=== PATIENT | male | born 1955 | race Two or more races ===

== ENCOUNTER → 2020-03-11 13:04 | Outpatient (BNVA) | payer OTHER, MEDICARE, SELFPAY | PROVIDERS: PCP Internal Medicine; Referring Provider Internal Medicine; Visit Provider Nurse Practitioner | DX: Z76.89 Persons encountering health services in other specified circumstances (principal) ==

== ENCOUNTER 2020-04-30 10:21 | Outpatient (REF) | payer MEDICARE, OTHER, SELFPAY ==
--- NOTE | 2020-04-30 10:24 | US_ITS ---
EXAMINATION: US RETROPERITONEAL LIMITED (RENAL ONLY) CLINICAL INFORMATION: Renal stone. COMPARISON: Ultrasounds renal only dated 04/04/2019 and 10/14/2017. CT abdomen and pelvis without contrast dated 09/19/2017. KUB dated 05/13/2016 and 09/04/2015. TECHNIQUE: Real-time imaging of the kidneys. FINDINGS: RIGHT KIDNEY: 10.7 x 6.1 x 6.2 cm (SAG x AP x TRV). The kidney is normal in size, contour, and echogenicity. Renal cortical thickness is normal. No renal calculi or hydronephrosis. At the lower pole, a 1.9 cm maximal diameter simple cyst is seen. LEFT KIDNEY: 12.4 x 6.0 x 4.7 cm (SAG x AP x TRV). The kidney is normal in size, contour, and echogenicity. Renal cortical thickness is normal. No calculi or focal parenchymal lesions. No hydronephrosis. US/US renal BI IMPRESSION: 1. No renal calculus or hydronephrosis is seen bilaterally. 2. A simple right renal cyst is of incidental note.
== END 2020-04-30 10:22 | disposition home or self-care (01) ==
LOC: HO.US 10:21
PROVIDERS: PCP Internal Medicine; Visit Provider Urology
DX: N20.0 Calculus of kidney (principal)
CPT/HCPCS: 76775

== ENCOUNTER 2020-05-03 08:23 | Outpatient (REF) | payer MEDICARE, OTHER, SELFPAY ==
[2020-05-03 09:20] LABS: Cholesterol 198 mg/dL; HDL Cholesterol 40 mg/dL; LDL Cholesterol Calculated 126 mg/dl; Triglycerides 164 mg/dL
[2020-05-03 09:43] LABS: PSA,Total (Free>4and<10) 2.06 ng/mL (0.00-4.00)
== END 2020-05-03 08:24 | disposition home or self-care (01) ==
LOC: HO.LAB 08:23
PROVIDERS: Absent Provider Urology; PCP Internal Medicine; Visit Provider Internal Medicine
DX: E78.5 Hyperlipidemia, unspecified (principal); N40.1 Benign prostatic hyperplasia with lower urinary tract symptoms; Z12.5 Encounter for screening for malignant neoplasm of prostate
CPT/HCPCS: 36415; 80061; 84153

== ENCOUNTER → 2020-06-07 13:17 | Outpatient (BNVA) | payer OTHER, MEDICARE, SELFPAY | PROVIDERS: PCP Internal Medicine; Visit Provider Urology ==

== ENCOUNTER 2020-06-12 15:36 | Emergency (ER) | payer OTHER, SELFPAY ==
[2020-06-12 15:39] VITALS: BP 137/81; PULSE 90; RESP 16; TEMP 36.8; O2SAT 98; BMI 32.0
== END 2020-06-12 21:27 | disposition left against medical advice (07) ==
LOC: HO.ED 20:51
PROVIDERS: Emergency Provider Emergency Medicine; PCP Internal Medicine
DX: R10.9 Unspecified abdominal pain (principal)
CPT/HCPCS: 99282

== ENCOUNTER 2020-06-14 05:11 | Emergency (ER) | payer OTHER, MEDICARE, SELFPAY ==
[2020-06-14 05:16] VITALS: BP 145/88; PULSE 83; RESP 16; TEMP 36.6; O2SAT 97; BMI 35.8
--- NOTE | 2020-06-14 05:45 | ED_ITS ---
HPI - URI/Sore Throat General Chief Complaint: Upper Respiratory Symptoms Stated Complaint: SORE THROAT Time Seen by Provider: 06/14/20 05:34 History of Present Illness HPI Narrative: Patient is a 65-year-old male presenting today with having sore throat that is been ongoing for the last 2 days. Patient denies any coughing congestion upper respiratory symptom. Actually had his 1st coronavirus vaccine about 10 days ago. History of having strep throat every year. Tolerate p.o. Related Data Home Medications Medication Instructions Recorded Confirmed ammonium lactate 12 % topical cream applic TOPICAL BID 01/02/20 04/02/20 omeprazole 40 mg capsule,delayed 40 mg PO BID 01/02/20 04/02/20 release Previous Rx's Medication Instructions Recorded suvorexant 5 mg tablet 5 mg PO BEDTIME PRN #30 tab 01/04/20 suvorexant 5 mg tablet 5 mg PO BEDTIME #90 tab 01/30/20 [id number] 1 cap PO QID #120 cap 03/18/20 24,000-76,000-120,000 unit capsule,delayed rel cyclobenzaprine 10 mg tablet 10 mg PO TID #90 tab 04/05/20 tamsulosin 0.4 mg capsule 0.4 mg PO DAILY 90 Days #90 cap 04/29/20 penicillin V potassium 500 mg PO TID 10 Days #30 tab 06/14/20 Allergies Allergy/AdvReac Type Severity Reaction Status Date / Time lovastatin Allergy Unknown GI upset Verified 03/11/20 13:04 Review of Systems Review of Systems: Constitutional: No Weight loss, No Fever, No Chills, No Night Sweats, No Fatigue, No Malaise ENT/Mouth: No Hearing loss, No Ear Pain, No Nasal Congestion, No Sinus Pain, No Hoarseness, positive sore throat Eyes: No Eye Pain, No Swelling, No Redness, No Foreign Body, No Discharge, No Vision Changes Cardiovascular: No Chest Pain, No SOB, No Dyspnea on Exertion, No Orthopnea, No Edema, No Palpitations Respiratory: No Cough, No Sputum, No Wheezing, No Smoke Exposure, No Dyspnea Gastrointestinal: No Nausea, No Vomiting, No Diarrhea, No Constipation, No abdominal Pain, No Hematochezia, No Melena Genitourinary: no irregular bleeding, No Dysuria, No Urinary Frequency, No Hematuria, No Urinary Incontinence, No Urgency, No Flank Pain, No Urinary Flow Changes, No Hesitancy Musculoskeletal: No joint pain, No Myalgias, No Joint Swelling Skin: No Skin Lesions, No rash Neuro: No Weakness, No Numbness, No Paresthesias, No Loss of Consciousness, No Dizziness, No Headache Psych: No Anxiety/Panic, No Depression, No SI/HI/AH/VH, No Social Issues, Heme/Lymph: No Bruising, No Bleeding,No Lymphadenopathy Endocrine: No Polyuria, No Polydipsia, No Temperature Intolerance [facility] Past Medical History Medical History BPH loc w urin obs/LUTS Chronic superficial gastritis without bleeding Insomnia Other obstructive and reflux uropathy Renal stones Surgical History History of appendectomy History of esophagogastroduodenoscopy (EGD) Hx of colonoscopy Family History Family History Father No problems noted. Mother HTN (hypertension) Asthma Sister HTN (hypertension) Throat cancer Social History Social History Alcohol intake: current Alcohol intake frequency: does not drink Smoking Status: Never smoker Advance Directives: No Advance Directives Information Provided: No Physical Exam Vital Signs: Vital Signs: Last Vital Signs Temp 98 F 06/14/20 05:16 Pulse 83 06/14/20 05:16 Resp 16 06/14/20 05:16 BP 145/88 H 06/14/20 05:16 Pulse Ox 97 06/14/20 05:16 Body Mass Index 35.8 Appearance: Alert. Oriented X3. No acute distress. Eyes: Pupils equal, round and reactive to light. ENT: Positive erythema bilateral posterior pharynx. There is exudate noted. Neck: Normal inspection. Neck supple. No lymph nodes noted. No crepitus CVS: Normal heart rate and rhythm. Pulses normal. Normal S1 and S2 Respiratory: No respiratory distress. Breath sounds normal. No Wheezing. No rales Abdomen: Soft and nontender. No rigidity. No distention. good BS x4 Skin: Skin warm and dry. Normal skin color. Normal skin turgor. Extremities: No lower extremity edema. Neurovascular intact to all extremities. No Lacerations. No Rash Neuro: Oriented X 3. No motor deficit. No sensory deficit. Moving all extermities. No slurred speech MDM - URI/Sore Throat MDM Narrative Medical decision making narrative: Symptoms consistent with having pharyngitis. Given the redness and the exudate. Despite the rapid strep being negative patient was given penicillin. Will discharge patient home. Currently in stable condition. Discharge Plan Discharge Clinical Impression: Pharyngitis Patient Disposition: Home, Self-Care Instructions: Pharyngitis (ED) Prescriptions: New penicillin V potassium 500 mg tablet 500 mg PO TID 10 Days Qty: 30 RF: 0 No Action suvorexant 5 mg tablet 5 mg PO BEDTIME PRN (Reason: insomnia) Qty: 30 RF: 0 Belsomra 5 mg tablet 5 mg PO BEDTIME Qty: 90 RF: 5 ejembf-jyqaukkp-ijbausi [Creon] 24,000-76,000 -120,000 unit capsule,delayed release(DR/EC) 1 cap PO QID Qty: 120 RF: 1 cyclobenzaprine 10 mg tablet 10 mg PO TID Qty: 90 RF: 8 tamsulosin 0.4 mg capsule 0.4 mg PO DAILY 90 Days Qty: 90 RF: 2 omeprazole 40 mg capsule,delayed release(DR/EC) 40 mg PO BID RF: 0 ammonium lactate 12 % cream topical BID RF: 0 Referrals: Jose Hernandez MD [Primary Care Provider] - 2 days
[2020-06-14 06:53] LABS: Influenza A PCR NEGATIVE (Negative); Influenza B PCR NEGATIVE (Negative); Resp Syncy Virus RNA Qual PCR NEGATIVE (Negative); SARS COV2 PCR INHOUSE NEGATIVE (Negative)
== END 2020-06-14 06:37 | disposition home or self-care (01) ==
LOC: HO.ED 05:57
PROVIDERS: Emergency Provider Emergency Medicine Emergency Medical Services; PCP Internal Medicine
DX: J02.9 Acute pharyngitis, unspecified (principal); Z20.822 Contact with and (suspected) exposure to COVID-19
CPT/HCPCS: 0241U; 36415; 87071; 87880; 99283

== ENCOUNTER 2020-07-03 15:14 | Outpatient (REF) | payer MEDICARE, OTHER, SELFPAY ==
[2020-07-03 16:56] LABS: Glucose Urine UA NEG (NEG); Leukocyte Esterase Urine NEG (NEG); Nitrite Urine NEG (NEG); Specific Gravity - Urine 1.025 (1.005-1.025); Urine Blood NEG (NEG); Urine Ketones NEG (NEG); Urine Protein NEG (NEG-TRACE)
[2020-07-03 16:59] LABS: Appearance Urine CLEAR; Color Urine YELLOW
== END 2020-07-03 15:15 | disposition home or self-care (01) ==
LOC: HO.LAB 15:14
PROVIDERS: PCP Internal Medicine; Visit Provider Nurse Practitioner
DX: R35.0 Frequency of micturition (principal); R10.9 Unspecified abdominal pain; K58.9 Irritable bowel syndrome, unspecified; R14.0 Abdominal distension (gaseous); K21.9 Gastro-esophageal reflux disease without esophagitis; D12.6 Benign neoplasm of colon, unspecified
CPT/HCPCS: 81003; 99212

== ENCOUNTER 2020-08-07 11:24 | Emergency (ER) | payer OTHER, MEDICARE, SELFPAY ==
--- NOTE | ~2020-08-07 | CT_ITS ---
EXAMINATION: CT ABDOMEN AND PELVIS WITHOUT CONTRAST CLINICAL INFORMATION: Abdominal and flank pain. COMPARISON: Renal ultrasound 04/30/2020. CT abdomen and pelvis 09/19/2017 TECHNIQUE: Multidetector volumetric imaging was performed from the superior aspect of the liver through the pubic symphysis. Sagittal and coronal reformatted images were obtained on the technologist's workstation. This CT examination was performed using dose optimization techniques as appropriate, variously including the following: *Automated exposure control *Adjustment of mA and/or kV according to patient size (this includes techniques or standardized protocols for targeted exams where dose is matched to indication/reason for exam; i.e. extremities or head) *Use of iterative reconstruction technique DLP: 663 mGy-cm FINDINGS: LUNG BASES: There is right middle lobe atelectasis. The lung bases are clear. LIVER, GALLBLADDER, AND BILIARY TREE: The liver is normal in size, shape, and attenuation. No focal hepatic lesion or biliary ductal dilatation is present. The gallbladder is unremarkable with no evidence of radiopaque gallstones, gallbladder wall thickening, or obvious pericholecystic inflammatory changes. PANCREAS: Unremarkable. SPLEEN: The spleen is unremarkable. A small accessory splenule is seen adjacent to the hilum. ADRENAL GLANDS: Unremarkable. KIDNEYS AND URETERS: The kidneys are normal in size, shape, and attenuation. No hydronephrosis, hydroureter, or calculi seen. No perinephric stranding. There is a 1.5 cm hypodense lesion measuring 0 Hounsfield units lower pole right kidney likely simple cyst. BLADDER: Unremarkable. GASTROINTESTINAL TRACT: There is scattered stool seen throughout the colon and small bowel loops without distention. There is scattered colonic diverticulosis without diverticulitis. No free air or free fluid seen. There is diffuse haziness in the mesentery inferior to the pancreas in the upper abdomen, suggestive of enteritis. No abnormal mesenteric lymph nodes seen. ABDOMINAL WALL: There is a small umbilical hernia containing fat. LYMPH NODES: Normal. VASCULAR: Unremarkable. PELVIC VISCERA: There is mild prostate enlargement with central gland calcification.. OSSEOUS STRUCTURES: There is a grade 1 anterolisthesis L5 over S1 with degenerative L5-S1 disc changes. No lytic or sclerotic process seen. CT/CT abdomen pelvis wo con IMPRESSION: No acute intrapelvic process seen. There is mild upper abdomen mesenteric haziness inferior the pancreas likely nonspecific mesenteritis. Colonic diverticulosis without diverticulitis. Small umbilical hernia containing fat. Simple cyst lower pole right kidney.
[2020-08-07 11:28] VITALS: BP 142/85; PULSE 83; RESP 18; TEMP 36.6; O2SAT 98; BMI 32.0
[2020-08-07 12:00] VITALS: BP 129/77; PULSE 67; O2SAT 100
--- NOTE | 2020-08-07 12:17 | ED.ABDPAIN ---
HPI - Abdominal Pain General Source: patient, RN notes reviewed and old records reviewed Mode of arrival: ambulatory Limitations: no limitations History of Present Illness HPI narrative: 65-year-old male with past medical history of urinary frequencies, BPH, renal stones, IBS, abdominal bulging, GERD, tubular adenoma of colon, hyperlipidemia for complaining of right lower quadrant pain. Patient had appendectomy in 2005. Patient has a history of stent placement with removal followed by lithotripsy in 2017. Denies any nausea, vomiting, abdominal bloating, discomfort, dyspepsia, odynophagia, dysphagia. Denies any fever or chills. 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 Recent colonoscopy showed diverticulosis without diverticulitis. Patient reports that he has bowel movements normally, no constipation or diarrhea. He reports that he had urinary urgency in the middle of the night, however he was unable to void. Drink some fluids and was able to void few hours later. Patient denies any blood in his urine. His stools are negative for melena or blood. Denies any exposure to COVID. MD elicited complaint: abdominal pain Related Data Home Medications Medication Instructions Recorded Confirmed ammonium lactate 12 % topical cream applic TOPICAL BID 01/02/20 08/09/20 omeprazole 40 mg capsule,delayed 40 mg PO BID 01/02/20 08/09/20 release melatonin 1 mg tablet 2 mg PO BEDTIME PRN tab 07/03/20 08/09/20 naproxen sodium 275 mg tablet 550 mg PO Q12H tab 08/09/20 08/09/20 Previous Rx's Medication Instructions Recorded cyclobenzaprine 10 mg tablet 10 mg PO TID #90 tab 04/05/20 tamsulosin 0.4 mg capsule 0.4 mg PO DAILY 90 Days #90 cap 04/29/20 penicillin V potassium 500 mg PO TID 10 Days #30 tab 06/14/20 suvorexant 5 mg tablet 5 mg PO BEDTIME #90 tab 07/29/20 rvlqix-glmaylbo-pafkiat 1 cap PO QID #120 cap 08/09/20 24,000-76,000-120,000 unit capsule,delayed rel Allergies Allergy/AdvReac Type Severity Reaction Status Date / Time lovastatin Allergy Unknown GI upset Verified 08/09/20 09:41 Review of Systems Review of Systems Constitutional : No Weight loss, No Fever, No Chills, No Night Sweats, No Fatigue, No Malaise ENT/Mouth : No Hearing loss, No Ear Pain, No Nasal Congestion, No Sinus Pain, No Hoarseness, No sore throat, No Rhinorrhea, No Swallowing Difficulty Eyes: No Eye Pain, No Swelling, No Redness, No Foreign Body, No Discharge, No Vision Changes Cardiovascular : No Chest Pain, No SOB, No Dyspnea on Exertion, No Orthopnea, No Edema, No Palpitations Respiratory : No Cough, No Sputum, No Wheezing, No Smoke Exposure, No Dyspnea Gastrointestinal : No Nausea, No Vomiting, No Diarrhea, No Constipation, abdominal Pain, No Hematochezia, No Melena Genitourinary : no irregular bleeding, No Dysuria, No Urinary Frequency, No Hematuria, No Urinary Incontinence, No Urgency, No Flank Pain, No Urinary Flow Changes, No Hesitancy Musculoskeletal : No joint pain, No Myalgias, No Joint Swelling Skin : No Skin Lesions, No rash Neuro : No Weakness, No Numbness, No Paresthesias, No Loss of Consciousness, No Dizziness, No Headache Psych : No Anxiety/Panic, No Depression, No SI/HI/AH/VH, No Social Issues, Heme/Lymph: No Bruising, No Bleeding,No Lymphadenopathy Endocrine : No Polyuria, No Polydipsia, No Temperature Intolerance Yes all other systems are reviewed and are negative Physical Exam Vital Signs: Vital Signs: Last Vital Signs Temp 97.9 F 08/07/20 11:28 Pulse 67 08/07/20 13:52 Resp 18 08/07/20 11:28 BP 130/84 08/07/20 13:52 Pulse Ox 100 08/07/20 13:52 Body Mass Index 32.0 Const: General: healthy appearing, no acute distress and well developed Nutritional Appearance: well nourished Orientation/consciousness: patient oriented x3 Neck: Neck: Yes normal visual inspection, Yes full ROM and Yes trachea midline Thyroid: Thyroid normal Resp: Auscultation: clear to auscultation bilaterally Cardio: Rate: regular rate Rhythm: regular rhythm GI: Inspection: Yes normal to inspection and No distended Palpation (GI): nontender and No hepatosplenomegaly present Auscultation: normal bowel sounds Skin: General skin exam: elasticity normal, turgor normal and dry skin Neuro: General: patient oriented x3 Course Course Course Narrative: 65-year-old male here today for right lower abdominal pain. History of renal stones in the past. He had right renal stone lithotripsy after stenting for some time. He reports that he has been doing well. He is on tamsulosin for BPH. Had trouble voiding this morning however after drinking some water he was able to void. Patient reports that his pain is intermittent. Took 1 of his NSAIDs this morning as prescribed [facility], patient denies nausea. We will hydrate him obtain CBC and CMP. We will scan him. Reevaluation(s) Reevaluation #1: Labs back: No leukocytosis, kidney functions, liver enzymes are all normal. Urine is negative for WBC, blood or nitrate. CT scan is negative for any acute processes. He does have diverticulosis without diverticulitis and scattered stool in his colon. With history of IBS patient was encouraged to increase fiber in his diet. Unsure of why he had dysuria this morning, however he does have a history of BPH, on tamsulosin. I will refer him to see urologist and PCP. Differentials could be also strained muscle. He can continue his NSAIDs at home Reevaluation #2: Patient was medicated with morphine reports to be feeling better. All blood work and CT scan negative for any abnormalities. We will send him to see his urologist to follow-up. Patient had dysuria this morning however negative for blood in the urine or protein and CT scan negative for obstructing stone. Patient has an appointment with his semiconductor packages platemaker this Wednesday. CT scan showed diverticulosis without diverticulitis. Scattered stool within the colon. Patient was instructed to increase fiber in his diet, increase fluid intake. Possibility that his right lower quadrant pain is muscular skeletal. He was instructed to take his NASAD that was prescribed to him by his [facility] provider. MDM - Abdominal Pain Lab Data Result diagrams: 08/07/20 12:45 08/07/20 12:45 Labs: Lab Results 08/07/20 08/07/20 08/07/20 Range/Units 12:45 12:45 12:45 WBC 7.3 (4.8-10.8) X10*3/uL RBC 5.13 (4.60-5.80) X10*6/uL Hgb 15.0 (14.0-18.0) g/dl Hct 45.2 (42-52) % MCV 88.1 (80-98) fL MCH 29.2 (27.0-33.0) pg MCHC 33.2 (31.0-36.0) g/dl RDW 13.4 (11.0-16.0) % Plt Count 256 (160-400) X10*3/uL MPV 9.4 (9.4-12.4) fL Immature Gran % (Auto) 0.3 (0.0-0.4) % Neut % (Auto) 45.6 (45-73) % Lymph % (Auto) 42.8 H (20-40) % [place]ifax % (Auto) 9.9 (2-11) % Eos % (Auto) 1.0 (0-4) % Baso % (Auto) 0.4 (0-2) % Lymph # (Auto) 3.1 (1.2-4.9) X10*3/uL [place] # (Auto) 0.7 (0.1-1.2) X10*3/uL Eos # (Auto) 0.1 (0.0-0.4) X10*3/uL Baso # (Auto) 0.0 (0.0-0.2) X10*3/uL Abs Immat Gran (auto) 0.02 (0.00-0.03) X10*3/uL Absolute Neuts (auto) 3.3 (2.0-8.3) X10*3/uL Absolute Nucleated RBC 0.000 (0.0-0.012) X10*3/uL Nucleated RBC % (auto) 0.0 (0.0-0.2) /100WBC Hold Blue Top SEE NOTE Sodium 138 (135-145) mmol/L Potassium 4.8 (3.3-5.1) mmol/L Chloride 104 (96-108) mmol/L Carbon Dioxide 24 (22-29) mmol/L Anion Gap 15 (12-20) BUN 10 (9-16) mg/dL Creatinine 1.05 (0.5-1.4) mg/dL Estim Creat Clear Calc 80.0 Estimated GFR > 60 Random Glucose 112 (60-115) mg/dL Calcium 8.9 (8.4-10.2) mg/dL Total Bilirubin 0.4 (0.0-1.0) mg/dL AST 25 (5-37) U/L ALT 26 (0-40) U/L Alkaline Phosphatase 62 (39-117) U/L Total Protein 7.4 (6.5-8.0) g/dL Albumin 4.1 (3.5-5.0) g/dL Urine Color Urine Appearance Urine pH (5.0-8.0) Ur Specific Lawrence (1.005-1.025) Urine Protein (NEG-TRACE) MG/DL Urine Glucose (UA) (NEG) MG/DL Urine Ketones (NEG) MG/DL Urine Blood (NEG) Urine Nitrite (NEG) Ur Leukocyte Esterase (NEG) 08/07/20 Range/Units 12:45 WBC (4.8-10.8) X10*3/uL RBC (4.60-5.80) X10*6/uL Hgb (14.0-18.0) g/dl Hct (42-52) % MCV (80-98) fL MCH (27.0-33.0) pg MCHC (31.0-36.0) g/dl RDW (11.0-16.0) % Plt Count (160-400) X10*3/uL MPV (9.4-12.4) fL Immature Gran % (Auto) (0.0-0.4) % Neut % (Auto) (45-73) % Lymph % (Auto) (20-40) % Halifax % (Auto) (2-11) % Eos % (Auto) (0-4) % Baso % (Auto) (0-2) % Lymph # (Auto) (1.2-4.9) X10*3/uL [place] # (Auto) (0.1-1.2) X10*3/uL Eos # (Auto) (0.0-0.4) X10*3/uL Baso # (Auto) (0.0-0.2) X10*3/uL Abs Immat Gran (auto) (0.00-0.03) X10*3/uL Absolute Neuts (auto) (2.0-8.3) X10*3/uL Absolute Nucleated RBC (0.0-0.012) X10*3/uL Nucleated RBC % (auto) (0.0-0.2) /100WBC Hold Blue Top Sodium (135-145) mmol/L Potassium (3.3-5.1) mmol/L Chloride (96-108) mmol/L Carbon Dioxide (22-29) mmol/L Anion Gap (12-20) BUN (9-16) mg/dL Creatinine (0.5-1.4) mg/dL Estim Creat Clear Calc Estimated GFR Random Glucose (60-115) mg/dL Calcium (8.4-10.2) mg/dL Total Bilirubin (0.0-1.0) mg/dL AST (5-37) U/L ALT (0-40) U/L Alkaline Phosphatase (39-117) U/L Total Protein (6.5-8.0) g/dL Albumin (3.5-5.0) g/dL Urine Color STRAW Urine Appearance CLEAR Urine pH 6.5 (5.0-8.0) Ur Specific Lawrence <= 1.005 (1.005-1.025) Urine Protein NEG (NEG-TRACE) MG/DL Urine Glucose (UA) NEG (NEG) MG/DL Urine Ketones NEG (NEG) MG/DL Urine Blood NEG (NEG) Urine Nitrite NEG (NEG) Ur Leukocyte Esterase NEG (NEG) Imaging Data CT scan - abdomen: Radiologist's impression: FINDINGS: LUNG BASES: There is right middle lobe atelectasis. The lung bases are clear. LIVER, GALLBLADDER, AND BILIARY TREE: The liver is normal in size, shape, and attenuation. No focal hepatic lesion or biliary ductal dilatation is present. The gallbladder is unremarkable with no evidence of radiopaque gallstones, gallbladder wall thickening, or obvious pericholecystic inflammatory changes. PANCREAS: Unremarkable. SPLEEN: The spleen is unremarkable. A small accessory splenule is seen adjacent to the hilum. ADRENAL GLANDS: Unremarkable. KIDNEYS AND URETERS: The kidneys are normal in size, shape, and attenuation. No hydronephrosis, hydroureter, or calculi seen. No perinephric stranding. There is a 1.5 cm hypodense lesion measuring 0 Hounsfield units lower pole right kidney likely simple cyst. BLADDER: Unremarkable. GASTROINTESTINAL TRACT: There is scattered stool seen throughout the colon and small bowel loops without distention. There is scattered colonic diverticulosis without diverticulitis. No free air or free fluid seen. There is diffuse haziness in the mesentery inferior to the pancreas in the upper abdomen, suggestive of enteritis. No abnormal mesenteric lymph nodes seen. ABDOMINAL WALL: There is a small umbilical hernia containing fat. LYMPH NODES: Normal. VASCULAR: Unremarkable. PELVIC VISCERA: There is mild prostate enlargement with central gland calcification.. OSSEOUS STRUCTURES: There is a grade 1 anterolisthesis L5 over S1 with degenerative L5-S1 disc changes. No lytic or sclerotic process seen. CT/CT abdomen pelvis wo con IMPRESSION: No acute intrapelvic process seen. There is mild upper abdomen mesenteric haziness inferior the pancreas likely nonspecific mesenteritis. Colonic diverticulosis without diverticulitis. Small umbilical hernia containing fat. Simple cyst lower pole right kidney. Discharge Plan Discharge Clinical Impression: Dysuria, Colicky right lower quadrant pain Patient Disposition: Home, Self-Care Instructions: Dysuria (ED), Abdominal Pain (ED) Additional Instructions: You were seen here in the emergency room for right lower quadrant pain and inability to void urine. All year lab work and your CT scan were negative for any acute processes. Please follow-up with your urologist for prostate exam. Your urine was negative for blood and protein and your CT scan was negative for kidney stone. Please follow-up with your semiconductor packages platemaker. Your CT scan showed diverticulosis without diverticulitis. Scattered stool in your colon. Please increase fiber and fluids in your diet. You may need additional fiber therapy. You may return to emergency department if his symptoms get worse or if you will experience any additional concerning symptoms. You were given morphine in the emergency department please call someone for transportation. Prescriptions: No Action cyclobenzaprine 10 mg tablet 10 mg PO TID Qty: 90 RF: 8 tamsulosin 0.4 mg capsule 0.4 mg PO DAILY 90 Days Qty: 90 RF: 2 Belsomra 5 mg tablet 5 mg PO BEDTIME Qty: 90 RF: 5 penicillin V potassium 500 mg tablet 500 mg PO TID 10 Days Qty: 30 RF: 0 omeprazole 40 mg capsule,delayed release(DR/EC) 40 mg PO BID RF: 0 ammonium lactate 12 % cream topical BID RF: 0 naproxen sodium 275 mg tablet 550 mg PO Q12H RF: 0 Creon 24,000-76,000 -120,000 unit capsule,delayed release(DR/EC) 1 cap PO QID Qty: 120 RF: 1 melatonin 1 mg tablet 2 mg PO BEDTIME PRNRF: 0 Interventions: ED Discharge Assessment Last Done: 08/07/20 15:07 Discharge Date/Time: 08/07/20 15:09 [facility] Past Medical History Medical History BPH loc w urin obs/LUTS Chronic superficial gastritis without bleeding Insomnia Other obstructive and reflux uropathy Renal stones Surgical History History of appendectomy History of esophagogastroduodenoscopy (EGD) Hx of colonoscopy Family History Family History Father No problems noted. Mother HTN (hypertension) Asthma Sister HTN (hypertension) Throat cancer Social History Social History (Updated 07/03/20 @ 15:32 by DELLA Ortiz) Alcohol intake: current Alcohol intake frequency: does not drink Smoking Status: Never smoker
[2020-08-07] MEDS: 0.9 % Sodium Chloride 1,000 ML 999 ML IV (12:50)
[2020-08-07 12:54] LABS: MANUAL DIFF FLAG NO
[2020-08-07 12:55] LABS: Basophils Percent Auto 0.4 % (0-2); Eosinophils Absolute Auto 0.1 X10*3/uL (0.0-0.4); Hematocrit 45.2 % (42-52); Imm Gran Abs Auto 0.02 X10*3/uL (0.00-0.03); Imm Gran Pct Auto 0.3 % (0.0-0.4); Lymphocytes Absolute Auto 3.1 X10*3/uL (1.2-4.9); Lymphocytes Percent Auto 42.8 % (20-40); Mean Corpuscular HGB Conc 33.2 g/dl (31.0-36.0); Mean Corpuscular Hemoglobin 29.2 pg (27.0-33.0); Mean Corpuscular Volume 88.1 fL (80-98); Mean Platelet Volume 9.4 fL (9.4-12.4); Monocytes Absolute Auto 0.7 X10*3/uL (0.1-1.2); Monocytes Percent Auto 9.9 % (2-11); Neutrophils Absolute Auto 3.3 X10*3/uL (2.0-8.3); Neutrophils Percent Auto 45.6 % (45-73); Platelet Count 256 X10*3/uL (160-400); Red Blood Count 5.13 X10*6/uL (4.60-5.80); Red Cell Distribution Width 13.4 % (11.0-16.0); White Blood Count 7.3 X10*3/uL (4.8-10.8)
[2020-08-07 13:01] LABS: Glucose Urine UA NEG (NEG); Leukocyte Esterase Urine NEG (NEG); Nitrite Urine NEG (NEG); PH 6.5 (5.0-8.0); Specific Gravity - Urine <= 1.005 (1.005-1.025); Urine Blood NEG (NEG); Urine Ketones NEG (NEG); Urine Protein NEG (NEG-TRACE)
[2020-08-07 13:02] LABS: Appearance Urine CLEAR; Color Urine STRAW
[2020-08-07 13:43] LABS: Alanine Aminotransferase 26 U/L (0-40); Albumin Level 4.1 g/dL (3.5-5.0); Alkaline Phosphatase 62 U/L (39-117); Anion Gap 15 (12-20); Aspartate Amino Transferase 25 U/L (5-37); Bilirubin Total 0.4 mg/dL (0.0-1.0); Blood Urea Nitrogen 10 mg/dL (9-16); Calcium 8.9 mg/dL (8.4-10.2); Carbon Dioxide 24 mmol/L (22-29); Chloride 104 mmol/L (96-108); Estimated Glomerular Filt Rate > 60; Glucose Random 112 mg/dL (60-115); Potassium 4.8 mmol/L (3.3-5.1); Sodium 138 mmol/L (135-145); Total Protein 7.4 g/dL (6.5-8.0)
[2020-08-07] MEDS: Morphine Sulfate 4 MG/ML CARTRIDGE IVPUSH (13:47)
[2020-08-07 13:52] VITALS: BP 130/84; PULSE 67; O2SAT 100
--- NOTE | 2020-08-07 14:27 | PC.NURSE ---
pt given morphine at 1347, unable to get a ride have given pt something to eat, and will be able to be discharged at 1500 pre provider
== END 2020-08-07 15:09 | disposition home or self-care (01) ==
PROVIDERS: Nurse Practitioner Family; Emergency Provider Emergency Medicine Emergency Medical Services; PCP Internal Medicine
DX: R30.0 Dysuria (principal); R10.31 Right lower quadrant pain; N28.1 Cyst of kidney, acquired; K42.9 Umbilical hernia without obstruction or gangrene; K57.30 Diverticulosis of large intestine without perforation or abscess without bleeding; Z87.442 Personal history of urinary calculi; N40.1 Benign prostatic hyperplasia with lower urinary tract symptoms; Z79.899 Other long term (current) drug therapy; K58.9 Irritable bowel syndrome, unspecified
CPT/HCPCS: 36415; 74176; 80053; 81003; 85025; 96361; 96374; 99284; J2270

== ENCOUNTER 2020-08-09 10:10 | Outpatient (REF) | payer MEDICARE, SELFPAY | END 2020-08-09 10:11 | disposition home or self-care (01) | LOC: HO.LAB 10:10 | PROVIDERS: PCP Internal Medicine; Visit Provider Internal Medicine | DX: R35.0 Frequency of micturition (principal) | CPT/HCPCS: 87086 ==

== ENCOUNTER → 2020-08-13 10:41 | Outpatient (BNVA) | payer MEDICARE, OTHER, SELFPAY | PROVIDERS: PCP Internal Medicine; Visit Provider Urology | DX: N40.1 Benign prostatic hyperplasia with lower urinary tract symptoms (principal) | CPT/HCPCS: 51798; 99212 ==

== ENCOUNTER → 2020-08-16 08:44 | Outpatient (BNVA) | payer MEDICARE, OTHER, SELFPAY | PROVIDERS: PCP Internal Medicine; Visit Provider Nurse Practitioner | DX: K21.9 Gastro-esophageal reflux disease without esophagitis (principal); K58.9 Irritable bowel syndrome, unspecified; D12.6 Benign neoplasm of colon, unspecified; R14.0 Abdominal distension (gaseous); R35.0 Frequency of micturition | CPT/HCPCS: Q3014 ==

== ENCOUNTER 2020-08-28 12:10 | Outpatient (REF) | payer MEDICARE, OTHER, SELFPAY ==
--- NOTE | ~2020-08-28 | US_ITS ---
EXAMINATION: US RETROPERITONEAL LIMITED (RENAL ONLY) CLINICAL INFORMATION: Calculus of kidney. COMPARISON: Bladder ultrasound 08/28/2020. CT abdomen and pelvis 08/07/2020. Renal ultrasound 04/30/2020. KUB 05/13/2016 and 09/04/2015. TECHNIQUE: Real-time imaging of the kidneys. FINDINGS: RIGHT KIDNEY: 10.0 x 6.6 x 5.5 cm (SAG x AP x TRV). The kidney is normal in size, contour, and echogenicity. Renal cortical thickness is normal. No renal calculi or hydronephrosis. An anechoic cyst in the lower pole the right kidney measures 1.8 cm. LEFT KIDNEY: 11.3 x 5.4 x 4.5 cm (SAG x AP x TRV). The kidney is normal in size, contour, and echogenicity. Renal cortical thickness is normal. No calculi or focal parenchymal lesions. No hydronephrosis. BLADDER: Well-distended and normal. Bilateral ureteral jets are demonstrated. Prevoid bladder volume is 285 mL. Postvoid bladder volume is 30 mL. US/US bladder IMPRESSION: Right lower pole renal cyst demonstrates benign features. No other significant abnormality.
--- NOTE | ~2020-08-28 | US_ITS ---
EXAMINATION: US RETROPERITONEAL LIMITED (RENAL ONLY) CLINICAL INFORMATION: Calculus of kidney. COMPARISON: Bladder ultrasound 08/28/2020. CT abdomen and pelvis 08/07/2020. Renal ultrasound 04/30/2020. KUB 05/13/2016 and 09/04/2015. TECHNIQUE: Real-time imaging of the kidneys. FINDINGS: RIGHT KIDNEY: 10.0 x 6.6 x 5.5 cm (SAG x AP x TRV). The kidney is normal in size, contour, and echogenicity. Renal cortical thickness is normal. No renal calculi or hydronephrosis. An anechoic cyst in the lower pole the right kidney measures 1.8 cm. LEFT KIDNEY: 11.3 x 5.4 x 4.5 cm (SAG x AP x TRV). The kidney is normal in size, contour, and echogenicity. Renal cortical thickness is normal. No calculi or focal parenchymal lesions. No hydronephrosis. BLADDER: Well-distended and normal. Bilateral ureteral jets are demonstrated. Prevoid bladder volume is 285 mL. Postvoid bladder volume is 30 mL. US/US renal BI IMPRESSION: Right lower pole renal cyst demonstrates benign features. No other significant abnormality.
== END 2020-08-28 12:11 | disposition home or self-care (01) ==
LOC: HO.US 12:10
PROVIDERS: Visit Provider Urology
DX: N20.0 Calculus of kidney (principal); R39.12 Poor urinary stream
CPT/HCPCS: 76775; 76857

== ENCOUNTER → 2020-09-05 10:12 | Outpatient (BNVA) | payer MEDICARE, SELFPAY | PROVIDERS: PCP Internal Medicine; Visit Provider Urology | DX: N40.1 Benign prostatic hyperplasia with lower urinary tract symptoms (principal); R35.0 Frequency of micturition; N20.0 Calculus of kidney | CPT/HCPCS: Q3014 ==

== ENCOUNTER 2020-09-29 19:43 | Emergency (ER) | payer OTHER, MEDICARE, SELFPAY ==
[2020-09-29 19:47] VITALS: BP 133/83; PULSE 83; RESP 18; TEMP 37; O2SAT 97; BMI 31.7
[2020-09-29 21:01] LABS: Glucose, Whole Blood 117 mg/dL (60-115)
[2020-09-29 21:09] LABS: Glucose Urine UA NEG (NEG); Leukocyte Esterase Urine NEG (NEG); Nitrite Urine NEG (NEG); Specific Gravity - Urine <= 1.005 (1.005-1.025); Urine Blood NEG (NEG); Urine Ketones NEG (NEG); Urine Protein NEG (NEG-TRACE)
--- NOTE | 2020-09-29 21:17 | ED.MALEGU ---
HPI - Male Genitourinary General Chief complaint: General Medical Stated complaint: Groin issues Time Seen by Provider: 09/29/20 19:58 Source: patient Mode of arrival: ambulatory Limitations: language barrier ([employer] Speaking ) History of Present Illness HPI Narrative: 65-year-old male with a past medical history of BPH with urinary obstruction/LUTS, IBS, renal stones, GERD, tubular adenoma of colon, hyperlipidemia and insomnia currently being treated for tinea cruris presenting to the ED with complaints of persistent irritation/erythema/ discharge from the penis for the past 3 weeks despite being on topical clotrimazole. also had 1 dose of 150 mg of Diflucan. Although no symptomatic relief and he reports that his symptoms are worsening. He reports he is actually sexually active with the same female for the past 2 years unprotected. He does not believe that he has STDs although I offered and he reported that he will be tested for gonorrhea / chlamydia/herpes. patient denies any fevers, abdominal pain, hematuria, increased urgency /frequency, diarrhea or constipation or any other symptoms complaints or concerns at this time MD Complaint: other ( Abnormal penile discharge/ penile head erythema /irritation) Onset (ago): week(s) ( 3 weeks worse today) Duration: constant and progressively worsening Location: penis Severity: moderate Quality: other ( itchy) Relieving factors: urination Exacerbating factors: none Associated symptoms: Reports denies other symptoms Related Data Home Medications Medication Instructions Recorded Confirmed ammonium lactate 12 % topical cream applic TOPICAL BID 01/02/20 09/26/20 omeprazole 40 mg capsule,delayed 40 mg PO BID 01/02/20 09/26/20 release melatonin 1 mg tablet 2 mg PO BEDTIME PRN tab 07/03/20 09/26/20 naproxen sodium 275 mg tablet 550 mg PO Q12H tab 08/09/20 09/26/20 Previous Rx's Medication Instructions Recorded cyclobenzaprine 10 mg tablet 10 mg PO TID #90 tab 04/05/20 penicillin V potassium 500 mg PO TID 10 Days #30 tab 06/14/20 suvorexant 5 mg tablet 5 mg PO BEDTIME #90 tab 07/29/20 aomtiw-[id number]-pwcjfrl 1 cap PO QID #120 cap 08/09/20 24,000-76,000-120,000 unit capsule,delayed rel tamsulosin 0.4 mg capsule 0.8 mg PO DAILY 90 Days #180 cap 09/05/20 clotrimazole-betamethasone 1 1 appl TOPICAL BID 14 Days #45 g 09/12/20 %-0.05 % topical cream fluconazole 100 mg tablet 100 mg PO DAILY #3 tab 09/26/20 triamcinolone acetonide 0.5 % 1 appl TOPICAL TID #15 g 09/26/20 topical cream clindamycin HCl 450 mg PO Q6H 10 Days #120 cap 09/29/20 fluconazole [Diflucan] 150 mg PO Q3D 6 Days #2 tab 09/29/20 metronidazole [Flagyl] 500 mg PO BID 7 Days #14 tab 09/29/20 Allergies Allergy/AdvReac Type Severity Reaction Status Date / Time lovastatin Allergy Unknown GI upset Verified 09/29/20 19:47 Review of Systems Review of Systems: Constitutional : No Weight loss, No Fever, No Chills, No Night Sweats, No Fatigue, NoMalaise ENT/Mouth: No ear pain, No sore throat, No Difficulty swallowing Cardiovascular : No Chest Pain, No SOB, No Dyspnea on Exertion, No Orthopnea, NoEdema, No Palpitations Respiratory : No Cough, No Sputum, No Wheezing, No Dyspnea Gastrointestinal : No Nausea, No Vomiting, No Diarrhea, No abdominal Pain, No Hematochezia, No Melena Genitourinary : positive penile erythema/ irritation / rash /abnormal discharge, No testicular pain, No irregular bleeding, No Dysuria, No Urinary Frequency, No Hematuria,No Urinary Incontinence, No Urgency, No Flank Pain Musculoskeletal : No joint pain, No Myalgias, No Joint Swelling Skin : No Skin Lesions, No rash Neuro : No Weakness, No Numbness, No Paresthesias, No Loss of Consciousness, NoDizziness, No Headache Psych : No Social Issues, Heme/Lymph: No Bruising, No Bleeding,No Lymphadenopathy Endocrine : No Polyuria, No Polydipsia, No Temperature Intolerance PATIENT DENIES ANY THOUGHTS OF STDS Yes all other systems are reviewed and are negative [facility] Past Medical History Attestation statement: The following information was validated with the patient. Medical History BPH loc w urin obs/LUTS Chronic superficial gastritis without bleeding Insomnia Other obstructive and reflux uropathy Renal stones Surgical History History of appendectomy History of esophagogastroduodenoscopy (EGD) Hx of colonoscopy Family History Family History Father No problems noted. Mother HTN (hypertension) Asthma Sister HTN (hypertension) Throat cancer Social History Social History Housing: Apartment Alcohol intake: current Alcohol intake frequency: does not drink Patient Tobacco Use Status: Never used Tobacco Second Hand Smoke Exposure: No Advance Directives: No Advance Directives Information Provided: Yes service: Yes ([employer]) Current occupational status: retired Physical Exam Vital Signs: Vital Signs: Last Vital Signs Temp 98.6 F 09/29/20 19:47 Pulse 83 09/29/20 19:47 Resp 18 09/29/20 19:47 BP 133/83 09/29/20 19:47 Pulse Ox 97 09/29/20 19:47 Body Mass Index 31.7 vital signs have been reviewed as normal and appeared to be correct. Blood pressure normal. Heart rate normal. Respiration rate normal. Temperature normal. Oxygen saturation normal. Appearance: Alert. Oriented X3. No acute distress. Head: Normal external exam. Normocephalic. Atraumatic. Eyes: PERRLA. EOMI. Conjunctiva and sclera normal. Eyelids normal. ENT: Pharynx normal. Uvula midline. Moist mucous membranes. Neck: Normal inspection. Neck supple. FROM. No adenopathy. Thyroid Normal. No meningeal signs. No neck mass noted. CVS: Normal heart rate and rhythm. Heart sound normal. No murmurs noted. Pulses normal throughout. Respiratory: No respiratory distress. Painless inspiration. Breath sounds normal. No wheezes/rales/rhonchi noted. Chest nontender. No accessory muscle usage noted or decreased air movement noted. Abdomen: Soft and nontender. Bowel sounds normal in all 4 quadrants. No distention noted. No organomegaly noted. No visible injury noted. : Chaperoned by HENRIK Villeda. erosion and purulent exudate of the foreskin and glans penis consistent with balanitis. No ecchymosis/edema. No hernia noted. No inguinal lymphadenopathy noted. No lacerations/lesions/induration noted. No Condyloma noted. No ecchymosis/mass/nodule/papules/pustules/vesicles. Not consistent with paraphimosis or phimosis. No ulcerations or lesions noted. The meatus is normal. No meatal discharge noted. No blood at the meatus. The scrotum is normal. Cremasteric reflex absent. No ecchymosis noted. Testicles are both descended bilaterally. No hydrocele noted. No inguinal hernia noted. No scrotal mass/swelling noted. No ulcerations or varicocele. Testicles appear normal. They lie normal. Epididymides normal. No blue dot sign. Testicles are not enlarged. No epididymal induration/mass/tenderness. No testicular mass noted. No testicular swelling/tenderness. No high-riding testicle noted. No testicular atrophy noted. Back: No CVA tenderness. Full range of motion noted. Skin: Skin warm and dry. Normal skin color. Normal skin turgor. No rashes/lesions/lacerations noted. Extremities: Extremities exhibit normal range of motion. Extremities nontender. Neuro: Oriented X 3. No motor deficit. No sensory deficit. Reflexes normal. Course Course Course Narrative: 65-year-old male with a past medical history of BPH with urinary obstruction/LUTS, IBS, renal stones, GERD, tubular adenoma of colon, hyperlipidemia and insomnia currently being treated for tinea cruris presenting to the ED with complaints of persistent irritation/erythema/ discharge from the penis for the past 3 weeks despite being on topical clotrimazole. also had 1 dose of 150 mg of Diflucan. Although no symptomatic relief and he reports that his symptoms are worsening. He reports he is actually sexually active with the same female for the past 2 years unprotected. He does not believe that he has STDs although I offered and he reported that he will be tested for gonorrhea / chlamydia/herpes. On exam patient appears to have balanitis infection. Will obtain gonorrhea/ chlamydia urine. Will also obtain bacterial vaginosis /GC and Trichomonas cultures. Patient is already on multiple topical creams for balanitis therefore explained to him that he should continue all creams. We will also start him on clindamycin for possible bacterial infection. Patient was also given 2 g of Flagyl here. Along with herpes culture. Although patient does not believe he has any STDs as he has been with the same female for the past 2 years. Random glucose within normal limits. No glucose in the patient's urine to be concerned for diabetes at this time. And instructions to return if any new or worsening symptoms and that we will call him if he has any positive results. Patient understands agrees with this plan. MDM - Male Genitourinary Medical Records Attestation: I reviewed the patient's medical records. Lab Data Attestation: I reviewed the patient's lab results. Labs: Lab Results 09/29/20 09/29/20 Range/Units 20:47 20:53 POC Glucose 117 H (60-115) mg/dL Urine Color YELLOW Urine Appearance CLEAR Urine pH 6.0 (5.0-8.0) Ur Specific [place] <= 1.005 (1.005-1.025) Urine Protein NEG (NEG-TRACE) MG/DL Urine Glucose (UA) NEG (NEG) MG/DL Urine Ketones NEG (NEG) MG/DL Urine Blood NEG (NEG) Urine Nitrite NEG (NEG) Ur Leukocyte Esterase NEG (NEG) Discharge Plan Discharge Clinical Impression: Balanitis Patient Disposition: Home, Self-Care Instructions: Balanitis (ED) Additional Instructions: You have pending lab results if any are positive you will be contacted. Prescriptions: New clindamycin HCl 150 mg capsule 450 mg PO Q6H 10 Days Qty: 120 RF: 0 fluconazole [Diflucan] 150 mg tablet 150 mg PO Q3D 6 Days Qty: 2 RF: 0 metronidazole [Flagyl] 500 mg tablet 500 mg PO BID 7 Days Qty: 14 RF: 0 No Action cyclobenzaprine 10 mg tablet 10 mg PO TID Qty: 90 RF: 8 Belsomra 5 mg tablet 5 mg PO BEDTIME Qty: 90 RF: 5 penicillin V potassium 500 mg tablet 500 mg PO TID 10 Days Qty: 30 RF: 0 clotrimazole-betamethasone 1-0.05 % cream 1 appl topical BID 14 Days Qty: 45 RF: 0 omeprazole 40 mg capsule,delayed release(DR/EC) 40 mg PO BID RF: 0 ammonium lactate 12 % cream topical BID RF: 0 naproxen sodium 275 mg tablet 550 mg PO Q12H RF: 0 Creon 24,000-76,000 -120,000 unit capsule,delayed release(DR/EC) 1 cap PO QID Qty: 120 RF: 1 triamcinolone acetonide 0.5 % cream 1 appl topical TID Qty: 15 RF: 0 fluconazole [Diflucan] 100 mg tablet 100 mg PO DAILY Qty: 3 RF: 0 melatonin 1 mg tablet 2 mg PO BEDTIME PRNRF: 0 tamsulosin 0.4 mg capsule 0.8 mg PO DAILY 90 Days Qty: 180 RF: 2 Referrals: Migue Gomez MD [Physician[facility] - [facility] Print Language: Kyrgyz
[2020-09-29 21:18] LABS: Appearance Urine CLEAR; Color Urine YELLOW
[2020-09-29] MEDS: metroNIDAZOLE 500 MG TABLET 2000 MG PO (21:23)
[2020-09-29] MEDS: Clindamycin HCL 150 MG CAPSULE 450 MG PO (21:24)
[2020-09-29] MEDS: Fluconazole 150 MG TABLET PO (21:24)
--- NOTE | 2020-09-29 21:48 | PC.NURSE ---
EXAMINATION PERFORMED WITH BY OPAL JACOBSEN WITH RN WITNESS.
[2020-09-30 02:17] LABS: CT PCR NOT DETECTED (Not Detect.); NG PCR NOT DETECTED (Not Detect.)
== END 2020-09-29 21:49 | disposition home or self-care (01) ==
PROVIDERS: Physician Assistant Medical; Emergency Provider Internal Medicine; PCP Internal Medicine
DX: N48.1 Balanitis (principal); R36.9 Urethral discharge, unspecified; Z11.3 Encounter for screening for infections with a predominantly sexual mode of transmission
CPT/HCPCS: 81003; 82947; 87255; 87480; 87491; 87510; 87591; 87660; 99283

== ENCOUNTER 2020-10-23 06:43 | Emergency (ER) | payer OTHER, SELFPAY ==
[2020-10-23 07:10] VITALS: BP 128/80; PULSE 73; RESP 16; TEMP 36; O2SAT 97; BMI 31.6
--- NOTE | 2020-10-23 07:59 | ED_ITS ---
HPI - Male Genitourinary General Chief complaint: Urogenital-Male Stated complaint: Urogenital male Time Seen by Provider: 10/23/20 07:15 History of Present Illness HPI Narrative: Patient comes to emergency room complaining of sores in his penis present since September 29. Patient states that he has tried multiple medications that has been prescribed to him, including oral fluconazole, clindamycin, metronidazole, cephalexin, topical clotrimazole, betamethasone, triamcinolone, oral acyclovir. Patient states that the sores are getting bigger. Patient states the sores are not painful or itchy but they are ?uncomfortable? patient denies fever or chills Related Data Home Medications Medication Instructions Recorded Confirmed ammonium lactate 12 % topical cream applic TOPICAL BID 01/02/20 09/26/20 omeprazole 40 mg capsule,delayed 40 mg PO BID 01/02/20 09/26/20 release melatonin 1 mg tablet 2 mg PO BEDTIME PRN tab 07/03/20 09/26/20 naproxen sodium 275 mg tablet 550 mg PO Q12H tab 08/09/20 09/26/20 Previous Rx's Medication Instructions Recorded cyclobenzaprine 10 mg tablet 10 mg PO TID #90 tab 04/05/20 penicillin V potassium 500 mg 500 mg PO TID 10 Days #30 tab 06/14/20 tablet suvorexant 5 mg tablet (Belsomra) 5 mg PO BEDTIME #90 tab 07/29/20 tamsulosin 0.4 mg capsule 0.8 mg PO DAILY 90 Days #180 cap 09/05/20 clotrimazole-betamethasone 1 1 appl TOPICAL BID 14 Days #45 g 09/12/20 %-0.05 % topical cream clindamycin HCl 150 mg capsule 450 mg PO Q6H 10 Days #120 cap 09/29/20 fluconazole 150 mg tablet 150 mg PO Q3D 6 Days #2 tab 09/29/20 (Diflucan) metronidazole 500 mg tablet 500 mg PO BID 7 Days #14 tab 09/29/20 (Flagyl) [id number] 1 cap PO QID #120 cap 10/01/20 24,000-76,000-120,000 unit capsule,delayed rel (Creon) cephalexin 500 mg capsule 500 mg PO TID 7 Days #21 cap 10/03/20 triamcinolone acetonide 0.5 % 1 appl TOPICAL TID #15 g 10/03/20 topical cream Allergies Allergy/AdvReac Type Severity Reaction Status Date / Time lovastatin Allergy Unknown GI upset Verified 10/03/20 09:15 Review of Systems Review of Systems: Constitutional : No Weight loss, No Fever, No Chills, No Night Sweats, No Fatigue, No Malaise ENT/Mouth : No Hearing loss, No Ear Pain, No Nasal Congestion, No Sinus Pain, No Hoarseness, No sore throat, No Rhinorrhea, No Swallowing Difficulty Eyes: No Eye Pain, No Swelling, No Redness, No Foreign Body, No Discharge, No Vision Changes Cardiovascular : No Chest Pain, No SOB, No Dyspnea on Exertion, No Orthopnea, No Edema, No Palpitations Respiratory : No Cough, No Sputum, No Wheezing, No Smoke Exposure, No Dyspnea Gastrointestinal : No Nausea, No Vomiting, No Diarrhea, No Constipation, No abdominal Pain, No Hematochezia, No Melena Genitourinary : Complaining of penile lesions, No Dysuria, No Urinary Frequency, No Hematuria, No Urinary Incontinence, No Urgency, No Flank Pain, No Urinary Flow Changes, No Hesitancy Musculoskeletal : No joint pain, No Myalgias, No Joint Swelling Skin : See genitourinary Neuro : No Weakness, No Numbness, No Paresthesias, No Loss of Consciousness, No Dizziness, No Headache Psych : No Anxiety/Panic, No Depression, No SI/HI/AH/VH, No Social Issues, Heme/Lymph: No Bruising, No Bleeding,No Lymphadenopathy Endocrine : No Polyuria, No Polydipsia, No Temperature Intolerance [facility] Past Medical History Medical History BPH loc w urin obs/LUTS Chronic superficial gastritis without bleeding Insomnia Other obstructive and reflux uropathy Renal stones Surgical History History of appendectomy History of esophagogastroduodenoscopy (EGD) Hx of colonoscopy Family History Family History Father No problems noted. Mother HTN (hypertension) Asthma Sister HTN (hypertension) Throat cancer Social History Social History Housing: Apartment Alcohol intake: current Alcohol intake frequency: does not drink Patient Tobacco Use Status: Never used Tobacco Second Hand Smoke Exposure: No Advance Directives: Yes Advance Directives Information Provided: Yes Advance Directives on File: No service: Yes ([employer]) Current occupational status: retired Physical Exam Vital Signs: Vital Signs: Last Vital Signs Temp 97.7 F 10/23/20 08:31 Pulse 69 10/23/20 08:31 Resp 14 10/23/20 08:31 BP 135/85 10/23/20 08:31 Pulse Ox 96 10/23/20 08:31 Body Mass Index 31.6 Const: Other: Appearance: Alert. Oriented X3. No acute distress. Eyes: Pupils equal, round and reactive to light. ENT: Pharynx normal. Neck: Normal inspection. Neck supple. No lymph nodes noted. No crepitus CVS: Normal heart rate and rhythm. Pulses normal. Normal S1 and S2 Respiratory: No respiratory distress. Breath sounds normal. No Wheezing. No rales Abdomen: Soft and nontender. No rigidity. No distention. : Ulcer like lesions in the glans and the shaft of the penis Skin: Skin warm and dry. Extremities: No lower extremity edema. No lower extremity edema. No Lacerations. No Rash Neuro: Oriented X 3. No motor deficit. No sensory deficit. Moving all extermities. No slurred speech. Course Course Course Narrative: I discussed the patient with Dr. Gomez, I also sent him pictures of the patient's lesions. Patient has not been tested for syphilis which we will do today, patient will also be treated empirically for syphilis with penicillin G2 2.4 million units IM. pt will be watched at least 30 min after IM injection in c ase pt develops a Jarisch-Herxheimer reaction Discharge Plan Discharge Clinical Impression: Penile lesion Patient Disposition: Home, Self-Care Additional Instructions: After your treatment with penicillin, if you developed intense diffuse body aches, intensifying of the lesions, fever, any new symptoms, please return to [facility] emergency room. Please follow-up with Dr. Gomez. Please follow-up with your primary care physician tomorrow. If you have any worsening or new symptoms, please return to the emergency room or call 911 Prescriptions: No Action cyclobenzaprine 10 mg tablet 10 mg PO TID Qty: 90 RF: 8 Belsomra 5 mg tablet 5 mg PO BEDTIME Qty: 90 RF: 5 Creon 24,000-76,000 -120,000 unit capsule,delayed release(DR/EC) 1 cap PO QID Qty: 120 RF: 8 triamcinolone acetonide 0.5 % cream 1 appl topical TID Qty: 15 RF: 2 cephalexin 500 mg capsule 500 mg PO TID 7 Days Qty: 21 RF: 0 penicillin V potassium 500 mg tablet 500 mg PO TID 10 Days Qty: 30 RF: 0 clindamycin HCl 150 mg capsule 450 mg PO Q6H 10 Days Qty: 120 RF: 0 fluconazole [Diflucan] 150 mg tablet 150 mg PO Q3D 6 Days Qty: 2 RF: 0 metronidazole [Flagyl] 500 mg tablet 500 mg PO BID 7 Days Qty: 14 RF: 0 clotrimazole-betamethasone 1-0.05 % cream 1 appl topical BID 14 Days Qty: 45 RF: 0 omeprazole 40 mg capsule,delayed release(DR/EC) 40 mg PO BID RF: 0 ammonium lactate 12 % cream topical BID RF: 0 naproxen sodium 275 mg tablet 550 mg PO Q12H RF: 0 melatonin 1 mg tablet 2 mg PO BEDTIME PRNRF: 0 tamsulosin 0.4 mg capsule 0.8 mg PO DAILY 90 Days Qty: 180 RF: 2 Referrals: Migue Gomez MD [Physician] - 2 days
[2020-10-23 08:31] VITALS: BP 135/85; PULSE 69; RESP 14; TEMP 36.5; O2SAT 96
[2020-10-23] MEDS: Penicillin G Benzathine 2,400,000 UNIT/4 ML SYRINGE 2400000 UNIT IM (08:37)
[2020-10-23 09:38] LABS: Syphilis Screen Nonreactive (Nonreactive)
[2020-10-30 18:36] LABS: Treponema pallidum Ab FTA ABS Nonreactive (Nonreactive)
== END 2020-10-23 09:00 | disposition home or self-care (01) ==
PROVIDERS: Emergency Provider Emergency Medicine; PCP Internal Medicine
DX: A54.23 Gonococcal infection of other male genital organs (principal); N48.89 Other specified disorders of penis
CPT/HCPCS: 36415; 86780; 96372; 99283; 99284; J0561

== ENCOUNTER → 2020-11-06 15:24 | Outpatient (BNVA) | payer OTHER, SELFPAY | PROVIDERS: PCP Internal Medicine; Visit Provider Urology | DX: N48.1 Balanitis (principal) | CPT/HCPCS: 99212 ==

== ENCOUNTER → 2020-11-22 08:24 | Outpatient (BNVA) | payer OTHER, SELFPAY | PROVIDERS: PCP Internal Medicine; Visit Provider Urology | DX: N48.1 Balanitis (principal); N40.1 Benign prostatic hyperplasia with lower urinary tract symptoms; N13.8 Other obstructive and reflux uropathy; N20.0 Calculus of kidney; Z88.8 Allergy status to other drugs, medicaments and biological substances | CPT/HCPCS: 99212 ==

== ENCOUNTER → 2020-12-24 08:58 | Outpatient (BNVA) | payer OTHER, SELFPAY | PROVIDERS: PCP Internal Medicine; Visit Provider Urology | DX: N48.1 Balanitis (principal) | CPT/HCPCS: 51798; 99212 ==

== ENCOUNTER → 2021-02-17 12:51 | Outpatient (BNVA) | payer OTHER, SELFPAY | PROVIDERS: PCP Internal Medicine; Referring Provider Internal Medicine; Visit Provider Nurse Practitioner | DX: K21.9 Gastro-esophageal reflux disease without esophagitis (principal); K58.9 Irritable bowel syndrome, unspecified; R14.0 Abdominal distension (gaseous) | CPT/HCPCS: 99212 ==

== ENCOUNTER 2021-02-24 08:45 | Outpatient (REF) | payer MEDICARE, SELFPAY ==
[2021-02-24 09:00] LABS: MANUAL DIFF FLAG NO
[2021-02-24 09:32] LABS: Basophils Percent Auto 0.3 % (0-2); Eosinophils Absolute Auto 0.1 X10*3/uL (0.0-0.4); Eosinophils Percent Auto 0.8 % (0-4); Hematocrit 48.7 % (42.0-52.0); Hemoglobin 15.7 g/dl (14.0-18.0); Imm Gran Abs Auto 0.02 X10*3/uL (0.00-0.03); Imm Gran Pct Auto 0.3 % (0.0-0.4); Lymphocytes Absolute Auto 3.3 X10*3/uL (1.2-4.9); Lymphocytes Percent Auto 45.8 % (20-40); Mean Corpuscular HGB Conc 32.2 g/dl (31.0-36.0); Mean Corpuscular Hemoglobin 29.1 pg (27.0-33.0); Mean Corpuscular Volume 90.2 fL (80.0-98.0); Mean Platelet Volume 9.6 fL (9.4-12.4); Monocytes Absolute Auto 0.7 X10*3/uL (0.1-1.2); Monocytes Percent Auto 9.7 % (2-11); Neutrophils Absolute Auto 3.1 x10*3/uL (2.0-8.3); Neutrophils Percent Auto 43.1 % (45-73); Platelet Count 286 X10*3/uL (160-400); Red Cell Distribution Width 13.4 % (11.0-16.0); White Blood Count 7.2 X10*3/uL (4.8-10.8)
[2021-02-24 10:02] LABS: Alanine Aminotransferase 22 U/L (0-40); Albumin Level 4.2 g/dL (3.5-5.0); Alkaline Phosphatase 66 U/L (39-117); Anion Gap 12 (12-20); Aspartate Amino Transferase 22 U/L (5-37); Bilirubin Total 0.8 mg/dL (0.0-1.0); Blood Urea Nitrogen 11 mg/dL (9-16); Calcium 9.8 mg/dL (8.4-10.2); Carbon Dioxide 30 mmol/L (22-29); Chloride 103 mmol/L (96-108); Cholesterol 189 mg/dL; Estimated Glomerular Filt Rate > 60; Glucose Fasting 103 mg/dL (60-99); HDL Cholesterol 35 mg/dL; LDL Cholesterol Calculated 126 mg/dl; Potassium 5.3 mmol/L (3.3-5.1); Sodium 140 mmol/L (135-145); Total Protein 7.5 g/dL (6.5-8.0); Triglycerides 140 mg/dL
[2021-02-24 10:26] LABS: Prostate Specific Antigen Scr 2.02 ng/mL (<0.05-4.0)
== END 2021-02-24 08:46 | disposition home or self-care (01) ==
LOC: HO.LAB 08:45
PROVIDERS: PCP Internal Medicine; Visit Provider Internal Medicine
DX: Z00.00 Encounter for general adult medical examination without abnormal findings (principal); Z12.5 Encounter for screening for malignant neoplasm of prostate
CPT/HCPCS: 36415; 80053; 80061; 84153; 85025

== ENCOUNTER → 2021-03-07 08:35 | Outpatient (BNVA) | payer MEDICARE, SELFPAY | PROVIDERS: PCP Internal Medicine; Visit Provider Urology | DX: N40.0 Benign prostatic hyperplasia without lower urinary tract symptoms (principal); N20.0 Calculus of kidney; N48.1 Balanitis | CPT/HCPCS: Q3014 ==

== ENCOUNTER 2021-05-14 13:58 | Outpatient (REF) | payer MEDICARE, OTHER, SELFPAY ==
--- NOTE | ~2021-05-14 | XR_ITS ---
EXAMINATION: XR ankle RT 2V CLINICAL INFORMATION: Pain COMPARISON: None TECHNIQUE: 3 views of the ankle XR/XR ankle RT 2V FINDINGS/IMPRESSION: No fracture or dislocation. Well corticated osseous fragment along the medial malleolus may reflect sequelae of remote avulsion fracture. Mild degenerative change to the ankle with Achilles tendon enthesopathy and degenerative spurring of the tibiotalar joint. Possible small tibiotalar joint effusion. Soft tissues are unremarkable.
[2021-05-14 15:11] LABS: Uric Acid 7.4 mg/dL (3.4-7.0)
== END 2021-05-14 13:59 | disposition home or self-care (01) ==
LOC: HO.LAB 13:58
PROVIDERS: PCP Internal Medicine; Visit Provider Internal Medicine
DX: M10.9 Gout, unspecified (principal); M25.571 Pain in right ankle and joints of right foot
CPT/HCPCS: 36415; 73600; 84550

== ENCOUNTER 2021-06-30 07:42 | Outpatient (REF) | payer MEDICARE, OTHER, SELFPAY ==
[2021-06-30 09:27] LABS: Alanine Aminotransferase 24 U/L (0-40); Albumin Level 4.4 g/dL (3.5-5.0); Alkaline Phosphatase 66 U/L (39-117); Anion Gap 11 (12-20); Aspartate Amino Transferase 21 U/L (5-37); Bilirubin Total 0.6 mg/dL (0.0-1.0); Blood Urea Nitrogen 12 mg/dL (9-16); Calcium 9.7 mg/dL (8.4-10.2); Carbon Dioxide 31 mmol/L (22-29); Chloride 100 mmol/L (96-108); Estimated Glomerular Filt Rate > 60; Glucose Fasting 99 mg/dL (60-99); Potassium 4.8 mmol/L (3.3-5.1); Sodium 137 mmol/L (135-145)
== END 2021-06-30 07:43 | disposition home or self-care (01) ==
LOC: HO.LAB 07:42
PROVIDERS: PCP Internal Medicine; Visit Provider Nurse Practitioner Family
DX: Z13.1 Encounter for screening for diabetes mellitus (principal)
CPT/HCPCS: 36415; 80053

== ENCOUNTER 2021-08-18 10:18 | Outpatient (REF) | payer MEDICARE, OTHER, SELFPAY ==
--- NOTE | ~2021-08-18 | US_ITS ---
EXAMINATION: US RETROPERITONEAL LIMITED (RENAL ONLY) CLINICAL INFORMATION: Calculus of kidney. COMPARISON: Renal ultrasound 08/28/2020 and 04/30/2020. CT abdomen and pelvis 08/07/2020. X-ray abdomen KUB 05/13/2016. TECHNIQUE: Real-time imaging of the kidneys. FINDINGS: RIGHT KIDNEY: 10.7 x 6.6 x 5.1 cm (SAG x AP x TRV). The kidney is normal in size, contour, and echogenicity. Renal cortical thickness is normal. There is a 1.8 x 1.5 x 1.8 cm cyst in the lower pole. No renal calculi or hydronephrosis. LEFT KIDNEY: 11.6 x 5.5 x 5.6 cm (SAG x AP x TRV). The kidney is normal in size, contour, and echogenicity. Renal cortical thickness is normal. No calculi or focal parenchymal lesions. No hydronephrosis. US/US renal BI IMPRESSION: Small right renal cyst. No stone seen.
== END 2021-08-18 10:19 | disposition home or self-care (01) ==
LOC: HO.US 10:18
PROVIDERS: Visit Provider Urology
DX: N20.0 Calculus of kidney (principal)
CPT/HCPCS: 76775

== ENCOUNTER → 2021-08-19 13:32 | Outpatient (BNVA) | payer MEDICARE, OTHER, SELFPAY | PROVIDERS: PCP Internal Medicine; Referring Provider Internal Medicine; Visit Provider Nurse Practitioner | DX: K21.9 Gastro-esophageal reflux disease without esophagitis (principal); K58.9 Irritable bowel syndrome, unspecified; R14.0 Abdominal distension (gaseous) | CPT/HCPCS: 99212 ==

== ENCOUNTER → 2021-09-11 08:04 | Outpatient (BNVA) | payer MEDICARE, OTHER, SELFPAY | PROVIDERS: PCP Internal Medicine; Visit Provider Urology | DX: N20.0 Calculus of kidney (principal); N40.0 Benign prostatic hyperplasia without lower urinary tract symptoms; Z79.899 Other long term (current) drug therapy | CPT/HCPCS: Q3014 ==

== ENCOUNTER 2021-12-05 07:34 | Emergency (ER) | payer MEDICARE, OTHER, SELFPAY ==
--- NOTE | ~2021-12-05 | XR_ITS ---
EXAMINATION: XR TIBIA AND FIBULA, RIGHT CLINICAL INFORMATION: Pain lateral aspect. Atraumatic COMPARISON: None TECHNIQUE: AP and lateral views of the right tibia and fibula were obtained. FINDINGS: There is a hypertrophic enthesophyte along the medial malleolus with old avulsion fracture fragment or calcific bursitis with mild soft tissue swelling. No abnormality seen along the lateral malleolus. The ankle mortise is intact. No periosteal thickening, fracture or lytic process seen. XR/XR tibia fibula RT 2V IMPRESSION: Calcific bursitis or an old avulsion fracture lateral to medial malleolus with a adjacent enthesophyte and mild soft tissue swelling. No abnormality seen along the lateral malleolus.
[2021-12-05 07:55] VITALS: BP 114/65; PULSE 101; RESP 16; TEMP 36.7; O2SAT 97; BMI 32.0
--- NOTE | 2021-12-05 10:17 | ED.LOWEXIN ---
HPI - Extremity Injury (Lower) General Chief Complaint: Extremity Injury, Lower Stated Complaint: pain in L foot Time Seen by Provider: 12/05/21 07:43 Source: patient and sign language interpreter Mode of arrival: ambulatory History of Present Illness HPI Narrative: 66-year-old male presents without history of diabetes or hypertension with atraumatic right lower leg pain that occurs only while he sleeping between the hours of 02:00 and 03:00 4 5 days has had no associated numbness/tingling/injury nor has he had any fever or chills and does not bother him while he standing or walking. Patient has not attempted any gldp-tpp-nairgcz medications nor has he contact his primary care provider and denies any pain at this time even though he is sitting in the gurney with his leg elevated he states that it is not hurting right now. Related Data Home Medications Medication Instructions Recorded Confirmed ammonium lactate 12 % topical cream applic topical BID 01/02/20 12/02/21 melatonin 1 mg tablet 2 mg PO BEDTIME PRN 07/03/20 12/02/21 Previous Rx's Medication Instructions Recorded triamcinolone acetonide 0.5 % 1 appl topical TID #15 grams 10/03/20 topical cream tamsulosin 0.4 mg capsule 0.8 mg PO DAILY 90 days #180 caps 02/17/21 cyclobenzaprine 10 mg tablet 10 mg PO TID #90 tabs 02/26/21 naproxen 500 mg tablet (Naprosyn) 500 mg PO BID PRN pain #60 tabs 05/14/21 clotrimazole-betamethasone 1 1 appl topical BID balanitis 4 06/23/21 %-0.05 % topical cream weeks #45 grams loratadine 10 mg tablet (Allergy 10 mg PO DAILY PRN allergy 08/13/21 Relief (loratadine)) symptoms #60 tabs suvorexant 5 mg tablet (Belsomra) 5 mg PO BEDTIME #90 tabs 08/13/21 mqmtic-ayibmlsf-tthluub 1 cap PO QID #120 caps 08/19/21 24,000-76,000-120,000 unit capsule,delayed rel (Creon) omeprazole 40 mg capsule,delayed 40 mg PO BID #180 caps 11/04/21 release Allergies Allergy/AdvReac Type Severity Reaction Status Date / Time lovastatin Allergy Unknown GI upset Verified 12/02/21 13:53 Review of Systems Review of Systems: Pertinent positives and negatives as stated HPI 10 point review of systems is otherwise negative. [facility] Past Medical History Source: nursing notes reviewed Medical History Back pain BPH loc w urin obs/LUTS Chronic superficial gastritis without bleeding Insomnia Other obstructive and reflux uropathy Renal stones Screening for diabetes mellitus Tubular adenoma of colon Urinary frequency Surgical History History of appendectomy History of esophagogastroduodenoscopy (EGD) Hx of colonoscopy Family History Family History Father No problems noted. Mother HTN (hypertension) Asthma Sister HTN (hypertension) Throat cancer Social History Social History Housing: Apartment Alcohol intake: current Alcohol intake frequency: does not drink Patient Tobacco Use Status: Never used Tobacco e-Cigarette/Vaping Use: Never Used Second Hand Smoke Exposure: No Advance Directives: No Advance Directives Information Provided: No service: Yes ([employer]) Current occupational status: retired Cognitive needs: No Hearing needs: No Vision needs: Yes Physical Exam Vital Signs: Vital Signs: Last Vital Signs Temp 98.1 F 12/05/21 07:55 Pulse 101 H 12/05/21 07:55 Resp 16 12/05/21 07:55 BP 114/65 12/05/21 07:55 Pulse Ox 97 12/05/21 07:55 O2 Del Method 12/05/21 07:55 BMI result Body Mass Index 32.0 VITAL SIGNS: Reviewed. GENERAL: Well developed, well nourished, in no acute distress. HEAD: Normocephalic/atraumatic EYES: PERRLA, EOMI EARS: Ext canals without abnormality LUNGS: Normal breath sounds. No adventitious sounds or accessory muscle use. SpO2<97> CARDIOVASCULAR: Regular rate and rhythm without noted murmurs, no JVD or lower extremity edema. ABDOMEN: Soft, non-tender, non-distended with bowel sounds. MUSCULOSKELETAL: No tenderness, deformities, or effusions noted on gross inspection. EXTREMITIES: No cyanosis, clubbing or edema;RLE: There is no swelling/erythema/induration, there are no varicose veins, there are no cords, there is no calf swelling and there are no deformities, distal DP/PT are strong and palpable, foot is warm, sensation is intact, there is no noted injury or swelling to the right knee or the distal right ankle and no obvious skin break to suggest ulceration or infection. SKIN: Inspection of the skin reveals no rashes NEUROLOGIC: Alert and oriented x 4. Strength and sensation to light touch were grossly intact x 4. Course Course Course Narrative: 66-year-old male with history and clinical presentation possible musculoskeletal pain as there is no evidence to suggest infection/DVT/thrombophlebitis/claudication/fraction/tendinitis. Patient did not receive any analgesics as he denies any current pain and states that specifically occurs between the hours of 02:00 and 03:00 while he is trying to sleep. Obtained an x-ray to rule out any bony pathology. He will be discharged with instructions to follow-up with his primary care provider, Dr. Hernandez. Discharge Plan Discharge Clinical Impression: Leg pain, right Patient Disposition: Home, Self-Care Instructions: Leg Pain (ED) Additional Instructions: 1. Tylenol 1000 mg, por v?a oral, cada 6 horas seg?n sea necesario para controlar el dolor. No exceda los 4000 mg dentro de las 24 horas. 2. Contin?e con velez naproxeno ya que eso deber?a ayudar a resolver velez dolor. 3. Parche de lidoca?na, aplique en el ?alberto de m?xima sensibilidad dorothea se indica en el empaque exterior. 4. Cary un seguimiento con velez proveedor de atenci?n primaria llamando a la oficina hoy para programar rj syed para la reevaluaci?n y el manejo ambulatorio adicional. Regrese a la rosemarie de emergencias si los s?ntomas empeoran. XR findings Calcific bursitis or an old avulsion fracture lateral to medial malleolus with a adjacent enthesophyte and mild soft tissue swelling. Bursitis calcificada o rj juan david fractura por avulsi?n embarazada lateral a mal?olo medial con un entesofito adyacente y tejido blando leve hinchaz?n. Prescriptions: No Action triamcinolone acetonide 0.5 % cream 1 appl topical TID Qty: 15 2RF tamsulosin 0.4 mg capsule 0.8 mg PO DAILY 90 Days Qty: 180 2RF clotrimazole-betamethasone 1-0.05 % cream 1 appl topical BID 28 Days Qty: 45 0RF omeprazole 40 mg capsule,delayed release(DR/EC) 40 mg PO BID Qty: 180 1RF cyclobenzaprine 10 mg tablet 10 mg PO TID Qty: 90 8RF ammonium lactate 12 % cream topical BID naproxen [Naprosyn] 500 mg tablet 500 mg PO BID PRN (Reason: pain) Qty: 60 4RF loratadine [Allergy Relief (loratadine)] 10 mg tablet 10 mg PO DAILY PRN (Reason: allergy symptoms) Qty: 60 8RF Belsomra 5 mg tablet 5 mg PO BEDTIME Qty: 90 5RF melatonin 1 mg tablet 2 mg PO BEDTIME PRN Creon 24,000-76,000 -120,000 unit capsule,delayed release(DR/EC) 1 cap PO QID Qty: 120 8RF Referrals: Jose Hernandez MD [Primary Care Provider] - Print Language: Persian
== END 2021-12-05 11:21 | disposition home or self-care (01) ==
PROVIDERS: Emergency Provider Student in an Organized Health Care Education/Training Program; PCP Internal Medicine
DX: M79.672 Pain in left foot (principal); Z79.899 Other long term (current) drug therapy
CPT/HCPCS: 73590; 99282; 99283

== ENCOUNTER 2021-12-08 14:37 | Outpatient (REF) | payer MEDICARE, OTHER, SELFPAY ==
[2021-12-08 15:11] LABS: COVID-19 Test Positive (Negative); IDNOW Serial# 9DD0AD1C
== END 2021-12-08 14:38 | disposition home or self-care (01) ==
LOC: HO.LAB 14:37
PROVIDERS: Visit Provider Internal Medicine
DX: Z20.822 Contact with and (suspected) exposure to COVID-19 (principal)
CPT/HCPCS: 87635; C9803

== ENCOUNTER 2021-12-30 14:03 | Outpatient (REF) | payer MEDICARE, OTHER, SELFPAY ==
[2021-12-30 16:05] LABS: Appearance Urine Clear; Color Urine Yellow; Glucose Urine UA Negative (Negative); Leukocyte Esterase Urine Trace (Negative); Nitrite Urine Negative (Negative); UMIC TRIGGER UA YES; Urine Blood Negative (Negative); Urine Ketones Negative (Negative); Urine Protein Negative (Neg-Trace)
[2021-12-30 16:11] LABS: Bacteria Urine None Seen (None Seen); Hyaline Casts Urine 0-2 /LPF (0-2); RBC Urine 0-2 /HPF (0-2); Squamous Epithelial Cell Urine 0-2 /HPF (0-2); WBC Urine 0-5 /HPF (0-5)
== END 2021-12-30 14:04 | disposition home or self-care (01) ==
LOC: HO.LAB 14:03
PROVIDERS: PCP Internal Medicine; Visit Provider Urology
DX: N40.1 Benign prostatic hyperplasia with lower urinary tract symptoms (principal)
CPT/HCPCS: 81001; 87086

== ENCOUNTER 2022-02-03 11:25 | Outpatient (REF) | payer MEDICARE, OTHER, SELFPAY ==
--- NOTE | ~2022-02-03 | XR_ITS ---
EXAMINATION: XR FOOT, LEFT CLINICAL INFORMATION: Left foot pain. COMPARISON: None TECHNIQUE: AP, lateral, and oblique views of the left foot. FINDINGS: There is no acute fracture or dislocation. The joint spaces are unremarkable. The tarsal bones are normally aligned. There is a small retrocalcaneal spur. Mild soft tissue swelling is seen. XR/XR foot LT 2V IMPRESSION: 1. Mild soft tissue swelling without acute underlying osseous abnormality. 2. Small degenerative retrocalcaneal spur.
[2022-02-03 11:45] LABS: MANUAL DIFF FLAG NO
[2022-02-03 12:46] LABS: Basophils Percent Auto 0.2 % (0-2); Eosinophils Absolute Auto 0.1 X10*3/uL (0.0-0.4); Eosinophils Percent Auto 0.6 % (0-4); Hematocrit 47.7 % (42.0-52.0); Hemoglobin 15.7 g/dl (14.0-18.0); Imm Gran Abs Auto 0.02 X10*3/uL (0.00-0.03); Imm Gran Pct Auto 0.2 % (0.0-0.4); Lymphocytes Absolute Auto 4.3 X10*3/uL (1.2-4.9); Mean Corpuscular HGB Conc 32.9 g/dl (31.0-36.0); Mean Corpuscular Hemoglobin 29.5 pg (27.0-33.0); Mean Corpuscular Volume 89.7 fL (80.0-98.0); Monocytes Absolute Auto 0.8 X10*3/uL (0.1-1.2); Monocytes Percent Auto 9.7 % (2-11); Neutrophils Absolute Auto 2.9 x10*3/uL (2.0-8.3); Neutrophils Percent Auto 36.3 % (45-73); Platelet Count 282 X10*3/uL (160-400); Red Blood Count 5.32 X10*6/uL (4.60-5.80); White Blood Count 8.1 X10*3/uL (4.8-10.8)
[2022-02-03 13:33] LABS: Alanine Aminotransferase 21 U/L (0-40); Albumin Level 4.4 g/dL (3.5-5.0); Alkaline Phosphatase 58 U/L (39-117); Anion Gap 13 (12-20); Aspartate Amino Transferase 25 U/L (5-37); Bilirubin Total 0.7 mg/dL (0.0-1.0); Blood Urea Nitrogen 9 mg/dL (9-16); Calcium 9.5 mg/dL (8.4-10.2); Carbon Dioxide 30 mmol/L (22-29); Chloride 101 mmol/L (96-108); Cholesterol 132 mg/dL; Estimated Glomerular Filt Rate > 60; Glucose Fasting 90 mg/dL (60-99); HDL Cholesterol 41 mg/dL; LDL Cholesterol Calculated 70 mg/dl; Potassium 4.6 mmol/L (3.3-5.1); Prostate Specific Antigen Scr 2.26 ng/mL (<0.05-4.0); Sodium 139 mmol/L (135-145); Thyroid Stimulating Hormone 2.83 uIU/mL (0.32-4.0); Total Protein 7.7 g/dL (6.5-8.0); Triglycerides 107 mg/dL; Uric Acid 6.9 mg/dL (3.4-7.0)
== END 2022-02-03 11:26 | disposition home or self-care (01) ==
LOC: HO.LAB 11:25
PROVIDERS: PCP Internal Medicine; Visit Provider Internal Medicine
DX: Z00.00 Encounter for general adult medical examination without abnormal findings (principal); Z12.5 Encounter for screening for malignant neoplasm of prostate; Z13.0 Encounter for screening for diseases of the blood and blood-forming organs and certain disorders involving the immune mechanism; E03.9 Hypothyroidism, unspecified; I10 Essential (primary) hypertension; M10.9 Gout, unspecified; M79.672 Pain in left foot; E78.5 Hyperlipidemia, unspecified
CPT/HCPCS: 36415; 73620; 80053; 80061; 84153; 84443; 84550; 85025

== ENCOUNTER → 2022-02-17 12:53 | Outpatient (BNVA) | payer MEDICARE, OTHER, SELFPAY | PROVIDERS: PCP Internal Medicine; Visit Provider Nurse Practitioner | DX: K21.9 Gastro-esophageal reflux disease without esophagitis (principal); K58.9 Irritable bowel syndrome, unspecified; R14.0 Abdominal distension (gaseous); D12.6 Benign neoplasm of colon, unspecified | CPT/HCPCS: 99212 ==

== ENCOUNTER 2022-04-02 15:00 | Outpatient (REF) | payer MEDICARE, OTHER, SELFPAY ==
--- NOTE | ~2022-04-02 | XR_ITS ---
EXAMINATION: XR SHOULDER, RIGHT CLINICAL INFORMATION: Shoulder pain COMPARISON: None TECHNIQUE: AP external rotation, Grashey, scapular Y, and axillary views of the right shoulder. FINDINGS: No evidence of acute fracture or dislocation. Glenohumeral joint space is maintained. Mild acromioclavicular arthritis. The acromioclavicular distance appears prominent, but alignment appears maintained. This could be related to degenerative changes, or represent sequela of age indeterminate sprain injury No abnormal soft tissue calcification. XR/XR shoulder RT min 2V IMPRESSION: Mild acromioclavicular arthritis. Prominence of the acromioclavicular distance, could be related to the arthritis versus sequela of age-indeterminate injury, clinically correlate.
== END 2022-04-02 15:01 | disposition home or self-care (01) ==
LOC: HO.XRAY 15:00
PROVIDERS: PCP Internal Medicine; Visit Provider Internal Medicine
DX: M25.511 Pain in right shoulder (principal)
CPT/HCPCS: 73030

== ENCOUNTER 2022-05-15 16:20 | Emergency (ER) | payer MEDICARE, OTHER, SELFPAY ==
[2022-05-15 17:34] VITALS: BP 126/73; PULSE 78; RESP 18; TEMP 36.4; O2SAT 95; BMI 32.2
--- NOTE | 2022-05-15 20:35 | ED.SKABFB ---
HPI - Skin/Abscess/Foreign Bdy General Chief complaint: Skin/Abscess/Foreign Body Stated complaint: ?Nail infection Time Seen by Provider: 05/15/22 20:34 Source: patient Mode of arrival: ambulatory Limitations: no limitations History of Present Illness HPI narrative: 67-year-old male presenting to the ER with complaints right 5th finger erythema/swelling/pain near the base of the nail that started 2 days ago worse today. He denies any other symptoms complaints or concerns at this time. Onset (ago): day(s) (Two days ago) Location: R hand (Right 5th finger) Severity: mild Quality: aching Pain Consistency: constant Relieving factors: none Exacerbating factors: none Context: none Associated symptoms: chills Treatments prior to arrival: none Related Data Home Medications Medication Instructions Recorded Confirmed ammonium lactate 12 % topical cream applic topical BID 01/02/20 05/06/22 melatonin 1 mg tablet 2 mg PO BEDTIME PRN 07/03/20 05/06/22 ibuprofen 600 mg tablet 600 mg PO Q6H PRN 04/02/22 05/06/22 Previous Rx's Medication Instructions Recorded triamcinolone acetonide 0.5 % 1 appl topical TID #15 grams 10/03/20 topical cream cyclobenzaprine 10 mg tablet 10 mg PO TID #90 tabs 02/26/21 naproxen 500 mg tablet (Naprosyn) 500 mg PO BID PRN pain #60 tabs 05/14/21 loratadine 10 mg tablet (Allergy 10 mg PO DAILY PRN allergy 08/13/21 Relief (loratadine)) symptoms #60 tabs clotrimazole-betamethasone 1 1 appl topical BID balanitis 4 02/04/22 %-0.05 % topical cream weeks #45 grams suvorexant 5 mg tablet (Belsomra) 5 mg PO BEDTIME #90 tabs 02/04/22 tamsulosin 0.4 mg capsule 0.8 mg PO DAILY 90 days #180 caps 02/09/22 xcbpaa-wntbpiek-qwzavod 1 cap PO QID #120 caps 02/17/22 24,000-76,000-120,000 unit capsule,delayed rel (Creon) omeprazole 40 mg capsule,delayed 40 mg PO BID #180 caps 02/17/22 release tramadol 50 mg tablet 50 mg PO Q8H PRN pain #20 tabs 04/02/22 amoxicillin 875 mg-potassium 1 tab PO BID Paronychia 7 days #14 05/15/22 clavulanate 125 mg tablet tabs mupirocin 2 % topical ointment 1 appl topical TID Paronychia #22 05/15/22 grams Allergies Allergy/AdvReac Type Severity Reaction Status Date / Time lovastatin Allergy Unknown GI upset Verified 05/15/22 17:36 Review of Systems Review of Systems: Constitutional : No Fever, No Chills, Cardiovascular : No Chest Pain, No SOB Respiratory : No Dyspnea Gastrointestinal : No abdominal pain Musculoskeletal : No Joint Swelling Skin : + skin erythema/swelling/pain, No skin laceration, No Foreign bodies, No rash Neuro : No Weakness, No Numbness/tingling Psych : No SI/HI/thoughts of self injury Yes all other systems are reviewed and are negative [facility] Past Medical History Attestation statement: The following information was validated with the patient. Source: old records reviewed and nursing notes reviewed Medical History Back pain BPH loc w urin obs/LUTS Chronic superficial gastritis without bleeding Insomnia Other obstructive and reflux uropathy Renal stones Screening for diabetes mellitus Tubular adenoma of colon Urinary frequency Surgical History History of appendectomy History of esophagogastroduodenoscopy (EGD) Hx of colonoscopy Family History Family History Father No problems noted. Mother HTN (hypertension) Asthma Sister HTN (hypertension) Throat cancer Social History Social History Housing: Apartment Alcohol intake: current Alcohol intake frequency: does not drink Patient Tobacco Use Status: Never used Tobacco e-Cigarette/Vaping Use: Never Used Second Hand Smoke Exposure: No Advance Directives: No Advance Directives Information Provided: No service: Yes ([employer]) Current occupational status: retired Cognitive needs: No Hearing needs: No Vision needs: Yes Physical Exam Vital Signs: Vital Signs: Last Vital Signs Temp 97.5 F 05/15/22 20:48 Pulse 67 05/15/22 20:48 Resp 18 05/15/22 20:48 BP 119/72 02/17/23 20:48 Pulse Ox 93 05/15/22 20:48 O2 Del Method 05/15/22 20:48 BMI result Body Mass Index 32.2 vital signs have been reviewed as normal and appeared to be correct. Blood pressure normal Heart rate normal. Respiration rate normal. Temperature normal. Oxygen saturation normal. Appearance: Alert. Oriented X3. No acute distress. Head: Normal external exam. Normocephalic. Atraumatic. Eyes: PERRLA. EOMI. Conjunctiva and sclera normal. Eyelids normal. ENT: Pharynx normal. Uvula midline. Moist mucous membranes. Neck: Normal inspection. Neck supple. FROM. CVS: Normal heart rate and rhythm. Respiratory: No respiratory distress. Painless inspiration. Skin: Skin warm and dry. Normal skin color. Normal skin turgor. To the right 5th digit patient has mild erythema and soft tissue swelling and tenderness palpation to the base of the nail. Not consistent with a drainable abscess. No streaking is noted. No purulent drainage noted. No addition rashes/lesions/lacerations noted. Extremities: Extremities exhibit normal range of motion. Extremities nontender. Neuro: Oriented X 3. No motor deficit. No sensory deficit. Reflexes normal. Normal steady gait. No focal neuro deficits noted. Vascular: + radial pulses b/l. Normal cap refill. No cyanosis noted to upper extremity nails Course Course Course Narrative: Patient with cellulitis/paronychia although no drainable abscess. No streaking is noted. Will DC home with antibiotics and symptomatic treatment instructions return if any new or worsening symptoms follow up with primary care provider. Medications Administered Discontinued Medications Generic Name Dose Route Start Last Admin Trade Name Jhonyq PRN Reason Stop Dose Admin Amoxicillin/Clavulanate Potassium 875 mg 05/15/22 20:38 05/15/22 20:49 Amoxicillin/Potassium Clav 875 Mg Tablet PO 05/15/22 20:39 875 mg ONCE ONE Administration Discharge Plan Discharge Clinical Impression: Paronychia of finger Patient Disposition: Home, Self-Care Instructions: Paronychia (ED) Prescriptions: New mupirocin 2 % ointment 1 appl topical TID Qty: 22 0RF amoxicillin-pot clavulanate 875-125 mg tablet 1 tab PO BID 7 Days Qty: 14 0RF No Action triamcinolone acetonide 0.5 % cream 1 appl topical TID Qty: 15 2RF clotrimazole-betamethasone 1-0.05 % cream 1 appl topical BID 28 Days Qty: 45 0RF Belsomra 5 mg tablet 5 mg PO BEDTIME Qty: 90 5RF tamsulosin 0.4 mg capsule 0.8 mg PO DAILY 90 Days Qty: 180 2RF cyclobenzaprine 10 mg tablet 10 mg PO TID Qty: 90 8RF ammonium lactate 12 % cream topical BID naproxen [Naprosyn] 500 mg tablet 500 mg PO BID PRN (Reason: pain) Qty: 60 4RF loratadine [Allergy Relief (loratadine)] 10 mg tablet 10 mg PO DAILY PRN (Reason: allergy symptoms) Qty: 60 8RF ibuprofen 600 mg tablet 600 mg PO Q6H PRN tramadol 50 mg tablet 50 mg PO Q8H PRN (Reason: pain) Qty: 20 0RF melatonin 1 mg tablet 2 mg PO BEDTIME PRN omeprazole 40 mg capsule,delayed release(DR/EC) 40 mg PO BID Qty: 180 1RF Creon 24,000-76,000 -120,000 unit capsule,delayed release(DR/EC) 1 cap PO QID Qty: 120 8RF Referrals: Jose Hernandez MD [Primary Care Provider] - 2 days Interventions: ED Discharge Assessment Last Done: 05/15/22 21:04 Discharge Date/Time: 05/15/22 21:04
[2022-05-15 20:48] VITALS: BP 119/72; PULSE 67; RESP 18; TEMP 36.4; O2SAT 93
[2022-05-15] MEDS: Amoxicillin/Potassium Clav 875 MG TABLET PO (20:49)
== END 2022-05-15 21:04 | disposition home or self-care (01) ==
PROVIDERS: Emergency Provider Emergency Medicine; PCP Internal Medicine
DX: L03.011 Cellulitis of right finger (principal)
CPT/HCPCS: 99282; 99283

== ENCOUNTER 2022-07-17 16:39 | Emergency (ER) | payer OTHER, SELFPAY ==
[2022-07-17 18:12] VITALS: BP 157/93; PULSE 110; RESP 16; TEMP 36.7; O2SAT 96; BMI 31.6
--- NOTE | 2022-07-17 18:17 | ED_ITS ---
HPI - Male Genitourinary General Chief complaint: Urogenital-Male <Ean Royal - Last Filed: 07/17/22 18:18> Stated complaint: private part ?cyst <Ean Royal - Last Filed: 07/17/22 18:18> Time Seen by Provider: 07/17/22 20:11 <Ean Royal - Last Filed: 07/17/22 18:18> Source: patient <Santa Tompkins MD - Last Filed: 07/17/22 20:37> Mode of arrival: ambulatory <Santa Tompkins MD - Last Filed: 07/17/22 20:37> Limitations: no limitations <Santa Tompkins MD - Last Filed: 07/17/22 20:37> History of Present Illness HPI Narrative: Patient comes to the emergency room complaining of penile lesions that have been present for approximately a month. Patient has been prescribed clotrimazole/betamethasone cream without any relief. [facility]. Patient denies any pain or itching, denies penile discharge, no testicular pain. Patient is not concerned about possible sexually transmitted diseases. <Santa Tompkins MD - Last Filed: 07/17/22 20:37> Related Data Home medications: Home Medications Medication Instructions Recorded Confirmed ammonium lactate 12 % topical cream applic topical BID 01/02/20 05/06/22 melatonin 1 mg tablet 2 mg PO BEDTIME PRN 07/03/20 05/06/22 ibuprofen 600 mg tablet 600 mg PO Q6H PRN 04/02/22 05/06/22 Previous Rx's Medication Instructions Recorded triamcinolone acetonide 0.5 % 1 appl topical TID #15 grams 10/03/20 topical cream cyclobenzaprine 10 mg tablet 10 mg PO TID #90 tabs 02/26/21 naproxen 500 mg tablet (Naprosyn) 500 mg PO BID PRN pain #60 tabs 05/14/21 loratadine 10 mg tablet (Allergy 10 mg PO DAILY PRN allergy 08/13/21 Relief (loratadine)) symptoms #60 tabs suvorexant 5 mg tablet (Belsomra) 5 mg PO BEDTIME #90 tabs 02/04/22 tamsulosin 0.4 mg capsule 0.8 mg PO DAILY 90 days #180 caps 02/09/22 elfvbl-nqggvmxn-pqhhttf 1 cap PO QID #120 caps 02/17/22 24,000-76,000-120,000 unit capsule,delayed rel (Creon) omeprazole 40 mg capsule,delayed 40 mg PO BID #180 caps 02/17/22 release tramadol 50 mg tablet 50 mg PO Q8H PRN pain #20 tabs 04/02/22 amoxicillin 875 mg-potassium 1 tab PO BID Paronychia 7 days #14 05/15/22 clavulanate 125 mg tablet tabs mupirocin 2 % topical ointment 1 appl topical TID Paronychia #22 05/15/22 grams azithromycin 250 mg tablet See Rx Instructions PO .COMPLEX #6 05/19/22 tabs clotrimazole-betamethasone 1 1 appl topical BID balanitis 4 06/26/22 %-0.05 % topical cream weeks #45 grams amoxicillin 500 mg-potassium 1 tab PO TID 7 days #21 tabs 07/17/22 clavulanate 125 mg tablet (Augmentin) <Ean Royal - Last Filed: 07/17/22 18:18> Allergies/Adverse reactions: Allergies Allergy/AdvReac Type Severity Reaction Status Date / Time lovastatin Allergy Unknown GI upset Verified 05/15/22 17:36 <Ean Royal - Last Filed: 07/17/22 18:18> Review of Systems Review of Systems: Constitutional : No Weight loss, No Fever, No Chills, No Night Sweats, No Fatigue, No Malaise ENT/Mouth : No Hearing loss, No Ear Pain, No Nasal Congestion, No Sinus Pain, No Hoarseness, No sore throat, No Rhinorrhea, No Swallowing Difficulty Eyes: No Eye Pain, No Swelling, No Redness, No Foreign Body, No Discharge, No Vision Changes Cardiovascular : No Chest Pain, No SOB, No Dyspnea on Exertion, No Orthopnea, No Edema, No Palpitations Respiratory : No Cough, No Sputum, No Wheezing, No Smoke Exposure, No Dyspnea Gastrointestinal : No Nausea, No Vomiting, No Diarrhea, No Constipation, No abdominal Pain, No Hematochezia, No Melena Genitourinary : Complaining of painless penile lesions in the glands, No Dysuria, No Urinary Frequency, No Hematuria, No Urinary Incontinence, No Urgency, No Flank Pain, No Urinary Flow Changes, No Hesitancy Musculoskeletal : No joint pain, No Myalgias, No Joint Swelling Skin : No Skin Lesions, No rash Neuro : No Weakness, No Numbness, No Paresthesias, No Loss of Consciousness, No Dizziness, No Headache Psych : No Anxiety/Panic, No Depression, No SI/HI/AH/VH, No Social Issues, Heme/Lymph: No Bruising, No Bleeding,No Lymphadenopathy Endocrine : No Polyuria, No Polydipsia, No Temperature Intolerance <Santa Tompkins MD - Last Filed: 07/17/22 20:37> [facility] Past Medical History Medical History: Medical History Back pain BPH loc w urin obs/LUTS Chronic superficial gastritis without bleeding Insomnia Other obstructive and reflux uropathy Renal stones Screening for diabetes mellitus Tubular adenoma of colon Urinary frequency <Ean Royal - Last Filed: 07/17/22 18:18> Surgical History: Surgical History History of appendectomy History of esophagogastroduodenoscopy (EGD) Hx of colonoscopy <Ean Royal - Last Filed: 07/17/22 18:18> Family History Family History: Family History Father No problems noted. Mother HTN (hypertension) Asthma Sister HTN (hypertension) Throat cancer <Ean Royal - Last Filed: 07/17/22 18:18> Social History Social History: Social History Housing: Apartment Alcohol intake: current Alcohol intake frequency: does not drink Patient Tobacco Use Status: Never used Tobacco e-Cigarette/Vaping Use: Never Used Second Hand Smoke Exposure: No Advance Directives: No Advance Directives Information Provided: No service: Yes ([employer]) Current occupational status: retired Cognitive needs: No Hearing needs: No Vision needs: Yes <Ean Royal - Last Filed: 07/17/22 18:18> Physical Exam Vital Signs: Vital Signs: Last Vital Signs Temp 98.1 F 07/17/22 18:12 Pulse 110 H 07/17/22 18:12 Resp 16 07/17/22 18:12 BP 157/93 H 07/17/22 18:12 Pulse Ox 96 07/17/22 18:12 O2 Del Method Room Air 07/17/22 18:12 BMI result Body Mass Index 31.6 <Ean Royal - Last Filed: 07/17/22 18:18> Vital Signs: Last Vital Signs Temp 98.1 F 07/17/22 18:12 Pulse 110 H 07/17/22 18:12 Resp 16 07/17/22 18:12 BP 157/93 H 07/17/22 18:12 Pulse Ox 96 07/17/22 18:12 O2 Del Method Room Air 07/17/22 18:12 BMI result Body Mass Index 31.6 <Santa Tompkins MD - Last Filed: 07/17/22 20:37> Const: Other: Appearance: Alert. Oriented X3. No acute distress. Eyes: Pupils equal, round and reactive to light. ENT: Pharynx normal. Neck: Normal inspection. Neck supple. No lymph nodes noted. No crepitus CVS: Normal heart rate and rhythm. Pulses normal. Normal S1 and S2 Respiratory: No respiratory distress. Breath sounds normal. No Wheezing. No rales Abdomen: Soft and nontender. No rigidity. No distention. : There are 3 erythematous papules in the dorsum of the glans. Painless, no secretion. Skin: Skin warm and dry. Normal skin color. Normal skin turgor. Extremities: No lower extremity edema. No Lacerations. No Rash Neuro: Oriented X 3. No motor deficit. No sensory deficit. Moving all extremities. No slurred speech. CN 2 through 12 grossly intact Psych: calm, cooperative, normal affect <Santa Tompkins MD - Last Filed: 07/17/22 20:37> Course Course Course Narrative: RME- 67 year old male believes he has a yeast infection in his groin. He has been on clotrimazole with betamethasone with minimal improvement over the last 3 weeks. He would like to be re-evaluated as his symptoms have not improved. <Ean Royal - Last Filed: 07/17/22 18:18> Medical Decision Making Medical Decision Making MDM Narrative: -in 2020, ice of this patient with the same condition. Patient had already tried multiple medications without any relief. Patient was giving a penicillin injection IM per urologist recommendation. Eventually, patient tested negative for syphilis. Patient followed up with Dr. Gomez in 2020, he was prescribed amoxicillin as a trial, seems that patient did have symptomatic relief and the rash resolved. I discussed with the patient that we can try the same antibiotic, patient received Augmentin in 2020. Also, I discussed with the patient that if the lesions do not clear up with this antibiotic and all the antifungals and topical steroids that he is taking, he may need a biopsy of the lesions. Patient agreeable. <Santa Tompkins MD - Last Filed: 07/17/22 20:37> Differential Diagnosis Differential Diagnoses: The differential diagnosis associated with the presentation includes (Balanitis, STDs, fungal infection) <Santa Tompkins MD - Last Filed: 07/17/22 20:37> Discharge Plan Discharge Clinical Impression: Balanitis <Ean Royal - Last Filed: 07/17/22 18:18> Patient Disposition: Home, Self-Care <Ean Royal - Last Filed: 07/17/22 18:18> Instructions: Balanitis (ED) <Ean Royal - Last Filed: 07/17/22 18:18> Additional Instructions: If your lesions do not clear up in 7 days, you need to follow-up with Dr. Gomez. You may need a skin biopsy of the lesions. Please follow-up with your primary care physician tomorrow. If you have any worsening or new symptoms, please return to the emergency room or call 911 <Ean Royal - Last Filed: 07/17/22 18:18> Prescriptions: New amoxicillin-pot clavulanate [Augmentin] 500-125 mg tablet 1 tab PO TID 7 Days Qty: 21 0RF No Action triamcinolone acetonide 0.5 % cream 1 appl topical TID Qty: 15 2RF Belsomra 5 mg tablet 5 mg PO BEDTIME Qty: 90 5RF tamsulosin 0.4 mg capsule 0.8 mg PO DAILY 90 Days Qty: 180 2RF azithromycin 250 mg tablet See Rx Instructions PO .COMPLEX Qty: 6 0RF Rx Instructions: take 500 mg today (day 1), then 250 mg for 4 days (days 2-5) PO clotrimazole-betamethasone 1-0.05 % cream 1 appl topical BID 28 Days Qty: 45 0RF mupirocin 2 % ointment 1 appl topical TID Qty: 22 0RF amoxicillin-pot clavulanate 875-125 mg tablet 1 tab PO BID 7 Days Qty: 14 0RF cyclobenzaprine 10 mg tablet 10 mg PO TID Qty: 90 8RF ammonium lactate 12 % cream topical BID naproxen [Naprosyn] 500 mg tablet 500 mg PO BID PRN (Reason: pain) Qty: 60 4RF loratadine [Allergy Relief (loratadine)] 10 mg tablet 10 mg PO DAILY PRN (Reason: allergy symptoms) Qty: 60 8RF ibuprofen 600 mg tablet 600 mg PO Q6H PRN tramadol 50 mg tablet 50 mg PO Q8H PRN (Reason: pain) Qty: 20 0RF melatonin 1 mg tablet 2 mg PO BEDTIME PRN omeprazole 40 mg capsule,delayed release(DR/EC) 40 mg PO BID Qty: 180 1RF Creon 24,000-76,000 -120,000 unit capsule,delayed release(DR/EC) 1 cap PO QID Qty: 120 8RF <Ean Royal - Last Filed: 07/17/22 18:18> Referrals: Migue Gomez MD [Physician] - 07/17/22 8:37 pm <Ean Royal - Last Filed: 07/17/22 18:18>
[2022-07-17] MEDS: Amoxicillin/Potassium Clav 500 MG TABLET PO (20:41)
== END 2022-07-17 20:43 | disposition home or self-care (01) ==
PROVIDERS: Emergency Provider Emergency Medicine; PCP Internal Medicine
DX: N48.1 Balanitis (principal)
CPT/HCPCS: 99283

== ENCOUNTER → 2022-08-18 12:17 | Outpatient (BNVA) | payer MEDICARE, OTHER, SELFPAY | PROVIDERS: PCP Internal Medicine; Visit Provider Nurse Practitioner | DX: K21.9 Gastro-esophageal reflux disease without esophagitis (principal); K58.9 Irritable bowel syndrome, unspecified; R14.0 Abdominal distension (gaseous); Z86.010 Personal history of colon polyps; Z79.899 Other long term (current) drug therapy | CPT/HCPCS: 99212 ==

== ENCOUNTER 2022-08-20 08:21 | Outpatient (REF) | payer MEDICARE, OTHER, SELFPAY ==
--- NOTE | ~2022-08-20 | US_ITS ---
EXAMINATION: US RETROPERITONEAL LIMITED (RENAL ONLY) CLINICAL INFORMATION: Calculus of kidney. COMPARISON: Renal ultrasound 08/18/2021 and 08/28/2020. CT abdomen and pelvis 08/07/2020. X-ray KUB 05/13/2016 and 09/04/2015. TECHNIQUE: Real-time imaging of the kidneys. FINDINGS: RIGHT KIDNEY: 11.1 x 5.8 x 4.6 cm (SAG x AP x TRV). The kidney is normal in size, contour, and echogenicity. Renal cortical thickness is normal. No calculi or focal parenchymal lesions. No hydronephrosis. There is anechoic cyst lower pole measuring 2.3 x 1.8 x 1.8 cm. Previously, it measured 1.8 x 1.5 x 1.8 cm. No additional lesions seen. LEFT KIDNEY: 11.6 x 6.2 x 4.7 cm (SAG x AP x TRV). The kidney is normal in size, contour, and echogenicity. Renal cortical thickness is normal. No calculi or focal parenchymal lesions. No hydronephrosis. US/US renal BI IMPRESSION: Simple cyst lower pole right kidney. Stable. No follow up needed. No echogenic renal calculi or hydronephrosis.
== END 2022-08-20 08:22 | disposition home or self-care (01) ==
LOC: HO.US 08:21
PROVIDERS: PCP Internal Medicine; Visit Provider Urology
DX: N20.0 Calculus of kidney (principal)
CPT/HCPCS: 76775

== ENCOUNTER 2022-09-11 05:54 | Emergency (ER) | payer MEDICARE, OTHER, SELFPAY ==
[2022-09-11 05:58] VITALS: BP 125/84; PULSE 71; RESP 18; TEMP 36.2; O2SAT 94; BMI 31.6
[2022-09-11 06:00] VITALS: BP 137/79; PULSE 78; RESP 16; TEMP 36; O2SAT 100
--- NOTE | 2022-09-11 07:02 | ED_ITS ---
HPI - General Adult General Chief complaint: General Medical Stated complaint: hemorrhoid? Time Seen by Provider: 09/11/22 06:57 Source: patient Mode of arrival: ambulatory Limitations: no limitations Related Data Home Medications Medication Instructions Recorded Confirmed ammonium lactate 12 % topical cream applic topical BID 01/02/20 08/03/22 aspirin 81 mg tablet,delayed 81 mg PO DAILY 08/18/22 release cyclobenzaprine 10 mg tablet 10 mg PO TID 08/18/22 suvorexant 5 mg tablet (Belsomra) 5 mg PO BEDTIME 08/18/22 tamsulosin 0.4 mg capsule 0.8 mg PO DAILY 08/18/22 tramadol 50 mg tablet 50 mg PO Q8H PRN pain 08/18/22 Previous Rx's Medication Instructions Recorded hydrocortisone 2.5 % topical cream 1 appl [place] BID-QID PRN hemorrhoids 08/03/22 with perineal applicator #30 grams (Anusol-HC) mupirocin 2 % topical ointment 1 appl topical TID Paronychia #22 08/03/22 grams clotrimazole-betamethasone 1 1 appl topical BID balanitis 4 08/18/22 %-0.05 % topical cream weeks #45 grams xvsxly-yjyujdmd-chazjii 1 cap PO QID #120 caps 08/18/22 24,000-76,000-120,000 unit capsule,delayed rel (Creon) melatonin 1 mg tablet 2 mg PO BEDTIME PRN sleep #60 tabs 08/18/22 omeprazole 20 mg capsule,delayed 20 mg PO DAILY #30 caps 08/18/22 release Allergies Allergy/AdvReac Type Severity Reaction Status Date / Time lovastatin Allergy Unknown GI upset Verified 08/18/22 12:35 [facility] Past Medical History Medical History Back pain BPH loc w urin obs/LUTS Chronic superficial gastritis without bleeding Insomnia Other obstructive and reflux uropathy Renal stones Screening for diabetes mellitus Tubular adenoma of colon Urinary frequency Surgical History History of appendectomy History of esophagogastroduodenoscopy (EGD) Hx of colonoscopy Family History Family History Father No problems noted. Mother HTN (hypertension) Asthma Sister HTN (hypertension) Throat cancer Social History Social History Housing: Apartment Alcohol intake: never Patient Tobacco Use Status: Never used Tobacco Smoked in Last 30 Days: No e-Cigarette/Vaping Use: Never Used Second Hand Smoke Exposure: No Use of substances other than those prescribed or required for medical reasons: No Advance Directives: No Advance Directives Information Provided: No service: Yes ([employer]) Current occupational status: retired Cognitive needs: No Hearing needs: No Vision needs: Yes Physical Exam ED Vital Signs: Vital Signs - 24 hr 09/11/22 05:58 09/11/22 06:00 Temperature 97.2 F 96.8 F Pulse Rate 71 78 Respiratory Rate 18 16 Blood Pressure 125/84 137/79 Pulse Oximetry 94 100 Oxygen Delivery Method Room Air Room Air BMI result Body Mass Index 31.6 Discharge Plan Discharge Prescriptions: No Action clotrimazole-betamethasone 1-0.05 % cream 1 appl topical BID 28 Days Qty: 45 0RF melatonin 1 mg tablet 2 mg PO BEDTIME PRN (Reason: sleep) Qty: 60 3RF ammonium lactate 12 % cream topical BID mupirocin 2 % ointment 1 appl topical TID Qty: 22 0RF hydrocortisone [Anusol-HC] 2.5 % cream with perineal applicator 1 appl [place] BID-QID PRN (Reason: hemorrhoids) Qty: 30 1RF cyclobenzaprine 10 mg tablet 10 mg PO TID Belsomra 5 mg tablet 5 mg PO BEDTIME tamsulosin 0.4 mg capsule 0.8 mg PO DAILY tramadol 50 mg tablet 50 mg PO Q8H PRN (Reason: pain) aspirin 81 mg tablet,delayed release (DR/EC) 81 mg PO DAILY omeprazole 20 mg capsule,delayed release(DR/EC) 20 mg PO DAILY Qty: 30 6RF Creon 24,000-76,000 -120,000 unit capsule,delayed release(DR/EC) 1 cap PO QID Qty: 120 8RF
--- NOTE | 2022-09-11 07:12 | ED_ITS ---
HPI - General Adult General Chief complaint: General Medical Stated complaint: hemorrhoid? Time Seen by Provider: 09/11/22 06:57 Source: patient Mode of arrival: ambulatory Limitations: no limitations History of Present Illness HPI narrative: This is a very pleasant 67 years old male presented to emergency department complaining of hemorrhoid pain. He has history of hemorrhoid, was seen by the PCP on he was given Anusol, he states the hemorrhoid are getting bigger, he denies any fever, chills, vomiting, any systemic symptoms Onset (ago): month(s) (1) Location: buttocks (Rectal area) Radiation: non-radiation Severity: moderate Severity scale (1-10): 5 Quality: burning Pain Consistency: constant Relieving factors: none Exacerbating factors: none Associated symptoms: denies other symptoms Related Data Home Medications Medication Instructions Recorded Confirmed ammonium lactate 12 % topical cream applic topical BID 01/02/20 08/03/22 aspirin 81 mg tablet,delayed 81 mg PO DAILY 08/18/22 release cyclobenzaprine 10 mg tablet 10 mg PO TID 08/18/22 suvorexant 5 mg tablet (Belsomra) 5 mg PO BEDTIME 08/18/22 tamsulosin 0.4 mg capsule 0.8 mg PO DAILY 08/18/22 tramadol 50 mg tablet 50 mg PO Q8H PRN pain 08/18/22 Previous Rx's Medication Instructions Recorded hydrocortisone 2.5 % topical cream 1 appl [place] BID-QID PRN hemorrhoids 08/03/22 with perineal applicator #30 grams (Anusol-HC) mupirocin 2 % topical ointment 1 appl topical TID Paronychia #22 08/03/22 grams clotrimazole-betamethasone 1 1 appl topical BID balanitis 4 08/18/22 %-0.05 % topical cream weeks #45 grams kjbjry-cbacckhv-fymsomc 1 cap PO QID #120 caps 08/18/22 24,000-76,000-120,000 unit capsule,delayed rel (Creon) melatonin 1 mg tablet 2 mg PO BEDTIME PRN sleep #60 tabs 08/18/22 omeprazole 20 mg capsule,delayed 20 mg PO DAILY #30 caps 08/18/22 release hydrocortisone 1 %-pramoxine 1 % 1 appl [place] QID PRN hemorrhoids #10 09/11/22 rectal foam (Proctofoam HC) grams Allergies Allergy/AdvReac Type Severity Reaction Status Date / Time lovastatin Allergy Unknown GI upset Verified 08/18/22 12:35 Review of Systems Review of Systems: Yes all other systems are reviewed and are negative Cardiovascular: Cardiovascular: Denies chest pain and Denies dyspnea Respiratory: Respiratory: Denies cough and Denies dyspnea Gastrointestinal: Gastrointestinal: Denies diarrhea, Denies nausea and Denies vomiting Musculoskeletal: Musculoskeletal: Reports no additional musculoskeletal complaints PMFSH Past Medical History Medical History Back pain BPH loc w urin obs/LUTS Chronic superficial gastritis without bleeding Insomnia Other obstructive and reflux uropathy Renal stones Screening for diabetes mellitus Tubular adenoma of colon Urinary frequency Surgical History History of appendectomy History of esophagogastroduodenoscopy (EGD) Hx of colonoscopy Family History Family History Father No problems noted. Mother HTN (hypertension) Asthma Sister HTN (hypertension) Throat cancer Social History Social History Housing: Apartment Alcohol intake: never Patient Tobacco Use Status: Never used Tobacco Smoked in Last 30 Days: No e-Cigarette/Vaping Use: Never Used Second Hand Smoke Exposure: No Use of substances other than those prescribed or required for medical reasons: No Advance Directives: No Advance Directives Information Provided: No service: Yes ([employer]) Current occupational status: retired Cognitive needs: No Hearing needs: No Vision needs: Yes Physical Exam ED Vital Signs: Vital Signs - 24 hr 09/11/22 05:58 09/11/22 06:00 Temperature 97.2 F 96.8 F Pulse Rate 71 78 Respiratory Rate 18 16 Blood Pressure 125/84 137/79 Pulse Oximetry 94 100 Oxygen Delivery Method Room Air Room Air BMI result Body Mass Index 31.6 He looks well he is not toxic-appearing. Const General: cooperative and well groomed Nutritional Appearance: well nourished Orientation/consciousness: patient oriented x3 Limitations: no limitations HENMT Head: Yes normal to inspection General nose exam: Normal external nose present Face and sinus: Yes normal facial exam Neck Neck: Yes normal visual inspection Chest Chest palpation & inspection: normal inspection of the chest Resp Effort & Inspection: normal respiratory effort Auscultation: clear to auscultation bilaterally Cardio Jugular venous distension: no JVD Rate: regular rate Rhythm: regular rhythm GI Inspection: Yes normal to inspection Palpation (GI): Soft to palpation, not firm, nontender, no guarding and not rigid Auscultation: normal bowel sounds Rectal Exam - Male: Yes other (Patient as hemorrhoid the 3 p.m. there appear not to be thrombosed) Skin General skin exam: no rashes or lesions noted and elasticity normal Lesions: no lesions Rashes: no rashes Neuro General: patient oriented x3 Cranial nerves: Yes CN's II-XII intact bilaterally Course Reevaluation(s) Reevaluation #1: Patient presented with dex and hemorrhoid which this point a nonthrombosed so I do not think it needs an incision. The looks well is not toxic can be discharged home with follow-up with GI Medical Decision Making Differential Diagnosis Differential Diagnoses: The differential diagnosis associated with the presentation includes Thrombosed hemorrhoid/rectal abscess/rectal hematoma/anal cancer Admission/Observation Consideration of admission/observation: Escalation of care including admissi on/observation considered I consider CT scan of the pelvis about no indication he looks well no toxic I was able to visualize the Imuran the hemorrhoid at 3 PM External Record Review External record reviewed: Inpatient record and Office record Reviewed theoffice visit of 08/03/2012 by the PCP Tests considered The following testing was considered but not selected: ct scan pelvis but not done hemorrhoid seen at 3 PM Prescription Management I considered prescription management with: Pain Medication I consider oxycodone but not given because the give constipation make the hemorrhoid worse Discharge Plan Discharge Clinical Impression: External hemorrhoids Patient Disposition: Home, Self-Care Instructions: Hemorrhoids (DC) Additional Instructions: follow up with your shift coordinator return if worse Prescriptions: New Proctofoam HC 1-1 % foam 1 appl [place] QID PRN (Reason: hemorrhoids) Qty: 10 0RF No Action clotrimazole-betamethasone 1-0.05 % cream 1 appl topical BID 28 Days Qty: 45 0RF melatonin 1 mg tablet 2 mg PO BEDTIME PRN (Reason: sleep) Qty: 60 3RF ammonium lactate 12 % cream topical BID mupirocin 2 % ointment 1 appl topical TID Qty: 22 0RF hydrocortisone [Anusol-HC] 2.5 % cream with perineal applicator 1 appl [place] BID-QID PRN (Reason: hemorrhoids) Qty: 30 1RF cyclobenzaprine 10 mg tablet 10 mg PO TID Belsomra 5 mg tablet 5 mg PO BEDTIME tamsulosin 0.4 mg capsule 0.8 mg PO DAILY tramadol 50 mg tablet 50 mg PO Q8H PRN (Reason: pain) aspirin 81 mg tablet,delayed release (DR/EC) 81 mg PO DAILY omeprazole 20 mg capsule,delayed release(DR/EC) 20 mg PO DAILY Qty: 30 6RF Creon 24,000-76,000 -120,000 unit capsule,delayed release(DR/EC) 1 cap PO QID Qty: 120 8RF
== END 2022-09-11 07:21 | disposition home or self-care (01) ==
PROVIDERS: Emergency Provider Emergency Medicine; PCP Internal Medicine
DX: K64.4 Residual hemorrhoidal skin tags (principal); Z79.899 Other long term (current) drug therapy
CPT/HCPCS: 99212; 99283; 99284

== ENCOUNTER → 2022-09-15 08:02 | Outpatient (BNVA) | payer MEDICARE, OTHER, SELFPAY | PROVIDERS: PCP Internal Medicine; Visit Provider Nurse Practitioner | DX: K21.9 Gastro-esophageal reflux disease without esophagitis (principal); R14.0 Abdominal distension (gaseous); K58.9 Irritable bowel syndrome, unspecified; K64.4 Residual hemorrhoidal skin tags; Z79.899 Other long term (current) drug therapy | CPT/HCPCS: 99212 ==

== ENCOUNTER → 2022-10-01 11:29 | Outpatient (BNVA) | payer MEDICARE, OTHER, SELFPAY | PROVIDERS: PCP Internal Medicine; Referring Provider Internal Medicine; Visit Provider Surgery | DX: K64.5 Perianal venous thrombosis (principal) | CPT/HCPCS: 46600; 99202 ==

== ENCOUNTER 2022-10-28 11:06 | Outpatient (AMB) | payer MEDICARE, OTHER, SELFPAY ==
[2022-10-28 11:08] VITALS: BP 128/68; PULSE 70; BMI 31.6
--- NOTE | 2022-10-28 11:08 | A.OFFVIS_ITS ---
Intake Vital Signs 10/28/22 11:08 Height 5 ft 9 in Weight 214 lb BMI 31.6 BP 128/68 Blood Pressure Location Rt brachial Position Sitting Pulse 70 Intake Visit Reasons: painful hemorrhoids Intake Note: This patient presents for a follow-up assessment for painful hemorrhoids. Patient c/o; reports feeling much improved, denies rectal bleeding. Seo Intern Required: Yes Seo Intern Name: Patient declined official court interpreter Accompanied by: Self / Same As Patient Allergies lovastatin Allergy (Unknown, Verified 10/28/22 11:16) GI upset Medication List - Last Reconciled 10/28/22 by Bib Verdugo MD ammonium lactate 12% appl topical BID aspirin 81 mg PO DAILY clotrimazole-betamethasone 1-0.05 % 1 appl topical BID 4 weeks cyclobenzaprine 10 mg PO TID hydrocortisone 2.5% (Anusol-HC) 1 appl IN BID-QID PRN hydrocortisone-pramoxine 1-1 % (Proctofoam HC) 1 appl IN QID PRN shrjex-kckdfofm-lqkeqpn 24,000-76,000 -120,000 unit (Creon) 1 cap PO QID melatonin 2 mg (2 x 1 mg) PO BEDTIME PRN mupirocin 2% 1 appl topical TID omeprazole 20 mg PO DAILY suvorexant (Belsomra) 5 mg PO BEDTIME tamsulosin 0.8 mg (2 x 0.4 mg) PO DAILY 90 days tramadol 50 mg PO Q8H PRN HPI painful hemorrhoids HPI Details He is here for follow-up for for hemorrhoid issues. I had seen him last month because of thrombosed external hemorrhoids. He says that he feels much better. He says that the lump outside his anus as almost completely resolved. Denies any pain. He denies any problems with bowel movements. FORMERLY [facility], [facility] Medical History Back pain BPH loc w urin obs/LUTS Chronic GERD Chronic superficial gastritis without bleeding Insomnia Other obstructive and reflux uropathy Renal stones Screening for diabetes mellitus Thrombosed external hemorrhoid Tubular adenoma of colon Urinary frequency Surgical History History of appendectomy History of esophagogastroduodenoscopy (EGD) Hx of colonoscopy Family History Father No problems noted. Mother HTN (hypertension) Asthma Sister HTN (hypertension) Throat cancer Social History Housing: Apartment Alcohol intake: never Patient Tobacco Use Status: Never used Tobacco e-Cigarette/Vaping Use: Never Used Second Hand Smoke Exposure: No service: Yes ([employer]) Current occupational status: retired Cognitive needs: No Hearing needs: No Vision needs: Yes Review of Systems Const Denies chills and Denies fever(s) Card Denies chest pain, Denies dyspnea and Denies dyspnea on exertion Resp Denies cough, Denies dyspnea and Denies dyspnea on exertion GI Denies hematochezia and Denies change in bowel habits Denies hematuria and Denies difficulty urinating Musc Denies back pain and Denies limited range of motion Neuro Denies focal weakness and Denies convulsions Psych Denies depression and Denies mood swings Physical Exam Const General: comfortable and no acute distress Orientation/consciousness: patient oriented x3 Neck Neck: Yes no lymphadenopathy Resp Auscultation: clear to auscultation bilaterally Cardio Rhythm: regular rhythm GI Other: Thrombosed external hemorrhoid on almost completely resolved on the right side, nontender Palpation (GI): Soft to palpation, nontender and no guarding Neuro General: patient oriented x3 Assessment & Plan Assessment & Plan (1) Thrombosed external hemorrhoid: Code(s): K64.5 - Perianal venous thrombosis Plan: This has almost completely resolved. He denies any discomfort or pain. I did explain to him that if he has persistent symptoms down the line, he can follow- up in the office. He understands the option of hemorrhoidectomy for significantly symptomatic hemorrhoids. I had also advised him to avoid straining and constipation. I had explained to him the benefit of stool softeners and fiber supplements. Coding Level of Care Code Est Pt Level 3 (36154) Diagnoses Thrombosed external hemorrhoid K64.5
== END 2022-10-28 11:21 | disposition home or self-care (01) ==
PROVIDERS: PCP Internal Medicine; Visit Provider Surgery
DX: K64.5 Perianal venous thrombosis (principal)
CPT/HCPCS: 99213

== ENCOUNTER → 2022-10-28 11:06 | Outpatient (BNVA) | payer MEDICARE, OTHER, SELFPAY | PROVIDERS: PCP Internal Medicine; Visit Provider Surgery | DX: K64.5 Perianal venous thrombosis (principal) | CPT/HCPCS: 99212 ==

== ENCOUNTER 2022-11-10 13:59 | Outpatient (AMB) | payer MEDICARE, OTHER, SELFPAY ==
--- NOTE | 2022-11-10 14:02 | A.OFFPC_ITS ---
Vital Signs 11/10/22 14:10 Height 5 ft 9 in Weight 209 lb 8 oz BMI 30.9 BP 116/80 Blood Pressure Location Lt brachial Position Sitting Pulse 69 Pulse Source Pulse Oximeter Pulse Oximetry (%) 93 Oxygen Delivery Method Room Air Intake Visit Reasons: 3 month fu Intake Note: Patient is here to follow up on IBS, GERD, Hyperlipidemia. Awning Spreader Required: No Aviation Safety Technician: Not Required per policy Accompanied by: Self / Same As Patient Allergies lovastatin Allergy (Unknown, Verified 11/10/22 14:10) GI upset Medication List - Last Reconciled 11/10/22 by Jose Hernandez MD ammonium lactate 12% appl topical BID aspirin 81 mg PO DAILY clotrimazole-betamethasone 1-0.05 % 1 appl topical BID 4 weeks cyclobenzaprine 10 mg PO TID hydrocortisone 2.5% (Anusol-HC) 1 appl IA BID-QID PRN hydrocortisone-pramoxine 1-1 % (Proctofoam HC) 1 appl IA QID PRN opaohm-ledixncr-lqfiyjt 24,000-76,000 -120,000 unit (Creon) 1 cap PO QID melatonin 2 mg (2 x 1 mg) PO BEDTIME PRN mupirocin 2% 1 appl topical TID omeprazole 20 mg PO DAILY suvorexant (Belsomra) 5 mg PO BEDTIME tamsulosin 0.8 mg (2 x 0.4 mg) PO DAILY 90 days tramadol 50 mg PO Q8H PRN Tobacco use date assessed: 11/10/22 Fall risk assessment: No Falls in past year Last assessed Fall Risk: 11/10/22 Dental Screening Dental Screen Date: 11/10/22 Did you have a dental visit in the last 12 months?: No Did you have a dental problem in the last 6 months where you did not have access to dental care?: No Was dental information given to patient?: No HPI 3 month fu HPI Details insomnia; due for refill PFSH Medical History Back pain BPH loc w urin obs/LUTS Chronic GERD Chronic superficial gastritis without bleeding Insomnia Other obstructive and reflux uropathy Renal stones Screening for diabetes mellitus Thrombosed external hemorrhoid Tubular adenoma of colon Urinary frequency Surgical History History of appendectomy History of esophagogastroduodenoscopy (EGD) Hx of colonoscopy Family History Father No problems noted. Mother HTN (hypertension) Asthma Sister HTN (hypertension) Throat cancer Social History Housing: Apartment Alcohol intake: never Patient Tobacco Use Status: Never used Tobacco e-Cigarette/Vaping Use: Never Used Second Hand Smoke Exposure: No service: Yes ([employer]) Current occupational status: retired Cognitive needs: No Hearing needs: No Vision needs: Yes Questionnaire PHQ-9 Over the last 2 weeks, how often have you been bothered by any of the following problems? 1. Little interest or pleasure in doing things: not at all 2. Feeling down, depressed, or hopeless: not at all 3. Trouble falling or staying asleep, or sleeping too much: not at all 4. Feeling tired or having little energy: not at all 5. Poor appetite or overeating: not at all 6. Feeling bad about yourself - or that you are a failure or have let yourself or your family down: not at all 7. Trouble concentrating on things, such as reading the newspaper or watching television: not at all 8. Moving or speaking so slowly that other people could have noticed. Or the opposite - being so fidgety or restless that you have been moving around a lot more than usual: not at all 9. Thoughts that you would be better off or of hurting yourself in some way: not at all Total score: 0 Depression Screening Interpretation: Negative Source: Developed by Drs. Kali Roberts, Chanell Sibley, Lane Cho and colleagues, with an educational sony from [employer]. Thrive Questionnaire Date Thrive assessed: 11/10/22 I am a: Patient What is your living situation today?: I have a steady place to live Within the past 12 months, did the food you bought not last and you didn't have the money to get more?: Never true Within the past 12 months, did you worry whether your food would run out before you got money to buy more?: Never true Do you have trouble paying for medicines?: No Do you have trouble getting transportation to medical appointments?: No Do you have trouble paying your heating and electricity bill?: No Do you have trouble taking care of your child, family member or friend?: No Do you have trouble with day-to-day activities such as bathing, preparing meals, shopping, managing finances, etc.?: No Are you currently unemployed and looking for a job?: No Are you interested in more education?: No Please select the resources that you would like help with: None Currently or been in a relationship where the following occur: no concerns reported AUDIT C Alcohol Use Questionnaire (AUDIT-C) 1. How often do you have a drink containing alcohol?: Never 3. How often do you have six or more drinks on one occasion?: Never Total Score: 0 Score Reviewed/Action Taken: Yes AMADOU-7 AMB Questionnaire AMADOU-7 Date AMADOU - 7 assessed: 11/10/22 Feeling nervous, anxious, or on edge: 0 = Not at all Not being able to stop or control worryin = Not at all Worrying too much about different things: 0 = Not at all Trouble relaxin = Not at all Being so restless that it is hard to sit still: 0 = Not at all Becoming easily annoyed or irritable: 0 = Not at all Feeling afraid as if something awful might happen: 0 = Not at all Total AMADOU-7 score (0-4 normal; 5-9 mild; 10-14 moderate; 15-21 severe): 0 Source: Developed by Drs. Kali Roberts, Chanell Sibley, Lane Cho and colleagues, with an educational sony from [employer]. Review of Systems Const Denies chills, Denies headache(s) and Denies weight loss ENT Denies headache(s) Card Denies chest pain, Denies syncope, Denies irregular heart rhythm and Denies dyspnea Resp Denies chest congestion, Denies cough and Denies dyspnea GI Denies abdominal pain, Denies change in stool character, Denies nausea and Denies vomiting Musc Denies deformity and Denies joint swelling Neuro Denies syncope and Denies headache(s) Physical exam (Primary Care) Vital Signs: Last Vital Signs Pulse 69 11/10/22 14:10 BP 116/80 11/10/22 14:10 Pulse Ox 93 11/10/22 14:10 Oxygen Delivery Method Room Air 11/10/22 14:10 BMI result Body Mass Index 30.9 Tobacco/Smoking Status: Tobacco use Status Tobacco use date assessed 11/10/22 11/10/22 14:15 Patient Tobacco Use Status Never used Tobacco 11/10/22 14:06 e-Cigarette/Vaping Use Never Used 11/10/22 14:06 PHQ-9: PHQ-9 Score PHQ-9: Total score 0 11/10/22 14:15 Depression Screening Interpretation: Negative Thrive Assessment: Date of Thrive Assessment Date Thrive assessed 11/10/22 11/10/22 14:15 Currently or been in a relationship where the following occur: no concerns reported Const General: cooperative, healthy appearing, comfortable and no acute distress Resp Effort & Inspection: normal respiratory effort Auscultation: clear to auscultation bilaterally Percussion: percussion normal Cardio Jugular venous distension: no JVD Rate: regular rate Rhythm: regular rhythm GI Inspection: Yes normal to inspection Extrem Other: normal exam both feet Assessment and Plan Assessment & Plan (1) Insomnia: Code(s): G47.00 - Insomnia, unspecified Orders: Orders Comprehensive [place]. Panel Fast Today N28.9 - Disorder of kidney and ureter, unspecified Lipid Panel Today E78.5 - Hyperlipidemia, unspecified Thyroid Stimulating Hormone Today E03.9 - Hypothyroidism, unspecified Complete Blood Count Auto Diff Today D64.9 - Anemia, unspecified Medications: New suvorexant (Belsomra) 5 mg PO BEDTIME 30 tabs 3RF Coding Level of Care Code Est Pt Level 3 (74171) Diagnoses Insomnia G47.00
[2022-11-10 14:10] VITALS: BP 116/80; PULSE 69; O2SAT 93; BMI 30.9
== END 2022-11-10 14:20 | disposition home or self-care (01) ==
PROVIDERS: PCP Internal Medicine; Visit Provider Internal Medicine
DX: G47.00 Insomnia, unspecified (principal)
CPT/HCPCS: 99213

== ENCOUNTER 2022-11-20 07:11 | Emergency (ER) | payer OTHER, SELFPAY ==
[2022-11-20 07:33] VITALS: BP 137/77; PULSE 84; RESP 16; TEMP 36.5; O2SAT 97; BMI 30.1
[2022-11-20 08:11] VITALS: BP 115/80; PULSE 65; RESP 14; TEMP 36.7; O2SAT 95
--- NOTE | 2022-11-20 08:21 | ED.MALEGU ---
HPI - Male Genitourinary General Chief complaint: Urogenital-Male Stated complaint: Pain in Private Area Time Seen by Provider: 11/20/22 08:20 Source: patient Mode of arrival: ambulatory Limitations: no limitations History of Present Illness HPI Narrative: 67-year-old male who presents emergency department for evaluation of he redness, burning, pain of the head of his penis. Patient states he has had these symptoms since September 2022 (1 month). [facility] treated with clotrimazole cream and valacyclovir orally. He had no improved of his symptoms any followed up with his urologist, Dr. Gomez and was changed to clotrimazole with betamethasone with no improvement of his symptoms. He states he is continuing to have redness, swelling and pain of the head of his penis therefore came to the emergency department to be seen. Patient denied fever, chills, frequency but does have dysuria when he urinates. Related Data Home Medications Medication Instructions Recorded Confirmed ammonium lactate 12 % topical cream applic topical BID 01/02/20 11/10/22 aspirin 81 mg tablet,delayed 81 mg PO DAILY 08/18/22 11/10/22 release cyclobenzaprine 10 mg tablet 10 mg PO TID 08/18/22 11/10/22 tramadol 50 mg tablet 50 mg PO Q8H PRN pain 08/18/22 11/10/22 Previous Rx's Medication Instructions Recorded hydrocortisone 2.5 % topical cream 1 appl DE BID-QID PRN hemorrhoids 08/03/22 with perineal applicator #30 grams (Anusol-HC) mupirocin 2 % topical ointment 1 appl topical TID Paronychia #22 08/03/22 grams crazwm-uyezwhpb-tvmsszg 1 cap PO QID #120 caps 08/18/22 24,000-76,000-120,000 unit capsule,delayed rel (Creon) melatonin 1 mg tablet 2 mg PO BEDTIME PRN sleep #60 tabs 08/18/22 omeprazole 20 mg capsule,delayed 20 mg PO DAILY #30 caps 08/18/22 release hydrocortisone 1 %-pramoxine 1 % 1 appl DE QID PRN hemorrhoids #10 09/11/22 rectal foam (Proctofoam HC) grams tamsulosin 0.4 mg capsule 0.8 mg PO DAILY 90 days #180 caps 09/11/22 suvorexant 5 mg tablet (Belsomra) 5 mg PO BEDTIME #30 tabs 11/10/22 clotrimazole-betamethasone 1 1 appl topical BID balanitis 4 11/12/22 %-0.05 % topical cream weeks #45 grams nystatin 100,000 unit/gram topical 1 appl topical BID balantitis #30 11/20/22 ointment grams Allergies Allergy/AdvReac Type Severity Reaction Status Date / Time lovastatin Allergy Unknown GI upset Verified 11/10/22 14:10 Review of Systems Review of Systems: Yes all other systems are reviewed and are negative [facility] Past Medical History [facility] Narrative: Social history: He denies tobacco, alcohol and drug use. Medical History Back pain BPH loc w urin obs/LUTS Chronic GERD Chronic superficial gastritis without bleeding Insomnia Other obstructive and reflux uropathy Renal stones Screening for diabetes mellitus Thrombosed external hemorrhoid Tubular adenoma of colon Urinary frequency Surgical History History of appendectomy History of esophagogastroduodenoscopy (EGD) Hx of colonoscopy Family History Family History Father No problems noted. Mother HTN (hypertension) Asthma Sister HTN (hypertension) Throat cancer Social History Social History Housing: Apartment Alcohol intake: never Patient Tobacco Use Status: Never used Tobacco Smoked in Last 30 Days: No e-Cigarette/Vaping Use: Never Used Second Hand Smoke Exposure: No Use of substances other than those prescribed or required for medical reasons: No Advance Directives: No Advance Directives Information Provided: No service: Yes ([employer]) Current occupational status: retired Cognitive needs: No Hearing needs: No Vision needs: Yes Physical Exam Vital Signs: Vital Signs: Last Vital Signs Temp 98.0 F 11/20/22 08:11 Pulse 65 11/20/22 08:11 Resp 14 11/20/22 08:11 BP 115/80 11/20/22 08:11 Pulse Ox 95 11/20/22 08:11 O2 Del Method Room Air 11/20/22 08:11 BMI result Body Mass Index 30.1 Vital signs were normal. Exam: General: Awake, alert in no distress : The patient is uncircumcised, the glans of the penis is erythematous, there are lesions around the base of the gland, the patient's penile shaft is erythematous and this erythema extends to the scrotal area, there is no increased warmth over the erythematous areas, the patient has no obvious penile discharge Psych: Pleasant, cooperative Medical Decision Making Medical Decision Making [facility] Narrative: 67-year-old male with a history of obesity, IBS, GERD, hyperlipidemia, balanitis who presents emergency department for evaluation of swelling, redness, pain of the glans of the penis. Patient has been treated with clotrimazole and clotrimazole with betamethasone without any relief of his symptoms. Patient was also started on valacyclovir on 11/12/2022 is taking a 1 month course with no improvement of his symptoms. Patient's physical examination is consistent with balanitis and he may now also have fungal infection of the shaft of the penis which is extending onto the scrotum. Patient was advised to stop taking clotrimazole with betamethasone and was started on nystatin ointment twice a day for 2 weeks. He was advised to apply this to the glans of the penis and the areas of erythema on the shaft and scrotum. Patient was advised to finish his course of valacyclovir. He was tested for GC, chlamydia and herpes virus. Patient will need to follow-up with his Differential Diagnosis Differential diagnosis includes was not limited to gonorrhea, chlamydia, herpes, balanitis Lab Data [facility] Lab Attestation statement: I reviewed the patient's lab results. My independent interpretation patient's laboratory evaluation is as follows: Urinalysis was negative for urinary tract infection Labs: Lab Results 11/20/22 Range/Units 08:15 Urine Color Yellow Urine Appearance Clear Urine pH 7.0 (5.0-9.0) Ur Specific [place] 1.015 (1.005-1.025) Urine Protein Negative (Neg-Trace) mg/dL Urine Glucose (UA) Negative (Negative) mg/dL Urine Ketones Negative (Negative) mg/dL Urine Blood Negative (Negative) Urine Nitrite Negative (Negative) Ur Leukocyte Esterase Trace H (Negative) Urine RBC 0-2 (0-2) /HPF Urine WBC 0-5 (0-5) /HPF Ur Squamous Epith Cells 0-2 (0-2) /HPF Urine Bacteria None Seen (None Seen) Hyaline Casts 0-2 (0-2) /LPF External Record Review External record reviewed: Office record (Dr. Gomez's office note on 09/13/2022) Discharge Plan Discharge Clinical Impression: Balanitis Patient Disposition: Home, Self-Care Instructions: Balanitis (ED) Additional Instructions: The redness and lesions on the head (gland) of your penis is most likely caused by a fungal infection. Your urine test was negative for urine infection. I did use a Q-tip and swabbed the lesions to test you for herpes. Your urine was also tested for gonorrhea and chlamydia. These tests do not come back right away, you can follow-up with Dr. Gomez to get these test results. Stop using the clotrimazole with betamethasone cream. Continue taking the valacyclovir pills as prescribed by your [facility] provider. Apply nystatin ointment twice a day to the head of the penis and to the redness on the shaft of the penis and on the scrotum. Use this ointment for 2 weeks. Make sure you pull the foreskin back over the head of the penis after you apply the ointment I want you to call Dr. Gomez's office today to make a follow-up appointment in 2 weeks to make sure that your redness improves. Please return to the emergency department if your symptoms get worse or if you develop any symptoms that are concerning to you. Follow the [facility] printed instructions as well. Prescriptions: New nystatin 100,000 unit/gram ointment 1 appl topical BID Qty: 30 0RF Rx Instructions: Apply to red areas of the head of penis, shaft and scrotal No Action melatonin 1 mg tablet 2 mg PO BEDTIME PRN (Reason: sleep) Qty: 60 3RF clotrimazole-betamethasone 1-0.05 % cream 1 appl topical BID 28 Days Qty: 45 0RF Proctofoam HC 1-1 % foam 1 appl DE QID PRN (Reason: hemorrhoids) Qty: 10 0RF ammonium lactate 12 % cream topical BID mupirocin 2 % ointment 1 appl topical TID Qty: 22 0RF hydrocortisone [Anusol-HC] 2.5 % cream with perineal applicator 1 appl DE BID-QID PRN (Reason: hemorrhoids) Qty: 30 1RF Belsomra 5 mg tablet 5 mg PO BEDTIME Qty: 30 3RF tamsulosin 0.4 mg capsule 0.8 mg PO DAILY 90 Days Qty: 180 3RF cyclobenzaprine 10 mg tablet 10 mg PO TID tramadol 50 mg tablet 50 mg PO Q8H PRN (Reason: pain) aspirin 81 mg tablet,delayed release (DR/EC) 81 mg PO DAILY omeprazole 20 mg capsule,delayed release(DR/EC) 20 mg PO DAILY Qty: 30 6RF Creon 24,000-76,000 -120,000 unit capsule,delayed release(DR/EC) 1 cap PO QID Qty: 120 8RF Referrals: Migue Gomez MD [Physician] - 2 weeks ([facility])
[2022-11-20 08:29] LABS: Appearance Urine Clear; Color Urine Yellow; Glucose Urine UA Negative (Negative); Leukocyte Esterase Urine Trace (Negative); Nitrite Urine Negative (Negative); Specific Gravity - Urine 1.015 (1.005-1.025); UMIC TRIGGER UACC YES; Urine Blood Negative (Negative); Urine Ketones Negative (Negative); Urine Protein Negative (Neg-Trace)
[2022-11-20 08:33] LABS: Bacteria Urine None Seen (None Seen); Hyaline Casts Urine 0-2 /LPF (0-2); RBC Urine 0-2 /HPF (0-2); Squamous Epithelial Cell Urine 0-2 /HPF (0-2); WBC Urine 0-5 /HPF (0-5)
--- NOTE | 2022-11-20 08:45 | PC.NURSE ---
PT RETRACTED THE HEAD OF THE PENIS, AREA IS KASANDRA, NO DRAINAGE NOTED. LOWER SCROTUM SLIGHTLY KASANDRA, NO SCROTUM SWELLING NOTED. SEEN BY .
[2022-11-20 13:46] LABS: CT PCR NOT DETECTED (Not Detect.); NG PCR NOT DETECTED (Not Detect.)
== END 2022-11-20 09:41 | disposition home or self-care (01) ==
PROVIDERS: Emergency Provider Emergency Medicine Emergency Medical Services; PCP Internal Medicine
DX: N48.1 Balanitis (principal); N48.89 Other specified disorders of penis; Z79.899 Other long term (current) drug therapy
CPT/HCPCS: 0353U; 36415; 81001; 87255; 99283; 99284

== ENCOUNTER 2022-12-02 08:37 | Outpatient (REF) | payer MEDICARE, OTHER, SELFPAY ==
[2022-12-02 09:13] LABS: MANUAL DIFF FLAG NO
[2022-12-02 09:36] LABS: Basophils Percent Auto 0.5 % (0-2); Eosinophils Absolute Auto 0.3 X10*3/uL (0.0-0.4); Eosinophils Percent Auto 5.5 % (0-4); Hematocrit 48.2 % (42.0-52.0); Hemoglobin 15.8 g/dl (14.0-18.0); Imm Gran Abs Auto 0.01 X10*3/uL (0.00-0.03); Imm Gran Pct Auto 0.2 % (0.0-0.4); Lymphocytes Absolute Auto 2.9 X10*3/uL (1.2-4.9); Lymphocytes Percent Auto 46.5 % (20-40); Mean Corpuscular HGB Conc 32.8 g/dl (31.0-36.0); Mean Corpuscular Volume 91.5 fL (80.0-98.0); Mean Platelet Volume 9.9 fL (9.4-12.4); Monocytes Absolute Auto 0.6 X10*3/uL (0.1-1.2); Monocytes Percent Auto 8.9 % (2-11); Neutrophils Absolute Auto 2.4 x10*3/uL (2.0-8.3); Neutrophils Percent Auto 38.4 % (45-73); Platelet Count 248 X10*3/uL (160-400); Red Blood Count 5.27 X10*6/uL (4.60-5.80); Red Cell Distribution Width 14.1 % (11.0-16.0); White Blood Count 6.2 X10*3/uL (4.8-10.8)
[2022-12-02 10:38] LABS: Alanine Aminotransferase 17 U/L (0-40); Albumin Level 3.9 g/dL (3.5-5.0); Alkaline Phosphatase 61 U/L (39-117); Anion Gap 11 (12-20); Aspartate Amino Transferase 20 U/L (5-37); Bilirubin Total 0.4 mg/dL (0.0-1.0); Blood Urea Nitrogen 8 mg/dL (9-16); Calcium 9.3 mg/dL (8.4-10.2); Carbon Dioxide 28 mmol/L (22-29); Chloride 105 mmol/L (96-108); Cholesterol 184 mg/dL (<200); Estimated Glomerular Filt Rate > 60; Glucose Fasting 94 mg/dL (60-99); HDL Cholesterol 37 mg/dL (>40); LDL Cholesterol Calculated 120 mg/dL (<100); Potassium 4.3 mmol/L (3.3-5.1); Sodium 140 mmol/L (135-145); Total Protein 7.4 g/dL (6.5-8.0); Triglycerides 135 mg/dL (<150)
[2022-12-02 10:39] LABS: Thyroid Stimulating Hormone 2.26 uIU/mL (0.32-4.0)
== END 2022-12-02 08:38 | disposition home or self-care (01) ==
LOC: HO.LAB 08:37
PROVIDERS: PCP Internal Medicine; Visit Provider Internal Medicine
DX: E03.9 Hypothyroidism, unspecified (principal); D64.9 Anemia, unspecified; N28.9 Disorder of kidney and ureter, unspecified; E78.5 Hyperlipidemia, unspecified
CPT/HCPCS: 36415; 80053; 80061; 84443; 85025

== ENCOUNTER 2022-12-04 12:45 | Outpatient (AMB) | payer MEDICARE, OTHER, SELFPAY ==
--- NOTE | 2022-12-04 12:51 | AM.OFFVISMDC ---
Intake Vital Signs 12/04/22 12:54 Height 5 ft 9 in Weight 210 lb 2 oz BMI 31.0 BP 100/62 Blood Pressure Location Lt brachial Position Sitting Pulse 85 Pulse Source Pulse Oximeter Pulse Oximetry (%) 96 Oxygen Delivery Method Room Air Intake Visit Reasons: SHELLI [id number] Discuss/Bill ACP Intake Note: Patient is here for an Annual Wellness Visit. Seal Delivery Vehicle Team Technician Required: No Sanding Machine Operator: Sanding Machine Operator offered & declined Accompanied by: Self / Same As Patient Allergies lovastatin Allergy (Unknown, Verified 12/04/22 13:12) GI upset Medication List - Last Reconciled 12/04/22 by MICHELLE Castelan ammonium lactate 12% appl topical BID aspirin 81 mg PO DAILY clotrimazole-betamethasone 1-0.05 % 1 appl topical BID 4 weeks cyclobenzaprine 10 mg PO TID hydrocortisone 2.5% (Anusol-HC) 1 appl ID BID-QID PRN hydrocortisone-pramoxine 1-1 % (Proctofoam HC) 1 appl ID QID PRN [id number]-wskqybk 24,000-76,000 -120,000 unit (Creon) 1 cap PO QID melatonin 2 mg (2 x 1 mg) PO BEDTIME PRN mupirocin 2% 1 appl topical TID nystatin 1 appl topical BID omeprazole 20 mg PO DAILY suvorexant (Belsomra) 5 mg PO BEDTIME tamsulosin 0.8 mg (2 x 0.4 mg) PO DAILY 90 days tramadol 50 mg PO Q8H PRN HPI HPI Comments History of Present Illness Details 67-year-old male past medical history significant for GERD, hyperlipidemia IBS, renal stones and BPH. Patient Dr. Hernandez last seen in july. Patient presents today for subsequent annual well visit. PSA due in January, order entered Up-to-date on recommended immunizations Eye exam: September 2022 Colonoscopy: Completed by Dr. Celis in 2014 showed hyperplastic polyps recommended 10 year follow-up. [place] of care was reviewed with patient patient was provided with a written screening schedule. Healthcare proxy mL words given to patient patient advised to bring completed forms office to be scanned to chart. [facility] Medical History Thrombosed external hemorrhoid Chronic GERD Back pain Screening for diabetes mellitus Urinary frequency Other obstructive and reflux uropathy Renal stones Chronic superficial gastritis without bleeding BPH loc w urin obs/LUTS Insomnia Tubular adenoma of colon Surgical History History of esophagogastroduodenoscopy (EGD) Hx of colonoscopy History of appendectomy Family History Father No problems noted. Mother HTN (hypertension) Asthma Sister HTN (hypertension) Throat cancer Social History Housing: Apartment Alcohol intake: never Patient Tobacco Use Status: Never used Tobacco e-Cigarette/Vaping Use: Never Used Second Hand Smoke Exposure: No service: Yes ([employer]) Current occupational status: retired Cognitive needs: No Hearing needs: No Vision needs: Yes Questionnaire Medicare Wellness Checkup [age] 65-68 What gender do you identify with?: male During the past 4 weeks, how much have you been bothered by emotional problems such as feeling anxious, depressed, irritable, sad or downhearted, and blue?: moderately During the past 4 weeks, has your physical & emotional health limited your social activities with family, friends, neighbors, or groups?: moderately During the past 4 weeks, how much bodily pain have you generally had?: mild pain During the past 4 weeks, was someone available to help you if you needed & wanted help?: no, not at all During the past 4 weeks, what was the hardest physical activity you could do for at least 2 minutes?: light Can you get to places out of walking distance without help? (For eg., can you travel alone on buses, taxis or drive your car?): Yes Can you go shopping for groceries or clothes without someone's help?: Yes Can you prepare your own meals?: Yes Can you do your housework without help?: No (no always) Because of any health problems, do you need the help of another person with your personal care needs such as eating, bathing, dressing or getting around the house?: No Can you handle your own money without help?: Yes During the past 4 weeks, how would you rate your health in general?: good During the past 4 weeks how have things been going for you?: good & bad parts about equal Are you having difficulties driving your car?: no Do you always fasten your seat belt when you are in a car?: yes, usually During past 4 weeks, have you been bothered by the following: seldom: Trouble eating well? and Teeth or denture problems? and sometimes: Falling or dizzy when standing up, Sexual problems?, Problems using the telephone? and Tiredness or fatigue? Have you fallen 2 or more times in the past year?: No Are you afraid of falling?: Yes Are you a smoker?: no During the past 4 weeks, how many drinks of wine, beer, or other alcoholic beverages did you have?: no alcohol at all Do you exercise for about 20 minutes 3 or more times a week?: no, I usually do not exercise this much Have you been given information to help with the following?: no: Hazards in your house that might hurt you? and no: Keeping track of your medications? How often do you have trouble taking medicines the way you have been told to take them?: I always take medicine as prescribed How confident are you that you can control & manage most of your health problems?: very confident What is your race?: or origin or descent Activity of Daily Living Bathing - sponge bath, tub bath or shower: receives no assistance (gets in/out by self, if usual bathing means Dressing - getting clothes from closets & drawers, including inner/outer garments & fasteners.: gets clothes & gets completely dressed without help Toileting - going to the 'toilet room' for urine/bowel elimination & cleaning self/arranging clothes: goes to toilet room, cleans self, arranges clothes without help Transfer: moves in & out of bed and chair without help (may use support object) Continence: controls urination/bowel movements completely by self Feeding: feeds self without help Total Score: 0 Information obtained from: patient Using telephone: independent Traveling: independent Shopping: independent Preparing meals: independent Housework: independent Taking medicine: independent Managing money: independent PHQ-9 Over the last 2 weeks, how often have you been bothered by any of the following problems? 1. Little interest or pleasure in doing things: several days 2. Feeling down, depressed, or hopeless: several days 3. Trouble falling or staying asleep, or sleeping too much: nearly every day 5. Poor appetite or overeating: more than half the days 6. Feeling bad about yourself - or that you are a failure or have let yourself or your family down: not at all 7. Trouble concentrating on things, such as reading the newspaper or watching television: more than half the days 8. Moving or speaking so slowly that other people could have noticed. Or the opposite - being so fidgety or restless that you have been moving around a lot more than usual: more than half the days 9. Thoughts that you would be better off or of hurting yourself in some way: not at all Source: Developed by Drs. Kali Roberts, Chanell Sibley, Lane Cho and colleagues, with an educational sony from [employer]. Thrive Questionnaire Date Thrive assessed: 11/10/22 AMADOU-7 AMB Questionnaire AMADOU-7 Date AMADOU - 7 assessed: 11/10/22 Source: Developed by Drs. Kali Roberts, Chanell Sibley, Lane Cho and colleagues, with an educational sony from [employer]. Physical Exam Vital Signs: Last Vital Signs Pulse 85 12/04/22 12:54 BP 100/62 12/04/22 12:54 Pulse Ox 96 12/04/22 12:54 Oxygen Delivery Method Room Air 12/04/22 12:54 BMI result Body Mass Index 31.0 Const General: cooperative and no acute distress Orientation/consciousness: patient oriented x3 HEENT Ears: other (whisper test: pass) Neuro General: patient oriented x3 Gait exam (Neuro): Normal gait present Coordination: tandem gait normal and Romberg test negative Assessment & Plan Assessment & Plan (1) Encounter for subsequent annual wellness visit (AWV) in Medicare patient: Code(s): Z00.00 - Encounter for general adult medical examination without abnormal findings Plan: Follow up in 1 year. (2) BPH loc w urin obs/LUTS: Code(s): N40.1 - Benign prostatic hyperplasia with lower urinary tract symptoms Plan: Continue to follow with urology. (3) Hyperlipidemia: Code(s): E78.5 - Hyperlipidemia, unspecified Plan: Continue to follow low cholesterol diet. (4) GERD (gastroesophageal reflux disease): Code(s): K21.9 - Gastro-esophageal reflux disease without esophagitis Plan: Continue on omeprazole. Avoid the foods that cause that, usually spicy foods, tomato products, juices, coffee, soda and foods that you're sensitive to.? After eating do not lie down, allow 3-4 hours before lying down. And keep the head of the bed above 30 degrees to avoid the acid from going up. Orders: Orders Prostate Specific Antigen Scr Today Z12.5 - Encounter for screening for malignant neoplasm of prostate Coding Level of Care Code Medicare Subsequent (G0439) Diagnoses Encounter for subsequent annual wellness visit (AWV) in Medicare patient Z00.00 BPH loc w urin obs/LUTS N40.1 Hyperlipidemia E78.5 GERD (gastroesophageal reflux disease) K21.9 CPT Codes Advance Care Planning - Time spent: 1-15 minutes, not on file ([id number]) Advance Care Planning Forms completed: Health Care Proxy and MOLST Time spent: 1-15 minutes, not on file Actual minutes spent: 2
[2022-12-04 12:54] VITALS: BP 100/62; PULSE 85; O2SAT 96; BMI 31.0
== END 2022-12-04 13:49 | disposition home or self-care (01) ==
PROVIDERS: PCP Internal Medicine; Visit Provider Nurse Practitioner Family
DX: Z00.00 Encounter for general adult medical examination without abnormal findings (principal); N40.1 Benign prostatic hyperplasia with lower urinary tract symptoms; E78.5 Hyperlipidemia, unspecified; K21.9 Gastro-esophageal reflux disease without esophagitis
CPT/HCPCS: 1124F; G0439

== ENCOUNTER 2022-12-22 13:53 | Outpatient (AMB) | payer OTHER, SELFPAY ==
--- NOTE | 2022-12-22 13:58 | A.OFFVIS_ITS ---
Intake Intake Visit Reasons: [facility] [place] [facility] [place] up- Recurrent balanitis Intake Note: Patient presents for [facility] [place] follow up balanitis ER Visit: 12/04/22 Urology Medications: (prev treated w/ clotrimazole, betamethasone cream) valacyclovir, nystatin ointment Blood thinner: aspirin Patent Litigation Associate Required: No Accompanied by: Self / Same As Patient Allergies lovastatin Allergy (Unknown, Verified 12/22/22 13:59) GI upset HPI HPI Comments History of Present Illness Details Luis A is a 67-year-old pleasant male patient of Dr. Hernandez. He has a past medical history of hemorrhoids, GERD, back pain, renal stones, BPH with lower urinary tract symptoms, insomnia, and balanitis. He to the office today for follow-up of his recent ER visit for balanitis. In discussion with the patient today he reports having seeked emergency room care approximately 1 month ago for redness, burning, and pain at the tip of his penis. He reports being diagnosed with balanitis and was prescribed nystatin cream that he has been applying to the head of his penis and reports significant improvement in symptoms. In review of patient's chart it appears patient has a history of intermittent/occasional balanitis. In assessment of the patient today the penis is uncircumcised in no redness, irritation, drainage, lesions, and or open areas noted to the penis/scrotum/testicles. Discussed at length importance of avoiding soaps, shower gels, and other skin irritants. Patient does endorse to showering 2 times a day in utilizing soap when retracting foreskin and cleaning his penis. He otherwise denies any urinary issues. He denies urinary urgency, urinary frequency, incontinence, nocturia, hematuria, dysuria, foul smelling urine, changes to urinary stream, flank pain, fever, and or chills. He is happy with his current voiding parameters on 0.8 mg of Flomax daily. He otherwise offers no issues or concerns at this time. [facility] Medical History Thrombosed external hemorrhoid Chronic GERD Back pain Screening for diabetes mellitus Urinary frequency Other obstructive and reflux uropathy Renal stones Chronic superficial gastritis without bleeding BPH loc w urin obs/LUTS Insomnia Tubular adenoma of colon Surgical History History of esophagogastroduodenoscopy (EGD) Hx of colonoscopy History of appendectomy Family History Father No problems noted. Mother HTN (hypertension) Asthma Sister HTN (hypertension) Throat cancer Social History Housing: Apartment Alcohol intake: never Patient Tobacco Use Status: Never used Tobacco e-Cigarette/Vaping Use: Never Used Second Hand Smoke Exposure: No service: Yes ([email or web address]) Current occupational status: retired Cognitive needs: No Hearing needs: No Vision needs: Yes Review of Systems Const Reports as per HPI Eyes Reports no additional complaints ENT Reports no additional complaints Card Reports no additional complaints Resp Reports no additional complaints GI Reports as per HPI Reports as per HPI Musc Reports as per HPI Neuro Reports no additional complaints Psych Reports no additional complaints Endo Reports no additional complaints Ricky/Lymph Reports no additional complaints Aller/Immun Reports no additional complaints Physical Exam Const General: cooperative, healthy appearing, comfortable, no acute distress, well developed, alert and awake Orientation/consciousness: patient oriented x3 Limitations: no limitations HEENT Head: Yes normal to inspection, Yes normocephalic and Yes atraumatic Ears: hearing grossly normal bilaterally Eyes General: appearance normal, both eyes and all related structures Neck Neck: Yes normal visual inspection and Yes trachea midline Chest Chest palpation & inspection: normal inspection of the chest Resp Effort & Inspection: normal respiratory effort and able to speak in complete sentences Cardio Rate: regular rate GI Inspection: Yes normal to inspection General: Yes no CVA tenderness Penis: normal penis and uncircumcised Meatus: meatus normal Scrotum: scrotum normal Testes: Testes normal Back/Spine/Pelvis Back: no CVA tenderness Skin General skin exam: no rashes or lesions noted Neuro General: patient oriented x3 Extrem General: Yes normal to inspection Psych Appearance: grossly normal and well kempt Mental Status: mental status grossly normal Speech and movement: Normal speech and movement present and Clear speech present Affect: normal affect Attitude: cooperative Thought process: Normal thought process present Thought content: Normal thought content present Results AMB Urinalysis, Automated UA Leukoctes 0 Chantell/uL Last Edit by Joel Myers on 12/22/22 14:15 UA Nitrite Negative Last Edit by Joel Myers on 12/22/22 14:15 UA Urobilinogen 0.2 mg/dL Last Edit by Joel Myers on 12/22/22 14:15 UA Protein 0 mg/dL Last Edit by Joel Myers on 12/22/22 14:15 UA pH 6.0 Last Edit by Joel Myers on 12/22/22 14:15 UA Blood 0 Patricio/uL Last Edit by Joel Myers on 12/22/22 14:15 UA Specific [place] 1.015 Last Edit by Joel Myers on 12/22/22 14:15 UA Ketone Negative Last Edit by Joel Myers on 12/22/22 14:15 UA Bilirubin 0 mg/dL Last Edit by Joel Myers on 12/22/22 14:15 UA Glucose 0 mg/dL Last Edit by Joel Myers on 12/22/22 14:15 Results Reviewed Results Reviewed: Laboratory Last Values Urine pH (Auto) 6.0 12/22/22 14:00 Specific [place] (Auto) 1.015 12/22/22 14:00 Urine Protein (Auto) 0 mg/dL 12/22/22 14:00 Glucose (UA)(Auto) 0 mg/dL 12/22/22 14:00 Urine Ketones (Auto) Negative 12/22/22 14:00 Urine Blood (Auto) 0 Patricio/uL 12/22/22 14:00 Urine Nitrite (Auto) Negative 12/22/22 14:00 Urine Bilirubin (Auto) 0 mg/dL 12/22/22 14:00 Urine Urobilinogen (Auto) 0.2 mg/dL 12/22/22 14:00 Leukocyte Esterase (Auto) 0 Chantell/uL 12/22/22 14:00 Assessment & Plan Assessment & Plan (1) Balanitis: Code(s): N48.1 - Balanitis Plan In office urinalysis results reviewed with the patient today; as noted above. Patient denies any bothersome urinary issues at this time. Patient reports be happy with current voiding parameters on 0.8 mg of Flomax daily. Continue Flomax as prescribed. It appears balanitis has since resolved utilizing nystatin cream that was provided through emergency room visit. Discussed at length irritating factors and causes of balanitis Keep scheduled follow-up appointment with Dr. Gomez as planned Orders: Orders AMB Urinalysis Automated Today Z13.9 - Encounter for screening, unspecified Medications: Refilled nystatin Apply to red areas of the head of penis, shaft and scrotal 1 appl topical BID 30 grams 0RF balantitis Patient Instructions: The patient had an opportunity to ask questions regarding the treatment plan. All questions were answered. Physical exam, labs, and imaging were discussed and reviewed in detail. As well as risks, benefits, and discussion of treatment choices. No major barriers to understanding were identified. The patient expressed understanding and agreement with the above treatment plan. The patient was made aware they should contact our office by phone for worsening of their current condition, the appearance of new symptoms, or with any questions or concerns. Compliance is encouraged with any medications and follow up testing that is ordered. It is a privilege to be allowed the opportunity to participate in? your urological care.? Again, if you have any questions or concerns If you have any questions or concerns please do not hesitate to contact me. The office is [phone]. This note is constructed using voice recognition software. While every effort has been made to ensure accuracy manager pet errors may have been included. Yours sincerely, MIKALA Acosta Coding Level of Care Code Est Pt Level 3 (60932) Diagnoses Balanitis N48.1
== END 2022-12-22 14:31 | disposition home or self-care (01) ==
PROVIDERS: PCP Internal Medicine; Visit Provider Nurse Practitioner Family
DX: N48.1 Balanitis (principal)
CPT/HCPCS: 99213

== ENCOUNTER → 2022-12-22 13:53 | Outpatient (BNVA) | payer OTHER, SELFPAY | PROVIDERS: PCP Internal Medicine; Visit Provider Nurse Practitioner Family | DX: N48.1 Balanitis (principal) | CPT/HCPCS: 81003; 99212 ==

== ENCOUNTER 2023-01-12 09:20 | Outpatient (AMB) | payer MEDICARE, OTHER, SELFPAY ==
[2023-01-12 09:24] VITALS: BP 92/60; PULSE 69; O2SAT 98
--- NOTE | 2023-01-12 09:24 | MHC.PC.OV ---
Vital Signs 01/12/23 09:24 01/12/23 09:55 Height 5 ft 9 in BP 92/60 118/78 Blood Pressure Location Lt brachial Position Sitting Pulse 69 Pulse Source Pulse Oximeter Pulse Oximetry (%) 98 Oxygen Delivery Method Room Air Intake Visit Reasons: dizziness Intake Note: Pt here for dizziness/vertigo. Dental Service Technician Required: No Accompanied by: Self / Same As Patient Allergies lovastatin Allergy (Unknown, Verified 01/12/23 09:32) GI upset Medication List - Last Reconciled 01/12/23 by Guido Payne PA-C ammonium lactate 12% appl topical BID aspirin 81 mg PO DAILY clotrimazole-betamethasone 1-0.05 % 1 appl topical BID 4 weeks cyclobenzaprine 10 mg PO TID hydrocortisone 2.5% (Anusol-HC) 1 appl MS BID-QID PRN hydrocortisone-pramoxine 1-1 % (Proctofoam HC) 1 appl MS QID PRN esqmsq-ozyyjerc-gatjsut 24,000-76,000 -120,000 unit (Creon) 1 cap PO QID melatonin 2 mg (2 x 1 mg) PO BEDTIME PRN mupirocin 2% 1 appl topical TID nystatin 1 appl topical BID omeprazole 20 mg PO BID suvorexant (Belsomra) 5 mg PO BEDTIME tamsulosin 0.8 mg (2 x 0.4 mg) PO DAILY 90 days tramadol 50 mg PO Q8H PRN Tobacco use date assessed: 11/10/22 Dental Screening Dental Screen Date: 01/12/23 Did you have a dental visit in the last 12 months?: Yes Did you have a dental problem in the last 6 months where you did not have access to dental care?: No Was dental information given to patient?: Patient has dentist HPI dizziness HPI Details Patient is a 59-year-old male here today for problem visit. This is the 1st time I am meeting this 67-year-old male with a past medical history significant for insomnia, BPH, renal stones, GERD and hyperlipidemia. He reports feeling somewhat dizzy over the last 3 days. Reports bending over while cleaning his bathroom and when he got up he felt fairly dizzy. He does admit to not drinking enough fluids. Today in office blood pressure readings are low initially though on recheck blood pressure stable. He otherwise denies any chest pain, palpitations, difficulty with breathing or visual issues. [facility] Medical History Thrombosed external hemorrhoid Chronic GERD Back pain Screening for diabetes mellitus Urinary frequency Other obstructive and reflux uropathy Renal stones Chronic superficial gastritis without bleeding BPH loc w urin obs/LUTS Insomnia Tubular adenoma of colon Surgical History History of esophagogastroduodenoscopy (EGD) Hx of colonoscopy History of appendectomy Family History Father No problems noted. Mother HTN (hypertension) Asthma Sister HTN (hypertension) Throat cancer Social History Housing: Apartment Alcohol intake: never Patient Tobacco Use Status: Never used Tobacco e-Cigarette/Vaping Use: Never Used Second Hand Smoke Exposure: No service: Yes ([employer]) Current occupational status: retired Cognitive needs: No Hearing needs: No Vision needs: Yes Questionnaire Thrive Questionnaire Date Thrive assessed: 11/10/22 AMADOU-7 AMB Questionnaire AMADOU-7 Date AMADOU - 7 assessed: 11/10/22 Source: Developed by Drs. Kali Roberts, Chanell Sibley, Lane Cho and colleagues, with an educational sony from [employer]. Review of Systems Const Denies headache(s) Eyes Denies loss of vision ENT Denies vertigo, Reports dizziness, Denies headache(s) and Denies sore throat Card Denies chest pain, Denies leg edema and Denies lightheadedness Resp Denies cough, Denies hemoptysis and Denies wheezing GI Denies abdominal pain, Denies melena, Denies constipation, Denies diarrhea and Denies vomiting Denies dysuria, Denies urinary frequency and Denies urinary urgency Musc Denies arthralgias, Denies joint swelling, Denies numbness and Denies tingling Neuro Denies Abnormal speech present, Denies behavioral changes, Denies vertigo, Reports dizziness, Denies headache(s), Denies loss of vision, Denies memory loss, Denies numbness and Denies tingling Psych Denies anxiety, Denies behavioral changes, Denies depression, Denies memory loss and Denies panic attacks Ricky/Lymph Denies easy bleeding and Denies easy bruising Aller/Immun Denies wheezing Physical exam (Primary Care) Vital Signs: Last Vital Signs Pulse 69 01/12/23 09:24 BP 92/60 01/12/23 09:24 Pulse Ox 98 01/12/23 09:24 Oxygen Delivery Method Room Air 01/12/23 09:24 Tobacco/Smoking Status: Tobacco use Status Tobacco use date assessed 11/10/22 01/12/23 09:26 Patient Tobacco Use Status Never used Tobacco 01/12/23 09:26 e-Cigarette/Vaping Use Never Used 01/12/23 09:26 Thrive Assessment: Date of Thrive Assessment Date Thrive assessed 11/10/22 01/12/23 09:26 Const General: healthy appearing, no acute distress, alert and awake Nutritional Appearance: well nourished Orientation/consciousness: oriented to person, oriented to place and oriented to time HENMT Ears: TM's normal bilaterally General nose exam: Normal nasal mucous membranes and turbinates present Eyes Conjunctivae: conjunctivae normal Sclerae: sclerae normal Pupils: Equal, round and reactive pupils present Neck Neck: Yes no lymphadenopathy and Yes no JVD Thyroid: Thyroid normal Carotids: no bruits Resp Effort & Inspection: normal respiratory effort and not tachypneic Auscultation: no crackles, no rales, no rhonchi and no wheezes Cardio Rate: regular rate Rhythm: regular rhythm Heart sounds: no murmurs and normal S1 and S2 GI Palpation (GI): Soft to palpation, nontender, no hepatomegaly and no splenomegaly Auscultation: normal bowel sounds Skin General skin exam: no rashes or lesions noted and dry skin Neuro General: oriented to person, oriented to place and oriented to time Cranial nerves: Yes Equal, round and reactive pupils present Speech: No Abnormal speech present Gait exam (Neuro): Normal gait present Motor exam (neuro): no tremor noted Extrem Right upper extremity: full ROM Left upper extremity: full ROM Right lower extremity: full ROM; no edema Left lower extremity: full ROM; no edema Psych Mental Status: mental status grossly normal Speech and movement: Normal speech and movement present Affect: normal affect Attitude: cooperative Thought process: Normal thought process present Office Procedures EKG Details: See scanned in document [id number], Complete Assessment and Plan Assessment & Plan (1) Dizziness: Code(s): R42 - Dizziness and giddiness Plan: Unclear etiology to patient's dizziness though is associated with change in his body position and head movements. Blood pressure originally in office low, recheck normalized. EKG in office with sinus rhythm no evidence of an arrhythmia. Will send for nonfasting labs Otherwise advised to stay well hydrated with electrolytes. Orders: Orders Basic Metabolic Panel Today R42 - Dizziness and giddiness AMB EKG-In Office Today R42 - Dizziness and giddiness, Z01.818 - Encounter for other preprocedural examination Complete Blood Count no Diff Today R42 - Dizziness and giddiness Coding Level of Care Code Est Pt Level 4 (70168) Diagnoses Dizziness R42 CPT Codes EKG - CPT: 26137-[id number], Complete ([id number])
[2023-01-12 09:55] VITALS: BP 118/78
== END 2023-01-12 09:54 | disposition home or self-care (01) ==
PROVIDERS: PCP Internal Medicine; Visit Provider Physician Assistant
DX: R42 Dizziness and giddiness (principal)
CPT/HCPCS: 93000; 99214

== ENCOUNTER 2023-01-12 10:01 | Outpatient (REF) | payer MEDICARE, OTHER, SELFPAY ==
[2023-01-12 11:15] LABS: Hemoglobin 15.8 g/dl (14.0-18.0); Mean Corpuscular HGB Conc 32.9 g/dl (31.0-36.0); Mean Corpuscular Hemoglobin 29.8 pg (27.0-33.0); Mean Corpuscular Volume 90.4 fL (80.0-98.0); Platelet Count 281 X10*3/uL (160-400); Red Blood Count 5.31 X10*6/uL (4.60-5.80); Red Cell Distribution Width 13.7 % (11.0-16.0); White Blood Count 6.3 X10*3/uL (4.8-10.8)
[2023-01-12 11:53] LABS: Anion Gap 13 (12-20); Blood Urea Nitrogen 10 mg/dL (9-16); Calcium 9.1 mg/dL (8.4-10.2); Carbon Dioxide 28 mmol/L (22-29); Chloride 103 mmol/L (96-108); Estimated Glomerular Filt Rate > 60; Glucose Random 92 mg/dL (60-115); Potassium 4.2 mmol/L (3.3-5.1); Sodium 140 mmol/L (135-145)
== END 2023-01-12 10:02 | disposition home or self-care (01) ==
LOC: HO.LAB 10:01
PROVIDERS: PCP Internal Medicine; Visit Provider Physician Assistant
DX: R42 Dizziness and giddiness (principal)
CPT/HCPCS: 36415; 80048; 85027

== ENCOUNTER 2023-02-08 11:02 | Emergency (ER) | payer OTHER, SELFPAY ==
[2023-02-08 11:50] VITALS: BP 135/81; PULSE 84; RESP 18; TEMP 36.7; O2SAT 97; BMI 31.6
--- NOTE | 2023-02-08 11:50 | ED_ITS ---
HPI - General Adult General Chief complaint: Upper Respiratory Symptoms Stated complaint: Congestion/Sore throat Time Seen by Provider: 02/08/23 13:11 Source: patient Mode of arrival: ambulatory Limitations: no limitations History of Present Illness HPI narrative: Patient is a 67 year old assigned male at with a history of IBS presenting to the emergency department today with sinus congestion. Patient states that over the last few days he has had increased sinus congestion and pain. Patient denies any dizziness, lightheadedness, abdominal pain, nausea, vomiting, fever, chills, blurry vision, double vision, loss of vision, chest pain, difficulty breathing, shortness of breath, back pain, night sweats, pain with urination, increased urinary frequency, increased urinary urgency, blood in his urine or stool, syncope or a near syncopal episode, recent trauma or falls, bowel incontinence, bladder incontinence, bowel retention, bladder retention, or any other complaints at this time. Onset (ago): day(s) Severity: mild Severity scale (1-10): 3 Quality: aching and dull Pain Consistency: constant Relieving factors: none Exacerbating factors: none Associated symptoms: denies other symptoms Treatments prior to arrival: none Related Data Home Medications Medication Instructions Recorded Confirmed ammonium lactate 12 % topical cream applic topical BID 01/02/20 01/12/23 aspirin 81 mg tablet,delayed 81 mg PO DAILY 08/18/22 01/12/23 release cyclobenzaprine 10 mg tablet 10 mg PO TID 08/18/22 01/12/23 tramadol 50 mg tablet 50 mg PO Q8H PRN pain 08/18/22 01/12/23 Previous Rx's Medication Instructions Recorded hydrocortisone 2.5 % topical cream 1 appl IN BID-QID PRN hemorrhoids 08/03/22 with perineal applicator #30 grams (Anusol-HC) mupirocin 2 % topical ointment 1 appl topical TID Paronychia #22 08/03/22 grams phulqv-iyayksyl-sdschst 1 cap PO QID #120 caps 08/18/22 24,000-76,000-120,000 unit capsule,delayed rel (Creon) hydrocortisone 1 %-pramoxine 1 % 1 appl IN QID PRN hemorrhoids #10 09/11/22 rectal foam (Proctofoam HC) grams tamsulosin 0.4 mg capsule 0.8 mg (2 x 0.4 mg) PO DAILY 90 09/11/22 days #180 caps clotrimazole-betamethasone 1 1 appl topical BID balanitis 4 11/12/22 %-0.05 % topical cream weeks #45 grams melatonin 1 mg tablet 2 mg (2 x 1 mg) PO BEDTIME PRN 12/04/22 sleep #60 tabs nystatin 100,000 unit/gram topical 1 appl topical BID balantitis #30 12/22/22 ointment grams suvorexant 5 mg tablet (Belsomra) 5 mg PO BEDTIME #90 tabs 12/28/22 omeprazole 20 mg capsule,delayed 20 mg PO DAILY #90 caps 02/02/23 release doxycycline hyclate 100 mg tablet 100 mg PO BID 7 days #14 tabs 02/08/23 Allergies Allergy/AdvReac Type Severity Reaction Status Date / Time lovastatin Allergy Unknown GI upset Verified 01/12/23 09:32 Review of Systems Constitutional: Constitutional: Reports no additional constitutional complaints, Denies chills, Denies fever(s) and Denies night sweats Eyes: Eyes: Reports no additional eye complaints, Denies blurry vision, Denies change in vision, Denies diplopia, Denies eye discharge, Denies loss of vision and Denies eye pain ENT: Denies dizziness, Reports nasal congestion, Reports sinus pain and Reports sinus pressure Cardiovascular: Cardiovascular: Reports no additional cardiovascular complaints, Denies chest pain, Denies lightheadedness, Denies Loss of Consciousness and Denies dyspnea Respiratory: Respiratory: Reports no additional respiratory complaints and Denies dyspnea Gastrointestinal: Gastrointestinal: Reports no additional gastrointestinal complaints, Denies abdominal pain, Denies melena, Denies hematochezia, Denies change in bowel habits and Denies change in stool character Genitourinary: Genitourinary: Reports no additional male genitourinary complaints, Denies hematuria, Denies oliguria, Denies difficulty urinating, Denies dysuria, Denies urinary frequency, Denies urinary hesitancy, Denies urinary incontinence and Denies urinary urgency Musculoskeletal: Musculoskeletal: Reports no additional musculoskeletal complaints, Denies numbness and Denies tingling Neurologic: Denies dizziness, Denies loss of vision, Denies numbness and Denie s tingling Psychiatric: Psychiatric: Reports no additional psychiatric complaints Endocrine: Endocrine: Reports no additional endocrine complaints Hematologic/Lymphatic: Hematologic/Lymphatic: Reports no additional hematologic/lymphatic complaints Allergic/Immunologic: Allergic/Immunologic: Reports no additional allergic/immunologic complaints FOR[facility]LY [facility], [facility] Past Medical History Attestation statement: The following information was validated with the patient. Source: old records reviewed and nursing notes reviewed Medical History Dizziness Shoulder pain Left foot pain Encounter for subsequent annual wellness visit (AWV) in Medicare patient Obesity Ankle pain BMI 31.0-31.9,adult Adult general medical exam Abnormality of penis Balanitis Tinea cruris Abdominal bloating Thrombosed external hemorrhoid Chronic GERD Back pain Screening for diabetes mellitus Urinary frequency Other obstructive and reflux uropathy Renal stones Chronic superficial gastritis without bleeding BPH loc w urin obs/LUTS Insomnia Tubular adenoma of colon Surgical History History of esophagogastroduodenoscopy (EGD) Hx of colonoscopy History of appendectomy Family History Family History Father No problems noted. Mother HTN (hypertension) Asthma Sister HTN (hypertension) Throat cancer Social History Social History Housing: Apartment Alcohol intake: never Patient Tobacco Use Status: Never used Tobacco e-Cigarette/Vaping Use: Never Used Second Hand Smoke Exposure: No service: Yes ([employer]) Current occupational status: retired Cognitive needs: No Hearing needs: No Vision needs: Yes Physical Exam ED Vital Signs: Vital Signs - 24 hr 02/08/23 11:50 Temperature 98.0 F Pulse Rate 84 Respiratory Rate 18 Blood Pressure 135/81 Pulse Oximetry 97 Oxygen Delivery Method Room Air BMI result Body Mass Index 31.6 Const General: cooperative, no acute distress, alert and awake Nutritional Appearance: well nourished Orientation/consciousness: patient oriented x3 Limitations: no limitations HENMT Head: Yes normal to inspection and Yes atraumatic Ears: hearing grossly normal bilaterally and external ears normal General nose exam: Normal external nose present, no nasal discharge noted and no epistaxis Face and sinus: Yes normal facial exam, No abrasion and No laceration Mouth: Normal oral and palatal mucosa present, no drooling and no muffled voice Eyes General: appearance normal, both eyes and all related structures Periorbital: periorbital findings normal Eyelids: Yes eyelids normal Conjunctivae: conjunctivae normal Pupils: Equal, round and reactive pupils present EOM: EOMs intact bilaterally Neck Neck: Yes normal visual inspection, Yes full ROM and Yes no lymphadenopathy Chest Chest palpation & inspection: normal inspection of the chest Resp Effort & Inspection: normal respiratory effort and able to speak in complete sentences GI Inspection: Yes normal to inspection Neuro General: patient oriented x3 and moves all extremities Cranial nerves: Yes Equal, round and reactive pupils present Cognition (Neuro): normal cognition Motor exam (neuro): 5/5 motor strength present throughout Sensory Exam: Normal double simultaneous stimulation for sensation Coordination: iqefmh-mx-aooj test normal Extrem General: Yes normal to inspection, Yes full ROM and Yes capillary refill normal Psych Appearance: grossly normal Mental Status: mental status grossly normal Affect: normal affect Attitude: cooperative Thought process: Normal thought process present Thought content: Normal thought content present Insight: Good insight present (Psych) Course Course Course Narrative: RME performed by Bety Ramirez PA-C. Patient is a 67 year old assigned male at presenting to the emergency department with multiple days of congestion. Swabs ordered. Patient placed back in the waiting room pending room availability and results. Medical Decision Making Medical Decision Making [facility] Narrative: Patient is a 67 year old assigned male at with a history of IBS presenting to the emergency department today with sinus pressure, sinus pain, and nasal congestion. Patient's physical exam was unremarkable. Patient's COVID/RSV/I nfluenza swab was negative. I explained my physical exam findings as well as all test results to the patient. I answered all questions asked by the patient. I stressed the importance of the patient taking his medication as prescribed. I stressed the importance of the patient following up with his primary care provider. I stressed the importance of the patient returning to the emergency department immediately if his symptoms were to worsen or if he were to develop any dizziness, shortness of breath, difficulty breathing, chest pain, blurry vision, loss of vision, nausea, vomiting, abdominal pain, fever, chills, back pain, or any other complaints. Patient verbalized agreement and understanding with this treatment plan and discharge. Differential Diagnosis Differential Diagnoses: The differential diagnosis associated with the presentation includes Sinusitis Sinus pain Sinus pressure COVID-19 RSV Influenza Lab Data [facility] Lab Attestation statement: I reviewed the patient's lab results. My interpretation of these studies and their corresponding values is that they are grossly normal. Labs: Lab Results 02/08/23 Range/Units 12:13 Influenza Type A (PCR) NEGATIVE (Negative) Influenza Type B (PCR) NEGATIVE (Negative) RSV RNA Qual (PCR) NEGATIVE (Negative) SARS-CoV-2 RNA (RT-PCR) NEGATIVE (Negative) Prescription Management I considered prescription management with: Antibiotic (patient prescribed an antibiotic for sinusitis.) Discharge Plan Discharge Clinical Impression: Sinusitis Patient Disposition: Home, Self-Care Instructions: Sinusitis (ED) Additional Instructions: Follow up with your primary care provider. Return to the emergency department immediately if your symptoms worsen or if you develop any dizziness, shortness of breath, difficulty breathing, chest pain, blurry vision, loss of vision, nausea, vomiting, abdominal pain, fever, chills, back pain, or any other complaints. Prescriptions: New doxycycline hyclate 100 mg tablet 100 mg PO BID 7 Days Qty: 14 0RF No Action clotrimazole-betamethasone 1-0.05 % cream 1 appl topical BID 28 Days Qty: 45 0RF melatonin 1 mg tablet 2 mg PO BEDTIME PRN (Reason: sleep) Qty: 60 3RF Belsomra 5 mg tablet 5 mg PO BEDTIME Qty: 90 3RF omeprazole 20 mg capsule,delayed release(DR/EC) 20 mg PO DAILY Qty: 90 2RF Proctofoam HC 1-1 % foam 1 appl IN QID PRN (Reason: hemorrhoids) Qty: 10 0RF ammonium lactate 12 % cream topical BID mupirocin 2 % ointment 1 appl topical TID Qty: 22 0RF hydrocortisone [Anusol-HC] 2.5 % cream with perineal applicator 1 appl IN BID-QID PRN (Reason: hemorrhoids) Qty: 30 1RF tamsulosin 0.4 mg capsule 0.8 mg PO DAILY 90 Days Qty: 180 3RF cyclobenzaprine 10 mg tablet 10 mg PO TID tramadol 50 mg tablet 50 mg PO Q8H PRN (Reason: pain) aspirin 81 mg tablet,delayed release (DR/EC) 81 mg PO DAILY Creon 24,000-76,000 -120,000 unit capsule,delayed release(DR/EC) 1 cap PO QID Qty: 120 8RF nystatin 100,000 unit/gram ointment 1 appl topical BID Qty: 30 0RF Rx Instructions: Apply to red areas of the head of penis, shaft and scrotal Referrals: Jose Hernandez MD [Primary Care Provider] - Print Language: Brazilian
[2023-02-08 13:01] LABS: Influenza A PCR NEGATIVE (Negative); Influenza B PCR NEGATIVE (Negative); Resp Syncy Virus RNA Qual PCR NEGATIVE (Negative); SARS COV2 PCR INHOUSE NEGATIVE (Negative)
[2023-02-08 13:29] VITALS: BP 117/77; PULSE 67; RESP 18; TEMP 36.8; O2SAT 95
== END 2023-02-08 13:30 | disposition home or self-care (01) ==
PROVIDERS: Physician Assistant Medical; Emergency Provider Emergency Medicine; PCP Internal Medicine
DX: J32.9 Chronic sinusitis, unspecified (principal); J02.9 Acute pharyngitis, unspecified; Z20.822 Contact with and (suspected) exposure to COVID-19; Z20.828 Contact with and (suspected) exposure to other viral communicable diseases
CPT/HCPCS: 0241U; 99283

== ENCOUNTER 2023-02-15 13:53 | Outpatient (AMB) | payer MEDICARE, OTHER, SELFPAY ==
[2023-02-15 13:56] VITALS: BP 120/68; PULSE 70; O2SAT 96; BMI 31.7
--- NOTE | 2023-02-15 13:56 | A.OFFPC_ITS ---
Vital Signs 02/15/23 13:56 Height 5 ft 9 in Weight 215 lb BMI 31.7 BP 120/68 Blood Pressure Location Lt brachial Position Sitting Pulse 70 Pulse Source Pulse Oximeter Pulse Oximetry (%) 96 Oxygen Delivery Method Room Air Intake Visit Reasons: 3mth f/u Fireworks Inspector Required: No Cardiothoracic Icu Rn: Not Required per policy Accompanied by: Self / Same As Patient Allergies lovastatin Allergy (Unknown, Verified 02/15/23 13:57) GI upset Tobacco use date assessed: 11/10/22 Fall risk assessment: No Falls in past year Last assessed Fall Risk: 02/15/23 Dental Screening Dental Screen Date: 02/15/23 Did you have a dental visit in the last 12 months?: Yes Did you have a dental problem in the last 6 months where you did not have access to dental care?: No Was dental information given to patient?: Patient has dentist HPI 3mth f/u HPI Details BPH on Rx; doing well; compliant [facility] Medical History Dizziness Shoulder pain Left foot pain Encounter for subsequent annual wellness visit (AWV) in Medicare patient Obesity Ankle pain BMI 31.0-31.9,adult Adult general medical exam Abnormality of penis Balanitis Tinea cruris Abdominal bloating Thrombosed external hemorrhoid Chronic GERD Back pain Screening for diabetes mellitus Urinary frequency Other obstructive and reflux uropathy Renal stones Chronic superficial gastritis without bleeding BPH loc w urin obs/LUTS Insomnia Tubular adenoma of colon Surgical History History of esophagogastroduodenoscopy (EGD) Hx of colonoscopy History of appendectomy Family History Father No problems noted. Mother HTN (hypertension) Asthma Sister HTN (hypertension) Throat cancer Social History Housing: Apartment Alcohol intake: never Patient Tobacco Use Status: Never used Tobacco e-Cigarette/Vaping Use: Never Used Second Hand Smoke Exposure: No service: Yes ([employer]) Current occupational status: retired Cognitive needs: No Hearing needs: No Vision needs: Yes Questionnaire PHQ-9 Over the last 2 weeks, how often have you been bothered by any of the following problems? 1. Little interest or pleasure in doing things: several days 2. Feeling down, depressed, or hopeless: several days 3. Trouble falling or staying asleep, or sleeping too much: nearly every day 5. Poor appetite or overeating: more than half the days 6. Feeling bad about yourself - or that you are a failure or have let yourself or your family down: not at all 7. Trouble concentrating on things, such as reading the newspaper or watching television: more than half the days 8. Moving or speaking so slowly that other people could have noticed. Or the opposite - being so fidgety or restless that you have been moving around a lot more than usual: more than half the days 9. Thoughts that you would be better off or of hurting yourself in some way: not at all Source: Developed by Drs. Kali Roberts, Chanell Sibley, Lane Cho and colleagues, with an educational sony from [employer]. Thrive Questionnaire Date Thrive assessed: 11/10/22 AUDIT C Alcohol Use Questionnaire (AUDIT-C) 1. How often do you have a drink containing alcohol?: Never 3. How often do you have six or more drinks on one occasion?: Never Total Score: 0 Score Reviewed/Action Taken: Yes AMADOU-7 AMB Questionnaire AMADOU-7 Date AMADOU - 7 assessed: 11/10/22 Source: Developed by Drs. Kali Roberts, Chanell Sibley, Lane Cho and colleagues, with an educational sony from [employer]. Review of Systems Const Denies chills, Denies headache(s) and Denies weight loss ENT Denies headache(s) Card Denies chest pain, Denies syncope, Denies irregular heart rhythm and Denies dyspnea Resp Denies chest congestion, Denies cough and Denies dyspnea GI Denies abdominal pain, Denies change in stool character, Denies nausea and Denies vomiting Musc Denies deformity and Denies joint swelling Neuro Denies syncope and Denies headache(s) Physical exam (Primary Care) Vital Signs: Last Vital Signs Pulse 70 02/15/23 13:56 BP 120/68 02/15/23 13:56 Pulse Ox 96 02/15/23 13:56 Oxygen Delivery Method Room Air 02/15/23 13:56 BMI result Body Mass Index 31.7 Tobacco/Smoking Status: Tobacco use Status Tobacco use date assessed 11/10/22 02/15/23 13:58 Patient Tobacco Use Status Never used Tobacco 02/15/23 13:58 e-Cigarette/Vaping Use Never Used 02/15/23 13:58 Thrive Assessment: Date of Thrive Assessment Date Thrive assessed 11/10/22 02/15/23 13:58 Const General: cooperative, comfortable, no acute distress and alert Neck Neck: Yes no lymphadenopathy Thyroid: Thyroid normal Resp Effort & Inspection: normal respiratory effort Auscultation: clear to auscultation bilaterally Percussion: percussion normal Cardio Jugular venous distension: no JVD Palpation: normal PMI Rate: regular rate Rhythm: regular rhythm Heart sounds: S1 normal heart sound present and S2 normal heart sound present GI Inspection: Yes normal to inspection Palpation (GI): No hepatosplenomegaly present Skin General skin exam: no rashes or lesions noted Extrem General: Yes no clubbing, cyanosis or edema Assessment and Plan Assessment & Plan (1) BPH (benign prostatic hyperplasia): Code(s): N40.0 - Benign prostatic hyperplasia without lower urinary tract symptoms Plan: stable; same rx Coding Level of Care Code Est Pt Level 3 (57807) Diagnoses BPH (benign prostatic hyperplasia) N40.0
== END 2023-02-15 14:13 | disposition home or self-care (01) ==
PROVIDERS: PCP Internal Medicine; Visit Provider Internal Medicine
DX: N40.0 Benign prostatic hyperplasia without lower urinary tract symptoms (principal)
CPT/HCPCS: 99213

== ENCOUNTER 2023-02-17 12:23 | Outpatient (AMB) | payer MEDICARE, OTHER, SELFPAY ==
--- NOTE | 2023-02-17 12:24 | MHC.OFFVIS ---
Intake Vital Signs 02/17/23 12:26 Height 5 ft 9 in Weight 215 lb 2.738 oz BMI 31.8 BP 127/72 Blood Pressure Location Lt brachial Position Sitting Pulse 69 Pulse Oximetry (%) 95 Intake Visit Reasons: 6 mnth follow up Intake Note: Luis A presents in office today for 6 months follow up. CC: Patient reports occasional abdominal discomfort after eating and when resting arm on abdomen. He reports regular BMs and denies other GI symptoms or concerns. 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 His stools are soft any isn't straining but he still having considerable trouble with an external hemorrhoid. This is despite using Proctofoam cream (and he was instructed how to use it appropriately) and sitting on ice packs. It was so bad that he had to report to the ER 09/11/2022 because it was not allowing him to sit or to sleep because of pain. The ER examined him and it was non thrombosed so he was given conservative therapy and told to follow-up with GI. At this point it seems like he is not doing well with conservative therapy so I will refer him to General surgery for consideration of a hemorrhoidectomy. Return office visit in 6 months. (2) Abdominal bloating: Code(s): R14.0 - Abdominal distension (gaseous) (3) IBS (irritable bowel syndrome): Code(s): K58.9 - Irritable bowel syndrome without diarrhea (4) External hemorrhoids: Code(s): K64.4 - Residual hemorrhoidal skin tags Orders: Referrals General Surgery Re alicia K64.9 - Unspecifie d hemorrhoids TODAY'S VISIT MALTESE #declines He has not heard yet from general surgery but the hemorrhoid but, thankfully, the pain is better since he received the hemorrhoid cream. He continues on his omeprazole with good control of his GERD. He has a new concern of discomfort over the gastric area that happens sometimes with eating and most of the time when he folds his arms over his stomach while in a seated position. He describes the feeling as pressure and sometimes it can be as high as 6/10 in intensity. It will tend to last only about 10 minutes before resolves on its own. We discussed whether this may be related to eating a larger meal or eating too quickly and he had knowledge is this could be the case and I will try to think about this more and see if he can to find any cause and effect here. Because this could be signs of up hernia in the early stages will get ultrasound to investigate. He will be gone to [facility] over February to 03/30/2023. Return office visit after the ultrasound And in 6 months. [facility] Medical History Dizziness Shoulder pain Left foot pain Encounter for subsequent annual wellness visit (AWV) in Medicare patient Obesity Ankle pain BMI 31.0-31.9,adult Adult general medical exam Abnormality of penis Balanitis Tinea cruris Abdominal bloating Thrombosed external hemorrhoid Chronic GERD Back pain Screening for diabetes mellitus Urinary frequency Other obstructive and reflux uropathy Renal stones Chronic superficial gastritis without bleeding BPH loc w urin obs/LUTS Insomnia Tubular adenoma of colon Surgical History History of esophagogastroduodenoscopy (EGD) Hx of colonoscopy History of appendectomy Family History Father No problems noted. Mother HTN (hypertension) Asthma Sister HTN (hypertension) Throat cancer Social History Housing: Apartment Alcohol intake: never Patient Tobacco Use Status: Never used Tobacco e-Cigarette/Vaping Use: Never Used Second Hand Smoke Exposure: No service: Yes ([employer]) Current occupational status: retired Cognitive needs: No Hearing needs: No Vision needs: Yes Review of Systems Const Denies fatigue, Denies fever(s), Denies night sweats, Denies poor appetite and Denies weight loss Eyes Details: glasses Reports requires corrective lenses ENT Reports Normal hearing present, Denies dental pain, Denies dysphagia, Denies hearing loss, Denies mouth pain, Denies odynophagia, Denies throat swelling, Denies tongue swelling and Reports other (Dentition adequate) Card Reports no additional complaints Resp Reports no additional complaints GI Reports abdominal pain, Denies melena, Denies bloating, Denies hematochezia, Denies constipation, Denies GI cramping, Denies dysphagia, Denies excessive flatus, Denies early satiety, Reports heartburn, Denies diarrhea, Denies nausea, Denies odynophagia, Denies vomiting and Denies hematemesis Skin/Breast Denies pruritus, Denies lesions, Denies rash and Denies jaundice Neuro Reports Normal hearing present and Denies Abnormal speech present Endo Denies fatigue Aller/Immun Denies throat swelling and Denies tongue swelling Physical Exam Vital Signs: Last Vital Signs Pulse 69 02/17/23 12:26 BP 127/72 02/17/23 12:26 Pulse Ox 95 02/17/23 12:26 BMI result Body Mass Index 31.8 Const General: cooperative, no acute distress, well developed and well groomed Nutritional Appearance: well nourished and overweight Orientation/consciousness: oriented to person, oriented to place and oriented to time Limitations: No language barrier HEENT Head: Yes normocephalic and Yes atraumatic Eyes General: appearance normal, both eyes and all related structures Pupils: Equal, round and reactive pupils present Neck Neck: Yes normal visual inspection and Yes no lymphadenopathy Thyroid: Thyroid normal Resp Effort & Inspection: normal respiratory effort and able to speak in complete sentences Auscultation: clear to auscultation bilaterally Cardio Rate: regular rate Rhythm: regular rhythm Heart sounds: Normal, physiologic split S2 sound present Peripheral pulses: radial pulses present and posterior tibial pulses present GI Inspection: No distended, No Abdominal panniculus present and Yes obesity Palpation (GI): Soft to palpation, nontender, no guarding, not rigid and No hepatosplenomegaly present Percussion: Yes normal to percussion Auscultation: normal bowel sounds Rectal Exam - Male: Yes deferred Skin General skin exam: no rashes or lesions noted, turgor normal, skin not dry, no jaundice, No spider nevi and no striae Rashes: no rashes Nails: normal Neuro General: oriented to person, oriented to place and oriented to time Cranial nerves: Yes Equal, round and reactive pupils present and Yes Normal hearing present Speech: No Abnormal speech present Extrem General: Yes normal to inspection, No clubbing, No cyanosis and No edema Psych Appearance: grossly normal and well kempt Mental Status: mental status grossly normal Speech and movement: Normal speech and movement present Affect: normal affect Attitude: cooperative Thought process: Normal thought process present and not confabulating Thought content: Normal thought content present Insight: Fair insight present (Psych) Judgement: Fair judgement present (Psych) Assessment & Plan Assessment & Plan (1) GERD (gastroesophageal reflux disease): Code(s): K21.9 - Gastro-esophageal reflux disease without esophagitis (2) IBS (irritable bowel syndrome): Code(s): K58.9 - Irritable bowel syndrome without diarrhea (3) Tubular adenoma of colon: Comment: 2014 SCOPE, RESCOPED 2019 CLEAR WITH HYPERPLASTIC ONLY REPEAT 5 YEARS Code(s): D12.6 - Benign neoplasm of colon, unspecified (4) Upper abdominal pain: Code(s): R10.10 - Upper abdominal pain, unspecified Plan MALTESE #declines He has not heard yet from general surgery but the hemorrhoid but, thankfully, the pain is better since he received the hemorrhoid cream. He continues on his omeprazole with good control of his GERD. He has a new concern of discomfort over the gastric area that happens sometimes with eating and most of the time when he folds his arms over his stomach while in a seated position. He describes the feeling as pressure and sometimes it can be as high as 6/10 in intensity. It will tend to last only about 10 minutes before resolves on its own. We discussed whether this may be related to eating a larger meal or eating too quickly and he had knowledge is this could be the case and I will try to think about this more and see if he can to find any cause and effect here. Because this could be signs of up hernia in the early stages will get ultrasound to investigate. He will be gone to [facility] over February to 03/30/2023. Return office visit after the ultrasound And in 6 months. Orders: Orders US abdomen complete 02/17/23 R10.10 - Upper abdominal pain, unspecified Coding Level of Care Code Est Pt Level 3 (74336) Diagnoses GERD (gastroesophageal reflux disease) K21.9 IBS (irritable bowel syndrome) K58.9 Tubular adenoma of colon D12.6 Upper abdominal pain R10.10
[2023-02-17 12:26] VITALS: BP 127/72; PULSE 69; O2SAT 95; BMI 31.8
== END 2023-02-17 13:08 | disposition home or self-care (01) ==
PROVIDERS: PCP Internal Medicine; Visit Provider Nurse Practitioner
DX: K21.9 Gastro-esophageal reflux disease without esophagitis (principal); K58.9 Irritable bowel syndrome, unspecified; D12.6 Benign neoplasm of colon, unspecified; R10.10 Upper abdominal pain, unspecified
CPT/HCPCS: 99213

== ENCOUNTER → 2023-02-17 12:23 | Outpatient (BNVA) | payer MEDICARE, OTHER, SELFPAY | PROVIDERS: PCP Internal Medicine; Visit Provider Nurse Practitioner | DX: K21.9 Gastro-esophageal reflux disease without esophagitis (principal); K58.9 Irritable bowel syndrome, unspecified; D12.6 Benign neoplasm of colon, unspecified; R10.10 Upper abdominal pain, unspecified | CPT/HCPCS: 99212 ==

== ENCOUNTER 2023-04-05 07:42 | Emergency (ER) | payer OTHER, SELFPAY ==
[2023-04-05 07:54] VITALS: BP 122/85; PULSE 73; RESP 18; TEMP 36.6; O2SAT 97; BMI 31.4
--- NOTE | 2023-04-05 09:07 | ED_ITS ---
HPI - Back Pain/Injury General Chief Complaint: Back Pain/Injury Stated Complaint: L side back pain Time Seen by Provider: 04/05/23 09:05 Source: patient, RN notes reviewed and old records reviewed Mode of arrival: ambulatory History of Present Illness HPI Narrative: 68-year-old male with a past medical history of GERD, urinary frequency, renal stones, insomnia, BPH, presenting to the ED complaining of left-sided mid back pain x yesterday. Admits to lifting multiple heavy water bottle packs on Wednesday, and then twisting awkwardly in kitchen yesterday prior to symptoms starting. Denies direct injury/trauma or fall, radiation to lower extremities, numbness, tingling, weakness, incontinence/retention, dysuria/hematuria. Was using patches at home with some relief MD elicited complaint: back pain Related Data Home Medications Medication Instructions Recorded Confirmed ammonium lactate 12 % topical cream applic topical BID 01/02/20 01/12/23 aspirin 81 mg tablet,delayed 81 mg PO DAILY 08/18/22 01/12/23 release rosuvastatin 5 mg tablet 5 mg PO DAILY 02/17/23 Previous Rx's Medication Instructions Recorded hydrocortisone 2.5 % topical cream 1 appl IA BID-QID PRN hemorrhoids 08/03/22 with perineal applicator #30 grams (Anusol-HC) hydrocortisone 1 %-pramoxine 1 % 1 appl IA QID PRN hemorrhoids #10 09/11/22 rectal foam (Proctofoam HC) grams tamsulosin 0.4 mg capsule 0.8 mg (2 x 0.4 mg) PO DAILY 90 09/11/22 days #180 caps clotrimazole-betamethasone 1 1 appl topical BID balanitis 4 11/12/22 %-0.05 % topical cream weeks #45 grams nystatin 100,000 unit/gram topical 1 appl topical BID balantitis #30 12/22/22 ointment grams suvorexant 5 mg tablet (Belsomra) 5 mg PO BEDTIME #90 tabs 12/28/22 omeprazole 20 mg capsule,delayed 20 mg PO DAILY #90 caps 02/02/23 release melatonin 1 mg tablet 2 mg (2 x 1 mg) PO BEDTIME PRN 03/30/23 sleep #60 tabs acetaminophen 500 mg tablet 500 mg PO Q6H PRN fever or pain 04/05/23 (Tylenol Extra Strength) #14 tabs cyclobenzaprine 5 mg tablet 5 mg PO Q8H PRN pain (scale score 04/05/23 7-10) 5 days #14 tabs lidocaine 5 % topical patch 1 patch topical DAILY PRN pain #30 04/05/23 (Lidoderm) ea naproxen 500 mg tablet 500 mg PO BID PRN pain 10 days #20 04/05/23 tabs Allergies Allergy/AdvReac Type Severity Reaction Status Date / Time lovastatin Allergy Unknown GI upset Verified 02/17/23 12:29 Review of Systems Review of Systems: Constitutional: No Fever, No Chills ENT/Mouth: No Ear Pain, No sore throat, No Rhinorrhea, No Swallowing Difficulty Cardiovascular: No Chest Pain, No SOB Respiratory: No Cough, No Sputum, No Wheezing Gastrointestinal: No Nausea, No Vomiting, No Abdominal pain Genitourinary: No Dysuria, No Urinary Frequency, No Hematuria, No Urinary Incontinence/retention, No Flank Pain Musculoskeletal: + joint pain, +Myalgias, No Joint Swelling Skin: No Skin Lesions, No rash Neuro: No Weakness, No Numbness, No Paresthesias Yes all other systems are reviewed and are negative Constitutional: Constitutional: Reports as per [facility] Past Medical History Attestation statement: The following information was validated with the patient. Source: old records reviewed Onset Date is defined in the Problem List Problems that require an onset date and time if occurred within 24 hrs of arrival to the ED Aortic Dissection and Rupture; Neurologic impairment; Cardiopulmonary Arrest; Endotracheal Intubation; Insertion or Replacement of Mechanical Circulatory Assist Device Medical History Dizziness Shoulder pain Left foot pain Encounter for subsequent annual wellness visit (AWV) in Medicare patient Obesity Ankle pain BMI 31.0-31.9,adult Adult general medical exam Abnormality of penis Balanitis Tinea cruris Abdominal bloating Thrombosed external hemorrhoid Chronic GERD Back pain Screening for diabetes mellitus Urinary frequency Other obstructive and reflux uropathy Renal stones Chronic superficial gastritis without bleeding BPH loc w urin obs/LUTS Insomnia Tubular adenoma of colon Surgical History History of esophagogastroduodenoscopy (EGD) Hx of colonoscopy History of appendectomy Family History Family History Father No problems noted. Mother HTN (hypertension) Asthma Sister HTN (hypertension) Throat cancer Social History Social History Housing: Apartment Alcohol intake: never Patient Tobacco Use Status: Never used Tobacco e-Cigarette/Vaping Use: Never Used Second Hand Smoke Exposure: No Advance Directives: No service: Yes ([employer]) Current occupational status: retired Cognitive needs: No Hearing needs: No Vision needs: Yes Physical Exam Vital Signs: Vital Signs: Last Vital Signs Temp 97.8 F 04/05/23 07:54 Pulse 73 04/05/23 07:54 Resp 18 04/05/23 07:54 BP 122/85 04/05/23 07:54 Pulse Ox 97 04/05/23 07:54 O2 Del Method Room Air 04/05/23 07:54 BMI result Body Mass Index 31.4 Const: General: cooperative, healthy appearing and no acute distress Orientation/consciousness: patient oriented x3 Limitations: no limitations HEENT: Head: Yes normal to inspection and Yes atraumatic Ears: hearing grossly normal bilaterally General nose exam: Normal external nose present Face and sinus: Yes normal facial exam Eyes: General: appearance normal, both eyes and all related structures EOM: EOMs intact bilaterally Neck: Neck: Yes normal visual inspection and Yes no meningeal signs Resp: Effort & Inspection: normal respiratory effort and no respiratory distress Auscultation: clear to auscultation bilaterally Cardio: Rate: regular rate Heart sounds: S1 normal heart sound present and S2 normal heart sound present GI: Inspection: Yes normal to inspection Palpation (GI): Soft to palpation, nontender, no guarding and not rigid : General: Yes no CVA tenderness Back/Spine/Pelvis: Other: No midline cervical/thoracic/lumbar spinous tenderness/step-off or deformity. + left-sided mid thoracic MSK reproducible back ttp. + palpable spasming. No erythema/warmth or rash. No flail chest Back: no CVA tenderness Skin: Rashes: no rashes Wounds: no wounds Neuro: Other: Strength intact throughout. No saddle anesthesia. Sensation intact to light touch. Neurovascular intact distally General: patient oriented x3, gait normal, tone normal, moves all extremities, no meningeal signs and no focal motor deficits Cranial nerves: Yes CN's II-XII intact bilaterally Gait exam (Neuro): Normal gait present Motor exam (neuro): 5/5 motor strength present throughout Extrem: General: Yes normal to inspection Medications Administered Discontinued Medications Generic Name Dose Route Start Last Admin Trade Name Lexi PRN Reason Stop Dose Admin Ketorolac Tromethamine 30 mg 04/05/23 09:19 04/05/23 10:07 Ketorolac Tromethamine 30 Mg/Ml Vial IM 04/05/23 09:20 30 mg ONCE ONE Administration Medical Decision Making Medical Decision Making MDM Narrative: 68-year-old male with a past medical history of GERD, urinary frequency, renal stones, insomnia, BPH, presenting to the ED complaining of left-sided mid back pain x yesterday. On exam vital signs stable, NAD, nontoxic appearing, PE as above, no midline spinous tenderness throughout or red flag symptoms. Concern for MSK pain/strain and spasming. Low suspicion for fracture, cauda equina/cord compression or renal stone/pyelo plan: Symptomatic treatment, PCP follow-up Please refer to course for remaining clinical decision making, interpretation of labs/imaging results, and discussions with consultants and/or family members. Results discussed with patient including worrisome signs and symptoms and strict return precautions, and when to return to the emergency department. They verbalized understanding and feel safe for discharge at this time. Differential Diagnosis Differential Diagnoses: The differential diagnosis associated with the presentation includes As above External Record Review External record reviewed: Inpatient record, Office record, Outpatient record, Prior outpatient labs, Prior outpatient radiology, Primary care record and Outside ED record Tests considered The following testing was considered but not selected: As above Prescription Management I considered prescription management with: Pain Medication Discharge Plan Discharge Clinical Impression: Back muscle spasm Patient Disposition: Home, Self-Care Instructions: Back Pain (ED) Additional Instructions: Your pain is likely musculoskeletal Flexeril is a muscle relaxer, take at night as it makes you drowsy, do not drive, drink alcohol, or operate machinery while taking it Naproxen as an anti-inflammatory / pain medication, take with food Lidoderm patches are numbing patches, apply to painful area In addition take Tylenol at home If symptoms persist or worsen, pain becomes unbearable, you developed urinary retention or incontinence, or weakness return to the ED Prescriptions: New acetaminophen [Tylenol Extra Strength] 500 mg tablet 500 mg PO Q6H PRN (Reason: fever or pain) Qty: 14 0RF lidocaine [Lidoderm] 5 % adhesive patch,medicated 1 patch topical DAILY MDD remove after 12 hours PRN (Reason: pain) Qty: 30 0RF Rx Instructions: leave on most painful area for up to 12 hrs naproxen 500 mg tablet 500 mg PO BID PRN (Reason: pain) 10 Days Qty: 20 0RF cyclobenzaprine 5 mg tablet 5 mg PO Q8H PRN (Reason: pain (scale score 7-10)) 5 Days Qty: 14 0RF No Action clotrimazole-betamethasone 1-0.05 % cream 1 appl topical BID 28 Days Qty: 45 0RF Belsomra 5 mg tablet 5 mg PO BEDTIME Qty: 90 3RF omeprazole 20 mg capsule,delayed release(DR/EC) 20 mg PO DAILY Qty: 90 2RF melatonin 1 mg tablet 2 mg PO BEDTIME PRN (Reason: sleep) Qty: 60 3RF Proctofoam HC 1-1 % foam 1 appl IA QID PRN (Reason: hemorrhoids) Qty: 10 0RF ammonium lactate 12 % cream topical BID hydrocortisone [Anusol-HC] 2.5 % cream with perineal applicator 1 appl IA BID-QID PRN (Reason: hemorrhoids) Qty: 30 1RF tamsulosin 0.4 mg capsule 0.8 mg PO DAILY 90 Days Qty: 180 3RF aspirin 81 mg tablet,delayed release (DR/EC) 81 mg PO DAILY rosuvastatin 5 mg tablet 5 mg PO DAILY nystatin 100,000 unit/gram ointment 1 appl topical BID Qty: 30 0RF Rx Instructions: Apply to red areas of the head of penis, shaft and scrotal Referrals: Jose Hernandez MD [Primary Care Provider] - Interventions: ED Discharge Assessment Last Done: 04/05/23 10:10 Discharge Date/Time: 04/05/23 10:11
== END 2023-04-05 10:11 | disposition home or self-care (01) ==
PROVIDERS: Emergency Provider Emergency Medicine; PCP Internal Medicine
DX: M62.830 Muscle spasm of back (principal); M54.50 Low back pain, unspecified; R35.0 Frequency of micturition
CPT/HCPCS: 96372; 99283; 99284; J1885

== ENCOUNTER 2023-04-07 08:02 | Outpatient (REF) | payer OTHER, SELFPAY ==
--- NOTE | ~2023-04-07 | US_ITS ---
EXAMINATION: US ABDOMEN COMPLETE CLINICAL INFORMATION: Upper abdominal pain, unspecified. Patient states postprandial pain. COMPARISON: Renal ultrasound 08/20/2022 and 08/18/2021. CT abdomen and pelvis 08/07/2020. X-ray KUB 05/13/2016 and 09/04/2015. TECHNIQUE: Real-time imaging of the abdominal viscera. FINDINGS: PANCREAS: Normal head and body, the tail is obscured by bowel gas. ABDOMINAL AORTA: The proximal, mid, and distal segments are normal in caliber. INFERIOR VENA CAVA: Visualized portions are normal. LIVER: The liver is normal in size. The liver contour is normal. Parenchymal echogenicity is normal. No focal hepatic lesion. There is no intrahepatic biliary duct dilatation seen. GALLBLADDER: The gallbladder is physiologically distended. Multiple mobile gallstones are present. No evidence of gallbladder wall thickening or pericholecystic fluid. COMMON BILE DUCT: Normal in caliber measuring 0.4 cm in diameter. RIGHT KIDNEY: There is a 1.7 x 1.9 x 1.1 cm simple lower pole cyst. No imaging follow-up is recommended. No hydronephrosis or renal calculi. The kidney measures 10.3 cm in maximum dimension. LEFT KIDNEY: Normal. No hydronephrosis. No renal calculi or focal parenchymal lesions. The kidney measures 11.0 cm in maximum dimension. SPLEEN: The spleen is not well seen due to bowel gas. The spleen measures 8.0 cm in maximum dimension. FREE FLUID: None. US/US abdomen complete IMPRESSION: 1. Cholelithiasis. 2. The spleen is not well seen due to bowel gas.
== END 2023-04-07 08:03 | disposition home or self-care (01) ==
LOC: HO.US 08:02
PROVIDERS: PCP Internal Medicine; Visit Provider Nurse Practitioner
DX: R10.10 Upper abdominal pain, unspecified (principal)
CPT/HCPCS: 76700

== ENCOUNTER 2023-04-09 15:36 | Emergency (ER) | payer OTHER, SELFPAY ==
--- NOTE | ~2023-04-09 | XR_ITS ---
EXAMINATION: XR CHEST 2 VIEW CLINICAL INFORMATION: Cough COMPARISON: 04/07/2018 TECHNIQUE: PA and lateral views of the chest obtained. FINDINGS: The lungs are clear. There are no pleural effusions. The cardiomediastinal silhouette is normal. XR/XR chest 2V IMPRESSION: No acute cardiopulmonary disease.
[2023-04-09 15:42] VITALS: BP 124/75; PULSE 75; RESP 18; TEMP 36.3; O2SAT 97; BMI 30.9
--- NOTE | 2023-04-09 15:43 | ED.URI ---
HPI - URI/Sore Throat General Chief Complaint: Upper Respiratory Symptoms Stated Complaint: chest congestion after muscle injection last week Time Seen by Provider: 04/09/23 16:15 Source: patient Mode of arrival: ambulatory Limitations: no limitations History of Present Illness HPI Narrative: Patient is a 68 year old assigned male at with a history of kidney stones presenting to the emergency department today with cough and congestion. Patient states that over the last 3 days he has had a cough and congestion. Patient denies any dizziness, lightheadedness, abdominal pain, nausea, vomiting, fever, chills, blurry vision, double vision, loss of vision, chest pain, difficulty breathing, shortness of breath, back pain, night sweats, pain with urination, increased urinary frequency, increased urinary urgency, blood in his urine or stool, syncope or a near syncopal episode, recent trauma or falls, bowel incontinence, bladder incontinence, bowel retention, bladder retention, or any other complaints at this time. MD elicited complaint: cough Onset (ago): day(s) (3) Severity: mild Treatments prior to arrival: none Related Data Home Medications Medication Instructions Recorded Confirmed ammonium lactate 12 % topical cream applic topical BID 01/02/20 01/12/23 aspirin 81 mg tablet,delayed 81 mg PO DAILY 08/18/22 01/12/23 release rosuvastatin 5 mg tablet 5 mg PO DAILY 02/17/23 Previous Rx's Medication Instructions Recorded hydrocortisone 2.5 % topical cream 1 appl [place] BID-QID PRN hemorrhoids 08/03/22 with perineal applicator #30 grams (Anusol-HC) hydrocortisone 1 %-pramoxine 1 % 1 appl [place] QID PRN hemorrhoids #10 09/11/22 rectal foam (Proctofoam HC) grams tamsulosin 0.4 mg capsule 0.8 mg (2 x 0.4 mg) PO DAILY 90 09/11/22 days #180 caps clotrimazole-betamethasone 1 1 appl topical BID balanitis 4 11/12/22 %-0.05 % topical cream weeks #45 grams nystatin 100,000 unit/gram topical 1 appl topical BID balantitis #30 12/22/22 ointment grams suvorexant 5 mg tablet (Belsomra) 5 mg PO BEDTIME #90 tabs 12/28/22 omeprazole 20 mg capsule,delayed 20 mg PO DAILY #90 caps 02/02/23 release melatonin 1 mg tablet 2 mg (2 x 1 mg) PO BEDTIME PRN 03/30/23 sleep #60 tabs acetaminophen 500 mg tablet 500 mg PO Q6H PRN fever or pain 04/05/23 (Tylenol Extra Strength) #14 tabs cyclobenzaprine 5 mg tablet 5 mg PO Q8H PRN pain (scale score 04/05/23 7-10) 5 days #14 tabs lidocaine 5 % topical patch 1 patch topical DAILY PRN pain #30 04/05/23 (Lidoderm) ea naproxen 500 mg tablet 500 mg PO BID PRN pain 10 days #20 04/05/23 tabs benzonatate 100 mg capsule 100 mg PO BID PRN cough 7 days #14 04/09/23 caps Allergies Allergy/AdvReac Type Severity Reaction Status Date / Time lovastatin Allergy Unknown GI upset Verified 02/17/23 12:29 Review of Systems Constitutional: Constitutional: Reports no additional constitutional complaints, Denies chills, Denies fever(s) and Denies night sweats Eyes: Eyes: Reports no additional eye complaints, Denies blurry vision, Denies change in vision, Denies diplopia, Denies eye discharge, Denies loss of vision and Denies eye pain ENT: Denies dizziness and Reports nasal congestion Cardiovascular: Cardiovascular: Reports no additional cardiovascular complaints, Denies chest pain, Denies lightheadedness, Denies Loss of Consciousness and Denies dyspnea Respiratory: Respiratory: Reports no additional respiratory complaints, Reports cough and Denies dyspnea Gastrointestinal: Gastrointestinal: Reports no additional gastrointestinal complaints, Denies abdominal pain, Denies melena, Denies hematochezia, Denies change in bowel habits and Denies change in stool character Genitourinary: Genitourinary: Reports no additional male genitourinary complaints, Denies hematuria, Denies oliguria, Denies difficulty urinating, Denies dysuria, Denies urinary frequency, Denies urinary hesitancy, Denies urinary incontinence and Denies urinary urgency Musculoskeletal: Musculoskeletal: Reports no additional musculoskeletal complaints, Denies numbness and Denies tingling Neurologic: Denies dizziness, Denies loss of vision, Denies numbness and Denies tingling Psychiatric: Psychiatric: Reports no additional psychiatric complaints Endocrine: Endocrine: Reports no additional endocrine complaints Hematologic/Lymphatic: Hematologic/Lymphatic: Reports no additional hematologic/lymphatic complaints Allergic/Immunologic: Allergic/Immunologic: Reports no additional allergic/immunologic complaints [facility] Past Medical History Attestation statement: The following information was validated with the patient. Source: old records reviewed and nursing notes reviewed Onset Date is defined in the Problem List Problems that require an onset date and time if occurred within 24 hrs of arrival to the ED Aortic Dissection and Rupture; Neurologic impairment; Cardiopulmonary Arrest; Endotracheal Intubation; Insertion or Replacement of Mechanical Circulatory Assist Device Medical History Upper abdominal pain Back pain Screening for diabetes mellitus Dizziness Shoulder pain Left foot pain Encounter for subsequent annual wellness visit (AWV) in Medicare patient Obesity Ankle pain BMI 31.0-31.9,adult Adult general medical exam Abnormality of penis Balanitis Tinea cruris Abdominal bloating Thrombosed external hemorrhoid Chronic GERD Urinary frequency Other obstructive and reflux uropathy Renal stones Chronic superficial gastritis without bleeding BPH loc w urin obs/LUTS Insomnia Tubular adenoma of colon Surgical History History of esophagogastroduodenoscopy (EGD) Hx of colonoscopy History of appendectomy Family History Family History Father No problems noted. Mother HTN (hypertension) Asthma Sister HTN (hypertension) Throat cancer Social History Social History Housing: Apartment Alcohol intake: never Patient Tobacco Use Status: Never used Tobacco Smoked in Last 30 Days: No e-Cigarette/Vaping Use: Never Used Second Hand Smoke Exposure: No Use of substances other than those prescribed or required for medical reasons: No Advance Directives: Yes Advance Directives on File: Yes Advance Directives Date on File: 11/25/20 service: Yes ([employer]) Current occupational status: retired Cognitive needs: No Hearing needs: No Vision needs: Yes Physical Exam Vital Signs: Vital Signs: Last Vital Signs Temp 97.3 F 04/09/23 15:42 Pulse 75 04/09/23 15:42 Resp 18 04/09/23 15:42 BP 124/75 04/09/23 15:42 Pulse Ox 97 04/09/23 15:42 O2 Del Method Room Air 04/09/23 15:42 BMI result Body Mass Index 30.9 Const: General: cooperative, no acute distress, alert and awake Nutritional Appearance: well nourished Orientation/consciousness: patient oriented x3 Limitations: no limitations HEENT: Head: Yes normal to inspection and Yes atraumatic Ears: hearing grossly normal bilaterally and external ears normal General nose exam: Normal external nose present, no nasal discharge noted and no epistaxis Face and sinus: Yes normal facial exam, No abrasion and No laceration Mouth: Normal oral and palatal mucosa present, no drooling and no muffled voice Eyes: General: appearance normal, both eyes and all related structures Periorbital: periorbital findings normal Eyelids: Yes eyelids normal Conjunctivae: conjunctivae normal Pupils: Equal, round and reactive pupils present EOM: EOMs intact bilaterally Neck: Neck: Yes normal visual inspection, Yes full ROM and Yes no lymphadenopathy Chest: Chest palpation & inspection: normal inspection of the chest Resp: Effort & Inspection: normal respiratory effort and able to speak in complete sentences GI: Inspection: Yes normal to inspection Neuro: General: patient oriented x3 and moves all extremities Cranial nerves: Yes Equal, round and reactive pupils present Cognition (Neuro): normal cognition Motor exam (neuro): 5/5 motor strength present throughout Sensory Exam: Normal double simultaneous stimulation for sensation Coordination: [id number] test normal Extrem: General: Yes normal to inspection, Yes full ROM and Yes capillary refill normal Psych: Appearance: grossly normal Mental Status: mental status grossly normal Affect: normal affect Attitude: cooperative Thought process: Normal thought process present Thought content: Normal thought content present Insight: Good insight present (Psych) Course Course Course Narrative: This is an RME: Additional HPI, ROS, PE not included below will be deferred to primary provider. Patient is a 68-year-old male who presents emergency department for evaluation of cough, congestion x3 days. Denies fevers chills, known sick contacts. Of note patient was seen in the emergency department 04/05/2023 for left-sided mid back pain atraumatic in nature, he states that this is overall improved he was discharged with Lidoderm naproxen cyclobenzaprine Plan: Viral testing, CXR Medical Decision Making Medical Decision Making MDM Narrative: Patient is a 68 year old assigned male at with a history of kidney stones presenting to the emergency department today with a cough and congestion. Patient's physical exam was unremarkable. Patient's COVID-19 and influenza tests were negative. Patient's chest x-ray showed no acute process. I explained my physical exam findings as well as all test results to the patient. I answered all questions asked by the patient. I stressed the importance of the patient taking his medication as prescribed. I stressed the importance of the patient following up with his primary care provider. I stressed the importance of the patient returning to the emergency department immediately if his symptoms were to worsen or if he were to develop any dizziness, shortness of breath, difficulty breathing, chest pain, blurry vision, loss of vision, nausea, vomiting, abdominal pain, fever, chills, back pain, or any other complaints. Patient verbalized agreement and understanding with this treatment plan and discharge. Differential Diagnosis Differential Diagnoses: The differential diagnosis associated with the presentation includes COVID-19 Influenza URI Cough Viral illness Admission/Observation Consideration of admission/observation: Escalation of care including admission/observation considered Patient would have been admitted to the hospital had his work up had any findings where hospital admission was appropriate and his clinical presentation warranted hospital admission. Lab Data [facility] Lab Attestation statement: I reviewed the patient's lab results. My interpretation of these results are in the [facility] Rationale portion of this note. Labs: Lab Results 04/09/23 Range/Units 15:55 COVID-19 ([place]) Negative (Negative) COVID-19 Clin Com See Note Influenza Type A ([place]) Negative (Negative) Influenza Type B ([place]) Negative (Negative) Influenza A & B Note See Note Independent Interpretation I performed an independent interpretation of an: Plain X-Ray Interpretation: My interpretation is in agreement with the radiologist's impression of this imaging study. EXAMINATION: XR CHEST 2 VIEW CLINICAL INFORMATION: Cough COMPARISON: 04/07/2018 TECHNIQUE: PA and lateral views of the chest obtained. FINDINGS: The lungs are clear. There are no pleural effusions. The cardiomediastinal silhouette is normal. XR/XR chest 2V IMPRESSION: No acute cardiopulmonary disease. Dictated By: Enrique Gibbs MD Signed By: Electronically signed by Enrique Gibbs MD 04/09/23 1631 Radiology Impression Discussion of test interpretation with radiology: I have reviewed the radiologist's reading. Discharge Plan Discharge Clinical Impression: Viral illness, Cough Patient Disposition: Home, Self-Care Instructions: Viral Syndrome (ED), Acute Cough (ED) Additional Instructions: Follow up with your primary care provider. Return to the emergency department immediately if your symptoms worsen or if you develop any dizziness, shortness of breath, difficulty breathing, chest pain, blurry vision, loss of vision, nausea, vomiting, abdominal pain, fever, chills, back pain, or any other complaints. [place] un seguimiento con velez proveedor de atenci?n primaria. Regrese al departamento de emergencias inmediatamente si merry s?ntomas empeoran o si presenta mareos, dificultad para respirar, dificultad para respirar, dolor en el pecho, visi?n borrosa, p?rdida de la visi?n, n?useas, v?mitos, dolor abdominal, fiebre, escalofr?os, dolor de espalda o cualquier otras quejas. Prescriptions: New benzonatate 100 mg capsule 100 mg PO BID PRN (Reason: cough) 7 Days Qty: 14 0RF No Action clotrimazole-betamethasone 1-0.05 % cream 1 appl topical BID 28 Days Qty: 45 0RF Belsomra 5 mg tablet 5 mg PO BEDTIME Qty: 90 3RF omeprazole 20 mg capsule,delayed release(DR/EC) 20 mg PO DAILY Qty: 90 2RF melatonin 1 mg tablet 2 mg PO BEDTIME PRN (Reason: sleep) Qty: 60 3RF acetaminophen [Tylenol Extra Strength] 500 mg tablet 500 mg PO Q6H PRN (Reason: fever or pain) Qty: 14 0RF lidocaine [Lidoderm] 5 % adhesive patch,medicated 1 patch topical DAILY MDD remove after 12 hours PRN (Reason: pain) Qty: 30 0RF Rx Instructions: leave on most painful area for up to 12 hrs naproxen 500 mg tablet 500 mg PO BID PRN (Reason: pain) 10 Days Qty: 20 0RF cyclobenzaprine 5 mg tablet 5 mg PO Q8H PRN (Reason: pain (scale score 7-10)) 5 Days Qty: 14 0RF Proctofoam HC 1-1 % foam 1 appl WY QID PRN (Reason: hemorrhoids) Qty: 10 0RF ammonium lactate 12 % cream topical BID hydrocortisone [Anusol-HC] 2.5 % cream with perineal applicator 1 appl WY BID-QID PRN (Reason: hemorrhoids) Qty: 30 1RF tamsulosin 0.4 mg capsule 0.8 mg PO DAILY 90 Days Qty: 180 3RF aspirin 81 mg tablet,delayed release (DR/EC) 81 mg PO DAILY rosuvastatin 5 mg tablet 5 mg PO DAILY nystatin 100,000 unit/gram ointment 1 appl topical BID Qty: 30 0RF Rx Instructions: Apply to red areas of the head of penis, shaft and scrotal Referrals: Jose Hernandez MD [Primary Care Provider] - Stand Alone Forms: Work/School Release Interventions: ED Discharge Assessment Last Done: 04/09/23 16:56 Discharge Date/Time: 04/09/23 16:57 Print Language: Marshallese
[2023-04-09 16:17] LABS: COVID-19 Test Negative (Negative); IDNOW Serial# 9DB6401D
[2023-04-09 16:44] LABS: IDNOW Serial# 08D9AD1C; Influenza A Negative (Negative); Influenza B2 Negative (Negative)
== END 2023-04-09 16:57 | disposition home or self-care (01) ==
PROVIDERS: Nurse Practitioner Family; Emergency Provider Emergency Medicine Emergency Medical Services; PCP Internal Medicine
DX: B34.9 Viral infection, unspecified (principal); R09.89 Other specified symptoms and signs involving the circulatory and respiratory systems; R05.9 Cough, unspecified; Z79.899 Other long term (current) drug therapy; Z11.52 Encounter for screening for COVID-19; Z20.828 Contact with and (suspected) exposure to other viral communicable diseases
CPT/HCPCS: 71046; 87502; 87635; 99283; 99284

== ENCOUNTER 2023-04-15 10:22 | Outpatient (AMB) | payer MEDICARE, OTHER, MEDICAID, SELFPAY ==
[2023-04-15 10:24] VITALS: BP 120/78; PULSE 84; O2SAT 96; BMI 31.3
--- NOTE | 2023-04-15 10:24 | A.OFFPC_ITS ---
Vital Signs 04/15/23 10:24 Height 5 ft 9 in Weight 212 lb BMI 31.3 BP 120/78 Blood Pressure Location Lt brachial Position Sitting Pulse 84 Pulse Source Pulse Oximeter Pulse Oximetry (%) 96 Oxygen Delivery Method Room Air Intake Visit Reasons: Follow up Senior Clinical Data Coordinator Required: No Hand Bander: Not Required per policy Accompanied by: Self / Same As Patient Allergies lovastatin Allergy (Unknown, Verified 04/15/23 10:24) GI upset Medication List - Last Reconciled 04/15/23 by Jose Hernandez MD acetaminophen (Tylenol Extra Strength) 500 mg PO Q6H PRN ammonium lactate 12% appl topical BID aspirin 81 mg PO DAILY benzonatate 100 mg PO BID PRN 7 days clotrimazole-betamethasone 1-0.05 % 1 appl topical BID 4 weeks cyclobenzaprine 5 mg PO Q8H PRN 5 days hydrocortisone 2.5% (Anusol-HC) 1 appl [place] BID-QID PRN hydrocortisone-pramoxine 1-1 % (Proctofoam HC) 1 appl [place] QID PRN lidocaine 5% (Lidoderm) 1 patch topical DAILY PRN MDD remove after 12 hours melatonin 2 mg (2 x 1 mg) PO BEDTIME PRN naproxen 500 mg PO BID PRN 10 days nystatin 1 appl topical BID omeprazole 20 mg PO DAILY rosuvastatin 5 mg PO DAILY suvorexant (Belsomra) 5 mg PO BEDTIME tamsulosin 0.8 mg (2 x 0.4 mg) PO DAILY 90 days Tobacco use date assessed: 04/15/23 Fall risk assessment: No Falls in past year Last assessed Fall Risk: 04/15/23 Dental Screening Dental Screen Date: 04/15/23 Did you have a dental visit in the last 12 months?: Yes Did you have a dental problem in the last 6 months where you did not have access to dental care?: No Was dental information given to patient?: Patient has dentist HPI Follow up HPI Details left back pain after twisting [facility] Medical History Upper abdominal pain Back pain Screening for diabetes mellitus Dizziness Shoulder pain Left foot pain Encounter for subsequent annual wellness visit (AWV) in Medicare patient Obesity Ankle pain BMI 31.0-31.9,adult Adult general medical exam Abnormality of penis Balanitis Tinea cruris Abdominal bloating Thrombosed external hemorrhoid Chronic GERD Urinary frequency Other obstructive and reflux uropathy Renal stones Chronic superficial gastritis without bleeding BPH loc w urin obs/LUTS Insomnia Tubular adenoma of colon Surgical History History of esophagogastroduodenoscopy (EGD) Hx of colonoscopy History of appendectomy Family History Father No problems noted. Mother HTN (hypertension) Asthma Sister HTN (hypertension) Throat cancer Social History Housing: Apartment Alcohol intake: never Patient Tobacco Use Status: Never used Tobacco e-Cigarette/Vaping Use: Never Used Second Hand Smoke Exposure: No Advance Directives Date on File: 11/25/20 service: Yes ([employer]) Current occupational status: retired Cognitive needs: No Hearing needs: No Vision needs: Yes Questionnaire PHQ-9 Over the last 2 weeks, how often have you been bothered by any of the following problems? 1. Little interest or pleasure in doing things: several days 2. Feeling down, depressed, or hopeless: several days 3. Trouble falling or staying asleep, or sleeping too much: nearly every day 5. Poor appetite or overeating: more than half the days 6. Feeling bad about yourself - or that you are a failure or have let yourself or your family down: not at all 7. Trouble concentrating on things, such as reading the newspaper or watching television: more than half the days 8. Moving or speaking so slowly that other people could have noticed. Or the opposite - being so fidgety or restless that you have been moving around a lot more than usual: more than half the days 9. Thoughts that you would be better off or of hurting yourself in some way: not at all Depression Screening Interpretation: Negative Depression Screening Done: Yes 44289 - PHQ-9 Billing: Yes Source: Developed by Drs. Kali Roberts, Chanell Sibley, Lane Cho and colleagues, with an educational sony from [employer]. Thrive Questionnaire Date Thrive assessed: 04/15/23 I am a: Patient What is your living situation today?: I have a steady place to live Within the past 12 months, did the food you bought not last and you didn't have the money to get more?: Never true Within the past 12 months, did you worry whether your food would run out before you got money to buy more?: Never true Do you have trouble paying for medicines?: No Do you have trouble getting transportation to medical appointments?: No Do you have trouble paying your heating and electricity bill?: No Do you have trouble taking care of your child, family member or friend?: No Do you have trouble with day-to-day activities such as bathing, preparing meals, shopping, managing finances, etc.?: No Are you currently unemployed and looking for a job?: No Are you interested in more education?: No Please select the resources that you would like help with: None AUDIT C Alcohol Use Questionnaire (AUDIT-C) 1. How often do you have a drink containing alcohol?: Never 3. How often do you have six or more drinks on one occasion?: Never Total Score: 0 Score Reviewed/Action Taken: Yes AMADOU-7 AMB Questionnaire AMADOU-7 Date AMADOU - 7 assessed: 04/15/23 Feeling nervous, anxious, or on edge: 0 = Not at all Not being able to stop or control worryin = Not at all Worrying too much about different things: 0 = Not at all Trouble relaxin = Not at all Being so restless that it is hard to sit still: 0 = Not at all Becoming easily annoyed or irritable: 0 = Not at all Feeling afraid as if something awful might happen: 0 = Not at all Total AMADOU-7 score (0-4 normal; 5-9 mild; 10-14 moderate; 15-21 severe): 0 Source: Developed by Drs. Kali Roberts, Chanell Sibley, Lane Coh and colleagues, with an educational sony from [employer]. AMADOU-7 Assessment Billing AMADOU-7 Assessment Tool: AMADOU-7 Assessment 03304 Review of Systems Const Denies chills, Denies headache(s) and Denies weight loss ENT Denies headache(s) Card Denies chest pain, Denies syncope, Denies irregular heart rhythm and Denies dyspnea Resp Denies chest congestion, Denies cough and Denies dyspnea GI Denies abdominal pain, Denies change in stool character, Denies nausea and Denies vomiting Musc Denies deformity and Denies joint swelling Neuro Denies syncope and Denies headache(s) Physical exam (Primary Care) Vital Signs: Last Vital Signs Pulse 84 04/15/23 10:24 BP 120/78 04/15/23 10:24 Pulse Ox 96 04/15/23 10:24 Oxygen Delivery Method Room Air 04/15/23 10:24 BMI result Body Mass Index 31.3 Tobacco/Smoking Status: Tobacco use Status Tobacco use date assessed 04/15/23 04/15/23 10:31 Patient Tobacco Use Status Never used Tobacco 04/15/23 10:31 e-Cigarette/Vaping Use Never Used 04/15/23 10:31 Depression Screening Interpretation: Negative Thrive Assessment: Date of Thrive Assessment Date Thrive assessed 04/15/23 04/15/23 10:31 Const General: cooperative, comfortable, no acute distress and alert Neck Neck: Yes no lymphadenopathy Thyroid: Thyroid normal Resp Effort & Inspection: normal respiratory effort Auscultation: clear to auscultation bilaterally Percussion: percussion normal Cardio Jugular venous distension: no JVD Palpation: normal PMI Rate: regular rate Rhythm: regular rhythm Heart sounds: S1 normal heart sound present and S2 normal heart sound present GI Inspection: Yes normal to inspection Palpation (GI): No hepatosplenomegaly present Skin General skin exam: no rashes or lesions noted Extrem General: Yes no clubbing, cyanosis or edema Assessment and Plan Assessment & Plan (1) Low back pain: Code(s): M54.50 - Low back pain, unspecified Plan: rx sent Medications: New tizanidine 4 mg PO Q8H PRN 60 tabs 3RF muscle spasticity Coding Level of Care Code Est Pt Level 3 (70148) Diagnoses Low back pain M54.50 Additional Codes AMADOU-7 Assessment Billing - AMADOU-7 Assessment Tool: AMADOU-7 Assessment 11815 ([id number])
== END 2023-04-15 10:39 | disposition home or self-care (01) ==
PROVIDERS: PCP Internal Medicine; Visit Provider Internal Medicine
DX: M54.50 Low back pain, unspecified (principal)
CPT/HCPCS: 99213

== ENCOUNTER 2023-04-23 13:00 | Outpatient (AMB) | payer MEDICARE, OTHER, MEDICAID, SELFPAY ==
--- NOTE | 2023-04-23 13:11 | A.OFFVIS_ITS ---
Intake Vital Signs 04/23/23 13:15 Height 5 ft 9 in Weight 212 lb BMI 31.3 BP 125/67 Blood Pressure Location Lt brachial Position Sitting Pulse 69 Intake Visit Reasons: US follow up Intake Note: Luis A presents in the office as a follow up ultrasound. CC: He states he is here today for the results. He states that he is not having many concerns since the US. He states that he has been feeling better since he had the ultrasound. 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 Allergies lovastatin Allergy (Unknown, Verified 04/23/23 13:16) GI upset HPI US follow up HPI Details Assessment & Plan (1) GERD (gastroesophageal reflux diseas e): Code(s): K21.9 - Gastro-esophageal reflux disease without esophagitis (2) IBS (irritable bowel syndrome): Code(s): K58.9 - Irritable bowel syndrome without diarrhea (3) Tubular adenoma of colon: Comment: 2014 SCOPE, RESCOPED 2019 CLEAR WITH HYP ERPLASTIC ONLY REPEAT 5 YEARS Code(s): D12.6 - Benign neoplasm of colon, unspecified (4) Upper abdominal pain: Code(s): R10.10 - Upper abdominal pain, unspecified Plan SYRIAN #declines He has not heard yet from general surgery but the hemorrhoid but, thankfully, the pain is better since he received the hemorrhoid cream. He continues on his omeprazole with good control of his GERD. He has a new concern of discomfort over the gastric area that happens sometimes with eating and most of the time when he folds his arms over his stomach while in a seated position. He describes the feeling as pressure and sometimes it can be as high as 6/10 in intensity. It will tend to last only about 10 minutes before resolves on its own. We discussed whether this may be related to eating a larger meal or eating too quickly and he had knowledge is this could be the case and I will try to think about this more and see if he can to find any cause and effect here. Because this could be signs of up hernia in the early stages will get ultrasound to investigate. He will be gone to [facility] over February to 03/30/2023. Return office visit after the ultrasound And in 6 months. Orders: Orders US abdomen complet e 02/17/23 R10.10 - Upper abd ominal pain, unspe cified US ABD 04/08/23 FINDINGS: PANCREAS: Normal head and body, the tail is obscured by bowel gas. ABDOMINAL AORTA: The proximal, mid, and distal segments are normal in caliber. INFERIOR VENA CAVA: Visualized portions are normal. LIVER: The liver is normal in size. The liver contour is normal. Parenchymal echogenicity is normal. No focal hepatic lesion. There is no intrahepatic biliary duct dilatation seen. GALLBLADDER: The gallbladder is physiologically distended. Multiple mobile gallstones are present. No evidence of gallbladder wall thickening or pericholecystic fluid. COMMON BILE DUCT: Normal in caliber measuring 0.4 cm in diameter. RIGHT KIDNEY: There is a 1.7 x 1.9 x 1.1 cm simple lower pole cyst. No imaging follow-up is recommended. No hydronephrosis or renal calculi. The kidney measures 10.3 cm in maximum dimension. LEFT KIDNEY: Normal. No hydronephrosis. No renal calculi or focal parenchymal lesions. The kidney measures 11.0 cm in maximum dimension. SPLEEN: The spleen is not well seen due to bowel gas. The spleen measures 8.0 cm in maximum dimension. FREE FLUID: None. US/US abdomen complete IMPRESSION: 1. Cholelithiasis. 2. The spleen is not well seen due to b owel gas. TODAYS VISIT I advised him that I think the reason he is having this intermittent pressure over the gastric areas because he has gallstones. He is advised that these can move in and out of the neck of the gallbladder and cause intermittent symptoms; especially when you have a higher fat meal. We discussed all the pros and cons of various treatment modalities and possible alarm symptoms that would necessitate an ER visit. In short since he has been asymptomatic I have advised him to simply avoid high fat foods and provided him with a nutrition list of what foods could be especially offensive. If this does not help then we can consider putting him on Creon to rest the gallbladder. Obviously the 3rd option is possible elective cholecystectomy. For now he opts against the Creon and just wants to try to avoid fat since he is feeling well. He continues on his omeprazole with good control of his GERD. He has not yet heard from the surgery Department regarding his referral for hemorrhoid treatment. Return office visit in 6 months [facility] Medical History Upper abdominal pain Back pain Screening for diabetes mellitus Dizziness Shoulder pain Left foot pain Encounter for subsequent annual wellness visit (AWV) in Medicare patient Obesity Ankle pain BMI 31.0-31.9,adult Adult general medical exam Abnormality of penis Balanitis Tinea cruris Abdominal bloating Thrombosed external hemorrhoid Chronic GERD Urinary frequency Other obstructive and reflux uropathy Renal stones Chronic superficial gastritis without bleeding BPH loc w urin obs/LUTS Insomnia Tubular adenoma of colon Surgical History History of esophagogastroduodenoscopy (EGD) Hx of colonoscopy History of appendectomy Family History Father No problems noted. Mother HTN (hypertension) Asthma Sister HTN (hypertension) Throat cancer Social History Housing: Apartment Alcohol intake: never Patient Tobacco Use Status: Never used Tobacco e-Cigarette/Vaping Use: Never Used Second Hand Smoke Exposure: No Advance Directives Date on File: 11/25/20 service: Yes ([employer]) Current occupational status: retired Cognitive needs: No Hearing needs: No Vision needs: Yes Review of Systems Const Denies fatigue, Denies fever(s), Denies night sweats, Denies poor appetite and Denies weight loss Eyes Details: glasses Reports requires corrective lenses ENT Reports Normal hearing present, Denies dental pain, Denies dysphagia, Denies hearing loss, Denies mouth pain, Denies odynophagia, Denies throat swelling, Denies tongue swelling and Reports other (Dentition adequate) Card Reports no additional complaints Resp Reports no additional complaints GI Details: Denies abdominal pain, Denies melena, Denies bloating, Reports hematochezia, Denies constipation, Denies GI cramping, Denies dysphagia, Denies excessive flatus, Denies early satiety, Reports heartburn, Denies diarrhea, Denies nausea, Denies odynophagia, Denies vomiting and Denies hematemesis Skin/Breast Denies pruritus, Denies lesions, Denies rash and Denies jaundice Neuro Reports Normal hearing present and Denies Abnormal speech present Endo Denies fatigue Aller/Immun Denies throat swelling and Denies tongue swelling Physical Exam Vital Signs: Last Vital Signs Pulse 69 04/23/23 13:15 BP 125/67 04/23/23 13:15 BMI result Body Mass Index 31.3 Const General: cooperative, no acute distress, well developed and well groomed Nutritional Appearance: well nourished and obese centrally obese Orientation/consciousness: oriented to person, oriented to place and oriented to time Limitations: No language barrier HEENT Head: Yes normocephalic and Yes atraumatic Eyes General: appearance normal, both eyes and all related structures Pupils: Equal, round and reactive pupils present Neck Neck: Yes normal visual inspection and Yes no lymphadenopathy Thyroid: Thyroid normal Resp Effort & Inspection: normal respiratory effort and able to speak in complete sentences Auscultation: clear to auscultation bilaterally Cardio Rate: regular rate Rhythm: regular rhythm Heart sounds: Normal, physiologic split S2 sound present Peripheral pulses: radial pulses present and posterior tibial pulses present GI Inspection: No distended, No Abdominal panniculus present and Yes obesity Palpation (GI): Soft to palpation, nontender, no guarding, not rigid and No hepatosplenomegaly present Percussion: Yes normal to percussion Auscultation: normal bowel sounds Rectal Exam - Male: Yes deferred Skin General skin exam: no rashes or lesions noted, turgor normal, skin not dry, no jaundice, No spider nevi and no striae Rashes: no rashes Nails: normal Neuro General: oriented to person, oriented to place and oriented to time Cranial nerves: Yes Equal, round and reactive pupils present and Yes Normal hearing present Speech: No Abnormal speech present Extrem General: Yes normal to inspection, No clubbing, No cyanosis and No edema Psych Appearance: grossly normal and well kempt Mental Status: mental status grossly normal Speech and movement: Normal speech and movement present Affect: normal affect Attitude: cooperative Thought process: Normal thought process present and not confabulating Thought content: Normal thought content present Insight: Fair insight present (Psych) Judgement: Fair judgement present (Psych) Results Reviewed Results Reviewed: US ABD 04/08/23 FINDINGS: PANCREAS: Normal head and body, the tail is obscured by bowel gas. ABDOMINAL AORTA: The proximal, mid, and distal segments are normal in caliber. INFERIOR VENA CAVA: Visualized portions are normal. LIVER: The liver is normal in size. The liver contour is normal. Parenchymal echogenicity is normal. No focal hepatic lesion. There is no intrahepatic biliary duct dilatation seen. GALLBLADDER: The gallbladder is physiologically distended. Multiple mobile gallstones are present. No evidence of gallbladder wall thickening or pericholecystic fluid. COMMON BILE DUCT: Normal in caliber measuring 0.4 cm in diameter. RIGHT KIDNEY: There is a 1.7 x 1.9 x 1.1 cm simple lower pole cyst. No imaging follow-up is recommended. No hydronephrosis or renal calculi. The kidney measures 10.3 cm in maximum dimension. LEFT KIDNEY: Normal. No hydronephrosis. No renal calculi or focal parenchymal lesions. The kidney measures 11.0 cm in maximum dimension. SPLEEN: The spleen is not well seen due to bowel gas. The spleen measures 8.0 cm in maximum dimension. FREE FLUID: None. US/US abdomen complete IMPRESSION: 1. Cholelithiasis. 2. The spleen is not well seen due to bowel gas. Assessment & Plan Assessment & Plan (1) Gallstones: Code(s): K80.20 - Calculus of gallbladder without cholecystitis without obstruction (2) GERD (gastroesophageal reflux disease): Code(s): K21.9 - Gastro-esophageal reflux disease without esophagitis (3) IBS (irritable bowel syndrome): Code(s): K58.9 - Irritable bowel syndrome without diarrhea Plan I advised him that I think the reason he is having this intermittent pressure over the gastric areas because he has gallstones. He is advised that these can move in and out of the neck of the gallbladder and cause intermittent symptoms; especially when you have a higher fat meal. We discussed all the pros and cons of various treatment modalities and possible alarm symptoms that would necessitate an ER visit. In short since he has been asymptomatic I have advised him to simply avoid high fat foods and provided him with a nutrition list of what foods could be especially offensive. If this does not help then we can consider putting him on Creon to rest the gallbladder. Obviously the 3rd option is possible elective cholecystectomy. For now he opts against the Creon and just wants to try to avoid fat since he is feeling well. He continues on his omeprazole with good control of his GERD. He has not yet heard from the surgery Department regarding his referral for hemorrhoid treatment. Return office visit in 6 months Coding Level of Care Code Est Pt Level 3 (07277) Diagnoses Gallstones K80.20 GERD (gastroesophageal reflux disease) K21.9 IBS (irritable bowel syndrome) K58.9
[2023-04-23 13:15] VITALS: BP 125/67; PULSE 69; BMI 31.3
== END 2023-04-23 13:36 | disposition home or self-care (01) ==
PROVIDERS: PCP Internal Medicine; Visit Provider Nurse Practitioner
DX: K80.20 Calculus of gallbladder without cholecystitis without obstruction (principal); K21.9 Gastro-esophageal reflux disease without esophagitis; K58.9 Irritable bowel syndrome, unspecified
CPT/HCPCS: 99213

== ENCOUNTER → 2023-04-23 13:00 | Outpatient (BNVA) | payer MEDICARE, OTHER, MEDICAID, SELFPAY | PROVIDERS: PCP Internal Medicine; Visit Provider Nurse Practitioner | DX: K80.20 Calculus of gallbladder without cholecystitis without obstruction (principal); K21.9 Gastro-esophageal reflux disease without esophagitis; K58.9 Irritable bowel syndrome, unspecified; Z79.899 Other long term (current) drug therapy | CPT/HCPCS: 99212 ==

== ENCOUNTER 2023-05-20 13:18 | Outpatient (AMB) | payer MEDICARE, OTHER, MEDICAID, SELFPAY ==
[2023-05-20 13:21] VITALS: BP 120/72; PULSE 73; O2SAT 98; BMI 31.7
--- NOTE | 2023-05-20 13:21 | MHC.PC.OV ---
Vital Signs 05/20/23 13:21 Height 5 ft 9 in Weight 215 lb BMI 31.7 BP 120/72 Blood Pressure Location Lt brachial Position Sitting Pulse 73 Pulse Source Pulse Oximeter Pulse Oximetry (%) 98 Oxygen Delivery Method Room Air Intake Visit Reasons: 3mth f/u Vocational Evaluator: Not Required per policy Accompanied by: Self / Same As Patient Allergies lovastatin Allergy (Unknown, Verified 05/20/23 13:21) GI upset Medication List - Last Reconciled 05/20/23 by Jose Hernandez MD acetaminophen (Tylenol Extra Strength) 500 mg PO Q6H PRN ammonium lactate 12% appl topical BID aspirin 81 mg PO DAILY benzonatate 100 mg PO BID PRN 7 days clotrimazole-betamethasone 1-0.05 % 1 appl topical BID 4 weeks cyclobenzaprine 5 mg PO Q8H PRN 5 days hydrocortisone 2.5% (Anusol-HC) 1 appl MS BID-QID PRN hydrocortisone-pramoxine 1-1 % (Proctofoam HC) 1 appl MS QID PRN lidocaine 5% (Lidoderm) 1 patch topical DAILY PRN MDD remove after 12 hours melatonin 2 mg (2 x 1 mg) PO BEDTIME PRN naproxen 500 mg PO BID PRN 10 days nystatin 1 appl topical BID omeprazole 20 mg PO DAILY rosuvastatin 5 mg PO DAILY suvorexant (Belsomra) 5 mg PO BEDTIME tamsulosin 0.8 mg (2 x 0.4 mg) PO DAILY 90 days tizanidine 4 mg PO Q8H PRN Tobacco use date assessed: 04/15/23 Fall risk assessment: No Falls in past year Last assessed Fall Risk: 05/20/23 Dental Screening Dental Screen Date: 05/20/23 Did you have a dental visit in the last 12 months?: Yes Did you have a dental problem in the last 6 months where you did not have access to dental care?: No Was dental information given to patient?: Patient has dentist HPI 3mth f/u HPI Details hyperlip on rx; doing well; due for labs [facility] Medical History Upper abdominal pain Back pain Screening for diabetes mellitus Dizziness Shoulder pain Left foot pain Encounter for subsequent annual wellness visit (AWV) in Medicare patient Obesity Ankle pain BMI 31.0-31.9,adult Adult general medical exam Abnormality of penis Balanitis Tinea cruris Abdominal bloating Thrombosed external hemorrhoid Chronic GERD Urinary frequency Other obstructive and reflux uropathy Renal stones Chronic superficial gastritis without bleeding BPH loc w urin obs/LUTS Insomnia Tubular adenoma of colon Surgical History History of esophagogastroduodenoscopy (EGD) Hx of colonoscopy History of appendectomy Family History Father No problems noted. Mother HTN (hypertension) Asthma Sister HTN (hypertension) Throat cancer Social History Housing: Apartment Alcohol intake: never Patient Tobacco Use Status: Never used Tobacco e-Cigarette/Vaping Use: Never Used Second Hand Smoke Exposure: No Advance Directives Date on File: 11/25/20 service: Yes ([employer]) Current occupational status: retired Cognitive needs: No Hearing needs: No Vision needs: Yes Questionnaire PHQ-9 Over the last 2 weeks, how often have you been bothered by any of the following problems? Depression Screening Interpretation: Negative Depression Screening Done: Yes 25804 - PHQ-9 Billing: Yes Source: Developed by Drs. Kali Roberts, Lane Recio and colleagues, with an educational sony from [employer]. Thrive Questionnaire Date Thrive assessed: 04/15/23 AMADOU-7 AMB Questionnaire AMADOU-7 Date AMADOU - 7 assessed: 04/15/23 Source: Developed by Drs. Kali Roberts, Lane Reico and colleagues, with an educational sony from [employer]. Review of Systems Const Denies chills, Denies headache(s) and Denies weight loss ENT Denies headache(s) Card Denies chest pain, Denies syncope, Denies irregular heart rhythm and Denies dyspnea Resp Denies chest congestion, Denies cough and Denies dyspnea GI Denies abdominal pain, Denies change in stool character, Denies nausea and Denies vomiting Musc Denies deformity and Denies joint swelling Neuro Denies syncope and Denies headache(s) Physical exam (Primary Care) Vital Signs: Last Vital Signs Pulse 73 02/22/24 13:21 BP 120/72 05/20/23 13:21 Pulse Ox 98 05/20/23 13:21 Oxygen Delivery Method Room Air 05/20/23 13:21 BMI result Body Mass Index 31.7 Tobacco/Smoking Status: Tobacco use Status Tobacco use date assessed 04/15/23 05/20/23 13:24 Patient Tobacco Use Status Never used Tobacco 05/20/23 13:24 e-Cigarette/Vaping Use Never Used 05/20/23 13:24 Depression Screening Interpretation: Negative Thrive Assessment: Date of Thrive Assessment Date Thrive assessed 04/15/23 05/20/23 13:24 Const General: cooperative, comfortable, no acute distress and alert Neck Neck: Yes no lymphadenopathy Thyroid: Thyroid normal Resp Effort & Inspection: normal respiratory effort Auscultation: clear to auscultation bilaterally Percussion: percussion normal Cardio Jugular venous distension: no JVD Palpation: normal PMI Rate: regular rate Rhythm: regular rhythm Heart sounds: S1 normal heart sound present and S2 normal heart sound present GI Inspection: Yes normal to inspection Palpation (GI): No hepatosplenomegaly present Skin General skin exam: no rashes or lesions noted Extrem General: Yes no clubbing, cyanosis or edema Assessment and Plan Assessment & Plan (1) Hyperlipidemia: Code(s): E78.5 - Hyperlipidemia, unspecified Plan: stable; same rx Orders: Orders Lipid Panel Today E78.5 - Hyperlipidemia, unspecified Coding Level of Care Code Est Pt Level 3 (16330) Diagnoses Hyperlipidemia E78.5
== END 2023-05-20 13:41 | disposition home or self-care (01) ==
PROVIDERS: PCP Internal Medicine; Visit Provider Internal Medicine
DX: E78.5 Hyperlipidemia, unspecified (principal)
CPT/HCPCS: 99213

== ENCOUNTER 2023-08-18 09:53 | Outpatient (AMB) | payer MEDICARE, OTHER, SELFPAY ==
[2023-08-18 09:57] VITALS: BP 144/69; PULSE 83; BMI 32.2
--- NOTE | 2023-08-18 09:57 | MHC.OFFVIS ---
Vital Signs 08/18/23 09:57 Height 5 ft 9 in Weight 218 lb 4.122 oz BMI 32.2 BP 144/69 H Blood Pressure Location Lt brachial Position Sitting Pulse 83 Intake Visit Reasons: 6 month follow up US Intake Note: Luis A presents in office today in follow up of US. CC: Patient states that he has been doing well and denies having any new GI concerns. Contract Consultant Required: No Accompanied by: Self / Same As Patient Allergies lovastatin Allergy (Unknown, Verified 08/18/23 09:58) GI upset HPI HPI 6 month follow up US: Details: Assessment & Plan (1) Gallstones: Code(s): K80.20 - Calculus of gallbladder without cholecystitis without obstruction (2) GERD (gastroesophageal reflux disease): Code(s): K21.9 - Gastro-esophageal reflux disease without esophagitis (3) IBS (irritable bowel syndrome): Code(s): K58.9 - Irritable bowel syndrome without diarrhea Plan I advised him that I think the reason he is having this intermittent pressure over the gastric areas because he has gallstones. He is advised that these can move in and out of the neck of the gallbladder and cause intermittent symptoms; especially when you have a higher fat meal. We discussed all the pros and cons of various treatment modalities and possible alarm symptoms that would necessitate an ER visit. In short since he has been asymptomatic I have advised him to simply avoid high fat foods and provided him with a nutrition list of what foods could be especially offensive. If this does not help then we can consider putting him on Creon to rest the gallbladder. Obviously the 3rd option is possible elective cholecystectomy. For now he opts against the Creon and just wants to try to avoid fat since he is feeling well. He continues on his omeprazole with good control of his GERD. He has not yet heard from the surgery Department regarding his referral for hemorrhoid treatment. Return office visit in 6 months CORRESPONDENCE On 04/23/23 @ 15:15 Vicki Medrano Wrote To Cordon,June He was seen on 10/28/[address] Verdugo note patient stated that hemorrhoids almost completely resolved and he denied discomfort or pain. Pt was advised that if symptoms persist he could follow-up in the office. On 04/23/23 @ 13:47 Candy Cordon Wrote To Vicki Medrano I refer this patient to speak with the surgery department about his hemorrhoids which have failed medical management back in August. Can you call him and find out what the delay is in him hearing anything? Thank you TODAY'S VISIT [place] # declines He continues on his omeprazole with good control of his GERD. His gallstones but asymptomatic and he is aware of what symptoms would necessitate an ER visit. He ended up doing well treating his hemorrhoids non medically and currently is only using [id number] hemorrhoid preparations. Return office visit in 6 months [facility] Medical History Upper abdominal pain Back pain Screening for diabetes mellitus Dizziness Shoulder pain Left foot pain Encounter for subsequent annual wellness visit (AWV) in Medicare patient Obesity Ankle pain BMI 31.0-31.9,adult Adult general medical exam Abnormality of penis Balanitis Tinea cruris Abdominal bloating Thrombosed external hemorrhoid Chronic GERD Urinary frequency Other obstructive and reflux uropathy Renal stones Chronic superficial gastritis without bleeding BPH loc w urin obs/LUTS Insomnia Tubular adenoma of colon Surgical History History of esophagogastroduodenoscopy (EGD) Hx of colonoscopy History of appendectomy Family History Father No problems noted. Mother HTN (hypertension) Asthma Sister HTN (hypertension) Throat cancer Social History Housing: Apartment Alcohol intake: never Patient Tobacco Use Status: Never used Tobacco e-Cigarette/Vaping Use: Never Used Second Hand Smoke Exposure: No Advance Directives Date on File: 11/25/20 service: Yes ([employer]) Current occupational status: retired Cognitive needs: No Hearing needs: No Vision needs: Yes Review of Systems Const Denies fatigue, Denies fever(s), Denies night sweats, Denies poor appetite and Denies weight loss Eyes Details: glasses Reports requires corrective lenses ENT Reports Normal hearing present, Denies dental pain, Denies dysphagia, Denies hearing loss, Denies mouth pain, Denies odynophagia, Denies throat swelling, Denies tongue swelling and Reports other (Dentition adequate) Card Reports no additional complaints Resp Reports no additional complaints GI Details: Denies abdominal pain, Denies melena, Denies bloating, Denies hematochezia, Denies constipation, Denies GI cramping, Denies dysphagia, Denies excessive flatus, Denies early satiety, Reports heartburn, Denies diarrhea, Denies nausea, Denies odynophagia, Denies vomiting and Denies hematemesis Skin/Breast Denies pruritus, Denies lesions, Denies rash and Denies jaundice Neuro Reports Normal hearing present and Denies Abnormal speech present Endo Denies fatigue Aller/Immun Denies throat swelling and Denies tongue swelling Physical Exam Vital Signs: Last Vital Signs Pulse 83 08/18/23 09:57 BP 144/69 H 08/18/23 09:57 BMI result Body Mass Index 32.2 Const General: cooperative, no acute distress, well developed and well groomed Nutritional Appearance: well nourished and obese Orientation/consciousness: oriented to person, oriented to place and oriented to time Limitations: No language barrier HEENT Head: Yes normocephalic and Yes atraumatic Eyes General: appearance normal, both eyes and all related structures Pupils: Equal, round and reactive pupils present Neck Neck: Yes normal visual inspection and Yes no lymphadenopathy Thyroid: Thyroid normal Resp Effort & Inspection: normal respiratory effort and able to speak in complete sentences Auscultation: clear to auscultation bilaterally Cardio Rate: regular rate Rhythm: regular rhythm Heart sounds: Normal, physiologic split S2 sound present Peripheral pulses: radial pulses present and posterior tibial pulses present GI Inspection: No distended, No Abdominal panniculus present and Yes obesity Palpation (GI): Soft to palpation, nontender, no guarding, not rigid and No hepatosplenomegaly present Percussion: Yes normal to percussion Auscultation: normal bowel sounds Rectal Exam - Male: Yes deferred Skin General skin exam: no rashes or lesions noted, turgor normal, skin not dry, no jaundice, No spider nevi and no striae Rashes: no rashes Nails: normal Neuro General: oriented to person, oriented to place and oriented to time Cranial nerves: Yes Equal, round and reactive pupils present and Yes Normal hearing present Speech: No Abnormal speech present Extrem General: Yes normal to inspection, No clubbing, No cyanosis and No edema Psych Appearance: grossly normal and well kempt Mental Status: mental status grossly normal Speech and movement: Normal speech and movement present Affect: normal affect Attitude: cooperative Thought process: Normal thought process present and not confabulating Thought content: Normal thought content present Insight: Fair insight present (Psych) Judgement: Fair judgement present (Psych) Assessment & Plan Assessment & Plan (1) Gallstones: Code(s): K80.20 - Calculus of gallbladder without cholecystitis without obstruction Category: Medical (2) GERD (gastroesophageal reflux disease): Code(s): K21.9 - Gastro-esophageal reflux disease without esophagitis Category: Medical Plan [place] # declines He continues on his omeprazole with good control of his GERD. His gallstones but asymptomatic and he is aware of what symptoms would necessitate an ER visit. He ended up doing well treating his hemorrhoids non medically and currently is only using [id number] hemorrhoid preparations. Return office visit in 6 months Medications: Refilled omeprazole 20 mg PO DAILY 90 caps 2RF Discontinued hydrocortisone-pramoxine 1-1 % (Proctofoam HC) Discontinued Reason: Patient Completed Course 1 appl CA QID PRN 10 grams 0RF hemorrhoids hydrocortisone 2.5% (Anusol-HC) Discontinued Reason: Patient Completed Course 1 appl CA BID-QID PRN 30 grams 1RF hemorrhoids Coding Level of Care Code Est Pt Level 3 (13551) Diagnoses Gallstones K80.20 GERD (gastroesophageal reflux disease) K21.9
== END 2023-08-18 10:17 | disposition home or self-care (01) ==
PROVIDERS: PCP Internal Medicine; Visit Provider Nurse Practitioner
DX: K80.20 Calculus of gallbladder without cholecystitis without obstruction (principal); K21.9 Gastro-esophageal reflux disease without esophagitis
CPT/HCPCS: 99213

== ENCOUNTER → 2023-08-18 09:53 | Outpatient (BNVA) | payer MEDICARE, OTHER, SELFPAY | PROVIDERS: PCP Internal Medicine; Visit Provider Nurse Practitioner | DX: K80.20 Calculus of gallbladder without cholecystitis without obstruction (principal); K21.9 Gastro-esophageal reflux disease without esophagitis | CPT/HCPCS: 99212 ==

== ENCOUNTER 2023-08-18 11:39 | Outpatient (AMB) | payer MEDICARE, OTHER, MEDICAID, SELFPAY ==
[2023-08-18 11:40] VITALS: BP 108/70; PULSE 70; BMI 31.6
--- NOTE | 2023-08-18 11:40 | MHC.PC.OV ---
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: Not Required per policy Accompanied by: Self / Same As Patient Allergies lovastatin Allergy (Unknown, Verified 08/18/23 11:41) GI upset Medication List - Last Reconciled 08/19/23 by Jose Hernandez MD acetaminophen (Tylenol Extra Strength) 500 mg PO Q6H PRN ammonium lactate 12% appl topical BID aspirin 81 mg PO DAILY benzonatate 100 mg PO BID PRN 7 days clotrimazole-betamethasone 1-0.05 % 1 appl topical BID 4 weeks cyclobenzaprine 5 mg PO Q8H PRN 5 days lidocaine 5% (Lidoderm) 1 patch topical DAILY PRN MDD remove after 12 hours melatonin 2 mg (2 x 1 mg) PO BEDTIME PRN nystatin 1 appl topical BID omeprazole 20 mg PO DAILY rosuvastatin 5 mg PO DAILY tamsulosin 0.8 mg (2 x 0.4 mg) PO DAILY 90 days Tobacco use date assessed: 04/15/23 Fall risk assessment: No Falls in past year Last assessed Fall Risk: 08/18/23 Dental Screening Dental Screen Date: 05/20/23 HPI 3mth f/u HPI Details huyperlipidemia on rx; doing well and compliant [facility] Medical History Upper abdominal pain Back pain Screening for diabetes mellitus Dizziness Shoulder pain Left foot pain Encounter for subsequent annual wellness visit (AWV) in Medicare patient Obesity Ankle pain BMI 31.0-31.9,adult Adult general medical exam Abnormality of penis Balanitis Tinea cruris Abdominal bloating Thrombosed external hemorrhoid Chronic GERD Urinary frequency Other obstructive and reflux uropathy Renal stones Chronic superficial gastritis without bleeding BPH loc w urin obs/LUTS Insomnia Tubular adenoma of colon Surgical History History of esophagogastroduodenoscopy (EGD) Hx of colonoscopy History of appendectomy Family History Father No problems noted. Mother HTN (hypertension) Asthma Sister HTN (hypertension) Throat cancer Social History Housing: Apartment Alcohol intake: never Patient Tobacco Use Status: Never used Tobacco e-Cigarette/Vaping Use: Never Used Second Hand Smoke Exposure: No Advance Directives Date on File: 11/25/20 service: Yes ([employer]) Current occupational status: retired Cognitive needs: No Hearing needs: No Vision needs: Yes Questionnaire Thrive Questionnaire Date Thrive assessed: 04/15/23 AMADOU-7 AMB Questionnaire AMADOU-7 Date AMADOU - 7 assessed: 04/15/23 Source: Developed by Drs. Kali Roberts, Chanell Sibley, Lane Cho and colleagues, with an educational sony from [employer]. Review of Systems Const Denies chills, Denies headache(s) and Denies weight loss ENT Denies headache(s) Card Denies chest pain, Denies syncope, Denies irregular heart rhythm and Denies dyspnea Resp Denies chest congestion, Denies cough and Denies dyspnea GI Denies abdominal pain, Denies change in stool character, Denies nausea and Denies vomiting Musc Denies deformity and Denies joint swelling Neuro Denies syncope and Denies headache(s) Physical exam (Primary Care) Vital Signs: Last Vital Signs Pulse 70 08/18/23 11:40 BP 108/70 08/18/23 11:40 Oxygen Delivery Method Room Air 08/18/23 11:40 BMI result Body Mass Index 31.6 Tobacco/Smoking Status: Tobacco use Status Tobacco use date assessed 04/15/23 08/18/23 11:41 Patient Tobacco Use Status Never used Tobacco 08/18/23 11:41 e-Cigarette/Vaping Use Never Used 08/18/23 11:41 Thrive Assessment: Date of Thrive Assessment Date Thrive assessed 04/15/23 08/18/23 11:41 Const General: cooperative, comfortable, no acute distress and alert Neck Neck: Yes no lymphadenopathy Thyroid: Thyroid normal Resp Effort & Inspection: normal respiratory effort Auscultation: clear to auscultation bilaterally Percussion: percussion normal Cardio Jugular venous distension: no JVD Palpation: normal PMI Rate: regular rate Rhythm: regular rhythm Heart sounds: S1 normal heart sound present and S2 normal heart sound present GI Inspection: Yes normal to inspection Palpation (GI): No hepatosplenomegaly present Skin General skin exam: no rashes or lesions noted Extrem General: Yes no clubbing, cyanosis or edema Assessment and Plan Assessment & Plan (1) Hyperlipidemia: Code(s): E78.5 - Hyperlipidemia, unspecified Plan: stable; samerx Coding Level of Care Code Est Pt Level 3 (86001) Diagnoses Hyperlipidemia E78.5
== END 2023-08-18 11:53 | disposition home or self-care (01) ==
PROVIDERS: PCP Internal Medicine; Visit Provider Internal Medicine
DX: E78.5 Hyperlipidemia, unspecified (principal)
CPT/HCPCS: 99213

== ENCOUNTER 2023-08-25 07:23 | Emergency (ER) | payer OTHER, MEDICARE, SELFPAY ==
--- NOTE | ~2023-08-25 | XR_ITS ---
EXAMINATION: XR KNEE, LEFT CLINICAL INFORMATION: Pain without trauma. COMPARISON: Left knee radiographs dated 09/28/2016. TECHNIQUE: AP, lateral, and both oblique views of the left knee. FINDINGS: No fracture or joint effusion. Alignment is anatomic. Joint spaces are maintained. An enthesophyte is seen at the upper pole of the patella towards the quadriceps tendon insertion. There are mild atherosclerotic calcifications. XR/XR knee LT 3V IMPRESSION: Normal left knee.
[2023-08-25 07:26] VITALS: BP 129/91; PULSE 77; RESP 18; TEMP 36.6; O2SAT 98; BMI 31.9
--- NOTE | 2023-08-25 08:18 | ED_ITS ---
HPI - Extremity Injury (Lower) General Chief Complaint: Extremity Injury, Lower Stated Complaint: L knee pain Time Seen by Provider: 08/25/23 07:40 Source: patient, RN notes reviewed and old records reviewed Mode of arrival: ambulatory Limitations: no limitations History of Present Illness ED Provider: ROMAIN CLARK PA-C HPI Narrative: 68-year-old male with past medical history significant for GERD, BPH, HDL presents to the ED for evaluation of left knee pain x1 week. Patient reports that he began walking about 1 mile a day 3 weeks ago. He also began exercising on a board that vibrates . He began to have pain to the lateral aspect of his left knees about 1 week ago. Pain is exacerbated with sitting for prolonged periods of time and going from seated to standing position. Denies pain with ambulation. He has not been taking anything for pain or discomfort at home. Denies trauma/ injury. Denies numbness/tingling/weakness of the extremity. Denies recent tick or insect bites. Related Data Home Medications ?Medication ?Instructions ?Recorded ?Confirmed ammonium lactate 12 % topical cream applic topical BID 01/02/20 08/19/23 aspirin 81 mg tablet,delayed 81 mg PO DAILY 08/18/22 08/19/23 release rosuvastatin 5 mg tablet 5 mg PO DAILY 02/17/23 08/19/23 Previous Rx's ?Medication ?Instructions ?Recorded tamsulosin 0.4 mg capsule 0.8 mg (2 x 0.4 mg) PO DAILY 90 09/11/22 days #180 caps clotrimazole-betamethasone 1 1 appl topical BID balanitis 4 11/12/22 %-0.05 % topical cream weeks #45 grams nystatin 100,000 unit/gram topical 1 appl topical BID balantitis #30 12/22/22 ointment grams acetaminophen 500 mg tablet 500 mg PO Q6H PRN fever or pain 04/05/23 (Tylenol Extra Strength) #14 tabs cyclobenzaprine 5 mg tablet 5 mg PO Q8H PRN pain (scale score 04/05/23 7-10) 5 days #14 tabs lidocaine 5 % topical patch 1 patch topical DAILY PRN pain #30 04/05/23 (Lidoderm) ea benzonatate 100 mg capsule 100 mg PO BID PRN cough 7 days #14 01/12/24 caps omeprazole 20 mg capsule,delayed 20 mg PO DAILY #90 caps 08/18/23 release melatonin 1 mg tablet 2 mg (2 x 1 mg) PO BEDTIME PRN for 08/19/23 insomnia #180 tabs prednisone 20 mg tablet 40 mg (2 x 20 mg) PO DAILY 5 days 08/25/23 #10 tabs Allergies Allergy/AdvReac Type Severity Reaction Status Date / Time lovastatin Allergy Unknown GI upset Verified 08/25/23 07:27 Review of Systems Review of Systems: Constitutional: No fever, chills, fatigue, night sweats, weight changes ENT/Mouth: No ear pain, hearing loss, nasal congestion, sinus pain, rhinorrhea, sore throat Eyes: No eye pain, swelling, redness, vision changes, discharge Cardio: No chest pain, palpitations, JORGE, orthopnea, peripheral edema Pulm: No SOB, cough, sputum, wheezing, dyspnea, hemoptysis GI: No nausea, vomiting, hematemesis, abdominal pain, diarrhea, constipation, hematochezia, melena : No irregular bleeding, dysuria, frequency, urgency, hesitancy, hematuria, flank pain, urinary flow changes, urinary incontinence or retention MSK: No back pain, neck pain, joint pain, myalgias, +left knee pain Skin: No lesions, rashes Neuro: No weakness, numbness, paresthesias, LOC, dizziness, headache Psych: No anxiety/panic, depression, SI/HI, AH/VH All other systems reviewed and are negative. [facility] Past Medical History Attestation statement: The following information was validated with the patient. Source: old records reviewed and nursing notes reviewed Medical History Upper abdominal pain Back pain Screening for diabetes mellitus Dizziness Shoulder pain Left foot pain Encounter for subsequent annual wellness visit (AWV) in Medicare patient Obesity Ankle pain BMI 31.0-31.9,adult Adult general medical exam Abnormality of penis Balanitis Tinea cruris Abdominal bloating Thrombosed external hemorrhoid Chronic GERD Urinary frequency Other obstructive and reflux uropathy Renal stones Chronic superficial gastritis without bleeding BPH loc w urin obs/LUTS Insomnia Tubular adenoma of colon Surgical History History of esophagogastroduodenoscopy (EGD) Hx of colonoscopy History of appendectomy Family History Family History Father No problems noted. Mother HTN (hypertension) Asthma Sister HTN (hypertension) Throat cancer Social History Social History Housing: Apartment Alcohol intake: never Patient Tobacco Use Status: Never used Tobacco e-Cigarette/Vaping Use: Never Used Second Hand Smoke Exposure: No Advance Directives Date on File: 11/25/20 service: Yes ([employer]) Current occupational status: retired Cognitive needs: No Hearing needs: No Vision needs: Yes Physical Exam Vital Signs: Vital Signs: Last Vital Signs Temp 97.1 F 08/25/23 10:16 Pulse 65 08/25/23 10:16 Resp 18 08/25/23 10:16 BP 133/85 08/25/23 10:16 Pulse Ox 94 08/25/23 10:16 O2 Del Method Room Air 08/25/23 10:16 BMI result Body Mass Index 31.9 Vital signs stable Const: General: cooperative, healthy appearing, comfortable and no acute distress Orientation/consciousness: patient oriented x3 Limitations: no limitations HEENT: Head: Yes normal to inspection, Yes No palpable skull fracture present, Yes normocephalic and Yes atraumatic Eyes: General: appearance normal, both eyes and all related structures Pupils: Equal, round and reactive pupils present Neck: Neck: Yes normal visual inspection, Yes full ROM, Yes no lymphadenopathy and Yes no meningeal signs Resp: Effort & Inspection: normal respiratory effort and able to speak in complete sentences Cardio: Rate: regular rate Rhythm: regular rhythm Skin: General skin exam: no rashes or lesions noted Neuro: Other: Strength 5/5 intact throughout.?No saddle anesthesia.?Sensation intact to light touch.?Neurovascular intact distally.? General: patient oriented x3 and no meningeal signs Cranial nerves: Yes Equal, round and reactive pupils present Extrem: Other: + left knee with minimal swelling. No o verlying skin changes or deformity. Tender to palpation of anterior knee proximal to patella. No high-riding patella. No palpable deformity, crepitus, warmth, flucutance. FROM intact to left knee. No pain induced with extension against resistance. 2+ popliteal, DP and PT pulses. Ambulating with steady gait. Course Course Course Narrative: 1000-- X-ray of left knee without fracture. No joint effusion noted. Discussed results with patient. Will supply with Thad wrap and provide course of steroids for comfort. Educated on RICE treatment. He is ambulating with steady gait at this time. Patient has remained stable throughout ED visit today. Discussed worrisome signs and symptoms and when to return to the ED. All questions answered at this time. Patient is agreeable with disposition and stable for discharge. Medications Administered Discontinued Medications Generic Name Dose Route Start Last Admin Trade Name Freq PRN Reason Stop Dose Admin Acetaminophen 975 mg 08/25/23 08:21 08/25/23 08:37 Acetaminophen 325 Mg Tablet PO 08/25/23 08:22 Not Given ONCE ONE Medical Decision Making Medical Decision Making MDM Narrative: 68-year-old male with past medical history significant for GERD, BPH, HDL presents to the ED for evaluation of left knee pain x1 week. Vital signs stable. Patient afebrile. Nontoxic appearing in no acute distress. On exam, left knee with minimal swelling. No overlying skin changes or deformity. Tender to p alpation of anterior knee proximal to patella. No high-riding patella. No palpable deformity, crepitus, warmth, flucutance. FROM intact to left knee. No pain induced with extension against resistance. 2+ popliteal, DP and PT pulses. Ambulating with steady gait. Differential diagnosis includes MSK sprain, MSK strain, fracture, arthritis, tendinitis. Low suspicion for dislocation. Unlikely gout, pseudogout, Lyme arthritis, septic joint, neurovascular compromise, He's cyst, threat to limb, compartment syndrome. Plan for imaging and re-evaluation. Differential Diagnosis Differential Diagnoses: The differential diagnosis associated with the presentation includes as above. Admission/Observation not indicated. Independent Interpretation I performed an independent interpretation of an: Plain X-Ray Interpretation: XR left knee without fracture, agree with radiologist's interpretation. Radiology Impression Discussion of test interpretation with radiology: I have reviewed the radiologist's reading. Radiologist Impression: EXAMINATION: XR KNEE, LEFT CLINICAL INFORMATION: Pain without trauma. COMPARISON: Left knee radiographs dated 09/28/2016. TECHNIQUE: AP, lateral, and both oblique views of the left knee. FINDINGS: No fracture or joint effusion. Alignment is anatomic. Joint spaces are maintained. An enthesophyte is seen at the upper pole of the patella towards the quadriceps tendon insertion. There are mild atherosclerotic calcifications. XR/XR knee LT 3V IMPRESSION: Normal left knee. External Record Review External record reviewed: Inpatient record, Office record, Outpatient record, Prior outpatient labs, Prior outpatient radiology, Primary care record and Outside ED record Prescription Management I considered prescription management with: Pain Medication Social Determinants Patient?s care significantly limited by Social Determinants of Health including: Other Social Determinant of Health Procedures Orthopedic Splinting/Casting Injury #1: Side: left Lower Extremity Injury Location: knee Lower Extremity Immobilizer: Thad wrap Critical Care Time Critical Care Time Critical Care Time: No Discharge Plan Discharge Clinical Impression: Left knee sprain Patient Disposition: Home, Self-Care Instructions: Knee Sprain (ED) Additional Instructions: The x-ray of your left knee does not show fracture. It does show degenerative changes within the knee joint itself. You have been provided with an Thad wrap to help with compression. Make sure to rest, ice, compress and elevate the left knee to help with pain. Prednisone as a steroid that has been sent to your pharmacy. Take this as prescribed for the next 5 days. If you are a diabetic, make sure to monitor your blood sugars at home as this can elevate them. You may take Tylenol and ibuprofen as needed at home for pain/discomfort. Follow-up with your PCP as needed. Return with new or worsening symptoms. In the case of an emergency call 911. Prescriptions: New prednisone 20 mg tablet 40 mg PO DAILY 5 Days Qty: 10 0RF No Action clotrimazole-betamethasone 1-0.05 % cream 1 appl topical BID 28 Days Qty: 45 0RF melatonin 1 mg tablet 2 mg PO BEDTIME PRN (Reason: for insomnia) Qty: 180 1RF acetaminophen [Tylenol Extra Strength] 500 mg tablet 500 mg PO Q6H PRN (Reason: fever or pain) Qty: 14 0RF lidocaine [Lidoderm] 5 % adhesive patch,medicated 1 patch topical DAILY MDD remove after 12 hours PRN (Reason: pain) Qty: 30 0RF Rx Instructions: leave on most painful area for up to 12 hrs cyclobenzaprine 5 mg tablet 5 mg PO Q8H PRN (Reason: pain (scale score 7-10)) 5 Days Qty: 14 0RF benzonatate 100 mg capsule 100 mg PO BID PRN (Reason: cough) 7 Days Qty: 14 0RF ammonium lactate 12 % cream topical BID tamsulosin 0.4 mg capsule 0.8 mg PO DAILY 90 Days Qty: 180 3RF aspirin 81 mg tablet,delayed release (DR/EC) 81 mg PO DAILY omeprazole 20 mg capsule,delayed release(DR/EC) 20 mg PO DAILY Qty: 90 2RF rosuvastatin 5 mg tablet 5 mg PO DAILY nystatin 100,000 unit/gram ointment 1 appl topical BID Qty: 30 0RF Rx Instructions: Apply to red areas of the head of penis, shaft and scrotal Referrals: Jose Hernandez MD [Primary Care Provider] - Interventions: ED Discharge Assessment Last Done: 08/25/23 10:16 Discharge Date/Time: 08/25/23 10:16 Print Language: Greek
[2023-08-25 08:40] VITALS: BP 133/85; PULSE 65; RESP 18; O2SAT 93
[2023-08-25 10:16] VITALS: BP 133/85; PULSE 65; RESP 18; TEMP 36.2; O2SAT 94
== END 2023-08-25 10:16 | disposition home or self-care (01) ==
PROVIDERS: Emergency Provider Emergency Medicine; PCP Internal Medicine
DX: S83.92XA Sprain of unspecified site of left knee, initial encounter (principal); X50.9XXA Other and unspecified overexertion or strenuous movements or postures, initial encounter; Y93.01 Activity, walking, marching and hiking; Y92.9 Unspecified place or not applicable; Y99.9 Unspecified external cause status
CPT/HCPCS: 73562; 99283; 99284

== ENCOUNTER 2023-09-08 09:44 | Outpatient (REF) | payer MEDICARE, OTHER, SELFPAY ==
--- NOTE | ~2023-09-08 | US_ITS ---
EXAMINATION: US RETROPERITONEAL LIMITED (RENAL ONLY) CLINICAL INFORMATION: Renal calculus. COMPARISON: Ultrasound abdomen 04/07/2023. TECHNIQUE: Ultrasound of the kidneys was performed FINDINGS: RIGHT KIDNEY: 10.5 x 5.9 x 5.0 cm (SAG x AP x TRV). The kidney is normal in size, contour, and echogenicity. Renal cortical thickness is normal. No calculi . No hydronephrosis. A benign lower pole 2.0 cm Bosniak class I renal cyst is once again noted, which requires no additional imaging or follow up. No solid renal masses are seen. LEFT KIDNEY: 11.4 x 5.8 x 4.7 cm (SAG x AP x TRV). The kidney is normal in size, contour, and echogenicity. Renal cortical thickness is normal. No calculi or focal parenchymal lesions. No hydronephrosis. US/US renal BI IMPRESSION: Negative exam. No renal calculi are seen.
== END 2023-09-08 09:45 | disposition home or self-care (01) ==
LOC: HO.US 09:44
PROVIDERS: PCP Internal Medicine; Visit Provider Urology
DX: N20.0 Calculus of kidney (principal)
CPT/HCPCS: 76775

== ENCOUNTER 2023-09-10 10:49 | Outpatient (AMB) | payer MEDICARE, OTHER, SELFPAY ==
--- NOTE | 2023-09-10 11:55 | A.OFFVIS_ITS ---
Intake Visit Reasons: 1Y US(09/07) Allergies lovastatin Allergy (Unknown, Verified 10/22/23 13:15) GI upset HPI Comments Details: Mary is a pleasant male. He is a patient of Dr. Hernandez. He seen for the following urinary issues - lower urinary tract symptoms - balanitis Telemedicine Evaluation 15 min Consultation Moxsie José Miguel Video Six-month follow-up No recurrence of balanitis Did previously discuss circumcision Lower urinary tract symptoms Mild weakness Incomplete emptying Parameters stable with 0.8 mg Flomax daily Does have some degree of contact dermatitis on penile glans secondary to over usage of soap [facility] Medical History Upper abdominal pain Back pain Screening for diabetes mellitus Dizziness Shoulder pain Left foot pain Encounter for subsequent annual wellness visit (AWV) in Medicare patient Obesity Ankle pain BMI 31.0-31.9,adult Adult general medical exam Abnormality of penis Balanitis Tinea cruris Abdominal bloating Thrombosed external hemorrhoid Chronic GERD Urinary frequency Other obstructive and reflux uropathy Renal stones Chronic superficial gastritis without bleeding BPH loc w urin obs/LUTS Insomnia Tubular adenoma of colon Surgical History History of esophagogastroduodenoscopy (EGD) Hx of colonoscopy History of appendectomy Family History Father No problems noted. Mother HTN (hypertension) Asthma Sister HTN (hypertension) Throat cancer Social History Housing: Apartment Alcohol intake: never Patient Tobacco Use Status: Never used Tobacco e-Cigarette/Vaping Use: Never Used Second Hand Smoke Exposure: No Advance Directives Date on File: 11/25/20 service: Yes ([employer]) Current occupational status: retired Cognitive needs: No Hearing needs: No Vision needs: Yes (glasses) Review of Systems Const All systems reviewed & are unremarkable except as noted in HPI and below Denies chills and Denies fever(s) Card Reports no additional complaints and Denies syncope Resp Denies cough GI Denies abdominal pain and Denies heartburn Reports as per HPI and Denies change in libido Musc Reports no additional complaints Neuro Denies syncope Psych Denies change in libido Endo Denies change in libido Physical Exam Telemedicine evaluation Appropriate responses Regular breathing rate and rhythm Const General: cooperative, healthy appearing, comfortable and no acute distress Orientation/consciousness: patient oriented x3 HEENT Head: Yes normal to inspection Ears: hearing grossly normal bilaterally Face and sinus: Yes normal facial exam Mouth: moist mucous membranes Eyes General: appearance normal, both eyes and all related structures Neck Neck: Yes normal visual inspection, Yes full ROM and Yes trachea midline Chest Chest palpation & inspection: normal inspection of the chest Resp Effort & Inspection: normal respiratory effort, able to speak in complete sentences and no respiratory distress GI Inspection: Yes normal to inspection Back/Spine/Pelvis Cervical Spine: normal cervical lordosis Thoracic/Lumbar Spine: thoracic and lumbar spine normal to inspection Skin General skin exam: no rashes or lesions noted Neuro General: patient oriented x3, gait normal, tone normal and moves all extremities Extrem General: Yes normal to inspection and Yes capillary refill normal Telehealth Telehealth Telehealth Platform: Moxsie Location of provider rendering services: practice address Location of patient: address on file Patient Identification confirmed using: Name, : Yes Telehealth method: video Patient verbally consented to treatment: Yes Patient verbally consented to billing insurance company: Yes Patient informed of any privacy concerns related to visit: Yes Minutes spent on Phone/Video with Pt.: 15 Assessment & Plan Assessment & Plan (1) BPH (benign prostatic hyperplasia): Code(s): N40.0 - Benign prostatic hyperplasia without lower urinary tract symptoms Category: Medical Plan Twelve month follow-up Orders: Orders Prostate Specific Antigen 364 Days N40.0 - Benign prostatic hyperplasia without lower urinary tract symptoms Patient Instructions: Imaging studies, laboratory and physical exam results were discussed and reviewed in detail. No major barriers to patient understanding were identified. An opportunity to ask questions regarding the treatment plan was provided. All questions were answered. The patient expressed understanding and agreement with the above treatment plan. The patient is aware they should contact our office by phone for worsening of their current condition or the appearance of new urologic symptoms. Compliance is encouraged with any medications and followup testing that is ordered. It is a privilege to participate in the urologic care of your patient. If you have any questions or concerns regarding treatment for the above conditions, or other urologic issues, please do not hesitate to contact me. The office telephone contact is [phone]. This note is constructed using voice recognition software. While every effort has been made to ensure accuracy shipping coordinator errors may have been included. Yours sincerely, Dr Migue Gomez MD, MOM[facility] - Urology Providers of Expert, Compassionate Care for the Genitourinary System Coding Level of Care Code Tele Est Pt Level 3 (09712) Diagnoses BPH (benign prostatic hyperplasia) N40.0
== END 2023-09-10 12:00 | disposition home or self-care (01) ==
PROVIDERS: PCP Internal Medicine; Visit Provider Urology
DX: N40.0 Benign prostatic hyperplasia without lower urinary tract symptoms (principal)
CPT/HCPCS: 99213

== ENCOUNTER → 2023-09-10 10:49 | Outpatient (BNVA) | payer MEDICARE, OTHER, SELFPAY | PROVIDERS: PCP Internal Medicine; Visit Provider Urology ==

== ENCOUNTER 2023-09-14 10:44 | Outpatient (AMB) | payer MEDICARE, OTHER, SELFPAY ==
[2023-09-14 10:51] VITALS: BP 122/80; PULSE 77; O2SAT 99; BMI 32.2
--- NOTE | 2023-09-14 10:51 | A.OFFPC_ITS ---
Vital Signs 09/14/23 10:51 Height 5 ft 9 in Weight 218 lb BMI 32.2 BP 122/80 Blood Pressure Location Lt brachial Position Sitting Pulse 77 Pulse Source Pulse Oximeter Pulse Oximetry (%) 99 Oxygen Delivery Method Room Air Intake Visit Reasons: L knee pain Safety Deposit Clerk Required: No Cognos Developer: Not Required per policy Accompanied by: Self / Same As Patient Allergies lovastatin Allergy (Unknown, Verified 09/14/23 10:52) GI upset Medication List - Last Reconciled 09/14/23 by Jose Hernandez MD acetaminophen (Tylenol Extra Strength) 500 mg PO Q6H PRN ammonium lactate 12% appl topical BID aspirin 81 mg PO DAILY benzonatate 100 mg PO BID PRN 7 days clotrimazole-betamethasone 1-0.05 % 1 appl topical BID 4 weeks cyclobenzaprine 5 mg PO Q8H PRN 5 days lidocaine 5% (Lidoderm) 1 patch topical DAILY PRN MDD remove after 12 hours melatonin 2 mg (2 x 1 mg) PO BEDTIME PRN nystatin 1 appl topical BID omeprazole 20 mg PO DAILY prednisone 40 mg (2 x 20 mg) PO DAILY 5 days rosuvastatin 5 mg PO DAILY tamsulosin 0.8 mg (2 x 0.4 mg) PO DAILY 90 days Tobacco use date assessed: 04/15/23 Fall risk assessment: No Falls in past year Last assessed Fall Risk: 09/14/23 Dental Screening Dental Screen Date: 05/20/23 HPI L knee pain HPI Details left knee pain not improved; xr unremarkable PFSH Medical History Upper abdominal pain Back pain Screening for diabetes mellitus Dizziness Shoulder pain Left foot pain Encounter for subsequent annual wellness visit (AWV) in Medicare patient Obesity Ankle pain BMI 31.0-31.9,adult Adult general medical exam Abnormality of penis Balanitis Tinea cruris Abdominal bloating Thrombosed external hemorrhoid Chronic GERD Urinary frequency Other obstructive and reflux uropathy Renal stones Chronic superficial gastritis without bleeding BPH loc w urin obs/LUTS Insomnia Tubular adenoma of colon Surgical History History of esophagogastroduodenoscopy (EGD) Hx of colonoscopy History of appendectomy Family History Father No problems noted. Mother HTN (hypertension) Asthma Sister HTN (hypertension) Throat cancer Social History Housing: Apartment Alcohol intake: never Patient Tobacco Use Status: Never used Tobacco e-Cigarette/Vaping Use: Never Used Second Hand Smoke Exposure: No Advance Directives Date on File: 11/25/20 service: Yes ([employer]) Current occupational status: retired Cognitive needs: No Hearing needs: No Vision needs: Yes (glasses) Questionnaire Thrive Questionnaire Date Thrive assessed: 04/15/23 AMADOU-7 AMB Questionnaire AMADOU-7 Date AMADOU - 7 assessed: 04/15/23 Source: Developed by Drs. Kali Roberts, Chanell Sibley, Lane Cho and colleagues, with an educational sony from [employer]. Review of Systems Const Denies chills, Denies headache(s) and Denies weight loss ENT Denies headache(s) Card Denies chest pain, Denies syncope, Denies irregular heart rhythm and Denies dyspnea Resp Denies chest congestion, Denies cough and Denies dyspnea GI Denies abdominal pain, Denies change in stool character, Denies nausea and Denies vomiting Musc Denies deformity and Denies joint swelling Neuro Denies syncope and Denies headache(s) Physical exam (Primary Care) Vital Signs: Last Vital Signs Pulse 77 09/14/23 10:51 BP 122/80 09/14/23 10:51 Pulse Ox 99 09/14/23 10:51 Oxygen Delivery Method Room Air 09/14/23 10:51 BMI result Body Mass Index 32.2 Tobacco/Smoking Status: Tobacco use Status Tobacco use date assessed 04/15/23 09/14/23 10:55 Patient Tobacco Use Status Never used Tobacco 09/14/23 10:55 e-Cigarette/Vaping Use Never Used 09/14/23 10:55 Thrive Assessment: Date of Thrive Assessment Date Thrive assessed 04/15/23 09/14/23 10:55 Const General: cooperative, comfortable, no acute distress and alert Neck Neck: Yes no lymphadenopathy Thyroid: Thyroid normal Resp Effort & Inspection: normal respiratory effort Auscultation: clear to auscultation bilaterally Percussion: percussion normal Cardio Jugular venous distension: no JVD Palpation: normal PMI Rate: regular rate Rhythm: regular rhythm Heart sounds: S1 normal heart sound present and S2 normal heart sound present GI Inspection: Yes normal to inspection Palpation (GI): No hepatosplenomegaly present Skin General skin exam: no rashes or lesions noted Extrem General: Yes no clubbing, cyanosis or edema Assessment and Plan Assessment & Plan (1) Knee pain: Code(s): M25.569 - Pain in unspecified knee Plan: ref pt Orders: Orders PT Evaluation and Treatment Today M25.569 - Pain in unspecified knee Coding Level of Care Code Est Pt Level 3 (64320) Diagnoses Knee pain M25.569
== END 2023-09-14 11:03 | disposition home or self-care (01) ==
PROVIDERS: PCP Internal Medicine; Visit Provider Internal Medicine
DX: M25.569 Pain in unspecified knee (principal)
CPT/HCPCS: 99213

== ENCOUNTER 2023-10-22 13:13 | Outpatient (AMB) | payer MEDICARE, OTHER, MEDICAID, SELFPAY ==
--- NOTE | 2023-10-22 13:14 | MHC.OFFVIS ---
Vital Signs 10/22/23 13:15 Height 5 ft 9 in Weight 218 lb 11.177 oz BMI 32.3 BP 116/72 Blood Pressure Location Rt brachial Position Sitting Pulse 66 Pulse Source Pulse Oximeter Pulse Oximetry (%) 94 Oxygen Delivery Method Room Air Intake Visit Reasons: 6 month follow up Intake Note: Luis A presents in office today for a scheduled 6 mos FUV. CC; Pt requests refill of Omeprazole 20 mg. Pt reports that they have remained stable since their last visit. No new concerns or sx at this time. Director Of Business Systems Required: No Allergies lovastatin Allergy (Unknown, Verified 12/07/23 14:25) GI upset HPI HPI 6 month follow up: Details: Assessment & Plan (1) Gallstones: Code(s): K80.20 - Calculus of gallbladder without cholecystitis without obstruction Category: Medical (2) GERD (gastroesophageal reflux disease): Code(s): K21.9 - Gastro-esophageal reflux disease without esophagitis Category: Medical Plan [place]ian # declines He continues on his omeprazole with good control of his GERD. His gallstones but asymptomatic and he is aware of what symptoms would necessitate an ER visit. He ended up doing well treating his hemorrhoids non medically and currently is only using [id number] hemorrhoid preparations. Return office visit in 6 months Medications: Refilled omeprazole 20 mg PO DAILY 90 caps 2RF Discontinued hydrocortisone-pramoxine 1-1 % (Proctofoam HC) Discontinued Reason: Patient Completed Course 1 appl SD QID PRN 10 grams 0RF hemorrhoids hydrocortisone 2.5% (Anusol-HC) Discontinued Reason: Patient Completed Course 1 appl SD BID-QID PRN 30 grams 1RF hemorrhoids TODAY'S VISIT He will be due for repeat scope for TA next year, will discuss at next ov. He continues to do well on his omperazole. ROV 6 mos. [facility] Medical History (Updated 12/08/23 @ 08:35 by Jose Hernandez MD) Encounter for subsequent annual wellness visit (AWV) in Medicare patient Upper abdominal pain Back pain Screening for diabetes mellitus Dizziness Shoulder pain Left foot pain Obesity Ankle pain BMI 31.0-31.9,adult Adult general medical exam Abnormality of penis Balanitis Tinea cruris Abdominal bloating Thrombosed external hemorrhoid Chronic GERD Urinary frequency Other obstructive and reflux uropathy Renal stones Chronic superficial gastritis without bleeding BPH loc w urin obs/LUTS Insomnia Tubular adenoma of colon Surgical History History of esophagogastroduodenoscopy (EGD) Hx of colonoscopy History of appendectomy Family History Father No problems noted. Mother HTN (hypertension) Asthma Sister HTN (hypertension) Throat cancer Social History Housing: Apartment Alcohol intake: never Patient Tobacco Use Status: Never used Tobacco e-Cigarette/Vaping Use: Never Used Second Hand Smoke Exposure: No Advance Directives Date on File: 11/25/20 service: Yes ([employer]) Current occupational status: retired Cognitive needs: No Hearing needs: No Vision needs: Yes (glasses) Review of Systems Const Denies fatigue, Denies fever(s), Denies night sweats, Denies poor appetite and Denies weight loss Eyes Details: glasses Reports requires corrective lenses ENT Reports Normal hearing present, Denies dental pain, Denies dysphagia, Denies hearing loss, Denies mouth pain, Denies odynophagia, Denies throat swelling, Denies tongue swelling and Reports other (Dentition adequate) Card Reports no additional complaints Resp Reports no additional complaints GI Details: Denies abdominal pain, Denies melena, Denies bloating, Denies hematochezia, Denies constipation, Denies GI cramping, Denies dysphagia, Denies excessive flatus, Denies early satiety, Reports heartburn, Denies diarrhea, Denies nausea, Denies odynophagia, Denies vomiting and Denies hematemesis Skin/Breast Denies pruritus, Denies lesions, Denies rash and Denies jaundice Neuro Reports Normal hearing present and Denies Abnormal speech present Endo Denies fatigue Aller/Immun Denies throat swelling and Denies tongue swelling Physical Exam Vital Signs: Last Vital Signs Pulse 66 10/22/23 13:15 BP 116/72 10/22/23 13:15 Pulse Ox 94 10/22/23 13:15 Oxygen Delivery Method Room Air 10/22/23 13:15 BMI result Body Mass Index 32.3 Const General: cooperative, no acute distress, well developed and well groomed Nutritional Appearance: well nourished and obese Orientation/consciousness: oriented to person, oriented to place and oriented to time Limitations: No language barrier HEENT Head: Yes normocephalic and Yes atraumatic Eyes General: appearance normal, both eyes and all related structures Pupils: Equal, round and reactive pupils present Neck Neck: Yes normal visual inspection and Yes no lymphadenopathy Thyroid: Thyroid normal Resp Effort & Inspection: normal respiratory effort and able to speak in complete sentences Auscultation: clear to auscultation bilaterally Cardio Rate: regular rate Rhythm: regular rhythm Heart sounds: Normal, physiologic split S2 sound present Peripheral pulses: radial pulses present and posterior tibial pulses present GI Inspection: No distended, No Abdominal panniculus present and Yes obesity Palpation (GI): Soft to palpation, nontender, no guarding, not rigid and No hepatosplenomegaly present Percussion: Yes normal to percussion Auscultation: normal bowel sounds Rectal Exam - Male: Yes deferred Skin General skin exam: no rashes or lesions noted, turgor normal, skin not dry, no jaundice, No spider nevi and no striae Rashes: no rashes Nails: normal Neuro General: oriented to person, oriented to place and oriented to time Cranial nerves: Yes Equal, round and reactive pupils present and Yes Normal hearing present Speech: No Abnormal speech present Extrem General: Yes normal to inspection, No clubbing, No cyanosis and No edema Psych Appearance: grossly normal and well kempt Mental Status: mental status grossly normal Speech and movement: Normal speech and movement present Affect: normal affect Attitude: cooperative Thought process: Normal thought process present and not confabulating Thought content: Normal thought content present Insight: Limited insight present (Psych) Judgement: Limited judgement present (Psych) Assessment & Plan Assessment & Plan (1) GERD (gastroesophageal reflux disease): Code(s): K21.9 - Gastro-esophageal reflux disease without esophagitis Category: Medical (2) Gallstones: Code(s): K80.20 - Calculus of gallbladder without cholecystitis without obstruction Category: Medical Plan He will be due for repeat scope for TA next year, will discuss at next ov. He continues to do well on his omeprazole. His gallstones remain asymptomatic ROV 6 mos. Medications: Refilled omeprazole 20 mg PO DAILY 90 caps 2RF Coding Level of Care Code Est Pt Level 3 (87660) Diagnoses GERD (gastroesophageal reflux disease) K21.9 Gallstones K80.20
[2023-10-22 13:15] VITALS: BP 116/72; PULSE 66; O2SAT 94; BMI 32.3
== END 2023-10-22 13:26 | disposition home or self-care (01) ==
PROVIDERS: PCP Internal Medicine; Visit Provider Nurse Practitioner
DX: K21.9 Gastro-esophageal reflux disease without esophagitis (principal); K80.20 Calculus of gallbladder without cholecystitis without obstruction
CPT/HCPCS: 99213

== ENCOUNTER → 2023-10-22 13:13 | Outpatient (BNVA) | payer MEDICARE, OTHER, MEDICAID, SELFPAY | PROVIDERS: PCP Internal Medicine; Visit Provider Nurse Practitioner | DX: K80.20 Calculus of gallbladder without cholecystitis without obstruction (principal); K21.9 Gastro-esophageal reflux disease without esophagitis | CPT/HCPCS: 99212 ==

== ENCOUNTER 2023-11-19 13:00 | Outpatient (RCR) | payer MEDICARE, OTHER, SELFPAY ==
--- NOTE | 2023-11-19 15:19 | MHC.PT.DC ---
[facility] Office [place] Office [place] [facility] [address] Homero Mcbride [address] [phone] F: [phone] F: [phone] F: [phone] F: [phone] Physical Therapy Discharge Report Diagnosis: INTERNAL DERANGEMENT L KNEE Date of Surgery: NA Date of Evaluation: 10/19/23 Date of Discharge: 11/19/23 Treatments to Date: 6 Cancellations to Date: No Shows to Date: Discharge Status: Achieved Goals Improved Function Independent with HEP Patient Elected to Stop Discharge Summary: HAS MET MOST PT GOALS, L KNEE FEELING BETTER, HAS HOME PROG Electronically signed by: RUBEN RAMÍREZ PT Please sign and return to therapist. Thank you for your referral.
== END 2023-11-19 15:20 | disposition home or self-care (01) ==
LOC: HO.PT 13:00
PROVIDERS: PCP Internal Medicine; Visit Provider Internal Medicine
DX: M25.562 Pain in left knee (principal); M23.92 Unspecified internal derangement of left knee
CPT/HCPCS: 97110; 97140; 97161; 97530

== ENCOUNTER 2023-12-06 08:07 | Outpatient (REF) | payer MEDICARE, OTHER, MEDICAID, SELFPAY ==
[2023-12-06 09:11] LABS: Cholesterol 116 mg/dL (<200); HDL Cholesterol 40 mg/dL (>40); LDL Cholesterol Calculated 59 mg/dL (<100); Triglycerides 89 mg/dL (<150)
== END 2023-12-06 08:08 | disposition home or self-care (01) ==
LOC: HO.LAB 08:07
PROVIDERS: PCP Internal Medicine; Visit Provider Internal Medicine
DX: E78.5 Hyperlipidemia, unspecified (principal)
CPT/HCPCS: 36415; 80061

== ENCOUNTER 2024-02-21 10:49 | Outpatient (AMB) | payer MEDICARE, OTHER, MEDICAID, SELFPAY ==
--- NOTE | 2024-02-21 10:51 | MHC.PC.OV ---
Vital Signs 02/21/24 10:52 Height 5 ft 9 in Weight 222 lb 4 oz BMI 32.8 BP 126/70 Blood Pressure Location Lt brachial Position Sitting Pulse 76 Pulse Source Pulse Oximeter Pulse Oximetry (%) 97 Oxygen Delivery Method Room Air Intake Visit Reasons: 6mo f\u Intake Note: Patient is here to follow up on BPH, IBS, HLD. Sheet Metal Journeyman Required: No Road Production General Manager: Not Required per policy Accompanied by: Self / Same As Patient Allergies lovastatin Allergy (Unknown, Verified 02/21/24 10:52) GI upset Medication List - Last Reconciled 02/21/24 by Jose Hernandez MD acetaminophen (Tylenol Extra Strength) 500 mg PO Q6H PRN ammonium lactate 12% appl topical BID aspirin 81 mg PO DAILY benzonatate 100 mg PO BID PRN 7 days ciclopirox 0.77% appl topical clotrimazole-betamethasone 1-0.05 % 1 appl topical BID 4 weeks cyclobenzaprine 5 mg PO Q8H PRN 5 days lidocaine 5% (Lidoderm) 1 patch topical DAILY PRN MDD remove after 12 hours melatonin 2 mg (2 x 1 mg) PO BEDTIME PRN nystatin 1 appl topical BID omeprazole 20 mg PO DAILY prednisone 40 mg (2 x 20 mg) PO DAILY 5 days rosuvastatin 5 mg PO DAILY tamsulosin 0.8 mg (2 x 0.4 mg) PO DAILY 90 days Tobacco use date assessed: 02/21/24 Fall risk assessment: No Falls in past year Last assessed Fall Risk: 02/21/24 Dental Screening Dental Screen Date: 05/20/23 HPI 6mo f\u HPI Details hyperlipidemia on rx; doing well; compliant [facility] Medical History (Updated 12/08/23 @ 08:35 by Jose Hernandez MD) Encounter for subsequent annual wellness visit (AWV) in Medicare patient Upper abdominal pain Back pain Screening for diabetes mellitus Dizziness Shoulder pain Left foot pain Obesity Ankle pain BMI 31.0-31.9,adult Adult general medical exam Abnormality of penis Balanitis Tinea cruris Abdominal bloating Thrombosed external hemorrhoid Chronic GERD Urinary frequency Other obstructive and reflux uropathy Renal stones Chronic superficial gastritis without bleeding BPH loc w urin obs/LUTS Insomnia Tubular adenoma of colon Surgical History History of esophagogastroduodenoscopy (EGD) Hx of colonoscopy History of appendectomy Family History Father No problems noted. Mother HTN (hypertension) Asthma Sister HTN (hypertension) Throat cancer Social History Housing: Apartment Alcohol intake: never Patient Tobacco Use Status: Never used Tobacco e-Cigarette/Vaping Use: Never Used Second Hand Smoke Exposure: No Advance Directives Date on File: 11/25/20 service: Yes ([employer]) Current occupational status: retired Cognitive needs: No Hearing needs: No Vision needs: Yes (glasses) Questionnaire Thrive Questionnaire Date Thrive assessed: 04/15/23 AMAODU-7 AMB Questionnaire AMADOU-7 Date AMADOU - 7 assessed: 04/15/23 Source: Developed by Drs. Kali Roberts, Chanell Sibley, Lane Cho and colleagues, with an educational sony from [employer]. Review of Systems Const Denies chills, Denies headache(s) and Denies weight loss ENT Denies headache(s) Card Denies chest pain, Denies syncope, Denies irregular heart rhythm and Denies dyspnea Resp Denies chest congestion, Denies cough and Denies dyspnea GI Denies abdominal pain, Denies change in stool character, Denies nausea and Denies vomiting Musc Denies deformity and Denies joint swelling Neuro Denies syncope and Denies headache(s) Physical exam (Primary Care) Vital Signs: Last Vital Signs Pulse 76 02/21/24 10:52 BP 126/70 02/21/24 10:52 Pulse Ox 97 02/21/24 10:52 Oxygen Delivery Method Room Air 02/21/24 10:52 BMI result Body Mass Index 32.8 Tobacco/Smoking Status: Tobacco use Status Tobacco use date assessed 02/21/24 02/21/24 10:58 Patient Tobacco Use Status Never used Tobacco 02/21/24 10:58 e-Cigarette/Vaping Use Never Used 02/21/24 10:58 Thrive Assessment: Date of Thrive Assessment Date Thrive assessed 04/15/23 02/21/24 10:58 Const General: cooperative, comfortable, no acute distress and alert Neck Neck: Yes no lymphadenopathy Thyroid: Thyroid normal Resp Effort & Inspection: normal respiratory effort Auscultation: clear to auscultation bilaterally Percussion: percussion normal Cardio Jugular venous distension: no JVD Palpation: normal PMI Rate: regular rate Rhythm: regular rhythm Heart sounds: S1 normal heart sound present and S2 normal heart sound present GI Inspection: Yes normal to inspection Palpation (GI): No hepatosplenomegaly present Skin General skin exam: no rashes or lesions noted Extrem General: Yes no clubbing, cyanosis or edema Coding Level of Care Code Est Pt Level 3 (93478) Diagnoses Hyperlipidemia E78.5 Assessment & Plan Assessment & Plan (1) Hyperlipidemia: Code(s): E78.5 - Hyperlipidemia, unspecified Category: Medical Plan: stable; same rx Orders: Orders Lipid Panel Today Z13.220 - Encounter for screening for lipoid disorders
[2024-02-21 10:52] VITALS: BP 126/70; PULSE 76; O2SAT 97; BMI 32.8
== END 2024-02-21 11:11 | disposition home or self-care (01) ==
PROVIDERS: PCP Internal Medicine; Visit Provider Internal Medicine
DX: E78.5 Hyperlipidemia, unspecified (principal)

== ENCOUNTER → 2024-02-21 10:49 | Outpatient (BNVA) | payer MEDICARE, OTHER, MEDICAID, SELFPAY | PROVIDERS: PCP Internal Medicine; Visit Provider Internal Medicine | DX: E78.5 Hyperlipidemia, unspecified (principal) | CPT/HCPCS: 99212 ==

== ENCOUNTER 2024-07-14 11:03 | Emergency (ER) | payer MEDICARE, OTHER, MEDICAID, SELFPAY ==
--- NOTE | ~2024-07-14 | XR_ITS ---
EXAMINATION: XR CHEST CLINICAL INFORMATION: productive cough COMPARISON: 04/09/2023. TECHNIQUE: 2 views of the chest were obtained. FINDINGS: The cardiac, hilar, and mediastinal contours are normal. The lungs are clear bilaterally. There is no pneumothorax or pleural effusion. There is no focal osseous or soft tissue abnormality. XR/XR chest 2V IMPRESSION: No active pulmonary disease. Electronically signed by: Nathaniel Stewart MD 07/14/2024 11:41 AM EDT
[2024-07-14 11:15] VITALS: BP 112/75; PULSE 82; RESP 20; TEMP 37; O2SAT 97; BMI 32.5
--- NOTE | 2024-07-14 11:16 | ED.GENADULT ---
HPI - General Adult General Chief complaint: Upper Respiratory Symptoms Stated complaint: sore throat Time Seen by Provider: 07/14/24 12:51 Source: patient Mode of arrival: ambulatory Limitations: no limitations History of Present Illness ED Provider: Tyrese Andre HPI narrative: 69 yold male with pmh of GERD, seasonal allergies, BPH, IBS, highcholesterol, and IBS presents to the ED for runny nose, coughing, body aches, chills, and sore throat for the past 2 days. Patient denies any chest pain, leg swelling, pleurisy, or calf pain. Patient states at nighttime coughing is profuse. Patient denies any increased use of pillow use. Related Data Home Medications ?Medication ?Instructions ?Recorded ?Confirmed ammonium lactate 12 % topical cream applic topical BID 01/02/20 02/21/24 aspirin 81 mg tablet,delayed 81 mg PO DAILY 08/18/22 02/21/24 release rosuvastatin 5 mg tablet 5 mg PO DAILY 02/17/23 02/21/24 ciclopirox 0.77 % topical cream appl topical 10/22/23 02/21/24 Previous Rx's ?Medication ?Instructions ?Recorded nystatin 100,000 unit/gram topical 1 appl topical BID balantitis #30 12/22/22 ointment grams acetaminophen 500 mg tablet 500 mg PO Q6H PRN fever or pain 04/05/23 (Tylenol Extra Strength) #14 tabs cyclobenzaprine 5 mg tablet 5 mg PO Q8H PRN pain (scale score 04/05/23 7-10) 5 days #14 tabs lidocaine 5 % topical patch 1 patch topical DAILY PRN pain #30 04/05/23 (Lidoderm) ea benzonatate 100 mg capsule 100 mg PO BID PRN cough 7 days #14 04/09/23 caps prednisone 20 mg tablet 40 mg (2 x 20 mg) PO DAILY 5 days 08/25/23 #10 tabs omeprazole 20 mg capsule,delayed 20 mg PO DAILY #90 caps 10/22/23 release melatonin 1 mg tablet 2 mg (2 x 1 mg) PO BEDTIME PRN for 02/12/24 insomnia #180 tabs clotrimazole-betamethasone 1 1 appl topical BID balanitis 4 04/10/24 %-0.05 % topical cream weeks #45 grams albuterol sulfate 90 mcg/actuation 2 puff inhalation Q4-6H PRN 07/14/24 aerosol inhaler shortness of breath or wheezing #8.5 grams azithromycin 250 mg tablet See Rx Instructions PO .COMPLEX #6 07/14/24 tabs benzonatate 200 mg capsule 200 mg PO TID PRN cough 5 days #15 07/14/24 caps tamsulosin 0.4 mg capsule 0.8 mg (2 x 0.4 mg) PO DAILY 90 07/14/24 days #180 caps prednisone 20 mg tablet 40 mg (2 x 20 mg) PO DAILY #10 tabs 07/16/24 Allergies Allergy/AdvReac Type Severity Reaction Status Date / Time lovastatin Allergy Unknown GI upset Verified 07/16/24 01:02 Review of Systems Review of Systems: coughing, runny nose, sore throat, bodyaches, and chills Yes all other systems are reviewed and are negative PMFSH Past Medical History Medical History (Updated 07/16/24 @ 02:47 by Ean Royal) Encounter for subsequent annual wellness visit (AWV) in Medicare patient Upper abdominal pain Back pain Screening for diabetes mellitus Dizziness Shoulder pain Left foot pain Obesity Ankle pain BMI 31.0-31.9,adult Adult general medical exam Abnormality of penis Balanitis Tinea cruris Abdominal bloating Thrombosed external hemorrhoid Chronic GERD Urinary frequency Other obstructive and reflux uropathy Renal stones Chronic superficial gastritis without bleeding BPH loc w urin obs/LUTS Insomnia Tubular adenoma of colon Surgical History History of esophagogastroduodenoscopy (EGD) Hx of colonoscopy History of appendectomy Family History Family History Father No problems noted. Mother HTN (hypertension) Asthma Sister HTN (hypertension) Throat cancer Social History Social History Housing: Apartment Alcohol intake: never Patient Tobacco Use Status: Never used Tobacco Smoked in Last 30 Days: No e-Cigarette/Vaping Use: Never Used Second Hand Smoke Exposure: No Use of substances other than those prescribed or required for medical reasons: No Advance Directives: No Advance Directives Information Provided: Yes Advance Directives Date on File: 11/25/20 Do you have a plan to hurt others: No Plan service: Yes ([employer]) Current occupational status: retired Cognitive needs: No Hearing needs: No Vision needs: Yes (glasses) Physical Exam ED Vital Signs: Vital Signs - 24 hr 07/14/24 11:15 07/14/24 12:18 Temperature 98.6 F Pulse Rate 82 76 Respiratory Rate 20 18 Blood Pressure 112/75 125/87 Pulse Oximetry 97 95 Oxygen Delivery Method Room Air Room Air BMI result Body Mass Index 32.5 Const General: cooperative, healthy appearing, comfortable, no acute distress, well developed, alert, awake and Physically active Orientation/consciousness: patient oriented x3 HENMT Head: Yes normal to inspection, Yes No palpable skull fracture present, Yes normocephalic, Yes atraumatic and No abrasion Ears: hearing grossly normal bilaterally, external ears normal, TM's normal bilaterally, TM normal on the right, TM normal on the left, EAC's normal, mastoids normal and no periauricular adenopathy General nose exam: Normal external nose present and Normal nares present Face and sinus: Yes normal facial exam, Yes sinuses nontender and Yes face symmetric Mouth: Normal oral and palatal mucosa present, lip normal and tongue normal Throat: Yes posterior oropharynx normal, Yes tonsils normal and Yes uvula midline Eyes General: appearance normal, both eyes and all related structures Neck Neck: Yes normal visual inspection, Yes full ROM, Yes no lymphadenopathy, Yes no meningeal signs, Yes trachea midline, Yes supple, No anterior neck swelling and No tender Chest Chest palpation & inspection: normal inspection of the chest and normal palpation of entire chest wall Resp Effort & Inspection: normal respiratory effort and able to speak in complete sentences Auscultation: clear to auscultation bilaterally Cardio Jugular venous distension: no JVD Heart sounds: S1 normal heart sound present and S2 normal heart sound present GI Inspection: Yes normal to inspection Palpation (GI): Soft to palpation, not firm, nontender, no guarding and not rigid General: Yes no CVA tenderness Back/Spine/Pelvis Back: no CVA tenderness and No back tenderness Skin General skin exam: no rashes or lesions noted, elasticity normal and turgor normal Neuro General: patient oriented x3, gait normal, tone normal, moves all extremities, Normal light touch and pain sensation, no meningeal signs, no focal motor deficits, CN's II-XI intact bilaterally and normal sensation to monofilament Extrem Other: Bilateral lower extremity negative for swelling, pitting edema, calf tenderness. General: Yes normal to inspection, Yes full ROM and Yes capillary refill normal Psych Appearance: grossly normal, well kempt and not disheveled Course Course Course Narrative: This is a Rapid Medical Examination (RME) performed by Jose Eduardo Borges PA-C in triage. Full HPI, ROS, assessment and treatment plan per primary provider in the Main ED. 07/14/24 1118 OPAL [place] Hx: 69 yo male hx of GERD, BPH, HLD, IBS, nephrolithiasis here for eval of sore throat, nasal congestion and productive cough x days. no sick contacts. PE/vitals: No respiratory distress. No muffled voice. Posterior oropharynx WNL, mildly erythematous. Uvula midline. Controlling secretions and speaking in complete sentences. Plan: viral swabs, strep swab, and cxr Medical Decision Making Medical Decision Making [facility] Narrative: [age] year male presents to ED for URI symptoms. SARs strep came back negative. Chest x-ray normal. Not suspecting peritonsillar abscess, Parag's angina, retropharyngeal arterial abscess, KS, CHF, PE, hypoxia, respiratory failure, carditis, myocarditis, cardiac tamponade, or any other life threatening etiologies. Patient will be treated as bronchitis discharged with albuterol, azithromycin, and Tessalon Perles. Differential Diagnosis Differential Diagnoses: The differential diagnosis associated with the presentation includes (Strep., COVID, influenza) Admission/Observation Consideration of admission/observation: Escalation of care including admission/observation considered Lab Data [facility] Lab Attestation statement: I reviewed the patient's lab results. Labs: Lab Results 07/14/24 Range/Units 11:26 Influenza Type A (PCR) NEGATIVE (Negative) Influenza Type B (PCR) NEGATIVE (Negative) RSV RNA Qual (PCR) NEGATIVE (Negative) SARS-CoV-2 RNA (RT-PCR) NEGATIVE (Negative) S. pyogenes GrpA JOSUÉ Negative (Negative) Independent Interpretation I performed an independent interpretation of an: Plain X-Ray Independent Historian Clinical information obtained from an independent historian. History obtained from or confirmed by: Other (patient) Prescription Management I considered prescription management with: Antibiotic and Other (albuterol inhaler, ) Discharge Plan Discharge Clinical Impression: Acute bronchitis Patient Disposition: Home, Self-Care Instructions: Acute Bronchitis (ED) Additional Instructions: Recommend follow up with primary care provider. Return to the ED immediately for any chest pain, shortness of breath, coughing up blood, calf pain, chest pain on inspiration, intractable fever, chills, weakness, change in voice, inability tolerate solid food/liquid, or any other concerning symptoms. Prescriptions: New benzonatate 200 mg capsule 200 mg PO TID PRN (Reason: cough) 5 Days Qty: 15 0RF azithromycin 250 mg tablet See Rx Instructions .ROUTE .COMPLEX Qty: 6 0RF Rx Instructions: For 250 mg dose pack: take 500 mg today (day 1), then 250 mg for 4 days (days 2-5) albuterol sulfate 90 mcg/actuation HFA aerosol inhaler 2 puff inhalation Q4-6H PRN (Reason: shortness of breath or wheezing) Qty: 8.5 0RF No Action melatonin 1 mg tablet 2 mg PO BEDTIME PRN (Reason: for insomnia) Qty: 180 1RF clotrimazole-betamethasone 1-0.05 % cream 1 appl topical BID 28 Days Qty: 45 0RF tamsulosin 0.4 mg capsule 0.8 mg PO DAILY 90 Days Qty: 180 3RF acetaminophen [Tylenol Extra Strength] 500 mg tablet 500 mg PO Q6H PRN (Reason: fever or pain) Qty: 14 0RF lidocaine [Lidoderm] 5 % adhesive patch,medicated 1 patch topical DAILY MDD remove after 12 hours PRN (Reason: pain) Qty: 30 0RF Rx Instructions: leave on most painful area for up to 12 hrs cyclobenzaprine 5 mg tablet 5 mg PO Q8H PRN (Reason: pain (scale score 7-10)) 5 Days Qty: 14 0RF benzonatate 100 mg capsule 100 mg PO BID PRN (Reason: cough) 7 Days Qty: 14 0RF prednisone 20 mg tablet 40 mg PO DAILY 5 Days Qty: 10 0RF prednisone 20 mg tablet 40 mg PO DAILY Qty: 10 0RF ammonium lactate 12 % cream topical BID aspirin 81 mg tablet,delayed release (DR/EC) 81 mg PO DAILY ciclopirox 0.77 % cream topical omeprazole 20 mg capsule,delayed release(DR/EC) 20 mg PO DAILY Qty: 90 2RF rosuvastatin 5 mg tablet 5 mg PO DAILY nystatin 100,000 unit/gram ointment 1 appl topical BID Qty: 30 0RF Rx Instructions: Apply to red areas of the head of penis, shaft and scrotal Interventions: ED Discharge Assessment Last Done: 07/14/24 14:04 Discharge Date/Time: 07/14/24 14:13 Print Language: Korean
[2024-07-14 11:50] LABS: IDNOW Serial# 55D5AD1C; Strep A Nucleic Acid Negative (Negative)
[2024-07-14 12:16] LABS: Influenza A PCR NEGATIVE (Negative); Influenza B PCR NEGATIVE (Negative); Resp Syncy Virus RNA Qual PCR NEGATIVE (Negative); SARS COV2 PCR INHOUSE NEGATIVE (Negative)
[2024-07-14 12:18] VITALS: BP 125/87; PULSE 76; RESP 18; O2SAT 95
--- OUTSIDE RECORDS SUMMARY | 2024-07-14 12:41 | XMS_ITS | Encounter Summary ---
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 Role Phone Unavailable Primary Care Provider Unavailabl e Reason for Visit * Reason Comments Dentures Encounter Details Date Type Department Care Team (Late st Contact Info) Description 07/12/2024 2:30 PM EDT Office Visit [facility] ADULT DENTAL [address] [place] [address] Jose Aguilera DMD [address] [place] [address] Social History Tobacco Use Types Packs/Day Years Used Date Smoking Tobacco: Never Passive Smoke Exposure: Never Smokeless Tobacco: Never Sex and Gender Information Value Date Recorded Sex Assigned at Male 01/26/2022 10:22 AM EDT Legal Sex Male 10:22 AM EDT Gender Identity Male 05/20/2023 12:24 PM EST Sexual Orientation Straight 05/08/2024 12 :14 PM EST documented as of this encounter Last Filed Vital Signs Vital Sign Reading Time Taken Comments Blood Pressure 120/78 07/12/2024 2:21 PM EDT Pulse 60 07/12/2024 2:21 PM EDT Temperature - - Respiratory Rate - - Oxygen Saturation - - Inhaled Oxygen Concentration - - Weight - - Height - - Body Mass Index - - documented in this encounter Progress Notes * Jose Aguilera DMD - 07/12/2024 2:30 PM EDT Bite registration of /P NV: Teeth try in of /P Eliseo documented in this encounter Plan of Treatment Upcoming Encounters Date Type Department Care Team (Late st Contact Info) Description 08/07/2024 9:00 AM EDT Office Visit [facility] ADULT DENTAL [address] [place] [address] Jose Aguilera, DMD [address] [place] [address] 12/07/2024 3:00 PM EDT Office Visit [facility] ADULT DENTAL [address] [place] [address] Alessandra Esparza [address] [place] [address] documented as of this encounter Procedures Procedure Name Priority Date/Time Associated Diagnosis Comments BITE REGISTRATION Routine 07/12/2024 2:30 PM EDT documented in this encounter Visit Diagnoses Not on filedocumented in this encounter
--- OUTSIDE RECORDS SUMMARY | 2024-07-14 12:41 | XMS_ITS ---
Author Name [facility] Address [address] [place] [address] Care Team Providers Care Principal Product Manager Name Role Phone JAZMIN LAMB Primary Care [...] Bishop's Name Patient's Relationship to Policy Bishop [facility] [id number] KYLE FREDERICK IS PATIENT MEDICAID MEDICAID [facility] [place] Jun 28, 2015 MEDICAI D [id number] [phone] KYLE CLIFTON IS PATIENT MEDICARE (WNR) MEDICARE (M) PART B Jun 27, 2009 PART B [id number] KYLE FREDERICK IS PATIENT MEDICARE (WNR) MEDICARE (M) PART A Jun 28, 2007 PART A [id number] [phone] KYLE GUILLEN IS PATIENT FOR LIFE TFL* Mar 29, 2017 [id number] KYLE FREDERICK IS PATIENT Selected Encounter This section includes the information on record at [place] for the Encounter. Date/Time Encounter Type Encounter Description Reason Pro vider Source August 27, 2023 01:16 AM Outpatient Encounter ADMIN PAT ACTIVTIES (MASNONCT) IHE Encounter Template Text not used by [place] Plan of Treatment: Future Appointments (+ 6 months) and Future Tests (+/- 45 days) The Plan of Treatment section includes future care activities for the patient from all [place] [facility] This section includes future appointments and future orders which are active, pending or scheduled. Future Appointments This section includes appointments that were scheduled to occur 6 months from the date of the Encounter, up to a maximum of 20 appointments. The data comes from all [facility]. Appointment Date/Time Appointment Type Appointme nt Facility Name Sep 02, 2023 11:00 AM AMBULATORY - MEDICINE [facility] Sep 06, 2023 09:30 AM AMBULATORY MEDICINE [facility] Sep 07, 2023 10:00 AM AMBULATORY MEDICINE [facility] Sep 07, 2023 10:00 AM AMBULATORY - MEDICINE [facility] Active, Pending, and Scheduled Orders This section includes a listing of several types of active, pending, and scheduled orders, including clinic medications orders, diagnostic test orders, procedure orders and consult orders; where the start date of the order is 45 days before the date of the Encounter or 45 days after the date of theEncounter. The data comes from all [facility]. Test Date/Time Test Type Test Details Facility Name August 19, 2023 12:00 AM Laboratory - Chemi stry Order LIPID PANEL FASTING BLOOD (SST-SERUM) [facility] August 19, 2023 12:00 AM Laboratory - Chemi stry Order LIVER FUNCTION BLOOD (SST-SERUM) [facility] August 19, 2023 12:00 AM Laboratory - Chemi stry Order CBC AND DIFF (AUTO) BLOOD (LAV-BLOOD) [facility] August 19, 2023 12:00 AM Laboratory - Chemi stry Order BASIC METABOLIC PANEL (fasting) BLOOD (SST-SERUM) [facility] August 20, 2023 12:00 AM Laboratory - Chemi stry Order PSA BLOOD (SST-SERUM) [facility] Social History: Smoking Status (Most current) and Tobacco Use (All prior to encounter date) This section includes the most current, and the historical, smoking and tobacco- related health factors from the [place] facility where the Encounter took place. Current Smoking Status This section includes the most current smoking, or tobacco-related health factor, from the [place] facility where the Encounter took place. Date/Time Current Smoking Status Comment [facility] Sep 03, 2022 10:00 AM [place]-TOBACCO FORMER USER [facility] Tobacco Use History This section includes a history of the smoking, or tobacco-related health factors, that were collected on or before the date of the Encounter. The data comes from the [place] facility where the Encounter took place. Date/Time Smoking Status/Tobac co Use Comment Facility Sep 03, 2022 10:00 AM [place]-TOBACCO QUIT 15 YRS OR MORE [facility] May 13, 2021 09:30 AM QUIT TOBACCO USE > 7 YEARS AGO smoked for one year after his divorce [facility] May 13, 2021 09:30 AM [place]-TOBACCO FORMER USER [facility] May 13, 2021 09:30 AM VA-TOBACCO QUIT 15 YRS OR MORE [facility] May 18, 2019 01:59 PM [place]-TOBACCO NEVER USED [facility] Advance Directives: All historical and current Section Date Range: From patient's date of to the date document was created. This section includes ALL of a patient's completed or amended [place] Advance and Rescinded Directives. The entries below indicate that a directive exists for the patient, but an actual copy is not included with this document. The data comes from all [place] facilities. Date Advance Directives Provider Source Oct 02, 2008 ADVANCE DIRECTIVE DISCUSSION [facility] Dec 31, 2006 ADVANCE DIRECTIVE DISCUSSION [facility] Jun 04, 2005 ADVANCE DIRECTIVE [facility] Jul 07, 2004 ADVANCE DIRECTIVE [facility] Dec 06, 2002 ADVANCE DIRECTIVE KAJAL PAYNE [facility] Encounter Notes: All associated encounter notes This section contains the clinical notes associated to the Encounter. Date/Time Encounter Note(s) Provider Source August 27, 2023 01:16 AM PHARMACY NOTE: LOCAL TITLE: V1 PHARMACY CUSTOMER CARE MEDICATION RENEWAL STANDARD TITLE: PHARMACY NOTE DATE OF NOTE: AUGUST 27, 2023@01:16 ENTRY DATE: AUGUST 27, 2023@01:16:09 AUTHOR: TRISHA BOLAÑOS EXP COSIGNER: URGENCY: STATUS: COMPLETED V1 PHARMACY CUSTOMER CARE MEDICATION RENEWAL Has ADDENDA Date: July Division: [facility] referred by Pharmacy Call Center for medication renewal: Non-controlled/maintenan ce medication Medications requested: [id number] LIDOCAINE 5% PATCH Defer to primary care provider To be mailed . Please review and renew if appropriate. *This note was generated by [facility] Customer [facility]. If you have any questions or need assistance, do not contact this author. Please refer all questions to your local, on-site pharmacy departments. /valeria BOLAÑOS CPhT [employer], [place]/Pharmacy Customer Care Signed: 08/27/2023 01:16 Receipt Acknowledged By: 08/27/2023 08:30 /moon/ JAZMIN LAMB D.O. PHYSICIAN 08/27/2023 07:44 /moon/ DANIA HARDING RN REGISTERED NURSE 08/27/2023 ADDENDUM STATUS: COMPLETED ALERT TO PCP for consideration of requested medication /valeria HARDING RN REGISTERED NURSE Signed: 08/27/2023 07:44 TRISHA BOLAÑOS [place] [facility]
--- OUTSIDE RECORDS SUMMARY | 2024-07-14 12:41 | XMS_ITS | Clinical Summary ---
Author Organization [employer] Address [address] [facility] [address] [place] [address] Care Team Providers Care Salesperson Handbags Name Role Phone Unavailable Primary Care Provider Unavailabl e Allergies Active Allergy Reactions Criticality Noted Date Comments Naproxen Abdominal Pain 05/13/2021 Medications ammonium lactate (Amlactin) 12 % cream APPLY TO AFFECTED AREAS OF DRY SKIN ON FEET (NOT BETWEEN TOES), USE TWICE DAILY 5 Active clotrimazole-be tamethasone (Lotrisone) cream APPLY TOPICALLY 2 TIMES A DAY FOR BALANITIS FOR 4 WEEKS 5 Active Hypromellose 0.3 % gel Apply to affected eye(s). 5 Active melatonin tablet TAKE 2 TABLETS BY MOUTH AT BEDTIME NEEDED FOR FOR INSOMNIA 4 Active lidocaine (Lidoderm) 5 % patch Apply topically. 4 Active omeprazole (PriLOSEC) [address] capsule Take 1 capsule by mouth Once per day. 5 Active tamsulosin (Flomax) 0.4 MG 24 hr capsule Take 1 capsule by mouth at bedtime. 0 Active suvorexant (Belsomra) 5 MG tablet Take 1 tablet by mouth at bedtime. 0 Active Active Problems Problem Noted Date Diagnosed Date Adhesive capsulitis of shoulder 06/22/2024 Anxiety 06/22/2024 Arthralgia of shoulder 06/22/2024 Back pain 06/22/2024 Low back pain, unspecified 06/22/2024 Benign neoplasm of colon 06/22/2024 Benign prostatic hyperplasia 06/22/2024 Chronic pancreatitis 06/22/2024 Chronic post-traumatic stress disorder (PTSD) Constipation 06/22/2024 Depressive disorder 06/22/2024 Encounter for fitting and ad justment of spectacles and contact lenses 06/22/2024 Gastroesophageal reflux disease 06/22/2024 Genital herpes simplex 06/22/2024 Herpes simplex 06/22/2024 History of colonic polyps 06/22/2024 Insomnia 06/22/2024 Kidney stone 06/22/2024 Major depressive disorder, s aiden episode, severe with psychotic features 06/22/2024 Need for immunization against influenza 06/23/19 Obesity 06/22/2024 Right lower quadrant abdominal pain 06/22/2024 Sleep apnea, unspecified 06/22/2024 Obstructive sleep apnea (adult) (pediatric) 05/28 Peripheral pterygium, stationary, bilateral 05/28 Vitreous degeneration, bilateral 06/22/2024 Encounters Date Type Department Care Team Description 07/12/2024 2:30 PM EDT Office Visit [facility] [address] [place] [address] Jose Aguilera DMD 06/22/2024 1:30 PM EDT Office Visit [facility] [address] [place] [address] Jose Aguilera DMD 06/05/2024 2:00 PM EDT Office Visit [facility] [address] [place] [address] Alessandra Esparza Dental plaque (Primary Dx); Missing teeth, acquired 06/02/2024 10:30 AM EST Office Visit [facility] [address] [place] [address] Jose Aguilera DMD from Last 3 Months Social History Tobacco Use Types Packs/Day Years Used Date Smoking Tobacco: Never Passive Smoke Exposure: Never Smokeless Tobacco: Never Tobacco Cessation:Counseling Given: Not Answered Sex and Gender Information Value Date Recorded Sex Assigned at Male 01/26/2022 10:22 AM EDT Legal Sex Male 10:22 AM EDT Gender Identity Male 05/20/2023 12:24 PM EST Sexual Orientation Straight 05/08/2024 12 :14 PM EST Last Filed Vital Signs Vital Sign Reading Time Taken Comments Blood Pressure 120/78 07/12/2024 2:21 PM EDT Pulse 60 07/12/2024 2:21 PM EDT Temperature - - Respiratory Rate - - Oxygen Saturation - - Inhaled Oxygen Concentration - - Weight - - Height - - Body Mass Index - - Plan of Treatment Upcoming Encounters Date Type Department Care Team (Late st Contact Info) Description 08/07/2024 9:00 AM EDT Office Visit [facility] [address] [place], [place] [phone] Jose Aguilera, TRACY [address] [place], [place] [phone] 12/07/2024 3:00 PM EDT Office Visit [facility] [address] [place], [place] [phone] Alessandra Esparza [address] [place], [place] [phone] Health Maintenance Due Date Last Done Comments CT Colonography 1954 Colonoscopy 1954 Colorectal Cancer Screening 1954 Depression Screening 1954 FIT DNA/Cologuard 1954 FIT 1954 FOBT 1954 Lipid Panel 1954 SDOH Screening 1954 Sigmoidoscopy 1954 Alcohol/Substance Use Screening 1966 Hepatitis C Screening 1972 Dental X-Ray: Bitewings 05/27/2016 05/27/19 16, 08/20/2011, 08/20/2011 Zoster Vaccines (2 of 2) 01/22/2020 11/27/2019 COVID-19 Vaccine ( season) 2023 03/03/2022, 07/03/2021, 12/31/2020, Additional history exists Dental Oral Exam 12/04/2024 06/02/2024, , 01/10/2010 Dental Prophylaxis 12/07/2024 06/05/2024, 0 08/22/2015, 02/10/2010 Tobacco Screening 07/12/2025 07/12/2024 Dental X-Ray: Full Mouth 06/04/2027 06/02/2024, 04/30 RSV Patients and Patients Aged 60 years or older (1 - 1-dose 75+ series) 2029 DTaP/Tdap/Td Vaccines (2 - Td or Tdap) 08/01/2030 08/01/2020, 12/06/2002 Pneumococcal Vaccine: 50+ Years Completed 03/04/2022, 08/01/2020, 05/29/2019 Influenza Vaccine Completed 12/15/2023, , 12/24/2021, Additional history exists HIB Vaccines Aged Out No longer eligi ble based on patient's age to complete this topic HPV Vaccines Aged Out No longer eligi ble based on patient's age to complete this topic Hepatitis A Vaccines Aged Out No long er eligible based on patient's age to complete this topic Hepatitis B Vaccines Aged Out No long er eligible based on patient's age to complete this topic IPV Vaccines Aged Out No longer eligi ble based on patient's age to complete this topic Meningococcal Vaccine Aged Out No zoie chelsy eligible based on patient's age to complete this topic RSV under 20 months Aged Out No longe r eligible based on patient's age to complete this topic Rotavirus Vaccines Aged Out No longer eligible based on patient's age to complete this topic Procedures Procedure Name Priority Date/Time Associated Diagnosis Comments BITE REGISTRATION Routine 07/12/2024 2:3 0 PM EDT DENTURE IMPRESSION Routine 06/22/2024 1: 30 PM EDT CASE PRESENTATION, DETAILED AND EXTENSIVE TREATMENT PLANNING Routine 06/05/2024 2:00 PM EDT Dental plaque Missing teeth, acquired ORAL HYGIENE INSTRUCTIONS Routine 06/05/2024 2:00 PM EDT Dental plaque Missing teeth, acquired PROPHYLAXIS - ADULT Routine 06/05/2024 2 :00 PM EDT Dental plaque Missing teeth, acquired 21 EXTRACTION Routine 06/05/2024 12:00 AM EDT CASE PRESENTATION, DETAILED AND EXTENSIVE TREATMENT PLANNING Routine 06/02/2024 10:30 AM EST PERIODIC ORAL EVALUATION - ESTABLISHED PATIENT Routine 06/02/2024 10:30 AM EST PANORAMIC RADIOGRAPHIC IMAGE Routine 06/02/2024 10:30 AM EST 5 DENTAL IMPLANT Routine 06/02/2024 12:0 0 AM EST 8 DENTAL IMPLANT Routine 06/02/2024 12:0 0 AM EST 11 DENTAL IMPLANT Routine 06/02/2024 12: 00 AM EST 13 DENTAL IMPLANT Routine 06/02/2024 12: 00 AM EST 15 DENTAL IMPLANT Routine 06/02/2024 12: 00 AM EST Max COMPLETE DENTURE Routine 06/02/2024 12:00 AM EST INTRAORAL - COMPLETE SERIES OF RADIOGRAPHIC IMAGES Routine 05/27/2015 12:00 AM EST from Last 3 Months or Most Recently Relevant to Health Maintenance [place] [id number] DENTAL - HSN FULL (MEDICAID) [place] [id number] [place] [id number] [place] [phone]
--- OUTSIDE RECORDS SUMMARY | 2024-07-14 12:43 | XMS_ITS | Continuity of Care Document ---
Author Name [facility] Organization [facility] Care Team Providers Care Document Scanner Name Role Phone [facility] Unavailable Unavailable Problems Combined list of problems from Department of Defense and Veterans Affairs facilities. It does not include entries that were removed or entered in error. Problem Status Onset Date Problem Type Date of Resolution Comments Source Adhesive capsulitis of shoulder (ICD-9-CM 726.0) Active Condition [facility] Anxiety (SCT [id number]) Active Condition [facility] Back Pain (ICD-9-CM 724.5) Active Condition [facility] Benign prostatic hyperplasia Active Condition [facility] Care involving other physical therapy (ICD-9-CM V57.1) Active Condition [facility] Chronic pancreatitis Active Condition [facility] Chronic Post-Traumatic Stress Disorder (SCT [id number]) Active Condition [facility] Colon Polyp (ICD-9-CM 211.3) Active Condition [facility] Constipation, unspecified (ICD-9-CM 564.00) Active Condition [facility] Depressive disorder Active Condition [facility] Gastroesophageal reflux disease Active Condition [facility] Genital herpes simplex Active Condition [facility] Herpes Simplex * (ICD-9-CM 054.9) Active Condition [facility] History of colonic polyp Active Condition [facility] Hypertrophy (Benign) of Prostate without Urinary obstruction and other lower [place] Active [place] [facility] Insomnia Active Condition [facility] Kidney stone Active Condition [facility] Low back [facility] Active Condition [facility] MAJOR DEP W/PSYCHOTIC FEATURES Active Condition [facility] Neuralgia, neuritis, and radiculitis (ICD-9-CM 729.2) Active Condition [facility] Obesity Active Condition [facility] Other and unspecified hyperlipidemia Active Condition [facility] Pain in joint involving shoulder region (ICD-9-CM 719.41) Active Condition [facility] RL Quadrant Abdominal Pain Active Condition [facility] Sleep apnea Active Condition Mar 04, 2022 Entered By: GERSON KEITA JAWED Comment: pt on cpap--using it [facility] VACCIN FOR INFLUENZA Active Condition [facility] Diagnosis: ICD-10-CM H43.813 Vitreous degeneration, bilateral Active Diagnosis [facility] Diagnosis: ICD-10-CM G47.33 Obstructive sleep apnea (adult) (pediatric) Active Diagnosis [facility] Diagnosis: ICD-10-CM G47.30 Sleep apnea, unspecified Active Diagnosis [facility] Diagnosis: ICD-10-CM Z46.0 Encounter for fit/adjst of spectacles and contact lenses Active Diagnosis [facility] [facility] Diagnosis: ICD-10-CM H11.043 Peripheral pterygium, stationary, bilateral Active Diagnosis [facility] Diagnosis: ICD-10-CM M54.50 Low back pain, unspecified Active Diagnosis [facility] Medications Combined list of outpatient medications from Department of Defense and Veterans Affairs facilities.Medications provided include 1) outpatient medications from the last 15 months, and 2) patient-reported medications. Medication Details Route Status Patient Instructions Prescription Expires Prescription Number Last Dispense Date Ordering Provider Order Date Order Qty Source ACYCLOVIR 200MG CAP TAKE ONE CAPSULE BY MOUTH FIVE TIMES A DAY ORAL ACTIVE 07/20/2024 [id number] FURCOLO,T [facility]UR[facility]A 2023 50 [facility] AMYLASE 120,000UNIT /LIPASE 24,000UNIT/ PROTEASE 76,000UNIT CAP,EC TAKE 4 CAPSULES BY MOUTH FOUR TIMES A DAY ORAL ACTIVE DONNA KEITA JAWSTEVE 2019 [facility] CARBOXYMETH YLCELLULOSE NA 0.5% (PF) SOLN,OPH,UD INSTILL 1 DROP INTO EACH EYE EVERY 2 HOURS WHILE AWAKE OPHTHA LMIC 05/18/2024 [id number] KINCAID,LAC EY J 2023 100 [facility] CLOTRIMAZOL E 1% CREAM,TOP APPLY A SMALL AMOUNT TOPICALL Y TWICE DAILY FOR FUNGAL INFECTIO N TOPICA L ACTIVE 07/20/2024 [id number] FURCOLO,T AUR[place]A 2023 30 [place] CLOTRIMAZOL E 1% CREAM,TOP APPLY A SMALL AMOUNT TOPICALL Y TWICE DAILY FOR FUNGAL INFECTIO N TOPICA L DISCONT INUED 07/08/2023 [id number] [facility] AMMED JAWED 2022 30 [facility] HYPROMELLOS E 0.3% GEL,OPH APPLY 1 DROP INTO EACH EYE FOUR TIMES DAILY NEEDED OPHA LMIC HOLD 05/17/2025 [id number] Isabel HOWARD E 2024 20 [facility] LIDOCAINE 5% PATCH APPLY 1 PATCH TOPICALL Y ONCE DAILY (LEAVE PATCH ON FOR 12 HOURS, THEN REMOVE PATCH) TOPICA L ACTIVE 08/27/2024 [id number] FURCOLO,T [facility]UR[facility] 2023 30 [facility] LIDOCAINE 5% PATCH APPLY 1 PATCH TOPICALL Y ONCE DAILY (LEAVE PATCH ON FOR 12 HOURS, THEN REMOVE PATCH) TOPICA L DISCONT INUED 09/04/2023 [id number] [facility] AMMED JAWED 2022 30 [facility] LORATADINE 10MG TAB TAKE ONE TABLET BY MOUTH ONCE DAILY FOR ALLERGY ORAL 04/27/2024 [id number] [facility] AMMED JAWED 2023 90 [facility] MINERAL OIL,LIGHT/P ETROLATUM (PF) OINT,OPH APPLY SMALL AMOUNT INTO EACH EYE AT BEDTIME OPHA IC ACTIVE 07/11/2025 [id number] 5 Isabel HOWARD NDREW E 2024 3 [facility] MINERAL OIL,LIGHT/P ETROLATUM (PF) OINT,OPH APPLY THIN RIBBON INTO EACH EYE AT BEDTIME FOR DRY EYE OPHTHA LMIC 05/18/2024 [id number] KINCAID,LAC EY J 2023 3 [facility] NYSTATIN [id number] OINT,TOP APPLY MODERATE AMOUNT TOPICALL Y TWICE DAILY FOR FUNGAL INFECTIO N TOPICA L 03/03/2024 [id number] 4 [facility] 2022 60 [facility] OMEPRAZOLE 20MG CAP,EC TAKE 2 CAPSULES BY MOUTH TWICE DAILY ORAL ACTIVE [facility] J[facility] 2019 [facility] PEG-400 0.4%/PROPYL CANDE GLYCOL 0.3% SOLN,OPH,UD INSTILL 1 DROP INTO EACH EYE FOUR TIMES DAILY NEEDED OPHTHA LMIC ACTIVE 07/11/2025 [id number] 5 Isabel HOWARD NDREW E 2024 30 [facility] ROSUVASTATI N CA 20MG TAB TAKE ONE-HALF TABLET BY MOUTH AT BEDTIME FOR CHOLESTE ROL ORAL ACTIVE 01/11/2025 [id number] FURCOLO,T AUR[place]A 2023 45 [facility] ROSUVASTATI N CA 20MG TAB TAKE ONE-HALF TABLET BY MOUTH ONCE DAILY FOR CHOLESTE ROL ORAL 09/04/2023 [id number] 4 [facility] 2022 45 [facility] SUVOREXANT 5MG TAB,UD TAKE ONE TABLET BY MOUTH AT BEDTIME ORAL ACTIVE [facility] J[facility] 2019 [facility] TAMSULOSIN HCL 0.4MG CAP TAKE 1 CAPSULE BY MOUTH AT BEDTIME ORAL ACTIVE [facility] 2019 [facility] [place] [facility] Allergies, Adverse Reactions, Alerts Combined list of allergies from Department of Defense and Veterans Affairs facilities. It does not include entries that were removed or entered in error. Substance Category Reaction Severity Reaction type Status Date Reported Comments Source NAPROXEN Propensity to adverse reactions to drug (finding) Epigastric discomfort active 2 [facility] Immunizations Combined list of available immunizations from the Department of Defense and Veterans Affairs facilities. Immunization Series Date Given Administered By Site Reaction Lot Number CVX Code Drug Gauge Checker Status Comments Source PNEUMOCOCCAL CONJUGATE PCV20, POLYSACCHARID E [id number] CONJUGATE, ADJUVANT, PF 2021 RADHA NUNN LEFT DELTO ID [id number] 216 complet ed [facility] [place] [facility] [facility] INFLUENZA, UNSPECIFIED FORMULATION 2021 88 complet ed HISTORICA L INFORMATI ON - SOURCE UNSPECIFI ED, [facility] INFLUENZA, UNSPECIFIED FORMULATION 2020 88 complet ed [facility] [place] [place] COVID-19 (PFIZER), MRNA, LNP-S, PF, 30 MCG/0.3 ML DOSE 3 2020 208 complet ed [facility] PNEUMOCOCCAL POLYSACCHARID E [id number] 2020 33 complet ed [facility] TDAP 2020 115 complet ed [facility] COVID-19 (PFIZER), MRNA, LNP-S, PF, 30 MCG/0.3 ML DOSE 2 2020 208 complet ed PFR; [id number]; 1 [facility] COVID-19 (PFIZER), MRNA, LNP-S, PF, 30 MCG/0.3 ML DOSE 1 2020 208 complet ed PFR; [id number]; 1 [facility] INFLUENZA, SEASONAL, INJECTABLE 2018 141 complet ed [facility] INFLUENZA, UNSPECIFIED FORMULATION 2008 88 complet ed [facility] FLU,3 YRS (HISTORICAL) 2007 88 complet ed [facility] FLU,3 YRS (HISTORICAL) 2006 88 complet ed [facility] INFLUENZA, UNSPECIFIED FORMULATION 2005 88 complet ed [facility] FLU,3 YRS (HISTORICAL) 2004 88 complet ed [facility] TD(ADULT) UNSPECIFIED FORMULATION 2002 139 complet ed [facility] Vital Signs Combined list of inpatient and outpatient Vital Signs from Department of Defense and Veterans Affairs, ranging from 12 months to all on record, depending upon the facility. Vital Sign Value Date Comments Source SYSTOLIC BLOOD PRESSURE 121 09/06/19 24 09:39:15 [facility] DIASTOLIC BLOOD PRESSURE 80 024 09:39:15 [facility] PULSE OXIMETRY 95 09/06/2023 09:39:15 [facility] WEIGHT 218 09/06/2023 09:39:15 [facility] BMI 32 kg/m2 09/06/2023 09:39:15 [facility] PAIN 3 09/06/2023 09:39:15 [facility] TEMPERATURE 98 09/06/2023 09:39:15 [facility] PULSE 67 09/06/2023 09:39:15 [facility] RESPIRATION 16 09/06/2023 09:39:15 [facility] Encounters Combined list of: 1) Encounters from Department of Veterans Affairs facilities going backup to the last 18 months, not all VA inpatient encounters are included; 2) Encounters from the Department of Defense facilities going backup to 280 months. Location Location Details Encounter Type Encounter Number Reason For Visit Attending Provider ADM Date DC Date Status Disposition Source [facility] Outpatient Encounter [id number] 02/15 [facility] Outpatient Encounter [id number] 02/17 [facility] Outpatient [facility]counter [id number] 02/23 [facility] OFFICE O/P EST MOD 30-39 MIN [id number] Diagnos is: ICD-10- CM M54.50 Low back pain, unspeci fied AHMED,MOHA MMED JAWED 03/03 [facility] Outpatient Encounter [id number] 03/11 [facility] Outpatient [facility]counter [id number] 04/13 [facility] Outpatient Encounter [id number] 04/27 [facility] FEE [id number] Diagnos is: ICD-10- CM G47.33 Obstruc tive sleep apnea (adult) (pediat violeta) Lata BULL 05/04 [facility] OFFICE O/P EST LOW 20 MIN [id number] Diagnos is: ICD-10- CM G47.33 Obstruc tive sleep apnea (adult) (pediat violeta) RELL MILLS 05/04 [facility] Out[facility] Encounter [id number] 05/04 [facility] COMPRE OPH EXAM EST PT 1/ [id number] Diagnos is: ICD-10- CM H11.043 Periphe ral pterygi um, station darius, bilater al BONNIE KINCAID Y J 05/18 [facility] FIT SPECTACLES BIFOCAL [id number] Diagnos is: ICD-10- CM Z46.0 Encount er for fit/adj st of spectac les and contact lenses BONNIE KINCAID 05/19 [facility] RPR&REFITG SPECT XCP APHAKIA [id number] Diagnos is: ICD-10- CM Z46.0 Encount er for fit/adj st of spectac les and contact lenses USHA GARCIA 06/01 [facility] Outpatient Encounter [id number] 07/19 [facility] Outpatient Encounter [id number] 08/26 [facility] Outpatient Encounter [id number] 09/05 [facility] OFFICE O/P EST LOW 20 MIN [id number] Diagnos is: ICD-10- CM G47.30 Sleep apnea, unspeci fied FURCOLO,TI NA 09/05 [facility] OFFICE O/P EST LOW 20 MIN [id number] Diagnos is: ICD-10- CM G47.33 Obstruc tive sleep apnea (adult) (pediat violeta) CURIOSO-UY RELL 09/06 [facility] FEE [id number] Diagnos is: ICD-10- CM G47.30 Sleep apnea, unspeci fied Lata BULL 09/06 [place] [facility] Encounter [id number] 09/08 [facility] En[facility] [id number] 09/08 [facility] [id number] 10/06 [facility] En[facility] [id number] 01/10 [facility] INTRM OPH EXAM EST PATIENT [id number] Diagnos is: ICD-10- CM H43.813 Vitreou s degener tima vargas AN DREW E 05/16 [facility] En[facility] [id number] 06/15 [facility] En[facility] [id number] 06/28 [facility] INTRM OPH EXAM EST PATIENT [id number] Diagnos is: ICD-10- CM H43.813 Vitreou s tima sibley AN DREW E 07/10 [facility] Social History Combined list of available smoking, tobacco, and other social history from Department of Defense and Veterans [facility] facilities. Social History Type Response Date Comment Source Tobacco smoking status NHIS MO-TOBACCO NEVER USED 09/06/2023 [facility] History of tobacco use QUIT TOBACCO USE > 7 YEARS AGO 05/13/2021 smoked for one year after his divorce [facility]2019 [facility] History of tobacco use LONG-TERM NONSMOKER 05/22/2009 [facility] History of tobacco use LIFETIME NON-SMOKER 04/02/2009 [facility] History of tobacco use LIFETIME NON-SMOKER 06/14/2006 [facility] History of tobacco use CURRENT NON-SMOKER 06/04/2005 1 pack cig every 2 days. [facility] History of tobacco use CURRENT NON-SMOKER 01/10/2004 [facility] History of tobacco use CURRENT NON-SMOKER 12/07/2001 [facility] Plan of Care List of future care activities from [facility] facilities. Additional future care activities may be listed in the Assessment and Plan section. Date/Time Care Activity Care Activity Detail Facili ty 09/05/2024 AMBULATORY - MEDICINE AMBULATORY - MEDICI NE [facility] Advance Directives List of completed, amended, or rescinded Advance Directives on record at [facility] facilities. An actual copy of the Directive is not included. Date Advance Directive Provider Source 10/02/2008 ADVANCE DIRECTIVE DISCUSSION [facility] 12/31/2006 ADVANCE DIRECTIVE DISCUSSION [facility] 06/04/2005 [facility]VANCE DIRECTIVE [facility] 07/07/2004 ADVANCE DIRECTIVE [facility] 12/06/2002 ADVANCE DIRECTIVE KAJAL PAYNE [facility]
--- OUTSIDE RECORDS SUMMARY | 2024-07-14 12:43 | XMS_ITS | Encounter Summary ---
Author Name [facility] [facility] [place] [facility] [place] Address [address] [place] [address] Care Team Providers Care Tug Master Name Role Phone JAZMIN LAMB Primary Care [...] Bishop's Name Patient's Relationship to Policy Bishop [facility] MEDICAID [facility] MEDICAI D [id number] KYLE FREDERICK IS PATIENT MEDICAID MEDICAID [facility] [place] Jun 28, 2015 MEDICAI D [id number] [phone] KYLE CLIFTON IS PATIENT MEDICARE (WNR) MEDICARE (M) PART B Jun 27, 2009 PART B [id number] KYLE FREDERICK IS PATIENT MEDICARE (WNR) MEDICARE (M) PART A Jun 28, 2007 PART A [id number] KYLE GUILLEN IS PATIENT FOR LIFE TFL* Mar 29, 2017 [id number] KYLE FREDERICK IS PATIENT Selected Encounter This section includes the information on record at [place] for the Encounter. Date/Time Encounter Type Encounter Description Reason Provider Source Jul 10, 2024 02:00 PM INTRM OPH EXAM EST PATIENT OPTOMETRY ICD-10-CM H43.813 Vitreous degeneration, bilateral YOLIS HOWARD Giuseppe Encounter Template Text not used by [place] Assessments - Encounter Diagnoses This section includes the primary and secondary diagnoses documented for the Encounter. Date/Time Primary/Secondary Diagnosis Diagnosis Name Provider Source Jul 10, 2024 02:28 PM PRIMARY Vitreous degeneration, bilateral YOLIS HOWARD [facility] Jul 10, 2024 02:28 PM SECONDARY Dry eye syndrome of bilateral lacrimal glands YOLIS HOWARD [facility] Jul 10, 2024 02:28 PM SECONDARY Unspecified disorder of refraction YOLIS HOWARD [facility] Plan of Treatment: Future Appointments (+ 6 months) and Future Tests (+/- 45 days) The Plan of Treatment section includes future care activities for the patient from all [place] treatmentfacilities. This section includes future appointments and future orders which are active, pending or scheduled. Future Appointments This section includes appointments that were scheduled to occur 6 months from the date of the Encounter, up to a maximum of 20 appointments. The data comes from all [place] treatment facilities. Appointment Date/Time Appointment Type Appointme nt Facility Name Sep 05, 2024 10:00 AM AMBULATORY - MEDICINE [facility] Social History: Smoking Status (Most current) [...] took place. Date/Time Current Smoking Status Comment Facil dorisy Sep 06, 2023 09:30 AM [facility] Tobacco Use History This section includes a history of the smoking, or tobacco-related health factors, that were collected on or before the date of the Encounter. The data comes from the [place] facility where the Encounter took place. Date/Time Smoking Status/Tobac co Use Comment Facility Sep 03, 2022 10:00 AM VA-TOBACCO FORMER USER [facility] [place] [facility] Sep 03, 2022 10:00 AM VA-TOBACCO QUIT 15 YRS OR MORE [facility] [place] [facility] May 13, 2021 09:30 AM QUIT TOBACCO USE > 7 YEARS AGO smoked for one year after his divorce [facility] [place] [facility] May 13, 2021 09:30 AM VA-TOBACCO FORMER USER [facility] [place] [facility] May 13, 2021 09:30 AM VA-TOBACCO QUIT 15 YRS OR MORE [facility] [place] [facility] May 18, 2019 01:59 PM VA-TOBACCO NEVER USED [facility] Advance Directives: All historical and current Section Date Range: From patient's date of to the date document was created. This section includes ALL of a patient's completed or amended [place] Advance and Rescinded Directives. The entries below indicate that a directive exists for the patient, but an actual copy is not included with this document. The data comes from all [facility]. Date Advance Directives Provider Source Oct 02, 2008 ADVANCE DIRECTIVE DISCUSSION [place] [facility] Dec 31, 2006 ADVANCE DIRECTIVE DISCUSSION [place] [facility] Jun 04, 2005 ADVANCE DIRECTIVE [place]ALLY [place] [facility] Jul 07, 2004 ADVANCE DIRECTIVE [place] [facility] Dec 06, 2002 ADVANCE DIRECTIVE KAJAL PAYNE [facility] Encounter Notes: All associated encounter notes This [...] Dir: Prz2:0.00 Dir2: FITTING INFORMATION FPD:69.5 NPD:63.5 [place]:R: L: SEG HT:R:23 L:23 Tint:None Shade:None [place] Billable Items FRAME: ODINCOLonnie JIMENEZMETAL 56-18-145 Right Lens: POLY BIFOCAL FT28 PHOTOCHROMIC PIMENTEL 1.586 POLY Left Lens: POLY BIFOCAL FT28 PHOTOCHROMIC PIMENTEL 1.586 POLY KLEAR ANTI-REFLECTIVE COATING OD: +1.50 -1.00 X 135 20/20 OS: +1.50 sph 20/20 Add: +2.50 20/20 /moon/ YOLIS HOWARD OD STAFF CONCRETE PAVER Signed: 07/10/2024 14:29 Receipt Acknowledged By: 07/10/2024 14:38 /es/ CANDACE GILES OPTOMETRY TECH --- Original Document [...] problems arise. /moon/ YOLIS HOWARD OD STAFF CONCRETE PAVER Signed: 07/10/2024 14:28 07/10/2024 ADDENDUM STATUS: COMPLETED Optometry Health Head Concierge ordered patient 1 pair(s) of bifocal eyeglasses on 07/10/2024 as directed by provider. OPT HT entered consult(s) for order on behalf of provider. /moon/ CANDACE GILES OPTOMETRY TECH Signed: 07/10/2024 14:38 YOLIS HOWARD [facility] [place] [facility] Jul 10, 2024 01:51 PM OPTOMETRY [...] problems arise. /moon/ YOLIS HOWARD OD STAFF CONCRETE PAVER Signed: 07/10/2024 14:28 07/10/2024 ADDENDUM STATUS: COMPLETED Please order the following: RX INFORMATION OD +1.50 - 1.00 X135 Add:+2.50 Pzm:0.00 Dir: Prz2:0.00 Dir2: OS +1.50 0.00 X Add:+2.50 Pzm:0.00 Dir: Prz2:0.00 Dir2: FITTING INFORMATION FPD:69.5 NPD:63.5 [place]:R: L: SEG HT:R:23 L:23 Tint:None Shade:None [place] Billable Items FRAME: [place] GUNMETAL 56-18-145 Right Lens: POLY BIFOCAL FT28 PHOTOCHROMIC PIMENTEL 1.586 POLY Left Lens: POLY BIFOCAL FT28 PHOTOCHROMIC PIMENTEL 1.586 POLY KLEAR ANTI-REFLECTIVE COATING OD: +1.50 -1.00 X 135 20/20 OS: +1.50 sph 20/20 Add: +2.50 20/20 /moon/ YOLIS HOWARD OD STAFF CONCRETE PAVER Signed: 07/10/2024 14:29 Receipt Acknowledged By: 07/10/2024 14:38 /valeria GILES OPTOMETRY TECH 07/10/2024 ADDENDUM STATUS: COMPLETED Optometry Health Head Concierge ordered patient 1 pair(s) of bifocal eyeglasses on 07/10/2024 as directed by provider. OPT HT entered consult(s) for order on behalf of provider. /moon/ CANDACE GILES OPTOMETRY TECH Signed: 07/10/2024 14:38 YOLIS HOWARD [facility] [place] [facility] Jul 10, 2024 01:36 PM OPTOMETRY NOTE: LOCAL TITLE: OPTOMETRY NOTE STANDARD TITLE: OPTOMETRY NOTE DATE OF NOTE: JUL 10, 2024@13:36 ENTRY DATE: JUL 10, 2024@13:36:09 AUTHOR: DESIREE WILLIAMSON EXP COSIGNER: YOLIS HOWARD URGENCY: STATUS: COMPLETED Active problems - Computerized Problem List is the source for the followin. Low back pain 2. Sleep apnea 3. Chronic Post-Traumatic Stress Disorder ([facility] [id number]) 4. Insomnia 5. Anxiety ([facility] [id number]) 6. Depressive disorder 7. Kidney stone 8. [...] - Ordering duplicate frames for (FT28): FRAME: [place] GUNMETAL 56-18-145 - Monitor Return to Clinic 12 month or earlier PRN [place] Education: After discussion and answering all 's [...] this [facility] (local) and dispensed from another [place] or [facility]D facility (remote) as well as [...] 07/10/2024 14:32 /moon/ YOLIS HOWARD OD STAFF CONCRETE PAVER Cosigned: 07/10/2024 14:34 BRAXTON WILLIAMSON [facility]
--- OUTSIDE RECORDS SUMMARY | 2024-07-14 12:43 | XMS_ITS ---
Author Name [facility] [place] [facility] [place] Address [address] [place] [address] Care Team Providers Care Price Accuracy Supervisor Name Role Phone JAZMIN LAMB Primary Care [...] Bishop's Name Patient's Relationship to Policy Bishop [facility] MEDICAID [facility] MEDICAI D [id number] KYLE FREDERICK IS PATIENT MEDICAID MEDICAID [facility] EASELECT MEDICAL [facility] [place] Jun 28, 2015 MEDICAI D [id number] [phone] KYLE CLIFTON IS PATIENT MEDICARE (WNR) MEDICARE (M) PART B Jun 27, 2009 PART B [id number] KYLE FREDERICK IS PATIENT MEDICARE (WNR) MEDICARE (M) PART A Jun 28, 2007 PART A [id number] KYLE GUILLEN IS PATIENT FOR LIFE TFL* Mar 29, 2017 [id number] KYLE FREDERICK IS PATIENT Selected Encounter This section includes the information on record at [place] for the Encounter. Date/Time Encounter Type Encounter Description Reason Provider Source May 16, 2024 10:00 AM INTRM OPH EXAM EST PATIENT OPTOMETRY ICD-10-CM H43.813 Vitreous degeneration, bilateral YOLIS HOWARD IHGiuseppe Encounter Template Text not used by [place] Assessments - Encounter Diagnoses This section includes the primary and secondary diagnoses documented for the Encounter. Date/Time Primary/Secondary Diagnosis Diagnosis Name Provider Source May 16, 2024 11:06 AM PRIMARY Vitreous degeneration, bilateral YOLIS HOWARD [facility] Plan of Treatment: Future Appointments (+ 6 months) and Future Tests (+/- 45 days) The Plan of Treatment section includes future care activities for the patient from all [place] treatmentfacilities. This section includes future appointments and future orders which are active, pending or scheduled. Future Appointments This section includes appointments that were scheduled to occur 6 months from the date of the Encounter, up to a maximum of 20 appointments. The data comes from all [place] treatment facilities. Appointment Date/Time Appointment Type Appointme nt Facility Name Jul 10, 2024 02:00 PM AMBULATORY - MEDICINE [facility] Sep 05, 2024 10:00 AM AMBULATORY - MEDICINE [facility] Social History: Smoking Status (Most current) and Tobacco Use (All prior to encounter date) This section includes the most current, and the historical, smoking and tobacco- related health factors from the [place] facility where the Encounter took place. Current Smoking Status This section includes the most current smoking, or tobacco-related health factor, from the [place] facility where the Encounter took place. Date/Time Current Smoking Status Comment [facility] it Sep 06, 2023 09:30 AM VA-TOBACCO NEVER USED [facility] Tobacco Use History This section includes a history of the smoking, or tobacco-related health factors, that were collected on or before the date of the Encounter. The data comes from the [place] facility where the Encounter took place. Date/Time Smoking Status/Tobac co Use Comment Facility Sep 03, 2022 10:00 AM VA-TOBACCO FORMER USER [place] [facility] [place] [facility] Sep 03, 2022 10:00 AM VA-TOBACCO QUIT 15 YRS OR MORE [facility] [place] [facility] May 13, 2021 09:30 AM QUIT TOBACCO USE > 7 YEARS AGO smoked for one year after his divorce [facility] [place] [facility] May 13, 2021 09:30 AM VA-TOBACCO FORMER USER [facility] [place] [facility] May 13, 2021 09:30 AM VA-TOBACCO QUIT 15 YRS OR MORE [facility] [place] [facility] May 18, 2019 01:59 PM VA-TOBACCO NEVER USED [facility] [place] [facility] Advance Directives: All historical and current Section Date Range: From patient's date of to the date document was created. This section includes ALL of a patient's completed or amended [place] Advance and Rescinded Directives. The entries below indicate that a directive exists for the patient, but an actual copy is not included with this document. The data comes from all [facility]. Date Advance Directives Provider Source Oct 02, 2008 ADVANCE DIRECTIVE DISCUSSION [place] [facility] Dec 31, 2006 ADVANCE DIRECTIVE DISCUSSION [place]ALLY [place] [facility] Jun 04, 2005 ADVANCE DIRECTIVE [place]ALLY [place] [facility] Jul 07, 2004 ADVANCE DIRECTIVE KITASALLY [place] [facility] Dec 06, 2002 ADVANCE DIRECTIVE KAJAL PAYNE [facility] Encounter Notes: All associated encounter notes [...] fundus exam. /moon/ YOLIS HOWARD OD STAFF MANAGER PRODUCT SUPPORT Signed: 05/16/2024 11:06 YOLIS HOWARD [facility] [place] [facility] May 16, 2024 09:42 AM OPTOMETRY NOTE: LOCAL TITLE: OPTOMETRY NOTE STANDARD TITLE: OPTOMETRY NOTE DATE OF NOTE: MAY 16, 2024@09:42 ENTRY DATE: MAY 16, 2024@09:42:20 AUTHOR: DESIREE WILLIAMSON EXP COSIGNER: YOLIS HOWARD URGENCY: STATUS: COMPLETED Active problems - Computerized Problem List is the source for the followin. Low back pain 2. Sleep apnea 3. Chronic Post-Traumatic Stress Disorder ([facility] [id number]) 4. Insomnia 5. Anxiety ([facility] [id number]) 6. Depressive disorder 7. Kidney stone 8. [...] After discussion and answering all 's questions, [place] demonstrated and verbalized understanding of diagnosis and [...] OPTOMETRY STUDENT Signed: 05/16/2024 11:43 /moon/ YOLIS HOWARD STAFF MANAGER PRODUCT SUPPORT Cosigned: 05/16/2024 11:46 LEE ANN WILLIAMSON [facility]
--- OUTSIDE RECORDS SUMMARY | 2024-07-14 12:43 | XMS_ITS ---
Author Name [facility] [place] [facility] [place] [facility] [place] Address [address] [place] [address] Care Team Providers Care Electric Hoist Operator Name Role Phone JAZMIN LAMB Primary Care Provider Unavailnatalie sarmiento Insurance Providers: All historical and current Section Date Range: From patient's date of to the date document was created. This section includes the names of all active insurance providers for the patient. Insurance Provider Type of Coverage Plan Name Start of Policy Coverage End of Policy Coverage Group Number Member ID Insurance Provider's Telephone Number Policy Bishop's Name Patient's Relationship to Policy Bishop [facility] [id number] KYLE FREDERICK IS PATIENT MEDICAID MEDICAID [facility] [place] [place] Jun 28, 2015 MEDICAI D [id number] [phone] KYLE CLIFTON IS PATIENT MEDICARE (WNR) MEDICARE (M) PART B Jun 27, 2009 PART B [id number] [phone] KYLE FREDERICK IS PATIENT MEDICARE (WNR) MEDICARE (M) PART A Jun 28, 2007 PART A [id number] KYLE GUILLEN IS PATIENT FOR LIFE TFL* Mar 29, 2017 [id number] KYLE FREDERICK IS PATIENT Selected Encounter This section includes the information on record at [place] for the Encounter. Date/Time Encounter Type Encounter Description Reason Provider Source Sep 06, 2023 09:30 AM OFFICE O/P EST LOW 20 MIN PRIMARY CARE/MEDICINE ICD-10-CM G47.30 Sleep apnea, unspecified FURCOLO,JAZMIN IHE Encounter Template Text not used by [place] Assessments - Encounter Diagnoses This section includes the primary and secondary diagnoses documented for the Encounter. Date/Time Primary/Secondary Diagnosis Diagnosis Name Provider Source Sep 06, 2023 10:08 AM PRIMARY Sleep apnea, unspecified FURCOLO,JAZMIN [facility] Sep 06, 2023 10:08 AM SECONDARY Benign prostatic hyperplasia without lower urinry tract symp FURCOLO,JAZMIN [facility] Sep 06, 2023 10:08 AM SECONDARY Calculus of kidney FURCOLO,JAZMIN [facility] Sep 06, 2023 10:08 AM SECONDARY Insomnia, unspecified FURCOLO,JAZMIN [facility] Sep 06, 2023 10:08 AM SECONDARY Major depressive disorder, recurrent, unspecified FURCOLO,JAZMIN [facility] Plan of Treatment: Future Appointments (+ 6 months) and Future Tests (+/- 45 days) The Plan of Treatment section includes future care activities for the patient from all [place] treatmentfacilities. This section includes future appointments and future orders which are active, pending or scheduled. Future Appointments This section includes appointments that were scheduled to occur 6 months from the date of the Encounter, up to a maximum of 20 appointments. The data comes from all [place] treatment facilities. Appointment Date/Time Appointment Type Appointme nt Facility Name Sep 07, 2023 10:00 AM AMBULATORY - MEDICINE [facility] Sep 07, 2023 10:00 AM AMBULATORY - MEDICINE [facility] Active, Pending, and Scheduled Orders This section includes a listing of several types of active, pending, and scheduled orders, including clinic medications orders, diagnostic test orders, procedure orders and consult orders; where the start date of the order is 45 days before the date of the Encounter or 45 days after the date of theEncounter. The data comes from all [facility]. Test Date/Time Test Type Test Details Facility Name August 19, 2023 12:00 AM Laboratory - Chemi stry Order LIPID PANEL FASTING BLOOD (SST-SERUM) [facility] August 19, 2023 12:00 AM Laboratory - Chemi stry Order LIVER FUNCTION BLOOD (SST-SERUM) [facility] August 19, 2023 12:00 AM Laboratory - Chemi stry Order CBC AND DIFF (AUTO) BLOOD (LAV-BLOOD) [facility] August 19, 2023 12:00 AM Laboratory - Chemi stry Order BASIC METABOLIC PANEL (fasting) BLOOD (SST-SERUM) [facility] August 20, 2023 12:00 AM Laboratory - Chemi stry Order PSA BLOOD (SST-SERUM) [facility] Vital Signs: All taken on the encounter date This section contains inpatient and outpatient Vital Signs collected on the date of the Encounter. Date/Time Temperature Pulse Blood Pressure Respiratory Rate SP02 Pain Height Weight Body Mass Index Source Sep 06, 2023 09:39 AM 98 67 121/80 16 95 3 218 32 [facility] Social History: Smoking Status (Most current) and Tobacco Use (All prior to encounter date) This section includes the most current, and the historical, smoking and tobacco- related health factors from the [place] facility where the Encounter took place. Current Smoking Status This section includes the most current smoking, or tobacco-related health factor, from the [place] facility where the Encounter took place. Date/Time Current Smoking Status Comment [facility] Sep 06, 2023 09:30 AM CO-TOBACCO NEVER USED [facility] Tobacco Use History This section includes a history of the smoking, or tobacco-related health factors, that were collected on or before the date of the Encounter. The data comes from the [place] facility where the Encounter took place. Date/Time Smoking Status/Tobac co Use Comment Facility Sep 03, 2022 10:00 AM CO-TOBACCO FORMER USER [facility] Sep 03, 2022 10:00 AM VA-TOBACCO QUIT 15 YRS OR MORE [facility] May 13, 2021 09:30 AM QUIT TOBACCO USE > 7 YEARS AGO smoked for one year after his divorce [facility] May 13, 2021 09:30 AM VA-TOBACCO FORMER USER [facility] May 13, 2021 09:30 AM VA-TOBACCO QUIT 15 [facility]RS OR MORE [facility] May 18, 2019 01:59 PM VA-TOBACCO NEVER USED [facility] Advance Directives: All historical and current Section Date Range: From patient's date of to the date document was created. This section includes ALL of a patient's completed or amended [place] Advance and Rescinded Directives. The entries below indicate that a directive exists for the patient, but an actual copy is not included with this document. The data comes from all [place] facilities. Date Advance Directives Provider Source Oct 02, 2008 ADVANCE DIRECTIVE DISCUSSION [facility] Dec 31, 2006 ADVANCE DIRECTIVE DISCUSSION [facility] Jun 04, 2005 ADVANCE DIRECTIVE [facility] Jul 07, 2004 ADVANCE DIRECTIVE [facility] Dec 06, 2002 ADVANCE DIRECTIVE KAJAL [facility] Encounter Notes: All associated encounter notes This section contains the clinical notes associated to the Encounter. Date/Time Encounter Note(s) Provider Source Sep 06, 2023 09:56 AM PHYSICIAN NOTE: LOCAL TITLE: MD NOTE STANDARD TITLE: PHYSICIAN NOTE DATE OF NOTE: SEP 06, 2023@09:56 ENTRY DATE: SEP 06, 2023@09:56:58 AUTHOR: JAZMIN LAMB EXP COSIGNER: URGENCY: STATUS: COMPLETED cc: has upcoming apt with urology @ [place] left knee bothers when he moves in bed- not with walking. started about 1 months ago. was doing more walking. sees PCP DR. Milan in [place]- gets labs and yearly physicals PmHx: Active problems - Computerized Problem List is the source for the followin. Low back pain 2. Sleep apnea pt on cpap--using it 3. Chronic Post-Traumatic Stress Disorder (SCT 697798886) 4. Insomnia 5. Anxiety (SCT [id number]) 6. Depressive disorder 7. Kidney stone 8. Genital herpes simplex 9. Gastroesophageal reflux disease 10. History of colonic polyp 11. Chronic pancreatitis 12. Benign prostatic hyperplasia vitals: B/P: 121/80 (09/06/2023 09:39) pulse: 67 (09/06/2023 09:39) resp: 16 (09/06/2023 09:39) temp: 98 F [36.7 C] (09/06/2023 09:39) Ht: 69 in [175.3 cm] (03/03/2023 13:59) Wgt: 218 lb [98.88 kg] (09/06/2023 09:39) BMI: BMI: 32.3 exam: RRR S1 S2 LCTA bilat no LE edema normla gair no bony abnormality in knees A/P: Active problems - Computerized Problem List is the source for the followin. Left knee pain- off and on- walks regularly- recommend PT. states with talk with his [place] pCP - to get done closer to his home 2. Sleep apnea pt on cpap--using it 3. Chronic Post-Traumatic Stress Disorder (SCT [id number]) 4. Insomnia 5. Anxiety (SCT [id number]) 6. Depressive disorder 7. Kidney stone- sees urology- plan for [place] in [place] 8. Genital herpes simplex 9. Gastroesophageal reflux disease 10. History of colonic polyp 11. Chronic pancreatitis- none recently 12. Benign prostatic hyperplasia f/u in 1 year visit type: a LOW complexity visit where less than 30 minutes was spent in direct patient care, review of records and documentation. /moon/ JAZMIN LAMB D.O. PHYSICIAN Signed: 09/06/2023 10:09 JAZMIN LAMB [facility] Sep 06, 2023 09:45 AM PREVENTIVE MEDICIN E NURSING NOTE: LOCAL TITLE: CLINICAL REMINDERS/NURSING STANDARD TITLE: PREVENTIVE MEDICINE NURSING NOTE DATE OF NOTE: SEP 06, 2023@09:45 ENTRY DATE: SEP 06, 2023@09:45:40 AUTHOR: GOPI PETERSEN EXP COSIGNER: URGENCY: STATUS: COMPLETED Advance Directive Screen MH AD: Patient does not have a completed advance directive on file at any facility, [facility] or outside. S/he is not interested in completing one at this time. The patient received education about Advance Directives and written notification of his/her rights. Comment: a blank form provided to the for review per request, decline more information at this time. Suicide Screen: C-SSRS Screening [place] Suicide Severity Rating Scale (C-SSRS) screener 1. Over the past month, have you wished you were or wished you could go to sleep and not wake up? No 2. Over the past month, have you had any actual thoughts of killing yourself? No 3. Over the past month, have you been thinking about how you might do this? Response not required due to responses to other questions. 4. Over the past month, have you had these thoughts and had some intention of acting on them? Response not required due to responses to other questions. 5. Over the past month, have you started to work out or worked out the details of how to kill yourself? Response not required due to responses to other questions. 6. If yes, at any time in the past month did you intend to carry out this plan? Response not required due to responses to other questions. 7. In your lifetime, have you ever done anything, started to do anything, or prepared to do anything to end your life (for example, collected pills, obtained a gun, gave away valuables, went to the roof but didn't jump)? No 8. If YES, was this within the past 3 months? Response not required due to responses to other questions. Homelessness/Food Insecurity Screen: In the past 2 months, have you been living in stable housing that you own, rent, or stay in as part of a household? Yes - Living in stable housing. Are you worried or concerned that in the next 2 months you may NOT have stable housing that you own, rent, or stay in as part of a household? No - Not worried about housing near future [facility] reports the following: Within the past 12 months, you worried whether your food would run out before you got money to buy more. Never true Within the past 12 months, the food you bought just didn't last and you didn't have money to get more. Never true Tobacco Use Screening: The patient has never used tobacco. Influenza Immunization: No influenza vaccination was received during the recent influenza season. Alcohol Use Screen (AUDIT-C): Alcohol Screen: SCREEN FOR ALCOHOL (AUDIT-C) An alcohol screening test (AUDIT-C) was negative (score=0). 1. How often did you have a drink containing alcohol in the past year? Consider a drink to be a 12 ounce can or bottle of regular beer, 8 ounces of malt liquor, a 5 ounce glass of table wine, or a 1.5 ounce shot of liquor (like scotch, gin, or vodka). Never 2. How many drinks containing alcohol did you have on a typical day when you were drinking in the past year? Response not required due to responses to other questions. 3. How often did you have six or more drinks on one occasion in the past year? Response not required due to responses to other questions. Sexual Orientation: The patient thinks of their sexual orientation as: Straight or Heterosexual Colonoscopy GAP Reminder: Recommendations are needed in the clinical reminder system following the patient's most recent colorectal cancer screening/surveillance test (Colonoscopy, Sigmoidoscopy or CT Colonography) Setting a new reminder date is deferred. Reason: with a follow up apt with GI in january, to follow up on colonoscopy /es/ GOPI PETERSEN LPN License Practical Nurse Signed: 09/06/2023 09:52 GOPI PETERSEN [facility]
[2024-07-14 14:04] VITALS: BP 125/87; PULSE 76; RESP 18; TEMP 37; O2SAT 95
== END 2024-07-14 14:13 | disposition home or self-care (01) ==
PROVIDERS: Physician Assistant Medical; Emergency Provider Emergency Medicine Emergency Medical Services; PCP Internal Medicine
DX: J40 Bronchitis, not specified as acute or chronic (principal); J02.9 Acute pharyngitis, unspecified; R05.9 Cough, unspecified; M79.10 Myalgia, unspecified site; Z03.818 Encounter for observation for suspected exposure to other biological agents ruled out
CPT/HCPCS: 0241U; 71046; 87651; 99283; 99284

== ENCOUNTER → 2024-07-14 11:17 | Outpatient (BNV) | payer MEDICARE, OTHER, MEDICAID, SELFPAY | PROVIDERS: PCP Internal Medicine; Visit Provider Radiology Diagnostic Radiology | DX: R05.9 Cough, unspecified (principal) | CPT/HCPCS: 71046 ==

== ENCOUNTER 2024-07-16 00:54 | Emergency (ER) | payer MEDICARE, OTHER, MEDICAID, SELFPAY ==
--- NOTE | ~2024-07-16 | XR_ITS ---
CLINICAL HISTORY: sob 1 view chest x-ray Comparison: Chest x-ray from 07/14/2024 Findings: Low lung volumes with mild bibasilar atelectasis and/or pneumonitis. No pneumothorax or pleural effusion. Mild emphysematous changes are redemonstrated. Imaged mediastinum and imaged osseous structures are unchanged. IMPRESSION: Mild bibasilar atelectasis and/or pneumonitis. This document has been electronically signed by: Joe Barreto MD on 07/16/2024 02:24:10
[2024-07-16 00:58] VITALS: BP 106/72; PULSE 99; RESP 20; TEMP 36.2; O2SAT 96; BMI 32.5
[2024-07-16 01:27] LABS: MANUAL DIFF FLAG NO
[2024-07-16] MEDS: Albuterol/Iprat 2.5/0.5MG 3 ML AMPUL.NEB INHALE (01:27)
[2024-07-16 01:28] LABS: Basophils Percent Auto 0.3 % (0-2); Eosinophils Absolute Auto 0.1 X10*3/uL (0.0-0.4); Eosinophils Percent Auto 0.9 % (0-4); Hematocrit 43.5 % (42.0-52.0); Hemoglobin 15.2 g/dl (14.0-18.0); Imm Gran Abs Auto 0.01 X10*3/uL (0.00-0.03); Imm Gran Pct Auto 0.1 % (0.0-0.4); Lymphocytes Absolute Auto 2.6 X10*3/uL (1.2-4.9); Lymphocytes Percent Auto 35.1 % (20-40); Mean Corpuscular HGB Conc 34.9 g/dl (31.0-36.0); Mean Platelet Volume 9.5 fL (9.4-12.4); Monocytes Absolute Auto 0.8 X10*3/uL (0.1-1.2); Monocytes Percent Auto 11.1 % (2-11); Neutrophils Absolute Auto 3.9 x10*3/uL (2.0-8.3); Neutrophils Percent Auto 52.5 % (45-73); Platelet Count 232 X10*3/uL (160-400); Red Blood Count 5.06 X10*6/uL (4.60-5.80); Red Cell Distribution Width 13.7 % (11.0-16.0); White Blood Count 7.5 X10*3/uL (4.8-10.8)
--- NOTE | 2024-07-16 01:29 | ED_ITS ---
HPI - General Adult General Chief complaint: Upper Respiratory Symptoms Stated complaint: Bronchitis Time Seen by Provider: 07/16/24 00:59 Source: patient, RN notes reviewed and old records reviewed Mode of arrival: ambulatory Limitations: no limitations History of Present Illness ED Provider: Genny HPI narrative: 69-year-old male past medical history significant for GERD, hyperlipidemia, IBS, BPH presents for evaluation of shortness of breath. Patient was seen here 1-1/2 days ago and was diagnosed with bronchitis. He was discharged with Tessalon Perles, azithromycin and albuterol inhaler He reports that he is unable to sleep due to his congestion and cough. He continues to feel short of breath. Denies any fevers, chills. He denies any chest pain, abdominal pain. He feels as though he has been wheezing No other complaints or concerns at this time Related Data Home Medications ?Medication ?Instructions ?Recorded ?Confirmed ammonium lactate 12 % topical cream applic topical BID 01/02/20 02/21/24 aspirin 81 mg tablet,delayed 81 mg PO DAILY 08/18/22 02/21/24 release rosuvastatin 5 mg tablet 5 mg PO DAILY 02/17/23 02/21/24 ciclopirox 0.77 % topical cream appl topical 10/22/23 02/21/24 Previous Rx's ?Medication ?Instructions ?Recorded nystatin 100,000 unit/gram topical 1 appl topical BID balantitis #30 12/22/22 ointment grams acetaminophen 500 mg tablet 500 mg PO Q6H PRN fever or pain 04/05/23 (Tylenol Extra Strength) #14 tabs cyclobenzaprine 5 mg tablet 5 mg PO Q8H PRN pain (scale score 04/05/23 7-10) 5 days #14 tabs lidocaine 5 % topical patch 1 patch topical DAILY PRN pain #30 04/05/23 (Lidoderm) ea benzonatate 100 mg capsule 100 mg PO BID PRN cough 7 days #14 04/09/23 caps prednisone 20 mg tablet 40 mg (2 x 20 mg) PO DAILY 5 days 08/25/23 #10 tabs omeprazole 20 mg capsule,delayed 20 mg PO DAILY #90 caps 10/22/23 release melatonin 1 mg tablet 2 mg (2 x 1 mg) PO BEDTIME PRN for 02/12/24 insomnia #180 tabs clotrimazole-betamethasone 1 1 appl topical BID balanitis 4 04/10/24 %-0.05 % topical cream weeks #45 grams albuterol sulfate 90 mcg/actuation 2 puff inhalation Q4-6H PRN 07/14/24 aerosol inhaler shortness of breath or wheezing #8.5 grams azithromycin 250 mg tablet See Rx Instructions PO .COMPLEX #6 07/14/24 tabs benzonatate 200 mg capsule 200 mg PO TID PRN cough 5 days #15 07/14/24 caps tamsulosin 0.4 mg capsule 0.8 mg (2 x 0.4 mg) PO DAILY 90 07/14/24 days #180 caps prednisone 20 mg tablet 40 mg (2 x 20 mg) PO DAILY #10 tabs 07/16/24 Allergies Allergy/AdvReac Type Severity Reaction Status Date / Time lovastatin Allergy Unknown GI upset Verified 07/16/24 01:02 Review of Systems 2 Constitutional: Constitutional: Denies body ache(s), Denies chills, Denies fever(s) and Denies frequent falls Eyes: Eyes: Denies blurry vision ENT: Denies vertigo, Reports sinus pain and Reports sinus pressure Cardiovascular: Cardiovascular: Denies chest pain and Reports dyspnea Respiratory: Respiratory: Reports chest congestion, Reports cough, Reports dyspnea and Reports wheezing Gastrointestinal: Gastrointestinal: Denies abdominal pain, Denies nausea and Denies vomiting Musculoskeletal: Musculoskeletal: Denies back pain Integumentary/Breasts: Skin/Breast: Denies rash Neurologic: Denies vertigo and Denies frequent falls Allergic/Immunologic: Allergic/Immunologic: Reports wheezing [facility] Past Medical History Medical History (Updated 07/16/24 @ 02:47 by Ean Royal) Encounter for subsequent annual wellness visit (AWV) in Medicare patient Upper abdominal pain Back pain Screening for diabetes mellitus Dizziness Shoulder pain Left foot pain Obesity Ankle pain BMI 31.0-31.9,adult Adult general medical exam Abnormality of penis Balanitis Tinea cruris Abdominal bloating Thrombosed external hemorrhoid Chronic GERD Urinary frequency Other obstructive and reflux uropathy Renal stones Chronic superficial gastritis without bleeding BPH loc w urin obs/LUTS Insomnia Tubular adenoma of colon Surgical History History of esophagogastroduodenoscopy (EGD) Hx of colonoscopy History of appendectomy Family History Family History Father No problems noted. Mother HTN (hypertension) Asthma Sister HTN (hypertension) Throat cancer Social History Social History Housing: Apartment Alcohol intake: never Patient Tobacco Use Status: Never used Tobacco Smoked in Last 30 Days: No e-Cigarette/Vaping Use: Never Used Second Hand Smoke Exposure: No Use of substances other than those prescribed or required for medical reasons: No Advance Directives: No Advance Directives Information Provided: Yes Advance Directives Date on File: 11/25/20 Do you have a plan to hurt others: No Plan service: Yes ([employer]) Current occupational status: retired Cognitive needs: No Hearing needs: No Vision needs: Yes (glasses) Physical Exam ED Vital Signs: Vital Signs - 24 hr 07/16/24 00:58 07/16/24 01:30 07/16/24 01:38 Temperature 97.1 F Pulse Rate 99 91 Respiratory Rate 20 18 Blood Pressure 106/72 Pulse Oximetry 96 96 Oxygen Delivery Method Room Air Room Air BMI result Body Mass Index 32.5 Const General: healthy appearing, comfortable, no acute distress, alert and awake Nutritional Appearance: well nourished Orientation/consciousness: patient oriented x3 HENMT Other: Bilateral sinus congestion and tenderness Head: Yes normocephalic and Yes atraumatic Throat: Yes posterior oropharynx normal Eyes Eyelids: Yes eyelids normal Conjunctivae: conjunctivae normal Sclerae: sclerae normal Corneas: corneas normal Pupils: Equal, round and reactive pupils present EOM: EOMs intact bilaterally Neck Neck: Yes full ROM Resp Effort & Inspection: normal respiratory effort, able to speak in complete sentences, no audible wheezes and not labored Auscultation: clear to auscultation bilaterally Cardio Rate: regular rate Rhythm: regular rhythm GI Inspection: No distended Palpation (GI): Soft to palpation, not firm, nontender, no guarding and not rigid Skin General skin exam: elasticity normal Neuro General: patient oriented x3 Cranial nerves: Yes Equal, round and reactive pupils present and Yes Bilaterally intact EOM present Cognition (Neuro): normal cognition Extrem Other: Moving all extremities well without any obvious deformities Course Reevaluation(s) Reevaluation #1: Patient's workup largely unremarkable, labs are reassuring, chest x-ray essentially unchanged compared to the 1 from 36 hours ago. Viral swabs remain negative. Patient's vital signs remained stable. He reports some improvement after nebulizer treatment. We will give him a course of prednisone. He was not a diabetic Time: 02:46 Medications Administered Discontinued Medications Generic Name Dose Route Start Last Admin Trade Name Jhonyq PRN Reason Stop Dose Admin Albuterol/Ipratropium 3 ml 07/16/24 01:22 07/16/24 01:27 Albuterol/Iprat 2.5/0.5mg 3 Ml Ampul.Neb INHALE 07/16/24 01:23 3 ml ONCE ONE Administration Medical Decision Making Medical Decision Making [facility] Narrative: 69-year-old male with past medical history as above presents for evaluation of upper respiratory symptoms. I reviewed his workup from a day and a happened. His chest x-ray was clear, he did not have any labs. His viral testing was negative. My exam he has no active wheezing, vital signs are within normal limits, he was afebrile he was not hypoxic. He has no chest pain today suggest ACS. No risk factors for PE. Plan for labs, repeat viral testing. Differential Diagnosis Differential Diagnoses: The differential diagnosis associated with the presentation includes Acute bronchitis Sinusitis Upper respiratory infection Viral syndrome Pneumonia Admission/Observation Consideration of admission/observation: Escalation of care including admission/observation considered That septic or hypoxic requiring admission Lab Data [facility] Lab Attestation statement: I reviewed the patient's lab results. No leukocytosis or anemia. Normal platelet count. 07/16/24 01:19 07/16/24 01:19 Labs: Lab Results 07/16/24 Range/Units 01:19 WBC 7.5 (4.8-10.8) X10*3/uL RBC 5.06 (4.60-5.80) X10*6/uL Hgb 15.2 (14.0-18.0) g/dl Hct 43.5 (42.0-52.0) % MCV 86.0 (80.0-98.0) fL MCH 30.0 (27.0-33.0) pg MCHC 34.9 (31.0-36.0) g/dl RDW 13.7 (11.0-16.0) % Plt Count 232 (160-400) X10*3/uL MPV 9.5 (9.4-12.4) fL Immature Gran % (Auto) 0.1 (0.0-0.4) % Neut % (Auto) 52.5 (45-73) % Lymph % (Auto) 35.1 (20-40) % [place] % (Auto) 11.1 H (2-11) % Eos % (Auto) 0.9 (0-4) % Baso % (Auto) 0.3 (0-2) % Lymph # (Auto) 2.6 (1.2-4.9) X10*3/uL [place] # (Auto) 0.8 (0.1-1.2) X10*3/uL Eos # (Auto) 0.1 (0.0-0.4) X10*3/uL Baso # (Auto) 0.0 (0.0-0.2) X10*3/uL Abs Immat Gran (auto) 0.01 (0.00-0.03) X10*3/uL Absolute Neuts (auto) 3.9 (2.0-8.3) x10*3/uL Absolute Nucleated RBC 0.000 (0.0-0.012) X10*3/uL Nucleated RBC % (auto) 0.0 (0.0-0.2) /100WBC Sodium 137 (135-145) mmol/L Potassium 4.1 (3.3-5.1) mmol/L Chloride 105 (96-108) mmol/L Carbon Dioxide 20 L (22-29) mmol/L Anion Gap 16 (12-20) BUN 9 (9-16) mg/dL Creatinine 0.98 (0.5-1.4) mg/dL Estim Creat Clear Calc 81.6 Estimated GFR > 60 Random Glucose 115 (60-115) mg/dL Calcium 8.7 (8.4-10.2) mg/dL Total Bilirubin 0.5 (0.0-1.0) mg/dL AST 28 (5-37) U/L ALT 17 (0-40) U/L Alkaline Phosphatase 62 (39-117) U/L Total Protein 7.7 (6.5-8.0) g/dL Albumin 4.0 (3.5-5.0) g/dL Influenza Type A (PCR) NEGATIVE (Negative) Influenza Type B (PCR) NEGATIVE (Negative) RSV RNA Qual (PCR) NEGATIVE (Negative) SARS-CoV-2 RNA (RT-PCR) NEGATIVE (Negative) Independent Interpretation I performed an independent interpretation of an: Plain X-Ray Interpretation: No focal consolidations, no significant changes compared to previous Radiology Impression Discussion of test interpretation with radiology: I have reviewed the radiologist's reading. Discharge Plan Discharge Clinical Impression: Acute bronchitis Patient Disposition: Home, Self-Care Instructions: Acute Bronchitis (ED) Additional Instructions: You may continue using the medications that were prescribed to you recently including the azithromycin, albuterol and cough medicine. Take prednisone 40 mg daily for the next 5 days Follow-up with your primary doctor, return for new or worsening symptoms Prescriptions: New prednisone 20 mg tablet 40 mg PO DAILY Qty: 10 0RF No Action melatonin 1 mg tablet 2 mg PO BEDTIME PRN (Reason: for insomnia) Qty: 180 1RF clotrimazole-betamethasone 1-0.05 % cream 1 appl topical BID 28 Days Qty: 45 0RF tamsulosin 0.4 mg capsule 0.8 mg PO DAILY 90 Days Qty: 180 3RF acetaminophen [Tylenol Extra Strength] 500 mg tablet 500 mg PO Q6H PRN (Reason: fever or pain) Qty: 14 0RF lidocaine [Lidoderm] 5 % adhesive patch,medicated 1 patch topical DAILY MDD remove after 12 hours PRN (Reason: pain) Qty: 30 0RF Rx Instructions: leave on most painful area for up to 12 hrs cyclobenzaprine 5 mg tablet 5 mg PO Q8H PRN (Reason: pain (scale score 7-10)) 5 Days Qty: 14 0RF benzonatate 200 mg capsule 200 mg PO TID PRN (Reason: cough) 5 Days Qty: 15 0RF azithromycin 250 mg tablet See Rx Instructions .ROUTE .COMPLEX Qty: 6 0RF Rx Instructions: For 250 mg dose pack: take 500 mg today (day 1), then 250 mg for 4 days (days 2-5) albuterol sulfate 90 mcg/actuation HFA aerosol inhaler 2 puff inhalation Q4-6H PRN (Reason: shortness of breath or wheezing) Qty: 8.5 0RF benzonatate 100 mg capsule 100 mg PO BID PRN (Reason: cough) 7 Days Qty: 14 0RF prednisone 20 mg tablet 40 mg PO DAILY 5 Days Qty: 10 0RF ammonium lactate 12 % cream topical BID aspirin 81 mg tablet,delayed release (DR/EC) 81 mg PO DAILY ciclopirox 0.77 % cream topical omeprazole 20 mg capsule,delayed release(DR/EC) 20 mg PO DAILY Qty: 90 2RF rosuvastatin 5 mg tablet 5 mg PO DAILY nystatin 100,000 unit/gram ointment 1 appl topical BID Qty: 30 0RF Rx Instructions: Apply to red areas of the head of penis, shaft and scrotal Print Language: Polish
[2024-07-16 01:30] VITALS: PULSE 91; RESP 18; O2SAT 96
[2024-07-16 01:38] VITALS: O2SAT 96
[2024-07-16 01:51] LABS: Alanine Aminotransferase 17 U/L (0-40); Alkaline Phosphatase 62 U/L (39-117); Anion Gap 16 (12-20); Aspartate Amino Transferase 28 U/L (5-37); Bilirubin Total 0.5 mg/dL (0.0-1.0); Blood Urea Nitrogen 9 mg/dL (9-16); Calcium 8.7 mg/dL (8.4-10.2); Carbon Dioxide 20 mmol/L (22-29); Chloride 105 mmol/L (96-108); Creatinine Clr Calc Pharmacy 81.6; Estimated Glomerular Filt Rate > 60; Glucose Random 115 mg/dL (60-115); Potassium 4.1 mmol/L (3.3-5.1); Sodium 137 mmol/L (135-145); Total Protein 7.7 g/dL (6.5-8.0)
[2024-07-16 02:05] LABS: Influenza A PCR NEGATIVE (Negative); Influenza B PCR NEGATIVE (Negative); Resp Syncy Virus RNA Qual PCR NEGATIVE (Negative); SARS COV2 PCR INHOUSE NEGATIVE (Negative)
--- OUTSIDE RECORDS SUMMARY | 2024-07-16 02:45 | XMS_ITS | Continuity of Care Document ---
Author Organization [facility] Address [address] [place] [address] Phone Care Team Providers Care Consultant [employer]. Vice President [employer] Name Role Phone Alison Potter Unavailable Unavailable [...] Diagnoses Date Provider Providers Copied on Encounter [facility], [address] [place], [address], [place] tel:[phone] Endoscopy [facility] No Information Wilma DIANNE-C Alison. [facility], [address], [place], [id number], [place]. tel:[phone] Family History Family Member Type Diagnosis Age [...]
--- OUTSIDE RECORDS SUMMARY | 2024-07-16 02:45 | XMS_ITS | Clinical Summary ---
Author Organization [employer] Address [address] [place] [address] Care Team Providers Care Mathematics Technician Name Role Phone Unavailable Primary Care Provider [...] Description 07/12/2024 2:30 PM EDT Office Visit [facility] [address] [place] [address] Jose Aguilera DMD 06/22/2024 1:30 PM EDT Office Visit [facility] [address] [place] [address] Jose Aguilera DMD 06/05/2024 2:00 PM EDT Office Visit [facility] [address] [place] [address] Alessandra Esparza Dental plaque (Primary Dx); Missing teeth, acquired 06/02/2024 10:30 AM EST Office Visit [facility] [address] [place] [address] Jose Aguilera DMD from Last 3 Months [...] Description 08/07/2024 9:00 AM EDT Office Visit [facility] [address], [place] [phone] Jose Aguilera, TRACY [address], [place] [phone] 12/07/2024 3:00 PM EDT Office Visit [facility] [address], [place] [phone] Alessandra Esparza [address], [place] [phone] Health Maintenance Due Date Last Done Comments [...] Most Recently Relevant to Health Maintenance Insurance [place] [id number] DENTAL - HSN FULL (MEDICAID) [place] [address] [place] [address] [place] [phone]
--- OUTSIDE RECORDS SUMMARY | 2024-07-16 02:46 | XMS_ITS | Continuity of Care Document ---
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 It does not include entries that were removed or entered in error. Problem Status Onset Date Problem Type Date of Resolution Comments Source Adhesive capsulitis of shoulder (ICD-9-CM 726.0) Active Condition [facility] Anxiety (SCT [id number]) Active Condition [facility] Back Pain (ICD-9-CM 724.5) Active Condition [facility] Benign prostatic hyperplasia Active Condition [facility] Care involving other physical therapy (ICD-9-CM V57.1) Active Condition [facility] Chronic pancreatitis Active Condition [facility] Chronic Post-Traumatic Stress Disorder (SCT [id number]) Active Condition [facility] Colon Polyp (ICD-9-CM 211.3) Active Condition [facility] Constipation, unspecified (ICD-9-CM 564.00) Active Condition [facility] Depressive disorder Active Condition [facility] Gastroesophageal reflux disease Active Condition [facility] Genital herpes simplex Active Condition [facility] Herpes Simplex * (ICD-9-CM 054.9) Active Condition [facility] History of colonic polyp Active Condition [facility] Hypertrophy (Benign) of Prostate without Urinary obstruction and other lower [place] Active Condition [place] [facility] Insomnia Active Condition [facility] Kidney stone Active Condition [facility] Low back pain Active Condition [facility] MAJOR DEP W/PSYCHOTIC FEATURES Active Condition [facility] Neuralgia, neuritis, and radiculitis (ICD-9-CM 729.2) Active Condition [facility] Obesity Active Condition [facility] Other and unspecified hyperlipidemia Active Condition [facility] Pain in joint involving shoulder region (ICD-9-CM 719.41) Active Condition [facility] RL Quadrant Abdominal Pain Active Condition [facility] Sleep apnea Active Condition Mar 04, 2022 Entered By: GERSON KEITA JAWED Comment: pt on cpap--using it [facility] VACCIN FOR INFLUENZA Active Condition [facility] Diagnosis: ICD-10-CM H43.813 Vitreous degeneration, bilateral Active Diagnosis [facility] Diagnosis: ICD-10-CM G47.33 Obstructive sleep apnea (adult) (pediatric) Active Diagnosis [facility] Diagnosis: ICD-10-CM G47.30 Sleep apnea, unspecified Active Diagnosis [place] Diagnosis: ICD-10-CM Z46.0 Encounter for fit/adjst of spectacles and contact lenses Active Diagnosis [place] [facility] [place] [facility] Diagnosis: ICD-10-CM H11.043 Peripheral pterygium, stationary, bilateral Active Diagnosis [facility] Diagnosis: ICD-10-CM M54.50 Low back pain, unspecified Active Diagnosis [place] [facility] [place] [facility] Medications Combined list of outpatient medications from Department of Defense and Veterans Affairs facilities.Medications provided include 1) outpatient medications from the last 15 months, and 2) patient-reported medications. Medication Details Route Status Patient Instructions Prescription Expires Prescription Number Last Dispense Date Ordering Provider Order Date Order Qty Source ACYCLOVIR 200MG CAP TAKE ONE CAPSULE BY MOUTH FIVE TIMES A DAY ORAL ACTIVE 07/20/2024 [id number] FURCOLO,T AUR[place]A 2023 50 [facility] AMYLASE 120,000UNIT /LIPASE 24,000UNIT/ PROTEASE 76,000UNIT CAP,EC TAKE 4 CAPSULES BY MOUTH FOUR TIMES A DAY ORAL ACTIVE DONNA KEITA JAWSTEVE 2019 [facility] CARBOXYMETH YLCELLULOSE NA 0.5% (PF) SOLN,OPH,UD INSTILL 1 DROP INTO EACH EYE EVERY 2 HOURS WHILE AWAKE OPHTHA LMIC 05/18/2024 [id number] KINCAID,LAC EY J 2023 100 [facility] CLOTRIMAZOL E 1% CREAM,TOP APPLY A SMALL AMOUNT TOPICALL Y TWICE DAILY FOR FUNGAL INFECTIO N TOPICA L ACTIVE 07/20/2024 [id number] FURCOLO,T AURORA 2023 30 [place] CLOTRIMAZOL E 1% CREAM,TOP APPLY A SMALL AMOUNT TOPICALL Y TWICE DAILY FOR FUNGAL INFECTIO N TOPICA L DISCONT INUED 07/08/2023 [id number] [facility] AMMED JAWED 2022 30 [facility] HYPROMELLOS E 0.3% GEL,OPH APPLY 1 DROP INTO EACH EYE FOUR TIMES DAILY NEEDED OPHA LMIC HOLD 05/17/2025 [id number] Isabel HOWARD E 2024 20 [facility] LIDOCAINE 5% PATCH APPLY 1 PATCH TOPICALL Y ONCE DAILY (LEAVE PATCH ON FOR 12 HOURS, THEN REMOVE PATCH) TOPICA L ACTIVE 08/27/2024 [id number] 5 FURCOLO,T AUR[place]A 2023 30 [facility] LIDOCAINE 5% PATCH APPLY 1 PATCH TOPICALL Y ONCE DAILY (LEAVE PATCH ON FOR 12 HOURS, THEN REMOVE PATCH) TOPICA L DISCONT INUED 09/04/2023 [id number] 4 [facility] AMMED JAWED 2022 30 [facility] LORATADINE 10MG TAB TAKE ONE TABLET BY MOUTH ONCE DAILY FOR ALLERGY ORAL 04/27/2024 [id number] [facility] AMMED JAWED 2023 90 [facility] MINERAL OIL,LIGHT/P ETROLATUM (PF) OINT,OPH APPLY SMALL AMOUNT INTO EACH EYE AT BEDTIME OPHA IC ACTIVE 07/11/2025 [id number] 5 Isabel HOWARD NDREW E 2024 3 [facility] MINERAL OIL,LIGHT/P ETROLATUM (PF) OINT,OPH APPLY THIN RIBBON INTO EACH EYE AT BEDTIME FOR DRY EYE OPHTHA LMIC 05/18/2024 [id number] KINCAID,LAC EY J 2023 3 [facility] NYSTATIN [id number]/G M OINT,TOP APPLY MODERATE AMOUNT TOPICALL Y TWICE DAILY FOR FUNGAL INFECTIO N TOPICA L 03/03/2024 [id number] [facility] JAWED 2022 60 [facility] OMEPRAZOLE 20MG CAP,EC TAKE 2 CAPSULES BY MOUTH TWICE DAILY ORAL ACTIVE [facility] JAWED 2019 [facility] PEG-400 0.4%/PROPYL CANDE GLYCOL 0.3% SOLN,OPH,UD INSTILL 1 DROP INTO EACH EYE FOUR TIMES DAILY NEEDED OPHTHA LMIC ACTIVE 07/11/2025 [id number] 5 Isabel HOWARD NDREW E 2024 30 [facility] ROSUVASTATI N CA 20MG TAB TAKE ONE-HALF TABLET BY MOUTH AT BEDTIME FOR CHOLESTE ROL ORAL ACTIVE 01/11/2025 [id number] FURCOLO,T AUR[place]A 2023 45 [facility] ROSUVASTATI N CA 20MG TAB TAKE ONE-HALF TABLET BY MOUTH ONCE DAILY FOR CHOLESTE ROL ORAL 09/04/2023 [id number] 4 [facility] J[facility] 2022 45 [facility] SUVOREXANT 5MG TAB,UD TAKE ONE TABLET BY MOUTH AT BEDTIME ORAL ACTIVE [facility] MICHELLE JAWED 2019 [facility] TAMSULOSIN HCL 0.4MG CAP TAKE 1 CAPSULE BY MOUTH AT BEDTIME ORAL ACTIVE [facility] 2019 [facility] [place] [facility] Allergies, Adverse Reactions, Alerts Combined list of allergies from Department of Defense and Veterans Affairs facilities. It does not include entries that were removed or entered in error. Substance Category Reaction Severity Reaction type Status Date Reported Comments Source NAPROXEN Propensity to adverse reactions to drug (finding) Epigastric discomfort active 2 [place] [facility] [place] [facility] Immunizations Combined list of available immunizations from the Department of Defense and Veterans Affairs facilities. Immunization Series Date Given Administered By Site Reaction Lot Number CVX Code Drug Licensed Funeral Director And Embalmer Status Comments Source PNEUMOCOCCAL CONJUGATE PCV20, POLYSACCHARID E [id number] CONJUGATE, ADJUVANT, PF 2021 RADHA NUNN LEFT DELTO ID [id number] 216 complet ed [facility] [place] [facility] INFLUENZA, UNSPECIFIED FORMULATION 2021 88 complet ed HISTORICA L INFORMATI ON - SOURCE UNSPECIFI ED, [facility] INFLUENZA, UNSPECIFIED FORMULATION 2020 88 complet ed [place] [facility] [place] [facility] COVID-19 (PFIZER), MRNA, LNP-S, PF, 30 MCG/0.3 ML DOSE 3 2020 208 complet ed [facility] PNEUMOCOCCAL POLYSACCHARID E PPV23 2020 33 complet ed [facility] TDAP 2020 115 complet ed [facility] COVID-19 (PFIZER), MRNA, LNP-S, PF, 30 MCG/0.3 ML DOSE 2 2020 208 complet ed PFR; [id number]; 1 [facility] COVID-19 (PFIZER), MRNA, LNP-S, PF, 30 MCG/0.3 ML DOSE 1 2020 208 complet ed PFR; [id number]; 1 [facility] INFLUENZA, SEASONAL, INJECTABLE 2018 141 complet ed [facility] INFLUENZA, UNSPECIFIED FORMULATION 2008 88 complet ed [place] [facility] FLU,3 YRS (HISTORICAL) 2007 88 complet ed [facility] [facility] FLU,3 YRS (HISTORICAL) 2006 88 complet ed [facility] INFLUENZA, UNSPECIFIED FORMULATION 2005 88 complet ed [place] [facility] FLU,3 YRS (HISTORICAL) 2004 88 complet ed [facility] [facility] TD(ADULT) UNSPECIFIED FORMULATION 2002 139 complet ed [facility] Vital Signs Combined list of inpatient and [...] 16 09/06/2023 09:39:15 [facility] Encounters Combined list of: 1) Encounters from Department of Veterans Affairs facilities going backup to the last 18 months, not all VA inpatient encounters are included; 2) Encounters from the Department of Defense facilities going backup to 280 months. Location Location Details Encounter Type Encounter Number Reason For Visit Attending Provider ADM Date DC Date Status Disposition Source [facility] Outpatient Encounter [id number] 02/15 [facility] Outpatient Encounter [id number] 02/17 [facility] Outpatient Encounter [id number] 02/23 [facility] OFFICE O/P EST MOD 30-39 MIN [id number] Diagnos is: ICD-10- CM M54.50 Low back pain, unspeci fied AHMED,MOHA MMED JAWED 03/03 [facility] Outpatient Encounter [id number] 03/11 [facility] Outpatient Encounter [id number] 04/13 [facility] Outpatient Encounter [id number] 04/27 [facility] FEE [id number] Diagnos is: ICD-10- CM G47.33 Obstruc tive sleep apnea (adult) (pediat violeta) Lata BULL 05/04 [facility] OFFICE O/P EST LOW 20 MIN [id number] Diagnos is: ICD-10- CM G47.33 Obstruc tive sleep apnea (adult) (pediat violeta) RELL MILLS 05/04 [facility] Out[facility] Encounter [id number] 05/04 [facility] [place] COMPRE OPH EXAM EST PT 1/ [id number] Diagnos is: ICD-10- CM H11.043 Periphe ral pterygi um, station darius, bilater al BONNIE KINCAID Y J 05/18 [facility] FIT SPECTACLES BIFOCAL [id number] Diagnos is: ICD-10- CM Z46.0 Encount er for fit/adj st of spectac les and contact lenses BONNIE KINCAID 05/19 [facility] RPR&REFITG SPECT XCP APHAKIA [id number] Diagnos is: ICD-10- CM Z46.0 Encount er for fit/adj st of spectac les and contact lenses USHA GARCIA 06/01 [facility] Outpatient Encounter [id number] 07/19 [facility] Outpatient Encounter [id number] 08/26 [facility] [place] [place] Outpatient Encounter [id number] 09/05 [facility] [place] OFFICE O/P EST LOW 20 MIN [id number] Diagnos is: ICD-10- CM G47.30 Sleep apnea, unspeci fied FURCOLO,TI NA 09/05 [facility] [place] OFFICE O/P EST LOW 20 MIN [id number] Diagnos is: ICD-10- CM G47.33 Obstruc tive sleep apnea (adult) (pediat violeta) CURIOSO-UY RELL 09/06 [facility] FEE [id number] Diagnos is: ICD-10- CM G47.30 Sleep apnea, unspeci fied Lata BULL 09/06 [place] [facility] Out[facility] Encounter [id number] 09/08 [facility] En[facility] [id number] 09/08 [facility] Out[facility] Encounter [id number] 10/06 [facility] En[facility] [id number] 01/10 [facility] INTRM OPH EXAM EST PATIENT [id number] Diagnos is: ICD-10- CM H43.813 Vitreou s degener tima vargas AN DREW E 05/16 [facility] En[facility] [id number] 06/15 [facility] Out[facility] En[facility] [id number] 06/28 [facility] INTRM OPH EXAM EST PATIENT [id number] Diagnos is: ICD-10- CM H43.813 Vitreou s tima sibley AN DREW E 07/10 [facility] Social History Combined list of available smoking, tobacco, and other social history from Department of Defense and Veterans [facility] facilities. Social History Type Response Date Comment Source Tobacco smoking status [facility] [place] NEVER USED 09/06/2023 [facility] History of tobacco use QUIT TOBACCO USE > 7 YEARS AGO 05/13/2021 smoked for one year after his divorce [facility] 05/18/2019 [facility] History of tobacco use LONG-TERM NONSMOKER 05/22/2009 [facility] History of tobacco use LIFETIME NON-SMOKER 04/02/2009 [facility] History of tobacco use LIFETIME NON-SMOKER 06/14/2006 [facility] History of tobacco use CURRENT NON-SMOKER 06/04/2005 1 pack cig every 2 days. [facility] History of tobacco use CURRENT NON-SMOKER 01/10/2004 [facility] History of tobacco use CURRENT NON-SMOKER 12/07/2001 [facility] Plan of Care List of future care activities from [facility] facilities. Additional future care activities may be listed in the Assessment and Plan section. Date/Time Care Activity Care Activity Detail Facili ty 09/05/2024 AMBULATORY - MEDICINE AMBULATORY - MEDICI NE [facility] Advance Directives List of completed, amended, or rescinded Advance Directives on record at [facility] facilities. An actual copy of the Directive is not included. Date Advance Directive Provider Source 10/02/2008 ADVANCE DIRECTIVE DISCUSSION [facility] 12/31/2006 ADVANCE DIRECTIVE DISCUSSION [facility] 06/04/2005 ADVANCE DIRECTIVE [facility] 07/07/2004 [facility]VANCE DIRECTIVE [facility] 12/06/2002 ADVANCE DIRECTIVE KAJAL [facility]
[2024-07-16] MEDS: predniSONE 20 MG TABLET 40 MG PO (03:12)
[2024-07-16 03:15] VITALS: BP 112/68; PULSE 88; RESP 18; TEMP 36.8; O2SAT 97
== END 2024-07-16 03:17 | disposition home or self-care (01) ==
PROVIDERS: Emergency Provider Emergency Medicine
DX: J40 Bronchitis, not specified as acute or chronic (principal); R06.02 Shortness of breath; R05.9 Cough, unspecified; Z03.818 Encounter for observation for suspected exposure to other biological agents ruled out; Z79.899 Other long term (current) drug therapy
CPT/HCPCS: 0241U; 71045; 80053; 85025; 94640; 99284; 99285

== ENCOUNTER → 2024-07-16 01:50 | Outpatient (BNV) | payer MEDICARE, OTHER, MEDICAID, SELFPAY | PROVIDERS: Emergency Provider Emergency Medicine; Visit Provider Radiology Neuroradiology | DX: R06.02 Shortness of breath (principal) | CPT/HCPCS: 71045 ==

== ENCOUNTER 2024-08-15 15:36 | Outpatient (AMB) | payer MEDICARE, OTHER, MEDICAID, SELFPAY ==
[2024-08-15 15:44] VITALS: BP 136/71; PULSE 84; BMI 32.2
--- NOTE | 2024-08-15 15:44 | MHC.OFFVIS ---
Vital Signs 08/15/24 15:44 Height 5 ft 9 in Weight 218 lb 4.122 oz BMI 32.2 BP 136/71 Blood Pressure Location Lt brachial Position Sitting Pulse 84 Intake Visit Reasons: Follow up GERD Intake Note: Luis A presents in the office as a follow up for GERD. CC: States that the reflux has gotten a lot better. Production Bow Maker Required: No Allergies lovastatin Allergy (Unknown, Verified 08/15/24 15:47) GI upset HPI HPI Follow up GERD: Details: Assessment & Plan (1) GERD (gastroesophageal reflux disease): Code(s): K21.9 - Gastro-esophageal reflux disease without esophagitis Category: Medical (2) Gallstones: Code(s): K80.20 - Calculus of gallbladder without cholecystitis without obstruction Category: Medical Plan He will be due for repeat scope for TA next year, will discuss at next ov. He continues to do well on his omeprazole. His gallstones remain asymptomatic ROV 6 mos. Medications: Refilled omeprazole 20 mg PO DAILY 90 caps 2RF Laboratory Tests 07/16/24 01:19 WBC 7.5 Hgb 15.2 Hct 43.5 Plt Count 232 Estimated GFR > 60 Total Bilirubin 0.5 AST 28 ALT 17 Alkaline Phosphatase 62 TODAY'S VISIT He continues to do very well on his omeprazole and is quite pleased with his GI regimen. He is aware that he is due for repeat colonoscopy and is agreeable to getting this scheduled. He denies any cardiac or respiratory problems. There are no prior problems with anesthesia or sedation. There are no infectious disease problems. He has a history of tubular adenomas. [facility] Medical History (Updated 08/15/24 @ 16:37 by SARBJIT Lujan) Encounter for subsequent annual wellness visit (AWV) in Medicare patient Upper abdominal pain Back pain Screening for diabetes mellitus Dizziness Shoulder pain Left foot pain Obesity Ankle pain BMI 31.0-31.9,adult Adult general medical exam Abnormality of penis Balanitis Tinea cruris Abdominal bloating Thrombosed external hemorrhoid Chronic GERD Urinary frequency Other obstructive and reflux uropathy Renal stones Chronic superficial gastritis without bleeding BPH loc w urin obs/LUTS Insomnia Tubular adenoma of colon Surgical History History of esophagogastroduodenoscopy (EGD) Hx of colonoscopy History of appendectomy Family History Father No problems noted. Mother HTN (hypertension) Asthma Sister HTN (hypertension) Throat cancer Social History Housing: Apartment Alcohol intake: never Patient Tobacco Use Status: Never used Tobacco e-Cigarette/Vaping Use: Never Used Second Hand Smoke Exposure: No Advance Directives Date on File: 11/25/20 service: Yes ([employer]) Current occupational status: retired Cognitive needs: No Hearing needs: No Vision needs: Yes (glasses) Review of Systems Const Denies fatigue, Denies fever(s), Denies night sweats, Denies poor appetite and Denies weight loss ENT Reports Normal hearing present, Denies dental pain, Denies dysphagia, Denies hearing loss, Denies mouth pain, Denies odynophagia, Denies throat swelling, Denies tongue swelling and Reports other (Dentition adequate) Card Reports no additional complaints Resp Reports no additional complaints GI Details: Denies abdominal pain, Denies melena, Denies bloating, Denies hematochezia, Denies constipation, Denies GI cramping, Denies dysphagia, Denies excessive flatus, Denies early satiety, Reports heartburn, Denies diarrhea, Denies nausea, Denies odynophagia, Denies vomiting and Denies hematemesis Skin/Breast Denies pruritus, Denies lesions, Denies rash and Denies jaundice Neuro Reports Normal hearing present and Denies Abnormal speech present Endo Denies fatigue Aller/Immun Denies throat swelling and Denies tongue swelling Physical Exam Vital Signs: Last Vital Signs Pulse 84 08/15/24 15:44 BP 136/71 08/15/24 15:44 BMI result Body Mass Index 32.2 Const General: cooperative, no acute distress, well developed and well groomed Nutritional Appearance: well nourished and obese Orientation/consciousness: oriented to person, oriented to place and oriented to time Limitations: No language barrier HEENT Head: Yes normocephalic and Yes atraumatic Eyes General: appearance normal, both eyes and all related structures Pupils: Equal, round and reactive pupils present Neck Neck: Yes normal visual inspection and Yes no lymphadenopathy Thyroid: Thyroid normal Resp Effort & Inspection: normal respiratory effort and able to speak in complete sentences Auscultation: clear to auscultation bilaterally Cardio Rate: regular rate Rhythm: regular rhythm Heart sounds: Normal, physiologic split S2 sound present Peripheral pulses: radial pulses present and posterior tibial pulses present GI Inspection: No distended, No Abdominal panniculus present and Yes obesity Palpation (GI): Soft to palpation, nontender, no guarding, not rigid and No hepatosplenomegaly present Percussion: Yes normal to percussion Auscultation: normal bowel sounds Rectal Exam - Male: Yes deferred Skin General skin exam: no rashes or lesions noted, turgor normal, skin not dry, no jaundice, No spider nevi and no striae Rashes: no rashes Nails: normal Neuro General: oriented to person, oriented to place and oriented to time Cranial nerves: Yes Equal, round and reactive pupils present and Yes Normal hearing present Speech: No Abnormal speech present Extrem General: Yes normal to inspection, No clubbing, No cyanosis and No edema Psych Appearance: grossly normal and well kempt Mental Status: mental status grossly normal Speech and movement: Normal speech and movement present Affect: normal affect Attitude: cooperative Thought process: Normal thought process present and not confabulating Thought content: Normal thought content present Insight: Good insight present (Psych) Judgement: Good judgement present (Psych) Assessment & Plan Assessment & Plan (1) Tubular adenoma of colon: Comment: 2014 SCOPE, RESCOPED 2019 CLEAR WITH HYPERPLASTIC ONLY REPEAT 5 YEARS Code(s): D12.6 - Benign neoplasm of colon, unspecified Category: Medical (2) Gallstones: Comment: Asymptomatic to date Code(s): K80.20 - Calculus of gallbladder without cholecystitis without obstruction Category: Medical Plan He continues to do very well on his omeprazole and is quite pleased with his GI regimen. He continues to be asymptomatic with regards to gallstones discovered incidentally on a past imaging study. He is aware that he is due for repeat colonoscopy and is agreeable to getting this scheduled. He denies any cardiac or respiratory problems. There are no prior problems with anesthesia or sedation. There are no infectious disease problems. He has a history of tubular adenomas. Orders: Orders Colonoscopy - GI Use Only Today D12.6 - Benign neoplasm of colon, unspecified, K80.20 - Calculus of gallbladder without cholecystitis without obstruction Medications: New sodium,potassium,mag sulfates 17.5-3.13-1.6 gram (Suprep Bowel Prep Kit) 480 mL orally; FOR COLONOSCOPY PREP 354 mL 0RF Discontinued benzonatate Discontinued Reason: Patient no longer taking 100 mg PO BID 7 days PRN 14 caps 0RF cough Coding Level of Care Code Est Pt Level 3 (25939) Diagnoses Tubular adenoma of colon D12.6 Gallstones K80.20
--- OUTSIDE RECORDS SUMMARY | 2024-08-15 16:35 | XMS_ITS | Continuity of Care Document ---
Author Name [facility] Organization [facility] Care Team Providers Care Library Associate Name Role Phone [facility] Unavailable Unavailable Problems Combined list of problems from Department of Defense and Veterans Affairs facilities. It does not include entries that were removed or entered in error. Problem Status Onset Date Problem Type Date of Resolution Comments Source Adhesive capsulitis of shoulder (ICD-9-CM 726.0) Active Condition [facility] Anxiety (SCT [id number]) Active Condition [facility] Back Pain (ICD-9-CM 724.5) Active Condition [facility] Benign prostatic hyperplasia Active Condition [facility] Care involving other physical therapy (ICD-9-CM V57.1) Active Condition [facility] Chronic pancreatitis Active Condition [facility] Chronic Post-Traumatic Stress Disorder (SCT [id number]) Active Condition [facility] Colon Polyp (ICD-9-CM 211.3) Active Condition [facility] Constipation, unspecified (ICD-9-CM 564.00) Active Condition [facility] Depressive disorder Active Condition [facility]astroesophageal reflux disease Active Condition [facility] Genital herpes simplex Active Condition [facility] Herpes Simplex * (ICD-9-CM 054.9) Active Condition [facility] History of colonic polyp Active Condition [facility] Hypertrophy (Benign) of Prostate without Urinary obstruction and other lower [place] Active Condition [place] [facility] Insomnia Active Condition [facility] Kidney stone Active Condition [facility] Low back pain Active Condition [facility] MAJOR DEP W/PSYCHOTIC FEATURES Active Condition [facility] Neuralgia, neuritis, and radiculitis (ICD-9-CM 729.2) Active Condition [facility] Obesity Active Condition [facility] Other and unspecified hyperlipidemia Active Condition [facility] Pain in joint involving shoulder region (ICD-9-CM 719.41) Active Condition [facility] RL Quadrant Abdominal Pain Active Condition [facility] Sleep apnea Active Condition Mar 04, 2022 Entered By: GERSON KEITA JAWED Comment: pt on cpap--using it [facility] VACCIN FOR INFLUENZA Active Condition [facility] Diagnosis: ICD-10-CM H43.813 Vitreous degeneration, bilateral Active Diagnosis [facility] Diagnosis: ICD-10-CM G47.33 Obstructive sleep apnea (adult) (pediatric) Active Diagnosis [facility] Diagnosis: ICD-10-CM G47.30 Sleep apnea, unspecified Active Diagnosis [facility] Diagnosis: ICD-10-CM Z46.0 Encounter for fit/adjst of spectacles and contact lenses Active Diagnosis [facility] [place] [facility] Diagnosis: ICD-10-CM H11.043 Peripheral pterygium, stationary, bilateral Active Diagnosis [facility] Diagnosis: ICD-10-CM M54.50 Low back pain, unspecified Active Diagnosis [facility] [place] [facility] Medications Combined list of outpatient medications from Department of Defense and Veterans Affairs facilities.Medications provided include 1) outpatient medications from the last 15 months, and 2) patient-reported medications. Medication Details Route Status Patient Instructions Prescription Expires Prescription Number Last Dispense Date Ordering Provider Order Date Order Qty Source ACYCLOVIR 200MG CAP TAKE ONE CAPSULE BY MOUTH FIVE TIMES A DAY ORAL 07/20/2024 [id number] FURCOLO,T [facility] 2023 50 [facility] AMYLASE 120,000UNIT /LIPASE 24,000UNIT/ PROTEASE 76,000UNIT CAP,EC TAKE 4 CAPSULES BY MOUTH FOUR TIMES A DAY ORAL ACTIVE DONNA KEITA JAWSTEVE 2019 [facility] CARBOXYMETH YLCELLULOSE NA 0.5% (PF) SOLN,OPH,UD INSTILL 1 DROP INTO EACH EYE EVERY 2 HOURS WHILE AWAKE OPHTHA LMIC 05/18/2024 [id number] KINCAID,LAC EY J 2023 100 [facility] CLOTRIMAZOL E 1% CREAM,TOP APPLY A SMALL AMOUNT TOPICALL Y TWICE DAILY FOR FUNGAL INFECTIO N TOPICA L 07/20/2024 [id number] 4 FURCOLO,T AUR[place] 2023 30 [place] HYPROMELLOS E 0.3% GEL,OPH APPLY 1 DROP INTO EACH EYE FOUR TIMES DAILY NEEDED OPHTHA LMIC HOLD 05/17/2025 [id number] Isabel HOWARD NDREW E 2024 20 [facility] LIDOCAINE 5% PATCH APPLY 1 PATCH TOPICALL Y ONCE DAILY (LEAVE PATCH ON FOR 12 HOURS, THEN REMOVE PATCH) TOPICA L ACTIVE 08/27/2024 [id number] 5 FURCOLO,T [facility] 2023 30 [facility] LIDOCAINE 5% PATCH APPLY 1 PATCH TOPICALL Y ONCE DAILY (LEAVE PATCH ON FOR 12 HOURS, THEN REMOVE PATCH) TOPICA L DISCONT INUED 09/04/2023 [id number] NEELA,DONNA AMMED JAWED 2022 30 [facility] LORATADINE 10MG TAB TAKE ONE TABLET BY MOUTH ONCE DAILY FOR ALLERGY ORAL ACTIVE 08/10/2025 [id number] 5 FURCOLO,T [facility] 2024 90 [facility] LORATADINE 10MG TAB TAKE ONE TABLET BY MOUTH ONCE DAILY FOR ALLERGY ORAL DISCONT INUED 04/27/2024 [id number] AHMED,MOH AMMED JAWED 2023 90 [facility] MINERAL OIL,LIGHT/P ETROLATUM (PF) OINT,OPH APPLY SMALL AMOUNT INTO EACH EYE AT BEDTIME OPHTHA LMIC ACTIVE 07/11/2025 [id number] Isabel HOWARD NDREW E 2024 3 [facility] MINERAL OIL,LIGHT/P ETROLATUM (PF) OINT,OPH APPLY THIN RIBBON INTO EACH EYE AT BEDTIME FOR DRY EYE OPHTHA LMIC 05/18/2024 [id number] KINCAID,LAC EY J 2023 3 [facility] NYSTATIN [id number]/G M OINT,TOP APPLY MODERATE AMOUNT TOPICALL Y TWICE DAILY FOR FUNGAL INFECTIO N TOPICA L 03/03/2024 [id number] [facility] 60 [facility] OMEPRAZOLE 20MG CAP,EC TAKE 2 CAPSULES BY MOUTH TWICE DAILY ORAL ACTIVE [facility] 2019 [facility] PEG-400 0.4%/PROPYL CANDE GLYCOL 0.3% SOLN,OPH,UD INSTILL 1 DROP INTO EACH EYE FOUR TIMES DAILY NEEDED OPHTHA LMIC ACTIVE 07/11/2025 [id number] 5 Isabel HOWARD NDREW E 2024 30 [facility] ROSUVASTATI N CA 20MG TAB TAKE ONE-HALF TABLET BY MOUTH AT BEDTIME FOR CHOLESTE ROL ORAL ACTIVE 01/11/2025 [id number] FURCOLO,T [facility] 2023 45 [facility] ROSUVASTATI N CA 20MG TAB TAKE ONE-HALF TABLET BY MOUTH ONCE DAILY FOR CHOLESTE ROL ORAL 09/04/2023 [id number] [facility] 2022 45 [facility] SUVOREXANT 5MG TAB,UD TAKE ONE TABLET BY MOUTH AT BEDTIME ORAL ACTIVE [facility] 2019 [facility] TAMSULOSIN HCL 0.4MG CAP TAKE 1 CAPSULE BY MOUTH AT BEDTIME ORAL ACTIVE [facility] JAW[facility] 2019 [facility] Allergies, Adverse Reactions, Alerts Combined list of allergies from Department of Defense and Veterans Affairs facilities. It does not include entries that were removed or entered in error. Substance Category Reaction Severity Reaction type Status Date Reported Comments Source NAPROXEN Propensity to adverse reactions to drug (finding) Epigastric discomfort active 2 [facility] [place] [facility] Immunizations Combined list of available immunizations from the Department of Defense and Veterans Affairs facilities. Immunization Series Date Given Administered By Site Reaction Lot Number CVX Code Drug Retail Reset Merchandiser Status Comments Source PNEUMOCOCCAL CONJUGATE PCV20, POLYSACCHARID E [id number] CONJUGATE, ADJUVANT, PF 2021 RADHA NUNN LEFT DELTO ID [id number] 216 complet ed [facility] INFLUENZA, UNSPECIFIED FORMULATION 2021 88 complet ed HISTORICA L INFORMATI ON - SOURCE UNSPECIFI [facility] [place] [facility] INFLUENZA, UNSPECIFIED FORMULATION 2020 88 complet ed [facility] [place] [facility] COVID-19 (PFIZER), MRNA, LNP-S, PF, 30 MCG/0.3 ML DOSE 3 2020 208 complet ed [facility] [place] [facility] PNEUMOCOCCAL POLYSACCHARID E [id number] 2020 33 complet ed [facility] [place] TDAP 2020 115 complet ed [facility] [place] [facility] COVID-19 (PFIZER), MRNA, LNP-S, PF, 30 MCG/0.3 ML DOSE 2 2020 208 complet ed PFR; [id number]; 1 [facility] COVID-19 (PFIZER), MRNA, LNP-S, PF, 30 MCG/0.3 ML DOSE 1 2020 208 complet ed PFR; [id number]; 1 [facility] [place] [facility] INFLUENZA, SEASONAL, INJECTABLE 2018 141 complet ed [facility] [place] [facility] INFLUENZA, UNSPECIFIED FORMULATION 2008 88 complet ed [facility] INFLUENZA, UNSPECIFIED FORMULATION 2007 88 complet ed [facility] INFLUENZA, UNSPECIFIED FORMULATION 2006 88 complet ed [facility] INFLUENZA, UNSPECIFIED FORMULATION 2005 88 complet ed [facility] INFLUENZA, UNSPECIFIED FORMULATION 2004 88 complet ed [facility] TD(ADULT) UNSPECIFIED FORMULATION 2002 139 complet ed [facility] Vital Signs Combined list of inpatient [...] 16 09/06/2023 09:39:15 [facility] Encounters Combined list of: 1) Encounters from Department of Veterans Affairs facilities going backup to the last 18 months, not all VA inpatient encounters are included; 2) Encounters from the Department of Defense facilities going backup to 280 months. Location Location Details Encounter Type Encounter Number Reason For Visit Attending Provider ADM Date DC Date Status Disposition Source [facility] Out[facility] Encounter [id number] 02/15 [facility]counter [id number] 11/22 /2023 [facility] Outpatient [facility]counter [id number] 02/23 [facility] OFFICE O/P EST MOD 30-39 MIN [id number] Diagnos is: ICD-10- CM M54.50 Low back pain, unspeci fied AHMED,MOHA MMED JAWED 03/03 [facility] [place] [place] [facility] Outpatient [facility]counter [id number] 03/11 [facility] [id number] 04/13 [facility] [place] [place] [facility] Outpatient Encounter [id number] 04/27 [facility] [place] FEE [id number] Diagnos is: ICD-10- CM G47.33 Obstruc tive sleep apnea (adult) (pediat violeta) Lata BULL 05/04 [facility] OFFICE O/P EST LOW 20 MIN [id number] Diagnos is: ICD-10- CM G47.33 Obstruc tive sleep apnea (adult) (pediat violeta) RELL MILLS 05/04 [facility] Out[facility] Encounter [id number] 05/04 [facility] [place] [place] [facility] COMPRE OPH EXAM EST PT 1/> [id number] Diagnos is: ICD-10- CM H11.043 Periphe ral pterygi um, station darius, bilater al BONNIE KINCAID 05/18 [facility] FIT SPECTACLES BIFOCAL [id number] Diagnos is: ICD-10- CM Z46.0 Encount er for fit/adj st of spectac les and contact lenses BONNIE KINCAID 05/19 [facility] RPR&REFITG SPECT XCP APHAKIA [id number] Diagnos is: ICD-10- CM Z46.0 Encount er for fit/adj st of spectac les and contact lenses USHA GARCIA 06/01 [facility] [place] [place] [facility] [place] Outpatient [facility]counter [id number] 07/19 [facility] [place] [facility] Outpatient [facility]counter [id number] 08/26 [facility] [place] [facility] Outpatient [facility]counter [id number] 09/05 [facility] [place] OFFICE O/P EST LOW 20 MIN [id number] Diagnos is: ICD-10- CM G47.30 Sleep apnea, unspeci fied FURCOLO,TI NA 09/05 [facility] [place] [place] OFFICE O/P EST LOW 20 MIN [id number] Diagnos is: ICD-10- CM G47.33 Obstruc tive sleep apnea (adult) (pediat violeta) CURROZO-UKINJAL TalaveraRELL 09/06 [facility] FEE [id number] Diagnos is: ICD-10- CM G47.30 Sleep apnea, unspeci fied Lata BULL 09/06 [facility] Out[facility] Encounter [id number] 09/08 [facility] Out[facility] Encounter [id number] 09/08 [facility] Out[facility]counter [id number] 10/06 [facility] Out[facility] Encounter [id number] 01/10 [facility] INTRM OPH EXAM EST PATIENT [id number] Diagnos is: ICD-10- CM H43.813 Vitrejose s tima sibley AN DREW E 05/16 [facility] Out[facility] Encounter [id number] 06/15 [facility] Out[facility] Encounter [id number] 06/28 [facility] INTRM OPH EXAM EST PATIENT [id number] Diagnos is: ICD-10- CM H43.813 Vitreou s tima sibley AN DREW E 07/10 [facility] Out[facility] Encounter [id number] 07/19 [facility] Outpatient Encounter [id number] 08/08 [facility] Social History Combined list of available smoking, tobacco, and other social history from Department of Defense and [facility] facilities. Social History Type Response Date Comment Source [facility] of [facility] 09/03/2022 [facility] History of tobacco use QUIT TOBACCO USE > 7 YEARS AGO 05/13/2021 smoked for one year after his divorce [facility] of [facility] 05/18/2019 [facility] History of tobacco use QUIT TOBACCO >7 YEARS AGO 05/22/2009 [facility] History of tobacco use LIFETIME NON-SMOKER 04/02/2009 [facility] History of tobacco use LIFETIME NON-SMOKER 06/14/2006 [facility] History of tobacco use CURRENT NON-SMOKER 06/04/2005 1 pack cig every 2 days. [facility] History of tobacco use CURRENT NON-SMOKER 01/10/2004 [facility] History of tobacco use CURRENT NON-SMOKER 12/07/2001 [facility] Plan of Care List of future care activities from [facility] facilities. Additional future care activities may be listed in the Assessment and Plan section. Date/Time Care Activity Care Activity Detail Facili ty 09/01/2024 AMBULATORY - SURGERY AMBULATORY - SURGERY [facility] Advance Directives List of completed, amended, or rescinded Advance Directives on record at [facility] facilities. An actual copy of the Directive is not included. Date Advance Directive Provider Source 10/02/2008 ADVANCE DIRECTIVE DISCUSSION [facility] 12/31/2006 ADVANCE DIRECTIVE DISCUSSION [facility] 06/04/2005 ADVANCE DIRECTIVE [facility] 07/07/2004 ADVANCE DIRECTIVE [facility] 12/06/2002 ADVANCE DIRECTIVE KAJAL PAYNE [facility]
--- OUTSIDE RECORDS SUMMARY | 2024-08-15 16:35 | XMS_ITS | Clinical Summary ---
Author Organization [employer] Address [address] [facility] [address] [place] [address] Care Team Providers Care Ice Scraper Name Role Phone Unavailable Primary Care Provider [...] Encounters Date Type Department Care Team Description 08/07/2024 9:00 AM EDT Office Visit [facility] [address] [place] [address] Jose Aguilera DMD 07/16/2024 Orders Only GENERIC EXTERNAL DATA DEPARTMENT Provider, Generic External Data 07/12/2024 2:30 PM EDT Office Visit [facility] [address] [place] [address] Jose Aguilera DMD 06/22/2024 1:30 PM EDT Office Visit [facility] [address] [place] [address] Jose Aguilera DMD 06/05/2024 2:00 PM EDT Office Visit [facility] [address] [place] [address] IsaiasAlessandra Dental plaque (Primary Dx); Missing teeth, acquired 06/02/2024 10:30 AM EST Office Visit [facility] [address] [place] [address] Jose Aguilera DMD from Last 3 Months [...] Sign Reading Time Taken Comments Blood Pressure 138/78 08/07/2024 8:47 AM EDT Pulse 60 08/07/2024 8:47 AM EDT Temperature - - Respiratory Rate - - Oxygen Saturation - - Inhaled Oxygen Concentration - - Weight - - Height - - Body Mass Index - - Plan of Treatment Upcoming Encounters Date Type Department Care Team (Late st Contact Info) Description 08/25/2024 2:30 PM EDT Office Visit [facility] [address] [place] [address] Jose Aguilera, DMD [address] [place] [address] 12/07/2024 3:00 PM EDT Office Visit [facility] [address] [place] [address] Isaias, Alessandra [address] [place] [address] Health Maintenance Due Date Last Done Comments [...] 12/07/2024 06/05/2024, 0 08/22/2015, 02/10/2010 Tobacco Screening 08/07/2025 08/07/2024 Dental X-Ray: Full Mouth 06/04/2027 06/02/2024, 04/30 [...] patient's age to complete this topic Meningococcal B Vaccine Aged Out No l onger eligible based on patient's age to complete [...] Procedure Name Priority Date/Time Associated Diagnosis Comments WAX TRY IN Routine 08/07/2024 9:00 AM EDT XR CHEST 1 VIEW Routine 07/16/2024 2:24 AM EDT COMPREHENSIVE METABOLIC PANEL Routine 07/16/2024 1:19 AM EDT CBC WITH AUTO DIFFERENTIAL Routine 07/16/2024 1:19 AM EDT SARS COV2/INFLUENZA A/B AND RSV RNA QL NAAT Routine 07/16/2024 1:19 AM EDT BITE REGISTRATION Routine 07/12/2024 2:3 0 PM [...] or Most Recently Relevant to Health Maintenance Results * XR Chest 1 View (07/16/2024 2:24 AM EDT) Anatomical Region Laterality Modality Chest Radiographic Raegan ging 07/16/2024 2:24 AM EDT Narrative 07/16/2024 2:25 AM EDT ? [facility] ?[address] ?[place] [address] ?XRay Report ? Signed ? Patient: Luis A Colorado G ?MR#: [id number] ?? 6 ? : 1955 ?Acct:[id number] ? Age/Sex: 69 / M ?ADM Date: 04/20/25 ? Loc: HO.ED ? Attending Dr: ? Ordering Physician: Santa Tompkins MD ?? Date of Service: 07/16/24 ?? Procedure(s): XR chest 1V ?? Accession Number(s): [id number] ? cc: [facility]; Santa Tompkins MD ? CLINICAL HISTORY: sob ? 1 view chest x-ray ? Comparison: Chest x-ray from 07/14/2024 ? Findings: ?? Low lung volumes with mild bibasilar atelectasis and/or pneumonitis. No ?? pneumothorax or pleural effusion. Mild emphysematous changes are ?? redemonstrated. ?? Imaged mediastinum and imaged osseous structures are unchanged. ? IMPRESSION: ?? Mild bibasilar atelectasis and/or pneumonitis. ? This document has been electronically signed by: Joe Barreto MD on ?? 07/16/2024 02:24:10 ? Dictated By: ?Joe Barreto MD ? Signed By: ?<Electronically signed by Joe Barreto MD in OV> ? 07/16/24 0224 ? DD/ 3 ? TD/TT: 07/16/24223 ? Concrete Craftsman: ? Procedure Note Jodie, Nile - 07/18/[address] [address] XRay Report Signed Patient: Luis A Colorado GMR#: [id number] 6 : 1955cct:[id number] Age/Sex: 69 / MADM Date: 07/16/24 Loc: HO.ED Attending Dr: Ordering Physician: Santa Tompkins MD Date of Service: 07/16/24 Procedure(s): XR chest 1V Accession Number(s): [id number] cc: [facility]; Santa Tompkins MD CLINICAL HISTORY: sob 1 view chest x-ray Comparison: Chest x-ray from 07/14/2024 Findings: Low lung volumes with mild bibasilar atelectasis and/or pneumonitis. No pneumothorax or pleural effusion. Mild emphysematous changes are redemonstrated. Imaged mediastinum and imaged osseous structures are unchanged. IMPRESSION: Mild bibasilar atelectasis and/or pneumonitis. This document has been electronically signed by: Joe Barreto MD on 07/16/2024 02:24:10 Dictated By: Joe Barreto MD Signed By: <Electronically signed by Joe Barreto MD in OV> 07/16/24223 DD/ 3 TD/TT: 07/16/24223 Concrete Craftsman: [facility] External Provider IMG XR PROCEDURES Edited Result - Final * SARS-CoV-2 RNA, Influenza A/B, and RSV RNA, Ql NAAT (07/16/2024 1:19 AM EDT) [facility] Influenza A PCR NEGATIVE Negative [facility] Influenza B PCR NEGATIVE Negative [facility] Resp Syncy Virus RNA Qual PCR NEGATIVE Negative [facility] SARS COV2 PCR NEGATIVE Negative [facility] Comment:All test results mus t be correlated with clinical findings.Negative results do not preclude SARS-CoV2, influenza Avirus, influenza B virus and/or RSV infectionand should not be used as the sole basis for treatment orother patient management decisions. Negative results must becombined with clinical observations, patient history, andepidemiological information.This test has not been evaluated for monitoring treatment ofinfection.This test has been authorized by the FDA under an EmergencyUse Authorization (EUA) for use by authorized laboratories.Testing performed on the Student Designed GeneXpert utilizingreal-time RT-PCR.All SARS CoV2 and positive influenza A/B results arereported to [facility]. 07/16/2024 1:19 AM EDT 07/16/2024 1:25 AM EDT us Generic External Data Provider LAB MICROBIOLOGY - GENERAL ORDERABLES Final Result [facility] [address] [place] [address] [phone] * (ABNORMAL) CBC auto differential (07/16/2024 1:19 AM EDT) [facility] White Blood Count 7.5 4.8 - 10.8 X10*3/uL [facility] Red Blood Count 5.06 4.60 - 5.80 X10*6/uL [facility] Hemoglobin 15.2 14.0 - 18.0 g/dl [facility] Hematocrit 43.5 42.0 - 52.0 % [facility] Mean Corpuscular Volume 86.0 80.0 - 98.0 fL [facility] Mean Corpuscular Hemoglobin 30.0 27.0 - 33.0 pg [facility] Mean Corpuscular HGB Conc 34.9 31.0 - 36.0 g/dl [facility] Red Cell Distribution Width 13.7 11.0 - 16.0 % [facility] Platelet Count 232 160 - 400 X10*3/uL [facility] Mean Platelet Volume 9.5 9.4 - 12.4 fL [facility] Neutrophils Percent Auto 52.5 45 - 73 % [facility] Imm Gran Pct Auto 0.1 0.0 - 0.4 % [facility] Lymphocytes Percent Auto 35.1 20 - 40 % [facility] Monocytes Percent Auto 11.1(H) 2 - 11 % [facility] Eosinophils Percent Auto 0.9 0 - 4 % [facility] Basophils Percent Auto 0.3 0 - 2 % [facility] NRBC Pct Auto 0.0 0.0 - 0.2 /100WBC [facility] Neutrophils Absolute Auto 3.9 2.0 - 8.3 x10*3/uL [facility] Imm Gran Abs Auto 0.01 0.00 - 0.03 X10*3/uL [facility] Lymphocytes Absolute Auto 2.6 1.2 - 4.9 X10*3/uL [facility] Monocytes Absolute Auto 0.8 0.1 - 1.2 X10*3/uL [facility] Eosinophils Absolute Auto 0.1 0.0 - 0.4 X10*3/uL [facility] Basophils Absolute Auto 0.0 0.0 - 0.2 X10*3/uL [facility] NRBC Abs Auto 0.000 0.0 - 0.012 X10*3/uL [facility] 07/16/2024 1:19 AM EDT 07/16/2024 1:25 AM EDT us Generic External Data Provider LAB BLOOD ORDERAB LES Final Result [facility] [address] [place] [address] [phone] * (ABNORMAL) Comprehensive Metabolic Panel (07/16/2024 1:19 AM EDT) Sodium 137 135 - 145 mmol/L [facility] Potassium 4.1 3.3 - 5.1 mmol/L [facility] Comment:Slight Hemolysis.Int erpret result with caution. Chloride 105 96 - 108 mmol/L [facility] Carbon Dioxide 20(L) 22 - 29 mmol/L [facility] Anion Gap 16 12 - 20 [facility] Urea Nitrogen (BUN) 9 9 - 16 mg/dL [facility] Creatinine, Serum 0.98 0.5 - 1.4 mg/dL [facility] Creatinine Clr Calc Pharmacy 81.6 [facility] Comment:eGFR (calculated fro m the MDRD study equation) and eCrCl(calculated from the Cockcroft-Gault equation) are based ondifferent parameters and may not yield comparable results.If eCrCl result is absurd, please check patient'sheight/weight. Estimated Glomerular Filt Rate >60 [facility] Comment:Chronic Kidney Disea se: Estimated GFR < 60 mL/min/[id number] Kidney Disease: Estimated GFR < 15 mL/min/1.73m2 Glucose 115 60 - 115 mg/dL [facility] Calcium 8.7 8.4 - 10.2 mg/dL [facility] Bilirubin, Total 0.5 0.0 - 1.0 mg/dL [facility] Aspartate Amino Transferase 28 5 - 37 U/L [facility] Comment:Slight Hemolysis.Int erpret result with caution. Alanine Aminotransferase 17 0 - 40 U/L [facility] Total Protein 7.7 6.5 - 8.0 g/dL [facility] Albumin Level 4.0 3.5 - 5.0 g/dL [facility] Alkaline Phosphatase 62 39 - 117 U/L [facility] 07/16/2024 1:19 AM EDT 07/16/2024 1:25 AM EDT us Generic External Data Provider LAB BLOOD ORDERAB LES Final Result [facility] [address] [place] [address] [phone] from Last 3 Months Insurance
--- OUTSIDE RECORDS SUMMARY | 2024-08-15 16:35 | XMS_ITS | Continuity of Care Document ---
Author Organization [facility] Address [address] [place] [address] Phone Care Team Providers Care Computer Programmer Chief Name Role Phone Alison Potter Unavailable Unavailable [...] Diagnoses Date Provider Providers Copied on Encounter [facility], [address] [place], [address], [place] tel:[phone] Endoscopy [facility] No Information Wilma DIANNE-C Alison. [facility], [address], [place], [id number], [place]. tel:[phone] Family History Family Member Type Diagnosis Age At Onset No Information Payers Payer name Insurance type Covered republican ID Authoriza tion(s) No Information Social History [...]
== END 2024-08-15 16:13 | disposition home or self-care (01) ==
LOC: HO.HGI 15:37
PROVIDERS: PCP Internal Medicine; Visit Provider Nurse Practitioner
DX: D12.6 Benign neoplasm of colon, unspecified (principal); K80.20 Calculus of gallbladder without cholecystitis without obstruction
CPT/HCPCS: 99213

== ENCOUNTER → 2024-08-15 15:36 | Outpatient (BNVA) | payer MEDICARE, OTHER, MEDICAID, SELFPAY | PROVIDERS: PCP Internal Medicine; Visit Provider Nurse Practitioner | DX: D12.6 Benign neoplasm of colon, unspecified (principal); K80.20 Calculus of gallbladder without cholecystitis without obstruction | CPT/HCPCS: 99212 ==

== ENCOUNTER 2024-08-28 09:15 | Outpatient (REF) | payer MEDICARE, OTHER, MEDICAID, SELFPAY ==
--- OUTSIDE RECORDS SUMMARY | 2024-08-28 09:54 | XMS_ITS | Continuity of Care Document ---
Author Name [facility] Organization [facility] Care Team Providers Care Team Foreman Name Role Phone [facility] Unavailable Unavailable Problems Combined list of problems from Department of Defense and Veterans Affairs facilities. It does not include entries that were removed or entered in error. Problem Status Onset Date Problem Type Date of Resolution Comments Source Adhesive capsulitis of shoulder (ICD-9-CM 726.0) Active Condition [facility] Anxiety (SCT [id number]) Active Condition [facility] Back Pain (ICD-9-CM 724.5) Active Condition [facility] Benign prostatic hyperplasia Active Condition [facility] Care involving other physical therapy (ICD-9-CM V57.1) Active Condition [facility] Chronic pancreatitis Active Condition [facility] Chronic Post-Traumatic Stress Disorder (SCT [id number]) Active Condition [facility] Colon Polyp (ICD-9-CM 211.3) Active Condition [facility] Constipation, unspecified (ICD-9-CM 564.00) Active Condition [facility] Depressive disorder Active Condition [facility] Gastroesophageal reflux disease Active Condition [facility] Genital herpes simplex Active Condition [facility] Herpes Simplex * (ICD-9-CM 054.9) Active Condition [facility] History of colonic polyp Active Condition [facility] Hypertrophy (Benign) of Prostate without Urinary obstruction and other lower Uri Active Condition [place] [facility] Insomnia Active Condition [facility] Kidney stone Active Condition [facility] Low back [facility] Active Condition [facility] MAJOR DEP W/PSYCHOTIC FEATURES Active Condition [facility] Neuralgia, neuritis, and radiculitis (ICD-9-CM 729.2) Active Condition [facility] Obesity Active Condition [facility] Other and unspecified hyperlipidemia Active Condition [facility] Pain in joint involving shoulder region (ICD-9-CM 719.41) Active Condition [facility] RL Quadrant Abdominal Pain Active Condition [facility] Sleep apnea Active Condition Mar 04, 2022 Entered By: GERSON KEITA JAWED Comment: pt on cpap--using it [facility] [place] VACCIN FOR INFLUENZA Active Condition [facility] Diagnosis: ICD-10-CM H43.813 Vitreous degeneration, bilateral Active Diagnosis [facility] [place] [facility] Diagnosis: ICD-10-CM G47.33 Obstructive sleep apnea (adult) (pediatric) Active Diagnosis [facility] Diagnosis: ICD-10-CM G47.30 Sleep apnea, unspecified Active Diagnosis [facility] Diagnosis: ICD-10-CM Z46.0 Encounter for fit/adjst of spectacles and contact lenses Active Diagnosis [facility] [place] [facility] Diagnosis: ICD-10-CM H11.043 Peripheral pterygium, stationary, bilateral Active Diagnosis [facility] Diagnosis: ICD-10-CM M54.50 Low back pain, unspecified Active Diagnosis [facility] [place] [facility] Medications Combined list of outpatient [...] MOUTH FIVE TIMES A DAY ORAL 07/20/2024 [id number] FURCOLO,T [facility] 2023 50 [facility] AMYLASE 120,000UNIT /LIPASE 24,000UNIT/ PROTEASE 76,000UNIT CAP,EC TAKE 4 CAPSULES BY MOUTH FOUR TIMES A DAY ORAL ACTIVE DONNA KEITA JAWSTEVE 2019 [facility] CARBOXYMETH YLCELLULOSE NA 0.5% (PF) SOLN,OPH,UD INSTILL 1 DROP INTO EACH EYE EVERY 2 HOURS WHILE AWAKE OPHTHA LMIC 05/18/2024 [id number] KINCAID,LAC EY J 2023 100 [facility] CLOTRIMAZOL E 1% CREAM,TOP APPLY A SMALL AMOUNT TOPICALL Y TWICE DAILY FOR FUNGAL INFECTIO N TOPICA L 07/20/2024 [id number] FURCOLO,T [facility] 2023 30 [place] HYPROMELLOS E 0.3% GEL,OPH APPLY 1 DROP INTO EACH EYE FOUR TIMES DAILY NEEDED OPHTHA LMIC HOLD 05/17/2025 [id number] Isabel HOWARD NDREW E 2024 20 [facility] LIDOCAINE 5% PATCH APPLY 1 PATCH TOPICALL Y ONCE DAILY (LEAVE PATCH ON FOR 12 HOURS, THEN REMOVE PATCH) TOPICA L ACTIVE 08/27/2024 [id number] FURCOLO,T [facility] 2023 30 [facility] LIDOCAINE 5% PATCH APPLY 1 PATCH TOPICALL Y ONCE DAILY (LEAVE PATCH ON FOR 12 HOURS, THEN REMOVE PATCH) TOPICA L DISCONT INUED 09/04/2023 [id number] NEELA,DONNA AMMED JAWED 2022 30 [facility] LORATADINE 10MG TAB TAKE ONE TABLET BY MOUTH ONCE DAILY FOR ALLERGY ORAL ACTIVE 08/10/2025 [id number] FURCOLO,T [facility] 2024 90 [facility] LORATADINE 10MG TAB TAKE ONE TABLET BY MOUTH ONCE DAILY FOR ALLERGY ORAL DISCONT INUED 04/27/2024 [id number] AHMED,MOH AMMED JAWED 2023 90 [facility] MINERAL OIL,LIGHT/P ETROLATUM (PF) OINT,OPH APPLY SMALL AMOUNT INTO EACH EYE AT BEDTIME OPHTHA LMIC ACTIVE 07/11/2025 [id number] 5 Isabel HOWARD NDREW E 2024 3 [facility] NYSTATIN [id number]/G M OINT,TOP APPLY MODERATE AMOUNT TOPICALL Y TWICE DAILY FOR FUNGAL INFECTIO N TOPICA L 03/03/2024 [id number] DONNA KEITA JAWED 2022 60 [facility] OMEPRAZOLE 20MG CAP,EC TAKE 2 CAPSULES BY MOUTH TWICE DAILY ORAL ACTIVE [facility] AM[facility] JAWED 2019 [facility] PEG-400 0.4%/PROPYL CANDE GLYCOL 0.3% SOLN,OPH,UD INSTILL 1 DROP INTO EACH EYE FOUR TIMES DAILY NEEDED OPHTHA LMIC ACTIVE 07/11/2025 [id number] 5 Isabel HOWARD NDREW E 2024 30 [facility] ROSUVASTATI N CA 20MG TAB TAKE ONE-HALF TABLET BY MOUTH AT BEDTIME FOR CHOLESTE ROL ORAL ACTIVE 01/11/2025 [id number] FURCOLO,T [facility] 2023 45 [facility] ROSUVASTATI N CA 20MG TAB TAKE ONE-HALF TABLET BY MOUTH ONCE DAILY FOR CHOLESTE ROL ORAL 09/04/2023 [id number] DONNA KEITA ALIYA JAWED 2022 [facility] SUVOREXANT 5MG TAB,UD TAKE ONE TABLET BY MOUTH AT BEDTIME ORAL ACTIVE [facility] AMMED JAWED 2019 [facility] TAMSULOSIN HCL 0.4MG CAP TAKE 1 CAPSULE BY MOUTH AT BEDTIME [facility]AL [facility] 2019 [facility] [place] [facility] Allergies, Adverse Reactions, Alerts Combined list of allergies from Department of Defense and Veterans Affairs facilities. It does not include entries that were removed or entered in error. Substance Category Reaction Severity Reaction type Status Date Reported Comments Source NAPROXEN Propensity to adverse reactions to drug (finding) Epigastric discomfort active 2 [facility] [place] [facility] Immunizations Combined list of available immunizations from the Department of Defense and Veterans Affairs facilities. 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 INFLUENZA, UNSPECIFIED FORMULATION 2021 88 complet ed HISTORICA L INFORMATI ON - SOURCE UNSPECIFI ED, [facility] INFLUENZA, UNSPECIFIED FORMULATION 2020 88 complet ed [facility] COVID-19 (PFIZER), MRNA, LNP-S, PF, 30 MCG/0.3 ML DOSE 3 2020 208 complet ed [facility] PNEUMOCOCCAL POLYSACCHARID E PPV23 2020 33 complet ed [facility] TDAP 2020 115 complet ed [facility] COVID-19 (PFIZER), MRNA, LNP-S, PF, 30 MCG/0.3 ML DOSE 2 2020 208 complet ed PFR; [id number]; 1 [facility] COVID-19 (PFIZER), MRNA, LNP-S, PF, 30 MCG/0.3 ML DOSE 1 2020 208 complet ed PFR; [id number]; [facility] INFLUENZA, SEASONAL, INJECTABLE 2018 141 complet ed [facility] INFLUENZA, UNSPECIFIED FORMULATION 2008 88 complet ed [facility] INFLUENZA, UNSPECIFIED FORMULATION 2007 88 complet ed [facility] INFLUENZA, UNSPECIFIED FORMULATION 2006 88 complet ed [facility] INFLUENZA, UNSPECIFIED FORMULATION 2005 88 complet ed [facility] INFLUENZA, UNSPECIFIED FORMULATION 2004 88 complet ed [facility] TD(ADULT) UNSPECIFIED FORMULATION 2002 139 complet ed [facility] Vital Signs Combined list of inpatient and [...] Disposition Source [facility] OFFICE O/P EST MOD 30-39 MIN [id number] Diagnos is: ICD-10- CM M54.50 Low back pain, unspeci fied MACK KEITA MMED JAWED 03/03 [facility] Outpatient Encounter [id number] 03/11 [facility] Outpatient Encounter [id number] 04/13 [facility] [place] [place] Outpatient Encounter [id number] 04/27 [facility] [place] [facility] FEE [id number] Diagnos is: ICD-10- CM G47.33 Obstruc tive sleep apnea (adult) (pediat violeta) Lata BULL 05/04 [facility]P EST LOW 20 MIN [id number] Diagnos is: ICD-10- CM G47.33 Obstruc tive sleep apnea (adult) ([facility] violeta) RELL MILLS 05/04 [facility] [place] Outpatient Encounter [id number] 05/04 [facility] [place] [facility] [place] COMPRE OPH EXAM EST PT 1/> [id number] Diagnos is: ICD-10- CM H11.043 Periphe ral pterygi um, station darius, bilater al BONNIE KINCAID 05/18 [facility] [place] FIT SPECTACLES BIFOCAL [id number] Diagnos is: ICD-10- CM Z46.0 Encount er for fit/adj st of spectac les and contact lenses BONNIE KINCAID 05/19 [facility] [place] RPR&REFITG SPECT XCP APHAKIA [id number] Diagnos is: ICD-10- CM Z46.0 Encount er for fit/adj st of spectac les and contact lenses USHA GARCIA 06/01 [facility] [place] En[facility] [id number] 07/19 [facility] [place] En[facility] [id number] 08/26 [facility] [id number] 09/05 [facility] [place] [place] OFFICE O/P EST LOW 20 MIN [id number] Diagnos is: ICD-10- CM G47.30 Sleep apnea, unspeci fied FURCOLO,TI NA 09/05 [facility] [place] OFFICE O/P EST LOW 20 MIN [id number] Diagnos is: ICD-10- CM G47.33 Obstruc tive sleep apnea (adult) (pediat violeta) SVENO-UY KINJALRELL 09/06 [facility] FEE [id number] Diagnos is: ICD-10- CM G47.30 Sleep apnea, unspeci fied SHOBANDGiuseppe,O VELVETOWALE 09/06 [place] [facility] Out[facility] Encounter [id number] 09/08 [facility] [place] Encounter [id number] 09/08 [facility] [place] Encounter [id number] 10/06 [facility] Encounter [id number] 01/10 [facility] INTRM OPH EXAM EST PATIENT [id number] Diagnos is: ICD-10- CM H43.813 Vitreou s degener attima reyez abdiel HOWARD,RAMON HILL E 05/16 [facility] En[facility] [id number] 06/15 [facility] En[facility] [id number] 06/28 [facility] INTRM OPH EXAM EST PATIENT [id number] Diagnos is: ICD-10- CM H43.813 Vitreou s degener ation, tima abdiel HOWARD,RAMON HILL E 07/10 [facility] En[facility] [id number] 07/19 [facility] En[facility] [id number] 08/08 [facility] En[facility] [id number] 08/28 [facility] Social History Combined list of available smoking, tobacco, and other social history from Department of Defense and Veterans Affairs facilities. Social History Type Response Date Comment Source Tobacco smoking status [facility] VA-TOBACCO NEVER USED 09/06/[address] [facility] [place] [facility] History of tobacco use VA-TOBACCO FORMER USER 09/03/2022 [facility] History of tobacco use QUIT TOBACCO USE > 7 YEARS AGO 05/13/2021 smoked for one year after his divorce [facility] History of tobacco use [facility] NEVER USED 05/18/2019 [facility] History of tobacco use QUIT TOBACCO >7 YEARS AGO 05/22/2009 [facility] History of tobacco use LIFETIME NON-SMOKER 04/02/2009 [facility] History of tobacco use LIFETIME NON-SMOKER 06/14/2006 [facility] History of tobacco use CURRENT NON-SMOKER 06/04/2005 1 pack cig every 2 days. [facility] History of tobacco use CURRENT NON-SMOKER 01/10/2004 [facility] History of tobacco use CURRENT NON-SMOKER 12/07/2001 [facility] Plan of Care List of future care activities from [facility] facilities. Additional future care activities may be listed in the Assessment and Plan section. Date/Time Care Activity Care Activity Detail Facili ty 09/01/2024 AMBULATORY - SURGERY AMBULATORY - SURGERY [facility] Advance Directives List of completed, amended, or rescinded Advance Directives on record at [facility] facilities. An actual copy of the Directive is not included. Date Advance Directive Provider Source 10/02/2008 ADVANCE DIRECTIVE DISCUSSION [facility] 12/31/2006 ADVANCE DIRECTIVE DISCUSSION [facility] 06/04/2005 ADVANCE DIRECTIVE [facility] 07/07/2004 ADVANCE DIRECTIVE [facility] 12/06/2002 ADVANCE DIRECTIVE KAJAL [facility]
[2024-08-28 11:14] LABS: Prostate Specific Antigen 2.15 ng/mL (<0.05-4.0)
== END 2024-08-28 09:16 | disposition home or self-care (01) ==
LOC: HO.LAB 09:15
PROVIDERS: PCP Internal Medicine; Visit Provider Urology
DX: N40.0 Benign prostatic hyperplasia without lower urinary tract symptoms (principal); Z12.5 Encounter for screening for malignant neoplasm of prostate
CPT/HCPCS: 36415; 84153

== ENCOUNTER 2024-09-06 09:56 | Outpatient (AMB) | payer MEDICARE, OTHER, SELFPAY ==
--- NOTE | 2024-09-06 10:08 | MHC.OFFVIS ---
Intake Visit Reasons: 1y/PSA Intake Note: Patient is present for 1Y/PSA Urology Medication:TAMSULOSIN Antibiotic Allergy:NONE Blood Thinner:NONE Soaping Machine Back Tender Required: No Allergies lovastatin Allergy (Unknown, Verified 09/06/24 10:09) GI upset HPI Comments Details: Mary is a pleasant male. He is a patient of Dr. Hernandez. 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 - Tamsulosin is being utilized for management and is reported to be effective. - PSA level is noted as 2.2, deemed satisfactory for age. Lower urinary tract symptoms Mild weakness Incomplete emptying Parameters stable with 0.8 mg Flomax daily Does have some degree of contact dermatitis on penile glans secondary to over usage of soap PSA 09/20 2.2 Balanitis Resolved with topical therapy [facility] Medical History (Updated 08/15/24 @ 16:37 by SARBJIT Lujan) Encounter for subsequent annual wellness visit (AWV) in Medicare patient Upper abdominal pain Back pain Screening for diabetes mellitus Dizziness Shoulder pain Left foot pain Obesity Ankle pain BMI 31.0-31.9,adult Adult general medical exam Abnormality of penis Balanitis Tinea cruris Abdominal bloating Thrombosed external hemorrhoid Chronic GERD Urinary frequency Other obstructive and reflux uropathy Renal stones Chronic superficial gastritis without bleeding BPH loc w urin obs/LUTS Insomnia Tubular adenoma of colon Surgical History History of esophagogastroduodenoscopy (EGD) Hx of colonoscopy History of appendectomy Family History Father No problems noted. Mother HTN (hypertension) Asthma Sister HTN (hypertension) Throat cancer Social History Housing: Apartment Alcohol intake: never Patient Tobacco Use Status: Never used Tobacco e-Cigarette/Vaping Use: Never Used Second Hand Smoke Exposure: No Advance Directives Date on File: 11/25/20 service: Yes ([employer]) Current occupational status: retired Cognitive needs: No Hearing needs: No Vision needs: Yes (glasses) Review of Systems Const Denies chills and Denies fever(s) Card Reports no additional complaints and Denies syncope Resp Denies cough GI Denies abdominal pain and Denies heartburn Reports as per HPI and Denies change in libido Neuro Denies syncope Psych Denies change in libido Endo Denies change in libido Physical Exam Const General: cooperative, healthy appearing, comfortable and no acute distress Orientation/consciousness: patient oriented x3 HEENT Face and sinus: Yes normal facial exam Mouth: moist mucous membranes Neck Neck: Yes normal visual inspection, Yes full ROM and Yes trachea midline Chest Chest palpation & inspection: normal inspection of the chest Resp Effort & Inspection: normal respiratory effort, able to speak in complete sentences and no respiratory distress GI Inspection: Yes normal to inspection Back/Spine/Pelvis Cervical Spine: normal cervical lordosis Thoracic/Lumbar Spine: thoracic and lumbar spine normal to inspection Skin General skin exam: no rashes or lesions noted Neuro General: patient oriented x3, gait normal, tone normal and moves all extremities Extrem General: Yes normal to inspection and Yes capillary refill normal Assessment & Plan Assessment & Plan (1) BPH (benign prostatic hyperplasia): Code(s): N40.0 - Benign prostatic hyperplasia without lower urinary tract symptoms Category: Medical (2) Renal stones: Code(s): N20.0 - Calculus of kidney Category: Medical Plan Plan 1. Benign Prostatic Hyperplasia Continue Tamsulosin. Stable symptom management reported. PSA at 2.2, satisfactory for age. Extend PSA interval to biannual screening. Follow-up in one year recommended. Discussion Notes During our discussion, I reaffirmed the efficacy of Tamsulosin in managing the patient's Benign Prostatic Hyperplasia-related urinary symptoms, specifically nocturia, which is currently stable and not considered bothersome. The patient's PSA level of 2.2 is satisfactory, aligning with age-specific expectations. We agreed to extend the PSA screening interval to every two years, considering current stability. I encouraged the continuation of Tamsulosin, and the patient consented to the proposed management strategy, understanding its benefits. I also advised to monitor urinary patterns and instructed on seeking further medical care if there are any significant changes. Follow-up is scheduled for next year unless symptoms warrant earlier consultation. Patient Instructions - Continue taking Tamsulosin as prescribed. - Monitor urination patterns, especially at night. - Report any significant changes in urinary symptoms. - PSA test will be scheduled every two years. - Return for follow-up visit in one year. Coding Level of Care Code Est Pt Level 4 (33538) Complex EM visit Add On G2211 Diagnoses BPH (benign prostatic hyperplasia) N40.0 Renal stones N20.0
--- OUTSIDE RECORDS SUMMARY | 2024-09-06 11:02 | XMS_ITS | Clinical Summary ---
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 Name Role Phone Unavailable Primary Care Provider Unavailabl e Allergies Active Allergy Reactions Criticality Noted Date Comments Naproxen Abdominal Pain 05/13/2021 Other Reaction(s): Epigastric discomfort Medications ammonium lactate (Amlactin) 12 % cream [...] 06/22/2024 Need for immunization against influenza 06/23/19 25 Obesity 06/22/2024 Right lower quadrant abdominal pain 06/22/2024 Sleep apnea, unspecified 06/22/2024 Obstructive sleep apnea (adult) (pediatric) 05/28 Peripheral pterygium, stationary, bilateral 05/28 Vitreous degeneration, bilateral 06/22/2024 Encounters Date Type Department Care Team Description 09/04/2024 9:00 AM EDT Office Visit [facility] [address] [place] [address] Jose Aguilera DMD 08/25/2024 2:30 PM EDT Office Visit [facility] [address] [place] [address] Jose Aguilera DMD 08/07/2024 9:00 AM EDT Office Visit [facility] [address] [place] [address] Jose Aguilera DMD 07/16/2024 Orders Only GENERIC EXTERNAL DATA DEPARTMENT Provider, Generic External Data 07/12/2024 2:30 PM EDT Office Visit [facility] [address] [place] [address] Jose Aguilera DMD 06/22/2024 1:30 PM EDT Office Visit [facility] [address] [place] [address] Jose Aguilera DMD from Last 3 Months [...] Sign Reading Time Taken Comments Blood Pressure 134/88 09/04/2024 9:00 AM EDT Pulse 60 08/07/2024 8:47 AM EDT Temperature - - Respiratory Rate - - Oxygen Saturation - - Inhaled Oxygen Concentration - - Weight - - Height - - Body Mass Index - - Plan of Treatment Upcoming Encounters Date Type Department Care Team (Late st Contact Info) Description 12/07/2024 3:00 PM EDT Office Visit [facility] [address] [place] [address] Isaias, Alessandra [address] [place] [address] Health Maintenance Due Date Last Done Comments [...] 12/07/2024 06/05/2024, 0 08/22/2015, 02/10/2010 Tobacco Screening 09/04/2025 09/04/2024 Dental X-Ray: Full Mouth 06/04/2027 06/02/2024, 04/30 [...] Procedure Name Priority Date/Time Associated Diagnosis Comments DENTURE ADJUSTMENT Routine 09/04/2024 9: 00 AM EDT CASE PRESENTATION, DETAILED AND EXTENSIVE TREATMENT PLANNING Routine 08/25/2024 2:30 PM EDT 18,19,20,30,31,27,29 MANDIBULAR PARTIAL DENTURE - RESIN BASE (INCLUDING, RETENTIVE/CLASPING MATERIALS, RESTS, AND TEETH) Routine 08/25/2024 2:30 PM EDT WAX TRY IN Routine 08/07/2024 9:00 AM EDT XR CHEST 1 VIEW Routine 07/16/2024 2:24 AM EDT COMPREHENSIVE METABOLIC PANEL Routine 07/16/2024 1:19 AM EDT CBC WITH AUTO DIFFERENTIAL Routine 07/16/2024 1:19 AM EDT SARS COV2/INFLUENZA A/B AND RSV RNA QL NAAT Routine 07/16/2024 1:19 AM EDT BITE REGISTRATION Routine 07/12/2024 2:3 0 PM EDT DENTURE IMPRESSION Routine 06/22/2024 1: 30 PM EDT PROPHYLAXIS - ADULT Routine 06/05/2024 2 :00 PM EDT Dental plaque Missing teeth, acquired PANORAMIC RADIOGRAPHIC IMAGE Routine 06/02/2024 10:30 AM EST PERIODIC ORAL EVALUATION - ESTABLISHED PATIENT Routine 06/02/2024 10:30 AM EST INTRAORAL - COMPLETE SERIES OF RADIOGRAPHIC IMAGES Routine 05/27/2015 12:00 AM EST from Last 3 Months or Most Recently Relevant to Health Maintenance Results * XR Chest 1 View (07/16/2024 2:24 AM EDT) Anatomical Region Laterality Modality Chest Radiographic Raegan ging 07/16/2024 2:24 AM EDT Narrative 07/16/2024 2:25 AM EDT ? [facility] ?[address] ?[place] [address] ?XRay Report ? Signed ? Patient: Luis A Colorado ?MR#: [id number] ?? 6 ? : 1955 ?Acct:[id number] ? Age/Sex: 69 / M ?ADM Date: 07/16/24 ? Loc: HO.ED ? Attending Dr: ? Ordering Physician: Santa Tompkins MD ?? Date of Service: 07/16/24 ?? Procedure(s): XR chest 1V ?? Accession Number(s): [id number] ? cc: [facility]; Santa Tompkins MD ? CLINICAL HISTORY: sob [...] in OV> ? 07/16/24 0224 ? DD/ 0224 ? TD/TT: 07/16/24223 ? Photogeologist: ? Procedure Note Donotuseinterpreter, Image - 07/18/[address] [address] XRay Report Signed Patient: Luis A Colorado GMR#: [id number] 6 : 4Acct:[id number] Age/Sex: 69 / MADM Date: 07/16/24 Loc: HO.ED Attending Dr: Ordering Physician: Santa Tompkins MD Date of Service: 07/16/24 Procedure(s): XR chest 1V Accession Number(s): [id number] cc: [facility]; Santa Tompkins MD CLINICAL HISTORY: sob 1 [...] in OV> 07/16/24223 DD/ 3 TD/TT: 07/16/24223 Photogeologist: [facility] External Provider IMG XR PROCEDURES Edited Result - Final * SARS-CoV-2 RNA, Influenza A/B, and RSV RNA, Ql NAAT (07/16/2024 1:19 AM EDT) Influenza A PCR NEGATIVE Negative [facility] Influenza B PCR NEGATIVE Negative [facility] Resp Syncy Virus RNA Qual PCR NEGATIVE Negative [facility] SARS COV2 PCR NEGATIVE Negative [facility] Comment:All test results mus [...] use by authorized laboratories.Testing performed on the [employer] GeneXpert utilizingreal-time RT-PCR.All SARS CoV2 and positive influenza A/B results arereported to [facility]. 07/16/2024 1:19 AM EDT 07/16/2024 1:25 AM EDT us Generic External Data Provider LAB MICROBIOLOGY - GENERAL ORDERABLES Final Result [facility] [address] [place] [phone] * (ABNORMAL) CBC auto differential (07/16/2024 1:19 AM EDT) White Blood Count 7.5 4.8 - 10.8 X10*3/uL [facility] Red Blood Count 5.06 4.60 - 5.80 X10*6/uL [facility] Hemoglobin 15.2 14.0 - 18.0 g/dl [facility] Hematocrit 43.5 42.0 - 52.0 % [facility] Mean Corpuscular Volume 86.0 80.0 - 98.0 fL [facility] Mean Corpuscular Hemoglobin 30.0 27.0 - 33.0 pg [facility] Mean Corpuscular HGB Conc 34.9 31.0 - 36.0 g/dl [facility] Red Cell Distribution Width 13.7 11.0 - 16.0 % [facility] Platelet Count 232 160 - 400 X10*3/uL [facility] Mean Platelet Volume 9.5 9.4 - 12.4 fL [facility] Neutrophils Percent Auto 52.5 45 - 73 % [facility] Imm Gran Pct Auto 0.1 0.0 - 0.4 % [facility] Lymphocytes Percent Auto 35.1 20 - 40 % [facility] Monocytes Percent Auto 11.1(H) 2 - 11 % [facility] Eosinophils Percent Auto 0.9 0 - 4 % [facility] Basophils Percent Auto 0.3 0 - 2 % [facility] NRBC Pct Auto 0.0 0.0 - 0.2 /100WBC [facility] Neutrophils Absolute Auto 3.9 2.0 - 8.3 x10*3/uL [facility] Imm Gran Abs Auto 0.01 0.00 - 0.03 X10*3/uL [facility] Lymphocytes Absolute Auto 2.6 1.2 - 4.9 X10*3/uL [facility] Monocytes Absolute Auto 0.8 0.1 - 1.2 X10*3/uL [facility] Eosinophils Absolute Auto 0.1 0.0 - 0.4 X10*3/uL [facility] Basophils Absolute Auto 0.0 0.0 - 0.2 X10*3/uL [facility] NRBC Abs Auto 0.000 0.0 - 0.012 X10*3/uL [facility] 07/16/2024 1:19 AM EDT 07/16/2024 1:25 AM EDT us Generic External Data Provider LAB BLOOD ORDERAB LES Final Result [facility] [address] [place], [place] [phone] * (ABNORMAL) Comprehensive Metabolic Panel (07/16/2024 1:19 AM EDT) Sodium 137 135 - 145 mmol/L [facility] Potassium 4.1 3.3 - 5.1 mmol/L [facility] Comment:Slight Hemolysis.Int erpret result with caution. Chloride 105 96 - 108 mmol/L [facility] Carbon Dioxide 20(L) 22 - 29 mmol/L [facility] Anion Gap 16 12 - 20 [facility] Urea Nitrogen (BUN) 9 9 - 16 mg/dL [facility] Creatinine, Serum 0.98 0.5 - 1.4 mg/dL [facility] Creatinine Clr Calc Pharmacy 81.6 [facility] Comment:eGFR (calculated fro m the MDRD study equation) and eCrCl(calculated from the Cockcroft-Gault equation) are based ondifferent parameters and may not yield comparable results.If eCrCl result is absurd, please check patient'sheight/weight. Estimated Glomerular Filt Rate >60 [facility] Comment:Chronic Kidney Disea se: Estimated GFR < 60 mL/min/1.67t5Tcswok Kidney Disease: Estimated GFR < 15 mL/min/1.73m2 Glucose 115 60 - 115 mg/dL [facility] Calcium 8.7 8.4 - 10.2 mg/dL [facility] Bilirubin, Total 0.5 0.0 - 1.0 mg/dL [facility] Aspartate Amino Transferase 28 5 - 37 U/L [facility] Comment:Slight Hemolysis.Int erpret result with caution. Alanine Aminotransferase 17 0 - 40 U/L [facility] Total Protein 7.7 6.5 - 8.0 g/dL [facility] Albumin Level 4.0 3.5 - 5.0 g/dL [facility] Alkaline Phosphatase 62 39 - 117 U/L [facility] 07/16/2024 1:19 AM EDT 07/16/2024 1:25 AM EDT us Generic External Data Provider LAB BLOOD ORDERAB LES Final Result [facility] [address] [place] [phone] [phone] from Last 3 Months Insurance [id number] [place] [id number] DENTAL - HSN FULL (MEDICAID)
== END 2024-09-06 10:28 | disposition home or self-care (01) ==
LOC: HO.HUSH 09:56
PROVIDERS: PCP Internal Medicine; Visit Provider Urology
DX: N40.0 Benign prostatic hyperplasia without lower urinary tract symptoms (principal); N20.0 Calculus of kidney
CPT/HCPCS: 99214; G2211

== ENCOUNTER → 2024-09-06 09:56 | Outpatient (BNVA) | payer MEDICARE, OTHER, SELFPAY | PROVIDERS: PCP Internal Medicine; Visit Provider Urology | DX: N40.0 Benign prostatic hyperplasia without lower urinary tract symptoms (principal); N20.0 Calculus of kidney | CPT/HCPCS: 99212 ==

== ENCOUNTER 2024-10-08 08:23 | Emergency (ER) | payer MEDICARE, OTHER, SELFPAY ==
[2024-10-08 08:24] VITALS: BP 129/69; PULSE 70; RESP 20; TEMP 35.6; O2SAT 97; BMI 32.4
--- NOTE | 2024-10-08 09:12 | PC.NURSE ---
patient a&ox3, pt c/o neck pain 8/10 pain that began last night, took tylenol at home last night with little relief, no known injury, pt awaiting provider evaluation, plan of care ongoing
--- NOTE | 2024-10-08 10:11 | ED_ITS ---
HPI - Neck Pain/Injury General Chief Complaint: Neck Pain/Injury Stated Complaint: pain in the back of neck Time Seen by Provider: 10/08/24 10:11 Source: patient Mode of arrival: ambulatory Limitations: no limitations History of Present Illness ED Provider: Livia Hughes PA-C HPI Narrative: This is a 69-year-old male, with a past medical history of GERD, hyperlipidemia, IBS, BPH, who presents emergency department with concerns of right-sided neck pain. Patient denies any new trauma or injury. States that he has had tenderness to the right side of his neck. He has been taking Tylenol and using lidocaine patches for his symptoms without any relief. He denies any recent heavy lifting or falls. He denies any fevers, chills, headaches, blurred vision, chest pain, shortness of breath, abdominal pain, nausea, vomiting or diarrhea. No other complaints or concerns at this time. MD complaint: neck pain Onset (ago): hour(s) Quality: aching Duration: constant Relieving factors: none Exacerbating factors: none Associated symptoms: none Treatments prior to arrival: none Related Data Previous Rx's ?Medication ?Instructions ?Recorded tamsulosin 0.4 mg capsule 0.8 mg (2 x 0.4 mg) PO DAILY 90 07/14/24 days #180 caps omeprazole 20 mg capsule,delayed 20 mg PO DAILY #90 ca ps 07/26/24 release sodium,potassium,mag sulfates 17.5 480 ml PO .COMPLEX #354 mL 08/15/24 gram-3.13 gram-1.6 gram oral soln (Suprep Bowel Prep Kit) melatonin 1 mg tablet 2 mg (2 x 1 mg) PO BEDTIME P RN 09/08/24 sleep 30 days #60 tabs acetaminophen 650 mg 650 mg PO Q8H PRN pain #30 t abs 10/08/24 tablet,extended release (Tylenol Arthritis Pain) cyclobenzaprine 10 mg tablet 10 mg PO TID #7 tabs 09/26 06/20 ibuprofen 600 mg tablet 600 mg PO Q6H PRN pain #30 t abs 10/08/24 Allergies Allergy/AdvReac Type Severity Reaction Status Date / Time lovastatin Allergy Unknown GI upset Verified 10/08/24 08:27 Review of Systems Review of Systems: Yes all other systems are reviewed and are negative Constitutional: Constitutional: Reports as per HPI [facility] Past Medical History Medical History (Updated 10/08/24 @ 10:30 by OPAL Munoz) Encounter for subsequent annual wellness visit (AWV) in Medicare patient Upper abdominal pain Back pain Screening for diabetes mellitus Dizziness Shoulder pain Left foot pain Obesity Ankle pain BMI 31.0-31.9,adult Adult general medical exam Abnormality of penis Balanitis Tinea cruris Abdominal bloating Thrombosed external hemorrhoid Chronic GERD Urinary frequency Other obstructive and reflux uropathy Renal stones Chronic superficial gastritis without bleeding BPH loc w urin obs/LUTS Insomnia Tubular adenoma of colon Surgical History History of esophagogastroduodenoscopy (EGD) Hx of colonoscopy History of appendectomy Family History Family History Father No problems noted. Mother HTN (hypertension) Asthma Sister HTN (hypertension) Throat cancer Social History Social History Housing: Apartment Alcohol intake: never Patient Tobacco Use Status: Never used Tobacco Smoked in Last 30 Days: No e-Cigarette/Vaping Use: Never Used Second Hand Smoke Exposure: No Use of substances other than those prescribed or required for medical reasons: No Advance Directives: No Advance Directives Information Provided: Yes Advance Directives Date on File: 11/25/20 Do you have a plan to hurt others: No Plan service: Yes ([employer]) Current occupational status: retired Cognitive needs: No Hearing needs: No Vision needs: Yes (glasses) Physical Exam Vital Signs: Vital Signs: Last Vital Signs Temp 97.3 F 10/08/24 10:52 Pulse 72 10/08/24 10:52 Resp 18 10/08/24 10:52 BP 121/66 10/08/24 10:52 Pulse Ox 98 10/08/24 10:52 O2 Del Method Room Air 10/08/24 10:52 BMI result Body Mass Index 32.4 Const: General: cooperative, comfortable and no acute distress Orientation/consciousness: patient oriented x3 Limitations: no limitations HEENT: Head: Yes normal to inspection, Yes normocephalic and Yes atraumatic Ears: hearing grossly normal bilaterally General nose exam: Normal external nose present Face and sinus: Yes normal facial exam Mouth: Normal oral and palatal mucosa present, oropharynx normal and moist mucous membranes Throat: Yes posterior oropharynx normal Eyes: General: appearance normal, both eyes and all related structures Eyelids: Yes eyelids normal Conjunctivae: conjunctivae normal Sclerae: sclerae normal Pupils: Equal, round and reactive pupils present EOM: EOMs intact bilaterally Neck: Neck: Yes normal visual inspection, Yes full ROM and Yes no lymphadenopathy Lymphatic: no lymphadenopathy noted Chest: Chest palpation & inspection: normal inspection of the chest Resp: Effort & Inspection: normal respiratory effort and able to speak in complete sentences Auscultation: clear to auscultation bilaterally, no crackles, no rales, no rhonchi and no wheezes Cardio: Rate: regular rate Rhythm: regular rhythm Heart sounds: S1 normal heart sound present and S2 normal heart sound present GI: Inspection: Yes normal to inspection Back/Spine/Pelvis: Other: Right upper back, with palpable spasm noted along the right trapezius, no overlying skin changes. No midline spine tenderness. He has full ROM of the neck. No nuchal rigidity. Skin: General skin exam: no rashes or lesions noted Trauma: no lacerations or abrasions Wounds: no wounds Neuro: General: patient oriented x3 and moves all extremities Cranial nerves: Yes Equal, round and reactive pupils present Extrem: General: Yes normal to inspection Right upper extremity: normal to inspection Left upper extremity: normal to inspection Right lower extremity: normal to inspection Left lower extremity: normal to inspection Medications Administered Discontinued Medications Generic Name Dose Route Start Last Admin Trade Name Freq PRN Reason Stop Dose Admin Ketorolac Tromethamine 15 mg 10/08/24 10:25 10/08/24 10:44 Ketorolac Tromethamine 15 Mg/Ml Vial IM 10/08/24 10:26 15 mg ONCE ONE Administration Medical Decision Making Medical Decision Making MDM Narrative: This is a 69-year-old male, with a history of hyperlipidemia, GERD, BPH, who presents emergency department for evaluation of right upper back pain for the last several days. Patient denies any known injury or trauma. On arrival, vital signs within normal limits. He is speaking in full sentences under no acute distress. He does have palpable muscle spasm noted to the right trapezius. No nuchal rigidity, full ROM of the neck. No overlying skin changes. Discussed with patient that his symptoms are consistent with a muscle spasm. Will treat with dose of Toradol in the department. Also discharged on ibuprofen, Tylenol, lidocaine patches, and given small course of Flexeril. Stressed the importance of fully using this as needed, and given risks of adverse side effects. He understands and agrees with plan. Given strict return precautions. Patient stable for discharge. Differential Diagnosis Differential Diagnoses: The differential diagnosis associated with the presentation includes Muscle spasms, contusion, cervical strain, spasm Discharge Plan Discharge Clinical Impression: Back muscle spasm Patient Disposition: Home, Self-Care Instructions: Muscle Spasm (ED), Back Pain (ED) Additional Instructions: You were seen in the emergency department due to upper back pain. You have a muscle spasm that is contributing to your symptoms. Please take ibuprofen and or Tylenol as needed for pain and symptoms. Flexeril as a muscle relaxants, use this sparingly, as this can cause drowsiness, do not drink alcohol or drive while taking this. Gentle stretching, massage, and heat can help with your symptoms. Continue using lidocaine patches. If any new or worsening symptoms occur including but not limited to severe headache, dizziness, chest pain, shortness of breath, please seek emergent care. Prescriptions: New ibuprofen 600 mg tablet 600 mg PO Q6H PRN (Reason: pain) Qty: 30 0RF cyclobenzaprine 10 mg tablet 10 mg PO TID Qty: 7 0RF acetaminophen [Tylenol Arthritis Pain] 650 mg tablet extended release 650 mg PO Q8H PRN (Reason: pain) Qty: 30 0RF No Action tamsulosin 0.4 mg capsule 0.8 mg PO DAILY 90 Days Qty: 180 3RF omeprazole 20 mg capsule,delayed release(DR/EC) 20 mg PO DAILY Qty: 90 2RF melatonin 1 mg tablet 2 mg PO BEDTIME PRN (Reason: sleep) 30 Days Qty: 60 3RF sodium,potassium,mag sulfates [Suprep Bowel Prep Kit] 17.5-3.13-1.6 gram recon soln 480 ml PO .COMPLEX Qty: 354 0RF Rx Instructions: 480 mL orally; FOR COLONOSCOPY PREP Interventions: ED Discharge Assessment Last Done: 10/08/24 10:52 Discharge Date/Time: 10/08/24 10:53 Print Language: Guatemalan
--- NOTE | 2024-10-08 10:45 | PC.NURSE ---
pt medicated for pain, will discharge home
[2024-10-08 10:52] VITALS: BP 121/66; PULSE 72; RESP 18; TEMP 36.3; O2SAT 98
== END 2024-10-08 10:53 | disposition home or self-care (01) ==
PROVIDERS: Emergency Provider Emergency Medicine
DX: M62.830 Muscle spasm of back (principal); M54.6 Pain in thoracic spine
CPT/HCPCS: 96372; 99284; J1885

== ENCOUNTER 2024-11-15 10:32 | Emergency (ER) | payer MEDICARE, OTHER, SELFPAY ==
--- OUTSIDE RECORDS SUMMARY | 2016-05-25 08:15 | XMS_ITS | Continuity of Care Document ---
Author Organization [facility] Address [address] [place] [address] Phone Care Team Providers Care Sap Data Analyst Name Role Phone Alison Potter Unavailable Unavailable [...] Diagnoses Date Provider Providers Copied on Encounter [facility], [address] [place], [address], [place] tel:[phone] Endoscopy [facility] No Information Wilma DIANNE-C Alison. [facility], [address] [place], [place], [id number], [place]. tel:[phone] Family History Family Member Type Diagnosis Age At Onset No Information Payers Payer name Insurance type Covered libertarian ID Authoriza tion(s) No Information Social History [...]
--- OUTSIDE RECORDS SUMMARY | 2024-11-13 06:34 | XMS_ITS | Continuity of Care Document ---
Author Name [facility] Organization [facility] Care Team Providers Care Display Trimmer Name Role Phone [facility] Unavailable Unavailable Problems Combined list of problems from Department of Defense and Veterans Affairs facilities. It does not include entries that were removed or entered in error. Problem Status Onset Date Problem Type Date of Resolution Comments Source Adhesive capsulitis of shoulder (ICD-9-CM 726.0) Active Condition [facility] Anxiety (SCT [id number]) Active Condition [facility] Back Pain (ICD-9-CM 724.5) Active Condition [facility] Benign prostatic hyperplasia Active Condition [facility] Care involving other physical therapy (ICD-9-CM V57.1) Active Condition [facility] Chronic pancreatitis Active Condition [facility] Chronic Post-Traumatic Stress Disorder (SCT 148766551) Active Condition [facility] Colon Polyp (ICD-9-CM 211.3) Active Condition [facility] Constipation, unspecified (ICD-9-CM 564.00) Active Condition [facility] Depressive disorder Active Condition [facility] Gastroesophageal reflux disease Active Condition [facility] Genital herpes simplex Active Condition [facility] Herpes Simplex * (ICD-9-CM 054.9) Active Condition [facility] Hypertrophy (Benign) of Prostate without Urinary obstruction and other lower Uri Active Condition [place] [facility]omnia Active Condition [facility] Kidney stone Active Condition [facility] Low back [facility] Active Condition [facility] MAJOR DEP W/PSYCHOTIC FEATURES Active Condition [facility] Mixed Hyperlipidemia (SCT [id number]) Active Condition [facility] Neuralgia, neuritis, and radiculitis (ICD-9-CM 729.2) Active Condition [facility] Obesity Active Condition [facility] Other and unspecified hyperlipidemia Active Condition [facility] Pain in joint involving shoulder region (ICD-9-CM 719.41) Active Condition [facility] RL Quadrant Abdominal Pain Active Condition [facility] Sleep apnea Active Condition Mar 04, 2022 Entered By: GERSON KEITA Comment: pt on cpap--using it [facility] VACCIN FOR INFLUENZA Active Condition [facility] Diagnosis: ICD-10-CM M54.50 Low back pain, unspecified Active Diagnosis [facility] [place] [facility] Diagnosis: ICD-10-CM Z46.0 Encounter for fit/adjst of spectacles and contact lenses Active Diagnosis [facility] [place] [facility] Diagnosis: ICD-10-CM H43.813 Vitreous degeneration, bilateral Active Diagnosis [facility] [place] Diagnosis: ICD-10-CM G47.33 Obstructive sleep apnea (adult) (pediatric) Active Diagnosis [facility] Diagnosis: ICD-10-CM G47.30 Sleep apnea, unspecified Active Diagnosis [place] Diagnosis: ICD-10-CM H11.043 Peripheral pterygium, stationary, bilateral Active Diagnosis [facility] [place] Medications Combined list of outpatient medications from Department of Defense and Veterans Affairs facilities.Medications provided include 1) outpatient medications from the last 15 months, and 2) patient-reported medications. Medication Details Route Status Patient Instructions Prescription Expires Prescription Number Last Dispense Date Ordering Provider Order Date Order Qty Source ACYCLOVIR 200MG CAP TAKE ONE CAPSULE BY MOUTH FIVE TIMES A DAY ORAL ACTIVE 09/06/2025 [id number] FURCOLO,T [place] 2024 50 [facility] ACYCLOVIR 200MG CAP TAKE ONE CAPSULE BY MOUTH FIVE TIMES A DAY ORAL DISCONT INUED 07/20/2024 [id number] FURCOLO,T [place] 2023 50 [facility] CARBOXYMETH YLCELLULOSE NA 0.5% (PF) SOLN,OPH,UD INSTILL 1 DROP INTO EACH EYE EVERY 2 HOURS WHILE AWAKE OPHTHA LMIC 05/18/2024 [id number] KINCAID,LAC EY J 2023 100 [facility] HYPROMELLOS E 0.3% GEL,OPH APPLY 1 DROP INTO EACH EYE FOUR TIMES DAILY NEEDED OPHTHA LMIC HOLD 05/17/2025 [id number] 5 Isabel HOWARD NDREW E 2024 20 [facility] LIDOCAINE 5% PATCH APPLY 1 PATCH TOPICALL Y ONCE DAILY (LEAVE PATCH ON FOR 12 HOURS, THEN REMOVE PATCH) TOPICA L ACTIVE 09/06/2025 [id number] FURCOLO,T [place] 2024 30 [facility] LIDOCAINE 5% PATCH APPLY 1 PATCH TOPICALL Y ONCE DAILY (LEAVE PATCH ON FOR 12 HOURS, THEN REMOVE PATCH) TOPICA L DISCONT INUED 08/27/2024 [id number] 5 FURCOLO,T [place] 2023 30 [facility] LORATADINE 10MG TAB TAKE ONE TABLET BY MOUTH ONCE DAILY FOR ALLERGY ORAL ACTIVE 08/10/2025 [id number] 5 FURCOLO,T [place] 2024 90 [facility] LORATADINE 10MG TAB TAKE ONE TABLET BY MOUTH ONCE DAILY FOR ALLERGY ORAL DISCONT INUED 04/27/2024 [id number] AHMED,MOH AMMED JAWED 2023 90 [facility] MINERAL OIL,LIGHT/P ETROLATUM (PF) OINT,OPH APPLY SMALL AMOUNT INTO EACH EYE AT BEDTIME OPHTHA LMIC ACTIVE 07/11/2025 [id number] Isabel HOWARD NDREW E 2024 3 [facility] NYSTATIN [id number] M CREAM,TOP APPLY A THIN LAYER TOPICALL Y ONCE DAILY FOR FUNGAL INFECTIO N TOPICA L ACTIVE 09/06/2025 [id number] FURCOLO,T [place] 2024 30 [facility] NYSTATIN [id number] M OINT,TOP APPLY MODERATE AMOUNT TOPICALL Y TWICE DAILY FOR FUNGAL INFECTIO N TOPICA L 03/03/2024 [id number] [facility] 60 [facility] OMEPRAZOLE 20MG CAP,EC TAKE 2 CAPSULES BY MOUTH TWICE DAILY ORAL [facility]IVE [facility]AW[facility] 2019 [facility] PEG-400 0.4%/PROPYL CANDE GLYCOL 0.3% SOLN,OPH,UD INSTILL 1 DROP INTO EACH EYE FOUR TIMES DAILY NEEDED FOR DRY EYES OPHTHA LMIC ACTIVE 11/14/2025 [id number] 5 Isabel HOWARD NDREW E 2024 30 [facility] PEG-400 0.4%/PROPYL CANDE GLYCOL 0.3% SOLN,OPH,UD INSTILL 1 DROP INTO EACH EYE FOUR TIMES DAILY NEEDED OPHTHA LMIC DISCONT INUED (EDIT) 07/11/2025 [id number] Isabel HOWARD NDREW E 2024 30 [facility] ROSUVASTATI N CA 20MG TAB TAKE ONE-HALF TABLET BY MOUTH AT BEDTIME FOR CHOLESTE ROL ORAL ACTIVE 01/11/2025 [id number] FURCOLO,T [place] 2023 45 [facility] SUVOREXANT 5MG TAB,UD TAKE ONE TABLET BY MOUTH AT BEDTIME ORAL ACTIVE [facility] 2019 [facility] TAMSULOSIN HCL 0.4MG CAP TAKE 1 CAPSULE BY MOUTH AT BEDTIME ORAL ACTIVE [facility] Allergies, Adverse Reactions, Alerts Combined list of allergies from Department of Defense and Veterans Affairs facilities. It does not include entries that were removed or entered in error. Substance Category Reaction Severity Reaction type Status Date Reported Comments Source NAPROXEN Propensity to adverse reactions to drug (finding) Epigastric discomfort active 2 [facility] Immunizations Combined list of available immunizations from the Department of Defense and Veterans Affairs facilities. Immunization Series Date Given Administered By Site Reaction Lot Number CVX Code Drug Tool Marker Status Comments Source INFLUENZA, UNSPECIFIED FORMULATION 2023 88 complet ed Completed Series, HISTORICA L INFORMATI ON - FROM PATIENT'S RECALL, [facility] [place] [facility] PNEUMOCOCCAL CONJUGATE PCV20, POLYSACCHARID E [id number] CONJUGATE, ADJUVANT, PF 2021 RADHA NUNN LEFT DELTO ID [id number] 216 complet ed [facility] [place] [facility] [facility] INFLUENZA, UNSPECIFIED FORMULATION 2021 88 complet ed HISTORICA L INFORMATI ON - SOURCE UNSPECIFI ED, [facility] [place] [facility] INFLUENZA, UNSPECIFIED FORMULATION 2020 88 complet ed [facility] [place] [facility] COVID-19 (PFIZER), MRNA, LNP-S, PF, 30 MCG/0.3 ML DOSE 3 2020 208 complet ed [facility] PNEUMOCOCCAL POLYSACCHARID E PPV23 2020 33 complet ed [facility] TDAP 2020 115 complet ed [facility] [place] [facility] COVID-19 (PFIZER), MRNA, LNP-S, PF, 30 MCG/0.3 ML DOSE 2 2020 208 complet ed PFR; [id number]; 1 [facility] COVID-19 (PFIZER), MRNA, LNP-S, PF, 30 MCG/0.3 ML DOSE 1 2020 208 complet ed PFR; [id number]; 1 [facility] [place] INFLUENZA, SEASONAL, INJECTABLE 2018 141 complet ed [facility] [place] [facility] INFLUENZA, UNSPECIFIED FORMULATION 2008 88 complet ed [facility] INFLUENZA, UNSPECIFIED FORMULATION 2007 88 complet ed [facility] INFLUENZA, UNSPECIFIED FORMULATION 2006 88 complet ed [facility] FLU,3 YRS (HISTORICAL) 2005 88 complet ed [facility] INFLUENZA, UNSPECIFIED FORMULATION 2004 88 complet ed [facility] TD(ADULT) UNSPECIFIED FORMULATION 2002 139 complet ed [facility] Vital Signs Combined list of inpatient and [...] to the last 18 months, not all [place] inpatient encounters are included; 2) Encounters from the Department of Defense facilities going backup to 280 months. Location Location Details Encounter Type Encounter Number Reason For Visit Attending Provider ADM Date DC Date Status Disposition Source [facility] [place] 1> [id number] Diagnos is: ICD-10- CM H11.043 Periphe ral pterygi um, station darius, bilater al CODI,BONNIE Y J 05/18 [facility] FIT SPECTACLES BIFOCAL [id number] Diagnos is: ICD-10- CM Z46.0 Encount er for fit/adj st of spectac les and contact lenses BONNIE KINCAID 05/19 [facility] RPR&REFITG SPECT XCP APHAKIA [id number] Diagnos is: ICD-10- CM Z46.0 Encount er for fit/adj st of spectac les and contact lenses USHA GARCIA 06/01 [facility] Outpatient Encounter [id number] 07/19 [facility] [place] [facility] Out[facility] Encounter [id number] 08/26 [facility] [place] [facility] Outpatient [facility]counter [id number] 09/05 [facility] [place] OFFICE O/P EST LOW 20 MIN [id number] Diagnos is: ICD-10- CM G47.30 Sleep apnea, unspeci fied FURCOLO,TI NA 09/05 [facility] [place] [facility] OFFICE O/P EST LOW 20 MIN [id number] Diagnos is: ICD-10- CM G47.33 Obstruc tive sleep apnea (adult) (pediat violeta) SVENO-UY RELL 09/06 [facility] FEE [id number] Diagnos is: ICD-10- CM G47.30 Sleep apnea, unspeci fied SHOBANDE,O LIDYA 09/06 [place] [facility] Out[facility] Encounter [id number] 09/08 [facility] Out[facility] Encounter [id number] 09/08 [facility] Out[facility] Encounter [id number] 10/06 [facility] Out[facility] Encounter [id number] 01/05 [facility] Out[facility] Encounter [id number] 01/10 [facility] INTRM OPH EXAM EST PATIENT [id number] Diagnos is: ICD-10- CM H43.813 Vitreou s degener attima reyez AN DREW E 05/16 [facility] Out[facility] Encounter [id number] 06/15 [facility] Out[facility] Encounter [id number] 06/28 [facility] INTRM OPH EXAM EST PATIENT [id number] Diagnos is: ICD-10- CM H43.813 Vitreou s degener ationtima AN DREW E 07/10 [facility] Out[facility] Encounter [id number] 07/19 [facility] Out[facility] Encounter [id number] 08/08 [facility] Out[facility] Encounter [id number] 08/28 [facility] Out[facility] Encounter [id number] 08/31 [facility] FIT SPECTACLES BIFOCAL [id number] Diagnos is: ICD-10- CM Z46.0 Encount er for fit/adj st of spectac les and contact lenses Isabel GILES 09/01 [facility] FIT SPECTACLES BIFOCAL [id number] Diagnos is: ICD-10- CM Z46.0 Encount er for fit/adj st of spectac les and contact lenses RAMON HOWARD 09/01 [facility] Out[facility] Encounter [id number] 09/05 [facility] OFFICE O/P EST MOD 30 MIN [id number] Diagnos is: ICD-10- CM M54.50 Low back pain, unspeci fied FURCOLO,TI NA 09/05 [facility] Out[facility] Encounter [id number] 11/13 [facility] Social History Combined list of available smoking, tobacco, and other social history from Department of Defense and Veterans Affairs facilities. Social History Type Response Date Comment Source Tobacco smoking status [facility] NEVER USED CIGARETTES 09/05/2024 [facility] History of tobacco use [place]-TO[place] NEVER USED OTHER TYPE 09/05/2024 [facility] [place] [facility] History of tobacco use [place]-TO[place]CO NEVER USED 09/06/2023 [facility] [place] [facility] History of tobacco use [place]-TOBACCO FORMER USER 09/03/2022 [facility] [place] [facility] History of tobacco use QUIT TOBACCO USE > 7 YEARS AGO 05/13/2021 smoked for one year after his divorce [facility] [place] [facility] History of tobacco use [place]-TOBACCO NEVER USED 05/18/2019 [facility] [place] [facility] History of tobacco use QUIT TOBACCO >7 YEARS AGO 05/22/2009 [facility] History of tobacco use LIFETIME NON-SMOKER 04/02/2009 [facility] History of tobacco use LIFETIME NON-TOBACCO USER 06/14/2006 [facility] History of tobacco use CURRENT NON-SMOKER 06/04/2005 1 pack cig every 2 days. [facility] History of tobacco use CURRENT NON-SMOKER 01/10/2004 [facility] History of tobacco use CURRENT NON-SMOKER 12/07/2001 [facility] Advance Directives List of completed, amended, or rescinded Advance Directives on record at Department of Veterans Affairs facilities. An actual copy of the Directive is not included. Date Advance Directive Provider Source 10/02/2008 ADVANCE DIRECTIVE DISCUSSION [facility] 12/31/2006 ADVANCE DIRECTIVE DISCUSSION [facility] 06/04/2005 ADVANCE DIRECTIVE [facility] 07/07/2004 ADVANCE DIRECTIVE [facility] 12/06/2002 ADVANCE DIRECTIVE KAJAL PAYNE [facility]
[2024-11-15 10:45] VITALS: BP 130/68; PULSE 77; RESP 16; TEMP 36.4; O2SAT 94; BMI 32.2
--- NOTE | 2024-11-15 10:45 | ED.GENADULT ---
HPI - General Adult General Chief complaint: General Medical Stated complaint: infected ingrown nail? Time Seen by Provider: 11/15/24 10:46 Source: patient, RN notes reviewed and old records reviewed Mode of arrival: ambulatory Limitations: no limitations History of Present Illness ED Provider: Nisha HPI narrative: Patient is a 69-year-old male presenting to the emergency department with complaint of infected finger around nail on 4th finger of right hand for the past 3 days. Reports history of same a few years ago. Denies fevers. Reports some purulent drainage last night. Has been soaking in hot water. MD complaint: Nail infection Onset (ago): day(s) Related Data Previous Rx's ?Medication ?Instructions ?Recorded tamsulosin 0.4 mg capsule 0.8 mg (2 x 0.4 mg) PO DAILY 90 07/14/24 days #180 caps omeprazole 20 mg capsule,delayed 20 mg PO DAILY #90 caps 07/26/24 release sodium,potassium,mag sulfates 17.5 480 ml PO .COMPLEX #354 mL 08/15/24 gram-3.13 gram-1.6 gram oral soln (Suprep Bowel Prep Kit) melatonin 1 mg tablet 2 mg (2 x 1 mg) PO BEDTIME PRN 09/08/24 sleep 30 days #60 tabs acetaminophen 650 mg 650 mg PO Q8H PRN pain #30 tabs 10/08/24 tablet,extended release (Tylenol Arthritis Pain) cyclobenzaprine 10 mg tablet 10 mg PO TID #7 tabs 10/08/24 ibuprofen 600 mg tablet 600 mg PO Q6H PRN pain #30 tabs 10/08/24 cephalexin 500 mg tablet 500 mg PO QID #28 tabs 11/15/24 Allergies Allergy/AdvReac Type Severity Reaction Status Date / Time lovastatin Allergy Unknown GI upset Verified 11/15/24 10:47 Review of Systems Review of Systems: As per HPI Yes all other systems are reviewed and are negative Constitutional: Constitutional: Reports as per HPI [facility] Past Medical History Medical History (Updated 11/15/24 @ 10:47 by Bell Cameron NP) Encounter for subsequent annual wellness visit (AWV) in Medicare patient Upper abdominal pain Back pain Screening for diabetes mellitus Dizziness Shoulder pain Left foot pain Obesity Ankle pain BMI 31.0-31.9,adult Adult general medical exam Abnormality of penis Balanitis Tinea cruris Abdominal bloating Thrombosed external hemorrhoid Chronic GERD Urinary frequency Other obstructive and reflux uropathy Renal stones Chronic superficial gastritis without bleeding BPH loc w urin obs/LUTS Insomnia Tubular adenoma of colon Surgical History History of esophagogastroduodenoscopy (EGD) Hx of colonoscopy History of appendectomy Family History Family History Father No problems noted. Mother HTN (hypertension) Asthma Sister HTN (hypertension) Throat cancer Social History Social History Housing: Apartment Alcohol intake: never Patient Tobacco Use Status: Never used Tobacco e-Cigarette/Vaping Use: Never Used Second Hand Smoke Exposure: No Advance Directives Date on File: 11/25/20 service: Yes ([employer]) Current occupational status: retired Cognitive needs: No Hearing needs: No Vision needs: Yes (glasses) Physical Exam ED Vital Signs: Vital signs have been reviewed and appear to be correct. Blood pressure normal. Heart rate normal. Respiratory rate normal. Temperature normal. Oxygen saturation normal. Const General: cooperative, healthy appearing and no acute distress Orientation/consciousness: oriented to person, oriented to place, oriented to time and patient oriented x3 Limitations: no limitations HENMT Head: Yes normocephalic and Yes atraumatic Ears: external ears normal General nose exam: Normal external nose present Face and sinus: Yes face symmetric Mouth: oropharynx normal and moist mucous membranes Throat: Yes uvula midline Eyes Pupils: Equal, round and reactive pupils present Neck Neck: Yes normal visual inspection and Yes supple Resp Effort & Inspection: normal respiratory effort and able to speak in complete sentences Auscultation: clear to auscultation bilaterally Cardio Rate: regular rate Rhythm: regular rhythm Heart sounds: S1 normal heart sound present and S2 normal heart sound present GI Palpation (GI): Soft to palpation and nontender Auscultation: normoactive bowel sounds General: Yes no CVA tenderness Back/Spine/Pelvis Back: no CVA tenderness Skin General skin exam: elasticity normal and turgor normal Neuro General: oriented to person, oriented to place, oriented to time, patient oriented x3, moves all extremities, no focal motor deficits and CN's II-XI intact bilaterally Cranial nerves: Yes Equal, round and reactive pupils present Cognition (Neuro): normal cognition Extrem General: Yes full ROM, Yes no pedal edema and Yes no calf tenderness Hand/finger images:  1. erythema and swelling to radial aspect of 4th finger, no lymphangitis Psych Mental Status: mental status grossly normal Affect: normal affect Thought process: Normal thought process present Medical Decision Making Medical Decision Making [facility] Narrative: Patient is a 69-year-old male presenting to the emergency department with complaint of infected finger around nail on 4th finger of right hand for the past 3 days. On exam patient is awake, A+Ox3, VS WNL, afebrile, normal neurological exam without focal deficits, physical exam findings as above. Given reported symptoms and physical exam findings, initial differential includes but is not limited to paronychia. Do not suspect felon, cellulitis. Will treat with course of Keflex, advised patient to also soak his finger in warm water with salt several times daily. Return precautions discussed. Follow up with PCP as needed. Patient verbalized understanding of and agreement with plan. Differential Diagnosis Differential Diagnoses: The differential diagnosis associated with the presentation includes as per [facility] Admission/Observation Consideration of admission/observation: Escalation of care including admission/observation considered Patient would have been admitted to the hospital had their clinical presentation warranted hospital admission. External Record Review External record reviewed: Inpatient record, Office record and Outpatient record Prescription Management I considered prescription management with: Antibiotic Discharge Plan Discharge Clinical Impression: Paronychia of finger of right hand Patient Disposition: Home, Self-Care Instructions: Paronychia (ED) Additional Instructions: You have been evaluated in the emergency department today for skin infection around your nail, also known as a paronychia. If the area of inflammation was outlined today in the ER, please return to the ER immediately if the area of redness increases beyond the border. Please take your prescribed antibiotics as directed for the full course of the medication. You can use Tylenol or ibuprofen per package instructions every 6 hours as needed for pain. If necessary, you can alternate these medications so that you can take one medication every 3 hours. For instance, at noon take ibuprofen, then at 3:00 p.m. take Tylenol, then at 6:00 p.m. take ibuprofen. We also recommend that you soak her finger in warm salt water for 10-15 minutes several times daily. Please schedule an appointment for follow-up with your primary care physician as soon as possible. Return to the emergency department if you experience recurrent vomiting, fevers greater than 100.4? F, increasing area of redness, warmth around the area, foul-smelling discharge from the area, increased tenderness around the area, or any other concerning symptoms. Prescriptions: New cephalexin 500 mg tablet 500 mg PO QID Qty: 28 0RF No Action tamsulosin 0.4 mg capsule 0.8 mg PO DAILY 90 Days Qty: 180 3RF omeprazole 20 mg capsule,delayed release(DR/EC) 20 mg PO DAILY Qty: 90 2RF melatonin 1 mg tablet 2 mg PO BEDTIME PRN (Reason: sleep) 30 Days Qty: 60 3RF ibuprofen 600 mg tablet 600 mg PO Q6H PRN (Reason: pain) Qty: 30 0RF cyclobenzaprine 10 mg tablet 10 mg PO TID Qty: 7 0RF acetaminophen [Tylenol Arthritis Pain] 650 mg tablet extended release 650 mg PO Q8H PRN (Reason: pain) Qty: 30 0RF sodium,potassium,mag sulfates [Suprep Bowel Prep Kit] 17.5-3.13-1.6 gram recon soln 480 ml PO .COMPLEX Qty: 354 0RF Rx Instructions: 480 mL orally; FOR COLONOSCOPY PREP Print Language: Austrian
[2024-11-15 10:57] VITALS: BP 130/68; PULSE 77; RESP 16; TEMP 36.4; O2SAT 94
--- OUTSIDE RECORDS SUMMARY | 2024-11-15 12:11 | XMS_ITS | Clinical Summary ---
Author Organization [employer] Address [address] [facility] [address] [place] [address] Care Team Providers Care Dietary Director Name Role Phone Unavailable Primary Care Provider [...] Encounters Date Type Department Care Team Description 10/16/2024 1:30 PM EDT Office Visit [facility] [address] [place] [id number] Jose Aguilera DMD 09/04/2024 9:00 AM EDT Office Visit [facility] [address] [place] [address] Jose Aguilera DMD 08/25/2024 2:30 PM EDT Office Visit [facility] [address] [address] Jose Aguilera DMD from Last 3 Months [...] Sign Reading Time Taken Comments Blood Pressure 124/82 10/16/2024 1:56 PM EDT Pulse 70 10/16/2024 1:56 PM EDT Temperature - - Respiratory Rate - - Oxygen Saturation - - Inhaled Oxygen Concentration - - Weight - - Height - - Body Mass Index - - Plan of Treatment Upcoming Encounters Date Type Department Care Team (Late st Contact Info) Description 12/07/2024 3:00 PM EDT Office Visit [facility] [address] [place] [address] Alessandra Esparza [address] [place] [address] Health Maintenance Due Date Last Done Comments [...] 2023 03/03/2022, 07/03/2021, 12/31/2020, Additional history exists Influenza Vaccine (#1) 2024 , 12/15/2023, 11/22/2022, Additional history exists Dental Oral Exam 12/04/2024 06/02/2024, , 01/10/2010 Dental Prophylaxis 12/07/2024 06/05/2024, 0 08/22/2015, 02/10/2010 Tobacco Screening 10/16/2025 10/16/2024 Dental X-Ray: Full Mouth 06/04/2027 06/02/2024, 04/30 RSV Patients and Patients Aged 60 years or older (1 - 1-dose 75+ series) 2029 DTaP/Tdap/Td Vaccines (2 - Td or Tdap) 08/01/2030 08/01/2020, 12/06/2002 Pneumococcal Vaccine: 50+ Years Completed 03/04/2022, 08/01/2020, 05/29/2019 HIB Vaccines Aged Out No longer eligi [...] Date/Time Associated Diagnosis Comments DENTURE ADJUSTMENT Routine 10/16/2024 1: 30 PM EDT DENTURE ADJUSTMENT Routine 09/04/2024 9: 00 AM EDT CASE PRESENTATION, DETAILED AND EXTENSIVE TREATMENT PLANNING Routine 08/25/2024 2:30 PM EDT 18,19,20,30,31,27,29 MANDIBULAR PARTIAL DENTURE - RESIN BASE (INCLUDING, RETENTIVE/CLASPING MATERIALS, RESTS, AND TEETH) Routine 08/25/2024 2:30 PM EDT PROPHYLAXIS - ADULT Routine 06/05/2024 2 :00 PM EDT Dental plaque Missing teeth, acquired PANORAMIC RADIOGRAPHIC IMAGE Routine 06/02/2024 10:30 AM EST PERIODIC ORAL EVALUATION - ESTABLISHED PATIENT Routine 06/02/2024 10:30 AM EST INTRAORAL - COMPLETE SERIES OF RADIOGRAPHIC IMAGES Routine 05/27/2015 12:00 AM EST from Last 3 Months or Most Recently Relevant to Health Maintenance Insurance DENTAL - HSN FULL (MEDICAID)
--- OUTSIDE RECORDS SUMMARY | 2024-11-15 12:11 | XMS_ITS | Patient Health Record ---
Author Organization [facility] Address [address] [place] [address] Care Team Providers Care Babcock Tester Name Role Phone David TRISTAN, Joes Primary Care Provider Kali Boudreaux Unavailable [phone] Reason For Referral No Information Medications Medication SIG (Take, Route, Frequency, Duration) Notes Start Date End Date Status Crestor 10 MG 1 tablet Orally Once a day Active Colyte w Flavor Packs 240 GM as directed Orally as directed for 1 day(s) 01/26/2014 Active Ambien 10 MG 1 tablet at bedtime as needed Orally Once a day Active Problems Problem Type SNOMED Code ICD Code Onset Dates Problem Status W/U Status Risk Notes Problem Pre-surgery evaluation (586137222) Other specified pre-operative examination (V72.83) Active confirmed Problem Colon cancer screening (V76.51) Active confirmed Plan Of Treatment Future Test Test Name Order Date COLONOSCOPY 01/25/2014 Insurance Providers Payer Name Payer Address Payer Phone Subscriber Number Group Number Insured Name Patient Relationship to Insured Coverage Start Date Coverage End Date MEDICARE OF [place] [address] [place] [id number] HUMBERTO GUILLEN Self - patient is the insured MEDICAID OF [facility] [address] [place] [address] [id number] WILMER HUMBERTO Self - patient is the insured Medical (General) History Medical History History ICD Code ? [place] in 1990--whiile living in [place]--not clear about the details--no problems since Denies CVA,DM,Lung disease,renal disease Describes a negative colonoscopy in [facility] at around age 49 Hyperlipidemia Kidney stones--ESWL, Cystoscopies Perianal condylomata as below Surgical History Surgery Date(Month/Year) appendectomy Fulguration of perianal condyloma in 05/[address] Verdugo
== END 2024-11-15 10:57 | disposition home or self-care (01) ==
PROVIDERS: Emergency Provider Emergency Medicine
DX: L03.011 Cellulitis of right finger (principal)
CPT/HCPCS: 99282; 99283

== ENCOUNTER 2024-11-23 07:15 | Emergency (ER) | payer MEDICARE, OTHER, SELFPAY ==
--- OUTSIDE RECORDS SUMMARY | 2016-05-25 08:15 | XMS_ITS | Continuity of Care Document ---
Author Organization [facility] Address [address] [place] [address] Phone Care Team Providers Care Computer Technical Specialist Name Role Phone Alison Potter Unavailable Unavailable Results Test Name Date and Time Measure Units Reference Range Abnormal Flag Status Comments Panel Description: Hemoglobi n.gastrointestinal.lower [Presence] in Stool by Immunoassay Final Occult Blood, Fecal, [place] 17:28:00 Negative Negative Final Advance Directives Directive Yes / No Effective Date File Name No Information Encounters Encounter Description Practice Location Reason(s) For Visit Diagnoses Date Provider Providers Copied on Encounter [facility], [address] [place], [address], [place] tel:[phone] [facility] No Information Wilma DIANNE-C Alison. [facility], [address] [place], [place], [id number], [place]. tel:[phone] Family History Family Member Type Diagnosis Age At Onset No Information Payers Payer name Insurance type Covered alliance party ID Authoriza tion(s) No Information Social History Type Description Quantity Date Captured Comments Sex Male Smoking Status No Information Chief Complaint And Reason For Visit No Information Reason For Referral Reason For Referral No Information History Of Present Illness Encounter Date Complaint History Of Prese nt Illness No Information Functional Status Date Functional Assessmen t No Information Instructions Date Instruction Additional Infor mation No Information Assessments Type Assessment Date No Information Patient Care Teams Name Effective Dates (start - stop) Status Members No Information
--- OUTSIDE RECORDS SUMMARY | 2024-05-16 06:00 | XMS_ITS | Encounter Summary ---
Author Name [facility] Address [address] [place] [address] Care Team Providers Care Health Education Specialist Name Role Phone JAZMIN LAMB Primary Care Provider Unavailabl e Insurance Providers: All historical and current Section Date Range: From patient's date of to the date document was created. This section includes the names of all active insurance providers for the patient. Insurance Provider Type of Coverage Plan Name Start of Policy Coverage End of Policy Coverage Group Number Member ID Insurance Provider's Telephone Number Policy Bishop's Name Patient's Relationship to Policy Bishop [facility] MEDICAID [facility] MEDICAI D [id number] [phone] KYLE FREDERICK IS PATIENT MEDICAID MEDICAID [facility] [place] [place] Jun 28, 2015 MEDICAI D [id number] [phone] KYLE GUILLEN IS PATIENT MEDICARE (WNR) MEDICARE (M) PART B Jun 27, 2009 PART B [id number] [phone] KYLE FREDERICK IS PATIENT MEDICARE (WNR) MEDICARE (M) PART A Jun 28, 2007 PART A [id number] KYLE GUILLEN IS PATIENT FOR LIFE TFL* Mar 29, 2017 [id number] KYLE FREDERICK IS PATIENT Selected Encounter This section includes the information on record at [place] for the Encounter. Date/Time Encounter Type Encounter Description Reason Provider Source May 16, 2024 10:00 AM INTRM OPH EXAM EST PATIENT OPTOMETRY ICD-10-CM H43.813 Vitreous degeneration, bilateral YOLIS HOWARD IHGiuseppe Encounter Template Text not used by [place] Assessments - Encounter Diagnoses This section includes the primary and secondary diagnoses documented for the Encounter. Date/Time Primary/Secondary Diagnosis Diagnosis Name Provider Source May 16, 2024 11:06 AM PRIMARY Vitreous degeneration, bilateral YOLIS HOWARD [facility] Plan of Treatment: Future Appointments (+ 6 months) and Future Tests (+/- 45 days) The Plan of Treatment section includes future care activities for the patient from all [place] treatmentfacilities. This section includes future appointments and future orders which are active, pending or scheduled. Future Appointments This section includes appointments that were scheduled to occur 6 months from the date of the Encounter, up to a maximum of 20 appointments. The data comes from all [place] treatment facilities. Appointment Date/Time Appointment Type Appointme nt Facility Name Jul 10, 2024 02:00 PM AMBULATORY - MEDICINE [facility] Sep 01, 2024 02:30 PM AMBULATORY - SURGERY [facility] Sep 05, 2024 10:00 AM AMBULATORY - MEDICINE [facility] Social History: Smoking Status (Most current) and Tobacco Use (All prior to encounter date) This section includes the most current, and the historical, smoking and tobacco- related health factors from the [place] facility where the Encounter took place. Current Smoking Status This section includes the most current smoking, or tobacco-related health factor, from the PR facility where the Encounter took place. Date/Time Current Smoking Status Comment Joaquin raphael Sep 06, 2023 09:30 AM PR-TOBACCO NEVER USED [facility] Tobacco Use History This section includes a history of the smoking, or tobacco-related health factors, that were collected on or before the date of the Encounter. The data comes from the [place] facility where the Encounter took place. Date/Time Smoking Status/Tobac co Use Comment Facility Sep 03, 2022 10:00 AM VA-TOBACCO FORMER USER [facility] [place] [facility] Sep 03, 2022 10:00 AM VA-TOBACCO QUIT 15 YRS OR MORE [facility] [place] [facility] May 13, 2021 09:30 AM QUIT TOBACCO USE > 7 YEARS AGO smoked for one year after his divorce [facility] [place] [facility] May 13, 2021 09:30 AM VA-TOBACCO FORMER USER [facility] [place] [facility] May 13, 2021 09:30 AM VA-TOBACCO QUIT 15 YRS OR MORE [facility] [place] [facility] May 18, 2019 01:59 PM [facility] Advance Directives: All historical and current Section Date Range: From patient's date of to the date document was created. This section includes ALL of a patient's completed or amended [place] Advance and Rescinded Directives. The entries below indicate that a directive exists for the patient, but an actual copy is not included with this document. The data comes from all [place] facilities. Date Advance Directives Provider Source Oct 02, 2008 ADVANCE DIRECTIVE DISCUSSION [facility] Dec 31, 2006 ADVANCE DIRECTIVE DISCUSSION [facility] Jun 04, 2005 ADVANCE DIRECTIVE [facility] Jul 07, 2004 ADVANCE DIRECTIVE [facility] [place] [facility] Dec 06, 2002 ADVANCE DIRECTIVE KAJAL PAYNE [facility] Encounter Notes: All associated encounter notes This section contains the clinical notes associated to the Encounter. Date/Time Encounter Note(s) Provider Source May 16, 2024 11:05 AM OPTOMETRY NOTE: LOCAL TITLE: OPTOMETRY NOTE(T) STANDARD TITLE: OPTOMETRY NOTE DATE OF NOTE: MAY 16, 2024@11:05 ENTRY DATE: MAY 16, 2024@11:05:26 AUTHOR: YOLIS HOWARD COSIGNER: URGENCY: STATUS: COMPLETED I saw this patient in conjunction with the student and agree to the stated findings and plan after reviewing both history and repeating borjas elements of physical exam. Patient presents for dilated fundus exam with history of flashes of light and floaters OS over the past 3 to 4 days. PVD was seen OU with syneresis. Otherwise no other acute ocular disease was seen and no holes or breaks or tears of the retina OU. The patient will return in 6 to 8 weeks or sooner if any problems arise, including dilated fundus exam. /moon/ YOLIS HOWARD OD STAFF [employer] Signed: 05/16/2024 11:06 YOLIS HOWARD [facility] [place] May 16, 2024 09:42 AM OPTOMETRY NOTE: LOCAL TITLE: OPTOMETRY NOTE STANDARD TITLE: OPTOMETRY NOTE DATE OF NOTE: MAY 16, 2024@09:42 ENTRY DATE: MAY 16, 2024@09:42:20 AUTHOR: DESIREE WILLIAMSON EXP COSIGNER: YOLIS HOWARD URGENCY: STATUS: COMPLETED Active problems - Computerized Problem List is the source for the followin. Low back pain 2. Sleep apnea 3. Chronic Post-Traumatic Stress Disorder ([facility] [id number]) 4. Insomnia 5. Anxiety ([facility] [id number]) 6. Depressive disorder 7. Kidney stone 8. Genital herpes simplex 9. Gastroesophageal reflux disease 10. History of colonic polyp 11. Chronic pancreatitis 12. Benign prostatic hyperplasia Active Outpatient Medications (including Supplies): Active Outpatient Medications Status = 1) ACYCLOVIR 200MG CAP TAKE ONE CAPSULE BY MOUTH FIVE TIMES A ACTIVE DAY Indication: FOR GENITAL HERPES 2) CARBOXYMETHYLCELLULOSE 0.5%(PF)OP WATSON UD INSTILL 1 DROP INTO ACTIVE EACH EYE EVERY 2 HOURS WHILE AWAKE Indication: FOR DRY EYE 3) CLOTRIMAZOLE 1% TOP CREAM APPLY A SMALL AMOUNT TOPICALLY ACTIVE TWICE DAILY FOR FUNGAL INFECTION 4) LIDOCAINE 5% PATCH APPLY 1 PATCH TOPICALLY ONCE DAILY (LEAVE ACTIVE PATCH ON FOR 12 HOURS, THEN REMOVE PATCH) 5) LUBRICATING (PF) OPH OINT APPLY THIN RIBBON INTO EACH EYE AT ACTIVE BEDTIME Indication: FOR DRY EYE 6) ROSUVASTATIN CA 20MG TAB TAKE ONE-HALF TABLET BY MOUTH AT ACTIVE BEDTIME FOR CHOLESTEROL Indication: FOR HIGH CHOLESTEROL Active Non-VA Medications Status = 1) Non-VA CREON 24,000UNIT EC CAP 4 CAPSULES BY MOUTH FOUR ACTIVE TIMES A DAY 2) Non-VA OMEPRAZOLE 20MG EC CAP 40MG BY MOUTH TWICE DAILY ACTIVE 3) Non-VA SUVOREXANT 5MG TAB UD 5MG BY MOUTH AT BEDTIME ACTIVE 4) Non-VA TAMSULOSIN HCL 0.4MG CAP 0.4MG BY MOUTH AT BEDTIME ACTIVE 10 Total Medications Allergies: NAPROXEN All medications including those prescribed by outside VA's, community providers, and all OTC meds were reviewed and reconciled with patient to the best of their abilities. This 69 year old MALE is seen today for problem focused visit DARON: MAY 19 2023 Chief Complaint: Pt reports sudden flashes of light in OS temporal side, began 2 days ago . Denies floaters. reports he is having to use artificial tears very often sometimes every hour, and did not like the lubrication ointment. No longer uses CPAP. OHx: (+) Pterygium OU (+) Hyperopia/Presbyopia OU (-) Pain: (-) BURDICK: (-) Diplopia: (-) Flashes: (-) Floaters: (-) Amaurosis Fugax/Tia's: (-) Eye Injury: (-) Eye Surgery: (-) TBI FOHx: (-) Glaucoma/ARMD/Blindness VITALS (most recent, as listed in the electronic record): B/P: 121/80 (09/06/2023 09:39) Pulse: 67 (09/06/2023 09:39) Temperature: 98 F [36.7 C] (09/06/2023 09:39) Weight: 218 lb [98.88 kg] (09/06/2023 09:39) Height: 69 in [175.3 cm] (03/03/2023 13:59) BMI: BMI: 32.3 PERTINENT LABS: HEMOGLOBIN A1C TREND No data available (-) Smoker/Length of Time/PPD: Current Rx with last BCVA: OD: +1.50 -0.75 X 135 20/20 OS: +1.50 sph 20/20 Add: +2.50 20/20 DVA ( )sc (X)cc - glasses OD: 20/20 OS: 20/20-1 Pupils: PERRL (-)APD EOMs: SAFE OU, (-)Pain/Diplopia CVF (facial, peripheral): FTFC OU All the above performed by student, reviewed by attending Anterior segment: Performed by student, repeated by attending Lids/Lashes: dermatochalasis OU, MGD OU Conjunctiva: white and quiet bulbar conj OU quiet palpebral conj OU Corneas: clear centrally OU, arcus OU pterygium nasally OD, pterygium nasal & temporal OS Iris: flat and clear OU AC: D & Q OU Angles: 4x4 OU Lens: NS1+ OU Tonometry: Performed by student, reviewed by attending [X] GAT [ ] iCare [] Franco OD 12 mmHg OS 12 mmHg Time:9:57am Fundus exam: Dilated: XXXX 9:58am Non dilated: Dilating Drops: 1GTT 1 % Tropicamide OU & 1GTT 2.5% Phenylephrine OU (Pt. ed. on side effects, dilation warning given and verbal consent obtained) Patient advised not to drive if they feel they have any symptoms which could affect their ability to drive safely. Patient advised not to engage in any activities which could put themselves or others at risk if they feel they have any symptoms which could affect their ability to perform those activities safely. Performed by student, repeated by attending Vit: Syneresis OU (+)PVD OU, (+)courtney ring OS C/D: 0.30/0.30 OD, 0.30/0.30 OS Macula: flat and clear OU 1 druse inf arcade OS PPole: clear A/V: 2/3 Vessels: normal caliber OU Periph: flat and intact (-)holes, tears, detachments 360 OU (-) tobacco dust Assessment/Plan: 1. Posterior Vitreous Detachment, OU - Pt educated on today's findings, went over signs and symptoms of a retinal detachment, instructed to RTC if symptoms worsen. - RTC 6-8 weeks for DFE + CEE 2. Peripheral stationary pterygium OU with associated Dry Eye Syndrome OU symptomatic -Pt ed re today's findings -Switch from AT to gel drop - repeated back the plan and education. -Monitor 3. Nuclear Sclerosis OU - Pt. ed. on findings - cataracts are not visually significant and that surgery is not necessary at this time - Ed. on importance of UV protection and on symptoms of glare - Monitor yearly 4. Hyperopia OU and presbyopia OU - Monitor Return to Clinic 6-8 weeks or earlier PRN Education: After discussion and answering all 's questions, demonstrated and verbalized understanding of diagnosis and treatment. Yes [x] No [ ] Medication Reconciliation: Outpatient: Has the patient been taking medications as documented in the EMLR? YES: The patient has been taking medications as documented in the EMLR. Essential Medication List for Review used to complete this medication reconciliation. INCLUDED IN THIS LIST: Alphabetical list of active outpatient prescriptions dispensed from this [place] (local) and dispensed from another [place] or DoD facility (remote) as well as inpatient orders (local, pending and active), local clinic medications, locally documented non-VA medications, and local prescriptions that have or been discontinued in the past 90 days. - All changes in medications, including all non-VA/Herbal/OTC medications were entered into CPRS. - If there were any medications the patient should no longer take, they were discontinued. - The patient/caregiver was instructed to update this list, discard old lists, and take this list to the next appointment, whether with a VA or non-VA provider. /moon/ MOMO WILLIAMSON OPTOMETRY STUDENT Signed: 05/16/2024 11:43 /moon/ YOLIS HOAWRD STAFF [employer] Cosigned: 05/16/2024 11:46 LEE ANN WILLIAMSON [facility]
--- OUTSIDE RECORDS SUMMARY | 2024-07-10 10:00 | XMS_ITS ---
Author Name [facility] [facility] [place] [facility] [place] Address [address] [place] [address] Care Team Providers Care Stratigraphy Teacher Name Role Phone JAZMIN LAMB Primary Care [...] Bishop's Name Patient's Relationship to Policy Bishop [facility] MEDICAID [facility] MEDICAI D [id number] [phone] KYLE FREDERICK IS PATIENT MEDICAID MEDICAID [facility] [place] Jun 28, 2015 MEDICAI D [id number] [phone] KYLE GUILLEN IS PATIENT MEDICARE (WNR) MEDICARE (M) PART B Jun 27, 2009 PART B [id number] KYLE FREDERICK IS PATIENT MEDICARE (WNR) MEDICARE (M) PART A Jun 28, 2007 PART A [id number] KYLE GUILLEN IS PATIENT FOR LIFE TFL* Mar 29, 2017 [id number] KYLE FREDERICK IS PATIENT Selected Encounter This section includes the information on record at CT for the Encounter. Date/Time Encounter Type Encounter Description Reason Provider Source Jul 10, 2024 02:00 PM INTRM OPH EXAM EST PATIENT OPTOMETRY ICD-10-CM H43.813 Vitreous degeneration, bilateral YOLIS HOWARD Giuseppe Encounter Template Text not used by CT Assessments - Encounter Diagnoses This section includes the primary and secondary diagnoses documented for the Encounter. Date/Time Primary/Secondary Diagnosis Diagnosis Name Provider Source Jul 10, 2024 02:28 PM PRIMARY Vitreous degeneration, bilateral YOLIS HOWARD [facility] [place] [facility] Jul 10, 2024 02:28 PM SECONDARY Dry eye syndrome of bilateral lacrimal glands YOLIS HOWARD [facility] [place] [facility] Jul 10, 2024 02:28 PM SECONDARY Unspecified disorder of refraction [facility] Plan of Treatment: Future Appointments (+ 6 months) and Future Tests (+/- 45 days) The Plan of Treatment section includes future care activities for the patient from all CT treatmentfacilities. This section includes future appointments and future orders which are active, pending or scheduled. Future Appointments This section includes appointments that were scheduled to occur 6 months from the date of the Encounter, up to a maximum of 20 appointments. The data comes from all CT treatment facilities. Appointment Date/Time Appointment Type Appointme nt Facility Name Sep 01, 2024 02:30 PM AMBULATORY [facility] Sep 05, 2024 10:00 AM AMBULATORY - MEDICINE [facility] Social History: Smoking Status (Most current) and Tobacco Use (All prior to encounter date) This section includes the most current, and the historical, smoking and tobacco- related health factors from the [facility] facility where the Encounter took place. Current Smoking Status This section includes the most current smoking, or tobacco-related health factor, from the VA facility where the Encounter took place. Date/Time Current Smoking Status Comment Joaquin raphael Sep 06, 2023 09:[address]-TOBACCO NEVER USED [facility] Tobacco Use History This section includes a history of the smoking, or tobacco-related health factors, that were collected on or before the date of the Encounter. The data comes from the CT facility where the Encounter took place. Date/Time Smoking Status/Tobac co Use Comment Facility Sep 03, 2022 10:00 AM VA-TOBACCO FORMER USER [facility] Sep 03, 2022 10:00 AM VA-TOBACCO QUIT [address] [facility] [place] [facility] May 13, 2021 09:30 AM QUIT TOBACCO USE > 7 YEARS AGO smoked for one year after his divorce [facility] [place] [facility] May 13, 2021 09:30 AM VA-TOBACCO FORMER USER CT [facility] [place] [facility] May 13, 2021 09:30 AM VA-TOBACCO QUIT [facility]RS [facility] May 18, 2019 01:59 PM VA-TOBACCO NEVER USED [facility] Advance Directives: All historical and current Section Date Range: From patient's date of to the date document was created. This section includes ALL of a patient's completed or amended CT Advance and Rescinded Directives. The entries below indicate that a directive exists for the patient, but an actual copy is not included with this document. The data comes from all [facility]. Date Advance Directives Provider Source Oct 02, 2008 ADVANCE DIRECTIVE DISCUSSION [place] [facility] Dec 31, 2006 ADVANCE DIRECTIVE DISCUSSION [facility] [facility] Jun 04, 2005 ADVANCE DIRECTIVE [facility] Jul 07, 2004 ADVANCE DIRECTIVE [place] [facility] Dec 06, 2002 ADVANCE DIRECTIVE KAJAL PAY[place] [facility] Encounter Notes: All associated encounter notes This section contains the clinical notes associated to the Encounter. Date/Time Encounter Note(s) Provider Source Jul 10, 2024 02:28 PM ADDENDUM: LOCAL TITLE: Addendum STANDARD TITLE: ADDENDUM DATE OF NOTE: JUL 10, 2024@14:28:13 ENTRY DATE: JUL 10, 2024@14:28:14 AUTHOR: YOLIS HOWARD COSIGNER: URGENCY: STATUS: COMPLETED Please order the following: RX INFORMATION OD +1.50 - 1.00 X135 Add:+2.50 Pzm:0.00 Dir: Prz2:0.00 Dir2: OS +1.50 0.00 X Add:+2.50 Pzm:0.00 Dir: Prz2:0.00 Dir2: FITTING INFORMATION FPD:69.5 NPD:63.5 [place]:R: L: SEG HT:R:23 L:23 Tint:None Shade:None VA Billable Items FRAME: QuickofficeCOW [employer] Justice SystemsMETAL 56-18-145 Right Lens: POLY BIFOCAL FT28 PHOTOCHROMIC PIMENTEL 1.586 POLY Left Lens: POLY BIFOCAL FT28 PHOTOCHROMIC PIMENTEL 1.586 POLY KLEAR ANTI-REFLECTIVE COATING OD: +1.50 -1.00 X 135 20/20 OS: +1.50 sph 20/20 Add: +2.50 20/20 /moon/ YOLIS HOWARD OD STAFF FLAP MAKER Signed: 07/10/2024 14:29 Receipt Acknowledged By: 07/10/2024 14:38 /moon/ CANDACE GILES OPTOMETRY TECH --- Original Document --- 07/10/24 OPTOMETRY NOTE(T): I saw this patient in conjunction with the student and agree to the stated findings and plan after reviewing both history and repeating borjas elements of physical exam. Patient presents for 6-week dilated fundus exam well-known to me with history of_flashes of light and PVD OS on May 16, 2024 exam. He now has floaters OU with PVD OU. Ordered bifocals in duplicate frames. Also ordered Systane lubricating drops OU, Lacri-Lube ointment for bedtime OU and Elvira mask all for dry eye complaints OU. The patient will return in 12 months or sooner if any problems arise. /moon/ YOLIS HOWARD OD STAFF FLAP MAKER Signed: 07/10/2024 14:28 07/10/2024 ADDENDUM STATUS: COMPLETED Optometry Health Grinder Dresser ordered patient 1 pair(s) of bifocal eyeglasses on 07/10/2024 as directed by provider. OPT HT entered consult(s) for order on behalf of provider. /moon/ CANDACE GILES OPTOMETRY TECH Signed: 07/10/2024 14:38 YOLIS HOWARD [facility] [place] [facility] Jul 10, 2024 01:51 PM OPTOMETRY NOTE: LOCAL TITLE: OPTOMETRY NOTE(T) STANDARD TITLE: OPTOMETRY NOTE DATE OF NOTE: JUL 10, 2024@13:51 ENTRY DATE: JUL 10, 2024@13:51:34 AUTHOR: YOLIS HOWARD EXP COSIGNER: URGENCY: STATUS: COMPLETED OPTOMETRY NOTE(T) Has ADDENDA I saw this patient in conjunction with the student and agree to the stated findings and plan after reviewing both history and repeating borjas elements of physical exam. Patient presents for 6-week dilated fundus exam well-known to me with history of_flashes of light and PVD OS on May 16, 2024 exam. He now has floaters OU with PVD OU. Ordered bifocals in duplicate frames. Also ordered Systane lubricating drops OU, Lacri-Lube ointment for bedtime OU and Elvira mask all for dry eye complaints OU. The patient will return in 12 months or sooner if any problems arise. /moon/ YOLIS HOWARD OD STAFF FLAP MAKER Signed: 07/10/2024 14:28 07/10/2024 ADDENDUM STATUS: COMPLETED Please order the following: RX INFORMATION OD +1.50 - 1.00 X135 Add:+2.50 Pzm:0.00 Dir: Prz2:0.00 Dir2: OS +1.50 0.00 X Add:+2.50 Pzm:0.00 Dir: Prz2:0.00 Dir2: FITTING INFORMATION FPD:69.5 NPD:63.5 [place]:R: L: SEG HT:R:23 L:23 Tint:None Shade:None VA Billable Items FRAME: HarQenMETAL 56-18-145 Right Lens: POLY BIFOCAL FT28 PHOTOCHROMIC PIMENTEL 1.586 POLY Left Lens: POLY BIFOCAL FT28 PHOTOCHROMIC PIMENTEL 1.586 POLY KLEAR ANTI-REFLECTIVE COATING OD: +1.50 -1.00 X 135 20/20 OS: +1.50 sph 20/20 Add: +2.50 20/20 /moon/ YOLIS HOWARD OD STAFF FLAP MAKER Signed: 07/10/2024 14:29 Receipt Acknowledged By: 07/10/2024 14:38 /valeria GILES OPTOMETRY TECH 07/10/2024 ADDENDUM STATUS: COMPLETED Optometry Health Grinder Dresser ordered patient 1 pair(s) of bifocal eyeglasses on 07/10/2024 as directed by provider. OPT HT entered consult(s) for order on behalf of provider. /moon/ CANDACE GILES OPTOMETRY TECH Signed: 07/10/2024 14:[address] [facility] [place] [facility] Jul 10, 2024 01:36 PM OPTOMETRY NOTE: LOCAL TITLE: OPTOMETRY NOTE STANDARD TITLE: OPTOMETRY NOTE DATE OF NOTE: JUL 10, 2024@13:36 ENTRY DATE: JUL 10, 2024@13:36:09 AUTHOR: DESIREE WILLIAMSON EXP COSIGNER: YOLIS HOWARD URGENCY: STATUS: COMPLETED Active problems - Computerized Problem List is the source for the followin. Low back pain 2. Sleep apnea 3. Chronic Post-Traumatic Stress Disorder ([facility] [id number]) 4. Insomnia 5. Anxiety ([facility] [id number]) 6. Depressive disorder 7. Kidney stone 8. Genital herpes simplex 9. Gastroesophageal reflux disease 10. History of colonic polyp 11. Chronic pancreatitis 12. Benign prostatic hyperplasia Active Outpatient Medications (including Supplies): Active Outpatient Medications Status = 1) ACYCLOVIR 200MG CAP TAKE ONE CAPSULE BY MOUTH FIVE TIMES A ACTIVE DAY Indication: FOR GENITAL HERPES 2) CLOTRIMAZOLE 1% TOP CREAM APPLY A SMALL AMOUNT TOPICALLY ACTIVE TWICE DAILY FOR FUNGAL INFECTION 3) HYPROMELLOSE 0.3% OPH GEL APPLY 1 DROP INTO EACH EYE FOUR HOLD TIMES DAILY NEEDED Indication: FOR DRY EYE 4) LIDOCAINE 5% PATCH APPLY 1 PATCH TOPICALLY ONCE DAILY (LEAVE ACTIVE PATCH ON FOR 12 HOURS, THEN REMOVE PATCH) 5) ROSUVASTATIN CA 20MG TAB TAKE ONE-HALF TABLET [...] CAP 0.4MG BY MOUTH AT BEDTIME ACTIVE 9 Total Medications Allergies: NAPROXEN All medications including those prescribed by outside VA's, community providers, and all OTC meds were reviewed and reconciled with patient to the best of their abilities. This 69 year old MALE is seen today for comprehensive exam and PVD follow up DARON: MAY 16 2024 (problem focused visit) MAY 19 2023 (CEE) Chief Complaint: pt reports blurry vision at distance but clears after he blinks , also reports frequent tearing OU. Denies any flashes and floaters OHx: 1. MONTRELL OU 2. NS OU 3. PVD OS 4. RE/P Ocular Medications: Refresh ATs and lubrication ointment (-) Pain: (-) BURDICK: (-) Diplopia: (-) [...] 20/20 Add: +2.50 20/20 DVA ( )sc ( X )cc - phoropter OD: 20/25+2 OS: 20/20 Pupils: PERRL (-)APD EOMs: SAFE OU, (-)Pain/Diplopia CVF (facial, peripheral): FTFC OU Subjective Refraction: OD: +1.50 -1.00 X 135 20/20 OS: +1.50 sph 20/20 Add: +2.50 20/20 All the above performed by student, reviewed by attending Anterior segment: Performed by student, repeated by attending * Lids/Lashes: dermatochalasis OU, MGD OU Conjunctiva: white and quiet bulbar conj OU quiet palpebral conj OU Corneas: clear centrally OU, arcus OU pterygium nasally OD, pterygium nasal & temporal OS Iris: flat and clear OU AC: D & Q OU Angles: 4x4 OU Lens NS 1+ OU Tonometry: Performed by student, reviewed by attending * [ X ] GAT [ ] iCare [] Franco OD 11 mmHg OS 11 mmHg Time: 1:53pm Fundus exam: Dilated: XXX 1:54pm Non dilated: Dilating Drops: 1GTT 1 % [...] safely. Performed by student, repeated by attending * Vit: syneresis OU PVD OS C/D: 0.30 OD, 0.30 OS Macula: flat and clear OU 1 dot hemorrhage inf OS PPole: clear A/V: 1/2 Vessels: normal caliber OU Periph: flat and intact (-)holes, tears, detachments 360 OU (-)tobacco dust Assessment/Plan: 1. Posterior Vitreous Detachment, OU - No new onset of F&F, pt educated on signs and symptoms of RD, instructed to call clinic if exp sudden onset of symptoms. - Monitor yearly 2. Nuclear Sclerosis OU - Pt. ed. on findings - cataracts are not visually significant and that surgery is not necessary at this time - Ed. on importance of UV protection and on symptoms of glare - Monitor yearly 3. Peripheral stationary pterygium OU - contributing to dry eye exacerbation - ordering lubrication ointment at bedtime for relief - Monitor yearly 4. Dry eyes OU; (symptomatic) - Pt. ed. on todays findings, denies CPAP use - Ordering systane gel drop and lubrication cesar - Ed. pt. to use BID-QID OU even on days when eyes are not feeling dry - Monitor 5. Regular astigmatism OU and presbyopia OU - Pt. ed. on todays findings - Ordering duplicate frames for (FT28): FRAME: RILEY JIMENEZMETAL [id number] - Monitor Return to Clinic 12 month or earlier PRN Education: After discussion and answering all 's questions, Aurora demonstrated and verbalized understanding of diagnosis and treatment. Yes [x] No [ ] Medication Reconciliation: Outpatient: Has the patient been taking medications as documented in the EMLR? YES: The patient has been taking medications as documented in the EMLR. Essential Medication List for Review used to complete this medication reconciliation. INCLUDED IN THIS LIST: Alphabetical list of active outpatient prescriptions dispensed from this [facility] (local) and dispensed from another VA or [facility] facility (remote) as well as [...] provider. /moon/ MOMO WILLIAMSON OPTOMETRY STUDENT Signed: 07/10/2024 14:32 /moon/ YOLIS HOWARD OD STAFF FLAP MAKER Cosigned: 07/10/2024 14:[address] [facility]
--- OUTSIDE RECORDS SUMMARY | 2024-09-05 06:00 | XMS_ITS ---
Author Name [facility] [place] [facility] [place] Address [address] [place] [address] Care Team Providers Care Sour Bleaching Pleater Name Role Phone JAZMIN LAMB Primary Care [...] Bishop's Name Patient's Relationship to Policy Bishop [facility] [id number] KYLE FREDERICK IS PATIENT MEDICAID MEDICAID [facility] [place] [place] Jun 28, 2015 MEDICAI D [id number] [phone] KYLE CLIFTON IS PATIENT MEDICARE (WNR) MEDICARE (M) PART B Jun 27, 2009 PART B [id number] KYLE FREDERICK IS PATIENT MEDICARE (WNR) MEDICARE (M) PART A Jun 28, 2007 PART A [id number] KYLE GUILLEN IS PATIENT FOR LIFE TFL* Mar 29, 2017 [id number] KYLE FREDERICK IS PATIENT Selected Encounter This section includes the information on record at [place] for the Encounter. Date/Time Encounter Type Encounter Description Reason Provider Source Sep 05, 2024 10:00 AM OFFICE O/P EST MOD 30 MIN PRIMARY CARE/MEDICINE ICD-10-CM M54.50 Low back pain, unspecified FURCOLO,JAZMIN IHE Encounter Template Text not used by [place] Assessments - Encounter Diagnoses This section includes the primary and secondary diagnoses documented for the Encounter. Date/Time Primary/Secondary Diagnosis Diagnosis Name Provider Source Sep 05, 2024 10:29 AM PRIMARY Low back pain, unspecified FURCOLO,JAZMIN [facility] [place] [facility] Sep 05, 2024 10:29 AM SECONDARY Anxiety disorder, unspecified FURCOLO,JAZMIN [facility] [place] [facility] Sep 05, 2024 10:29 AM SECONDARY Benign prostatic hyperplasia without lower urinry tract symp FURCOLO,JAZMIN [facility] [place] [facility] Sep 05, 2024 10:29 AM SECONDARY Calculus of kidney FURCOLO,JAZMIN [facility] [place] [facility] Sep 05, 2024 10:29 AM SECONDARY Gastro-esophageal reflux disease without esophagitis FURCOLO,JAZMIN [facility] [place] [facility] Sep 05, 2024 10:29 AM SECONDARY Herpesviral infection of other male genital organs FURCOLO,JAZMIN [facility] [place] [facility] Sep 05, 2024 10:29 AM SECONDARY Insomnia, unspecified FURCOLO,JAZMIN [facility] [place] [facility] Sep 05, 2024 10:29 AM SECONDARY Major depressive disorder, recurrent, unspecified FURCOLO,JAZMIN [facility] [place] [facility] Sep 05, 2024 10:29 AM SECONDARY Mixed hyperlipidemia FURCOLO,JAZMIN [facility] [place] [facility] Sep 05, 2024 10:29 AM SECONDARY Other chronic pancreatitis FURCOLO,JAZMIN [facility] [place] [facility] Sep 05, 2024 10:29 AM SECONDARY Post-traumatic stress disorder, chronic FURCOLO,JAZMIN [facility] Sep 05, 2024 10:29 AM SECONDARY Sleep apnea, unspecified FURCOLO,JAZMIN [facility] Plan of Treatment: Future Appointments (+ 6 months) and Future Tests (+/- 45 days) The Plan of Treatment section includes future care activities for the patient from all [place] [facility]. This section includes future appointments and future orders which are active, pending or scheduled. Active, Pending, and Scheduled Orders This section includes a listing of several types of active, pending, and scheduled orders, including clinic medications orders, diagnostic test orders, procedure orders and consult orders; where the start date of the order is 45 days before the date of the Encounter or 45 days after the date of theEncounter. The data comes from all [place] treatment facilities. Test Date/Time Test Type Test Details Facility Name Sep 05, 2024 12:00 AM Laboratory - Chemi stry Order LIVER FUNCTION BLOOD (SST-SERUM) [facility] Sep 05, 2024 12:00 AM Laboratory - Chemi stry Order LIPID PANEL FASTING BLOOD (SST-SERUM) [facility] Sep 05, 2024 12:00 AM Laboratory - Chemi stry Order BASIC METABOLIC PANEL (fasting) BLOOD (SST-SERUM) [facility] Vital Signs: All taken on the encounter date This section contains inpatient and outpatient Vital Signs collected on the date of the Encounter. Date/Time Temperature Pulse Blood Pressure Respiratory Rate SP02 Pain Height Weight Body Mass Index Source Sep 05, 2024 10:04 AM 97.4 F 71 /min 132/82 mm[Hg] 16 /min 95 % 3 224 lb 33 [facility] Social History: Smoking Status (Most current) and Tobacco Use (All prior to encounter date) This section includes the most current, and the historical, smoking and tobacco- related health factors from the [place] facility where the Encounter took place. Current Smoking Status This section includes the most current smoking, or tobacco-related health factor, from the [place] facility where the Encounter took place. Date/Time Current Smoking Status Comment Facil ity Sep 05, 2024 10:00 AM [place]-TOBACCO NEVER U SED CIGARETTES [facility] Tobacco Use History This section includes a history of the smoking, or tobacco-related health factors, that were collected on or before the date of the Encounter. The data comes from the [place] facility where the Encounter took place. Date/Time Smoking Status/Tobac co Use Comment Facility Sep 05, 2024 10:00 AM VA-TOBACCO NEVER USED OTHER TYPE [place] [facility] [place] [facility] Sep 06, 2023 09:30 AM VA-TOBACCO NEVER USED [place] [facility] [place] [facility] Sep 03, 2022 10:00 AM VA-TOBACCO FORMER USER [place] [facility] [place] [facility] Sep 03, 2022 10:00 AM VA-TOBACCO QUIT 15 YRS OR MORE [place] [facility] [place] [facility] May 13, 2021 09:30 AM QUIT TOBACCO USE > 7 YEARS AGO smoked for one year after his divorce [place] [facility] [place] [facility] May 13, 2021 09:30 AM VA-TOBACCO FORMER USER [place] [facility] [place] [facility] May 13, 2021 09:30 AM VA-TOBACCO QUIT 15 YRS OR MORE [place] [facility] [place] [facility] May 18, 2019 01:59 PM [facility] Advance Directives: All historical and current Section Date Range: From patient's date of to the date document was created. This section includes ALL of a patient's completed or amended [place] Advance and Rescinded Directives. The entries below indicate that a directive exists for the patient, but an actual copy is not included with this document. The data comes from all [facility]. Date Advance Directives Provider Source Oct 02, 2008 ADVANCE DIRECTIVE DISCUSSION [facility] Dec 31, 2006 ADVANCE DIRECTIVE DISCUSSION [facility] Jun 04, 2005 ADVANCE DIRECTIVE [facility] Jul 07, 2004 ADVANCE DIRECTIVE [facility] Dec 06, 2002 ADVANCE DIRECTIVE KAJAL PAYNE [facility] Encounter Notes: All associated encounter notes This section contains the clinical notes associated to the Encounter. Date/Time Encounter Note(s) Provider Source Sep 05, 2024 10:07 AM PHYSICIAN NOTE: LOCAL TITLE: MD NOTE STANDARD TITLE: PHYSICIAN NOTE DATE OF NOTE: SEP 05, 2024@10:07 ENTRY DATE: SEP 05, 2024@10:07:39 AUTHOR: JAZMIN LAMBIGNER: URGENCY: STATUS: COMPLETED TORRJAKE,HUMBERTO EPPERSON is a 69 year old WHITE MALE who is being seen today in primary care for routine follow up. == CARE TEAM == Community Primary Care Provider: PCP [facility]. Milan in [facility] Specialists: optometry Community Specialists: == HISTORY == PERIOD OF SERVICE - [place] [facility]ICE CONNECTED % - NONE FOUND [employer], [employer], [phone], [employer], [employer] around time of 12/07 == HISTORY OF PRESENT ILLNESS == Patient presents today for routine follow-up -would like renewal of acyclivir, nystatina nd lidocaine patch doing well- went to [place] in winter to see his kids/family -no illness, no falls, walking more- feels well == RELEVANT PAST MEDICAL HISTORY == Active problems - Computerized Problem List is the source for the followin. Low back pain 2. Sleep apnea pt on cpap--using it 3. Chronic Post-Traumatic Stress Disorder (SCT [id number]) 4. Insomnia 5. Anxiety (SCT [id number]) 6. Depressive disorder 7. Kidney stone 8. Genital herpes simplex 9. Gastroesophageal reflux disease 10. History of colonic polyp 11. Chronic pancreatitis 12. 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 Active and Recently Outpatient Medications (excluding Supplies): Active Outpatient Medications Status 1) HYPROMELLOSE 0.3% OPH GEL APPLY 1 DROP INTO EACH EYE FOUR HOLD TIMES DAILY NEEDED Indication: FOR DRY EYE 2) LORATADINE 10MG TAB TAKE ONE TABLET BY MOUTH ONCE DAILY ACTIVE Indication: FOR ALLERGY 3) LUBRICATING (PF) OPH OINT APPLY SMALL AMOUNT INTO EACH EYE ACTIVE AT BEDTIME Indication: FOR DRY EYE 4) PEG-400 0.4/PROP GLY 0.3% OPH SOLN UD INSTILL 1 DROP INTO ACTIVE EACH EYE FOUR TIMES DAILY NEEDED Indication: FOR DRY EYES 5) ROSUVASTATIN CA 20MG TAB TAKE ONE-HALF TABLET BY MOUTH AT ACTIVE BEDTIME FOR CHOLESTEROL Indication: FOR HIGH CHOLESTEROL Inactive Outpatient Medications Status 1) LIDOCAINE 5% PATCH APPLY 1 PATCH TOPICALLY ONCE DAILY (LEAVE PATCH ON FOR 12 HOURS, THEN REMOVE PATCH) Active Non-VA Medications Status 1) Non-VA CREON 24,000UNIT EC CAP 4 CAPSULES BY MOUTH FOUR ACTIVE TIMES A DAY 2) Non-VA OMEPRAZOLE 20MG EC CAP 40MG BY MOUTH TWICE DAILY ACTIVE 3) Non-VA SUVOREXANT 5MG TAB UD 5MG BY MOUTH AT BEDTIME ACTIVE 4) Non-VA TAMSULOSIN HCL 0.4MG CAP 0.4MG BY MOUTH AT BEDTIME ACTIVE 10 Total Medications == REVIEW OF SYMPTOMS == POSITIVE FOR: NEGATIVE FOR: CONSTITUTION: no weight loss/gain, fatigue, fevers, night sweats HEENT: no vision problems, hearing loss,swallowing difficulties, sinus pain CV: no chest pain, palpitations, dyspnea on exertion, orthopnea RESP: no cough, shortness of breath, wheezing GI: no abdominal pain, N/V/D, constipation, blood in stool, normal appetite : no urinary frequency, nocturia, hematuria MUSC: no joint pain, joint swelling, muscle aches NEURO: no headaches, dizziness, memory loss, tremor, weakness PSYCH: no depression, anxiety, suicidal or homicidal thoughts SKIN: no rash, new skin lesions == PHYSICAL EXAM == Vitals: - - - - - - - B/P: 132/82 (09/05/2024 10:04) pulse: 71 (09/05/2024 10:04) resp: 16 (09/05/2024 10:04) temp: 97.4 F [36.3 C] (09/05/2024 10:04) Ht: 69 in [175.3 cm] (03/03/2023 13:59) Wgt: 224 lb [101.60 kg] (09/05/2024 10:04) BMI: BMI: 33.1 Exam: - - - - - - - General: A&O x 3, no acute distress, normal affect and mood CV: RRR S1S2, no murmur Resp: LCTA bilat, no wheezing, rales or rhonchi Neuro: grossly intact, no visible tremor, normal memory and speech Extremities: normal movement of extremities, normal gait, normal strength no LE edema == RECENT LABS == no labs in years == ASSESSMENT AND PLAN == Active problems - Computerized Problem List is the source for the followin. Low back pain 2. Sleep apnea pt on cpap--using it 3. Chronic Post-Traumatic Stress Disorder ([facility] [id number]) 4. Insomnia 5. Anxiety ([facility] [id number]) 6. Depressive disorder 7. Kidney stone 8. Genital herpes simplex- renewed acyclovir 9. Gastroesophageal reflux disease- on PPI 10. Chronic pancreatitis 11. Benign prostatic hyperplasia- takes tamsulosin 12. hyperliidemia- on rosuvastatin- discussed getting fasting labs done == HEALTH MAINTENANCE == Colonoscopy- due - booked for end of 08/2024- outside PCP Abdominal Aortic Aneurysm Screening - n/a Prostate screening - Tetanus: due every 10 years Pneumonia Vacccine: Flu Vaccine: due yearly Covid Vaccine: due yearly == FOLLOW UP == f/u in 1 year with fasting labs VISIT TYPE: a MODERATE complexity visit where 30 minutes was spent in direct patient care, review of records and documentation. Upcoming Appointments: 07/16/2025 11:00 [facility] 4 /es/ JAZMIN LAMB D.O. PHYSICIAN Signed: 09/05/2024 10:30 JAZMIN LAMB [facility] [place] [facility] Sep 05, 2024 10:00 AM PREVENTIVE MEDICIN E NURSING NOTE: LOCAL TITLE: CLINICAL REMINDERS/NURSING STANDARD TITLE: PREVENTIVE MEDICINE NURSING NOTE DATE OF NOTE: SEP 05, 2024@10:00 ENTRY DATE: SEP 05, 2024@10:00:25 AUTHOR: GOPI PETERSEN EXP COSIGNER: URGENCY: STATUS: COMPLETED Advance Directive Screen MH AD: Patient does not have a completed advance directive on file at any facility, [facility] or outside. S/he is not interested in completing one at this time. The patient received education about Advance Directives and written notification of his/her rights. Suicide Screen: C-SSRS Screening [place] Suicide Severity Rating Scale (C-SSRS) screener 1. [...] Not worried about housing near future The reports the following: Within the past 12 months, you worried whether your food would run out before you got money to buy more. Never true Within the past 12 months, the food you bought just didn't last and you didn't have money to get more. Never true Follow Up Colonoscopy: Colonoscopy is due based on information available to this reminder. A colonoscopy is currently scheduled or in process of being scheduled. Comment: scheduled the end of august PTSD Screening: PC-PTSD-5 A PTSD screening test (PC-PTSD-5) was negative (score=0). IN THE PAST MONTH, have you ever had any experience that was so frightening, horrible or traumatic. For example: A serious accident or fire a physical or sexual assault or abuse An earthquake or flood A war Seeing someone be killed or seriously injured Having a loved one through homicide or suicide 1. Have you ever experienced this kind of event? NO 2. Had nightmares about the event(s) or thought about the event(s) when you did not want to? Response not required due to responses to other questions. 3. Tried hard not to think about the event(s) or went out of your way to avoid situations that reminded you of the event(s)? Response not required due to responses to other questions. 4. Been constantly on guard, watchful, or easily startled? Response not required due to responses to other questions. 5. [place] numb or detached from people, activities, or your surroundings? Response not required due to responses to other questions. 6. [place] guilty or unable to stop blaming yourself or others for the event(s) or any problems the event(s) may have caused? Response not required due to responses to other questions. Tobacco Use Screening: The patient has never smoked cigarettes. The patient has never used other types of tobacco. Influenza Immunization: The patient has received the seasonal influenza vaccine for the current season at another location. Documented: INFLUENZA, UNSPECIFIED FORMULATION Historical Date Administered: Jan 06, 2024 Series: Complete Outside Location: Outside Healthcare Provider Information Source: FROM PATIENT'S RECALL Alcohol Use Screen (AUDIT-C): Alcohol Screen: SCREEN [...] their sexual orientation as: Straight or Heterosexual /es/ GOPI PETERSEN LPN License Practical Nurse Signed: 09/05/2024 10:03 GOPI PETERSEN [facility]
--- OUTSIDE RECORDS SUMMARY | 2024-11-13 06:34 | XMS_ITS | Continuity of Care Document ---
Author Name [facility] Organization [facility] Care Team Providers Care Jewel Blocker And Sawyer Name Role Phone [facility] Unavailable Unavailable Problems Combined list of problems from Department of Defense and Veterans Affairs facilities. It does not include entries that were removed or entered in error. Problem Status Onset Date Problem Type Date of Resolution Comments Source Adhesive capsulitis of shoulder (ICD-9-CM 726.0) Active Condition [facility] Anxiety (SCT 15825548) Active Condition [facility] Back Pain (ICD-9-CM 724.5) Active Condition [facility] Benign prostatic hyperplasia Active Condition [facility] Care involving other physical therapy (ICD-9-CM V57.1) Active Condition [facility] Chronic pancreatitis Active Condition [facility] Chronic Post-Traumatic Stress Disorder (SCT 158430929) Active Condition [facility] Colon Polyp (ICD-9-CM 211.3) Active Condition [facility] Constipation, unspecified (ICD-9-CM 564.00) [place] [facility] Depressive disorder Active Condition [facility] Gastroesophageal reflux disease Active Condition [facility] Genital herpes simplex Active Condition [facility] Herpes Simplex * (ICD-9-CM 054.9) Active Condition [facility] Hypertrophy (Benign) of Prostate without Urinary obstruction and other lower Uri Active Condition [place] [facility] Insomnia Active Condition [facility] Kidney stone Active Condition [facility] Low back pain Active [facility] MAJOR DEP W/PSYCHOTIC FEATURES Active Condition [facility] Mixed Hyperlipidemia (SCT 461407111) Active Condition [facility] Neuralgia, neuritis, and radiculitis (ICD-9-CM 729.2) Active Condition [facility] Obesity Active Condition [facility] Other and unspecified hyperlipidemia Active Condition [facility] Pain in joint involving shoulder region (ICD-9-CM 719.41) Active Condition [facility] RL Quadrant Abdominal Pain Active Condition [facility] Sleep apnea Active Condition Mar 04, 2022 Entered By: GERSON KEITA Comment: pt on cpap--[facility] VACCIN FOR INFLUENZA Active Condition [facility] Diagnosis: ICD-10-CM M54.50 Low back pain, unspecified Active Diagnosis [facility] [place] [facility] Diagnosis: ICD-10-CM Z46.0 Encounter for fit/adjst of spectacles and contact lenses Active Diagnosis [facility] Diagnosis: ICD-10-CM H43.813 Vitreous degeneration, bilateral Active Diagnosis [facility] Diagnosis: ICD-10-CM G47.33 Obstructive sleep apnea (adult) (pediatric) Active Diagnosis [facility] Diagnosis: ICD-10-CM G47.30 Sleep apnea, unspecified Active Diagnosis [facility] Medications Combined list of outpatient medications from Department of Defense and [facility] Affairs facilities.Medications provided include 1) outpatient medications from the last 15 months, and 2) patient-reported medications. Medication Details Route Status Patient Instructions Prescription Expires Prescription Number Last Dispense Date Ordering Provider Order Date Order Qty Source ACYCLOVIR 200MG CAP TAKE ONE CAPSULE BY MOUTH FIVE TIMES A DAY ORAL ACTIVE 09/06/2025 [id number] FURCOLO,T [facility]A 2024 50 [facility] ACYCLOVIR 200MG CAP TAKE ONE CAPSULE BY MOUTH FIVE TIMES A DAY ORAL DISCONT INUED 07/20/2024 [id number] 4 FURCOLO,T [place] 2023 50 [facility] CARBOXYMETH YLCELLULOSE NA 0.5% (PF) SOLN,OPH,UD INSTILL 1 DROP INTO EACH EYE EVERY 2 HOURS WHILE AWAKE OPHTHA LMIC 05/18/2024 [id number] 4 KINCAID,LAC EY J 2023 100 [facility] HYPROMELLOS E 0.3% GEL,OPH APPLY 1 DROP INTO EACH EYE FOUR TIMES DAILY NEEDED OPHTHA LMIC HOLD 05/17/2025 [id number] Isabel HOWARD NDREW E 2024 20 [facility] LIDOCAINE 5% PATCH APPLY 1 PATCH TOPICALL Y ONCE DAILY (LEAVE PATCH ON FOR 12 HOURS, THEN REMOVE PATCH) TOPICA L ACTIVE 09/06/2025 [id number] 5 FURCOLO,T [facility] 2024 30 [facility] LIDOCAINE 5% PATCH APPLY 1 PATCH TOPICALL Y ONCE DAILY (LEAVE PATCH ON FOR 12 HOURS, THEN REMOVE PATCH) TOPICA L DISCONT INUED 08/27/2024 [id number] 5 FURCOLO,T [place] 2023 30 [facility] LORATADINE 10MG TAB TAKE ONE TABLET BY MOUTH ONCE DAILY FOR ALLERGY ORAL ACTIVE 08/10/2025 [id number] 5 FURCOLO,T [place] 2024 90 [facility] LORATADINE 10MG TAB TAKE ONE TABLET BY MOUTH ONCE DAILY FOR ALLERGY ORAL DISCONT INUED 04/27/2024 [id number] AHMED,[facility] AMMED JAWED 2023 90 [facility] MINERAL OIL,LIGHT/P ETROLATUM (PF) OINT,OPH APPLY SMALL AMOUNT INTO EACH EYE AT BEDTIME OPHA LMIC ACTIVE 07/11/2025 [id number] Isabel HOWARD NDREW E 2024 3 [facility] NYSTATIN [id number]/G M CREAM,TOP APPLY A THIN LAYER TOPICALL Y ONCE DAILY FOR FUNGAL INFECTIO N TOPICA L ACTIVE 09/06/2025 [id number] FURCOLO,T [place]UR[place] 2024 30 [facility] NYSTATIN [id number]/G M OINT,TOP APPLY MODERATE AMOUNT TOPICALL Y TWICE DAILY FOR FUNGAL INFECTIO N TOPICA L 03/03/2024 [id number] DONNA KEITA JAWED 2022 60 [facility] OMEPRAZOLE 20MG CAP,EC TAKE 2 CAPSULES BY MOUTH TWICE DAILY ORAL ACTIVE DONNA KEITA AMALIYA JAWED 2019 [facility] PEG-400 0.4%/PROPYL CANDE GLYCOL 0.3% SOLN,OPH,UD INSTILL 1 DROP INTO EACH EYE FOUR TIMES DAILY NEEDED FOR DRY EYES OPHTHA LMIC ACTIVE 11/14/2025 [id number] 5 Isabel HOWARD NDREW E 2024 30 [facility] PEG-400 0.4%/PROPYL CANDE GLYCOL 0.3% SOLN,OPH,UD INSTILL 1 DROP INTO EACH EYE FOUR TIMES DAILY NEEDED OPHTHA LMIC DISCONT INUED (EDIT) 07/11/2025 [id number] 5 Isabel HOWARD NDREW E 2024 30 [facility] ROSUVASTATI N CA 20MG TAB TAKE ONE-HALF TABLET BY MOUTH AT BEDTIME FOR CHOLESTE ROL ORAL ACTIVE 01/11/2025 [id number] 5 FURCOLO,T [place]UR[place] 2023 45 [facility] SUVOREXANT 5MG TAB,UD TAKE ONE TABLET BY MOUTH AT BEDTIME ORAL ACTIVE DONNA KEITA JAWED [facility] TAMSULOSIN HCL 0.4MG CAP TAKE 1 CAPSULE BY MOUTH AT BEDTIME ORAL ACTIVE DONNA KEITA [facility]AWED [facility] Allergies, Adverse Reactions, Alerts Combined list of allergies from Department of Defense and Veterans Affairs facilities. It does not include entries that were removed or entered in error. Substance Category Reaction Severity Reaction type Status Date Reported Comments Source NAPROXEN Propensity to adverse reactions to drug (finding) Epigastric discomfort active 2 [facility] Immunizations Combined list of available immunizations from the Department of Defense and Veterans Affairs facilities. Immunization Series Date Given Administered By Site Reaction Lot Number CVX Code Drug Advanced Clinical Specialist Status Comments Source INFLUENZA, UNSPECIFIED FORMULATION 2023 88 complet ed Completed Series, HISTORICA L INFORMATI ON - [facility] PAT[facility]'S RECALL, [facility] PNEUMOCOCCAL CONJUGATE PCV20, POLYSACCHARID E [id number] CONJUGATE, ADJUVANT, PF 2021 RADHA NUNN LEFT DELTO ID [id number] 216 complet ed [facility] INFLUENZA, UNSPECIFIED FORMULATION 2021 88 complet ed HISTORICA L INFORMATI ON - [facility] INFLUENZA, UNSPECIFIED FORMULATION 2020 88 complet ed [facility] COVID-19 (PFIZER), MRNA, LNP-S, PF, 30 MCG/0.3 ML DOSE 3 2020 208 complet ed [facility] PNEUMOCOCCAL POLYSACCHARID E PPV23 2020 33 complet [facility] TDAP 2020 115 [facility] COVID-19 (PFIZER), MRNA, LNP-S, PF, 30 MCG/0.3 ML DOSE 2 2020 208 complet ed PFR; [id number]; 1 [facility] COVID-19 (PFIZER), MRNA, LNP-S, PF, 30 MCG/0.3 ML DOSE 1 2020 208 complet ed PFR; [id number]; 1 [facility] INFLUENZA, SEASONAL, INJECTABLE 2018 141 complet [facility] INFLUENZA, UNSPECIFIED FORMULATION 2008 88 complet ed [facility] INFLUENZA, UNSPECIFIED FORMULATION 2007 88 complet ed [facility] FLU,3 YRS (HISTORICAL) 2006 88 complet ed [facility] INFLUENZA, UNSPECIFIED FORMULATION 2005 88 complet ed [facility] INFLUENZA, UNSPECIFIED FORMULATION 2004 88 complet ed [facility] TD(ADULT) UNSPECIFIED FORMULATION 2002 139 complet ed [facility] Vital Signs Combined list of inpatient and outpatient Vital Signs from Department of Defense and [facility] Affairs, ranging from 12 months to all on record, depending upon the facility. Vital Sign Value Date Comments Source SYSTOLIC BLOOD PRESSURE 132 09/06/19 25 10:04:29 [facility] DIASTOLIC BLOOD PRESSURE 82 025 10:04:29 [facility] PULSE OXIMETRY 95 % 09/05/2024 10:04:29 [facility] WEIGHT 224 09/05/2024 10:04:29 [facility] BMI 33 kg/m2 09/05/2024 10:04:29 [facility] PAIN 3 09/05/2024 10:04:29 [facility] TEMPERATURE 97.4 09/05/2024 10:04:29 [facility] PULSE 71 09/05/2024 10:04:29 [facility] RESPIRATION 16 09/05/2024 10:04:29 [facility] Encounters Combined list of: 1) Encounters from Department of Veterans Affairs facilities going backup to the last 18 months, not all [place] inpatient encounters are included; 2) Encounters from the Department of Defense facilities going backup to 280 months. Location Location Details Encounter Type Encounter Number Reason For Visit Attending Provider ADM Date DC Date Status Disposition Source [facility] RPR&REFITG SPECT XCP APHAKIA [id number] Diagnos is: ICD-10- CM Z46.0 Encount er for fit/adj st of spectac les and contact lenses USHA GARCIA 06/01 [facility] Outpatient Encounter [id number] 07/19 [facility] Out[facility] Encounter [id number] 08/26 [facility]counter [id number] 09/05 [facility] OFFICE O/P EST LOW 20 MIN [id number] Diagnos is: ICD-10- CM G47.30 Sleep apnea, unspeci fied FURCOLO,TI NA 09/05 [facility] OFFICE O/P EST LOW 20 MIN [id number] Diagnos is: ICD-10- CM G47.33 Obstruc tive sleep apnea (adult) (pediat violeta) RELL MILLS 09/06 [facility] FEE [id number] Diagnos is: ICD-10- CM G47.30 Sleep apnea, unspeci fied SHOBANDE,O VELVETOWALE 09/06 [place] [facility] Outpatient Encounter [id number] 09/08 [facility] En[facility] [id number] 09/08 [facility] Out[facility]counter [id number] 10/06 [facility] Out[facility]counter [id number] 01/05 [facility] Out[facility] Encounter [id number] 01/10 [facility] INTRM OPH EXAM EST PATIENT [id number] Diagnos is: ICD-10- CM H43.813 Vitreou s degener ation, bilater RAMON Obregon E 05/16 [facility] Out[facility] Encounter [id number] 06/15 [facility] Out[facility] Encounter [id number]/28 [facility] INTRM OPH EXAM EST PATIENT [id number] Diagnos is: ICD-10- CM H43.813 Vitreou s degener ation, RAMON Warren E 07/10 [facility] Out[facility] Encounter [id number] 07/19 [facility] Out[facility] Encounter [id number] 08/08 [facility] Outpatient Encounter [id number] 08/28 [facility] Out[facility] Encounter [id number] 08/31 [facility] FIT SPECTACLES BIFOCAL [id number] Diagnos is: ICD-10- CM Z46.0 Encount er for fit/adj st of spectac les and contact lenses Isabel GILES 09/01 [facility] FIT SPECTACLES BIFOCAL [id number] Diagnos is: ICD-10- CM Z46.0 Encount er for fit/adj st of spectac les and contact lenses RAMON HOWARD 09/01 [facility] Outpatient Encounter [id number] 09/05 [facility] OFFICE O/P EST MOD 30 MIN [id number] Diagnos is: ICD-10- CM M54.50 Low back pain, unspeci fied FURCOLO,TI NA 09/05 [facility] Outpatient Encounter [id number] 11/13 [facility] Social History Combined list of available smoking, tobacco, and other social history from Department of Defense and Veterans Affairs facilities. Social History Type Response Date Comment Source Tobacco smoking status [facility] VA-TOBACCO NEVER USED CIGARETTES 09/05/2024 [facility] History of tobacco use VA-TOBACCO NEVER USED OTHER TYPE 09/05/2024 [facility] [place] History of tobacco use VA-TOBACCO NEVER USED 09/06/2023 [facility] [place] History of tobacco use VA-TOBACCO FORMER USER 09/03/2022 [facility] History of tobacco use QUIT TOBACCO USE > 7 YEARS AGO 05/13/2021 smoked for one year after his divorce [facility] History of tobacco use VA-TOBACCO NEVER USED 05/18/2019 [facility] History of tobacco use QUIT TOBACCO >7 YEARS AGO 05/22/2009 [facility] History of tobacco use LIFETIME NON-SMOKER 04/02/2009 [facility] History of tobacco use LIFETIME NON-SMOKER 06/14/2006 [facility] History of tobacco use CURRENT NON-SMOKER 06/04/2005 1 pack cig every 2 days. [facility] History of tobacco use CURRENT NON-SMOKER 01/10/2004 [facility] History of tobacco use CURRENT NON-SMOKER 12/07/2001 [facility] Advance Directives List of completed, amended, or rescinded Advance Directives on record at Department of [facility] facilities. An actual copy of the Directive is not included. Date Advance Directive Provider Source 10/02/2008 ADVANCE DIRECTIVE DISCUSSION [facility] 12/31/2006 ADVANCE DIRECTIVE DISCUSSION [facility] 06/04/2005 ADVANCE DIRECTIVE [facility] 07/07/2004 ADVANCE DIRECTIVE [facility] 12/06/2002 ADVANCE DIRECTIVE KAJAL PAYNE [facility]
[2024-11-23 07:34] VITALS: BP 128/75; PULSE 66; RESP 16; TEMP 36.2; O2SAT 95; BMI 32.5
[2024-11-23 07:36] VITALS: BP 129/81; PULSE 66; RESP 16; O2SAT 96
--- OUTSIDE RECORDS SUMMARY | 2024-11-23 07:56 | XMS_ITS | Clinical Summary ---
Author Organization [employer] Address [address] [facility] [address] [place] [address] Care Team Providers Care Safety Teacher Name Role Phone Unavailable Primary Care Provider [...] Description 10/16/2024 1:30 PM EDT Office Visit [facility] [address] [place] [id number] Jose Aguilera DMD 09/04/2024 9:00 AM EDT Office Visit [facility] [address] [place] [address] Jose Aguilera DMD 08/25/2024 2:30 PM EDT Office Visit [facility] [address] [address] Jose Aguilera DMD from Last 3 Months [...] Description 12/07/2024 3:00 PM EDT Office Visit [facility] [address] [place] [address] Alessandra Esparza [address] [place] [address] Health Maintenance Due Date Last Done Comments [...]
--- OUTSIDE RECORDS SUMMARY | 2024-11-23 07:56 | XMS_ITS | Patient Health Record ---
Author Organization [facility] Address [address] [place] [address] Care Team Providers Care Condenser Tube Tender Name Role Phone David TRISTAN, Jose Primary Care Provider Kali Boudreaux Unavailable [phone] Reason For Referral No Information Medications Medication [...] W/U Status Risk Notes Problem Pre-surgery evaluation (192661333) Other specified pre-operative examination (V72.83) Active confirmed Problem Colon cancer screening (923526497) Colon cancer screening (V76.51) Active confirmed Plan Of Treatment Future Test Test Name Order Date COLONOSCOPY 01/25/2014 Insurance Providers Payer Name Payer Address Payer Phone Subscriber Number Group Number Insured Name Patient Relationship to Insured Coverage Start Date Coverage End Date MEDICARE OF [place] [address] [place] [id number] [phone] [id number] HUMBERTO GUILLEN Self - patient is the insured MEDICAID OF [facility] [address] [place] [phone] [id number] HUMBERTO GUILLEN Self - patient is the insured Medical (General) History Medical History History ICD Code ? [place] in 1990--whiile living in [place]--not clear about the details--no problems since Denies CVA,DM,Lung disease,renal disease Describes a negative colonoscopy in [place] at around age 49 Hyperlipidemia Kidney stones--ESWL, Cystoscopies Perianal condylomata as below Surgical History Surgery Date(Month/Year) appendectomy Fulguration of perianal condyloma in 05/[address] Verdugo
--- NOTE | 2024-11-23 08:10 | PC.NURSE ---
Addendum entered by Briseyda Buckley RN 11/23/24 08:11: Patient is a 69-year-old male presenting to the emergency department with complaint of infected finger around nail on 4th finger of right hand since last night. Seen on 11/15 for the same complaint. Alert and oriented. Respiration even and non-labored. Abdomen soft, non-tender with positive bowel sounds. Redness and swelling noted around the 4th finger on his right hand. Original Note: Medical History Encounter for subsequent annual wellness visit (AWV) in Medicare patient Upper abdominal pain Back pain Screening for diabetes mellitus Dizziness Shoulder pain Left foot pain Obesity Ankle pain BMI 31.0-31.9,adult Adult general medical exam Abnormality of penis Balanitis Tinea cruris Abdominal bloating Thrombosed external hemorrhoid Chronic GERD Urinary frequency Other obstructive and reflux uropathy Renal stones Chronic superficial gastritis without bleeding BPH loc w urin obs/LUTS Insomnia Tubular adenoma of colon
--- NOTE | 2024-11-23 09:02 | ED_ITS ---
HPI - General Adult General Chief complaint: General Medical Stated complaint: Infection R finger Time Seen by Provider: 11/23/24 08:52 Source: patient Mode of arrival: ambulatory Limitations: no limitations History of Present Illness ED Provider: Bety Ramirez PA-C HPI narrative: Patient is a 69 year old assigned male at with a history of GERD, HLD, and IBS presenting to the emergency department today with a right 4th finger infection. Patient states that on 11/15/2024 he was seen here for a right 4th finger infection but the infection was on the other side of the finger than it is today. Patient states that he took the antibiotic as prescribed and finished it. 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 Patient denies any other complaints at this time. Relieving factors: none Exacerbating factors: none Associated symptoms: denies other symptoms Treatments prior to arrival: other (cephalexin) Related Data Previous Rx's ?Medication ?Instructions ?Recorded tamsulosin 0.4 mg capsule 0.8 mg (2 x 0.4 mg) PO DAILY 90 07/14/24 days #180 caps omeprazole 20 mg capsule,delayed 20 mg PO DAILY #90 ca ps 07/26/24 release sodium,potassium,mag sulfates 17.5 480 ml PO .COMPLEX #354 mL 08/15/24 gram-3.13 gram-1.6 gram oral soln (Suprep Bowel Prep Kit) melatonin 1 mg tablet 2 mg (2 x 1 mg) PO BEDTIME P RN 09/08/24 sleep 30 days #60 tabs acetaminophen 650 mg 650 mg PO Q8H PRN pain #30 t abs 10/08/24 tablet,extended release (Tylenol Arthritis Pain) cyclobenzaprine 10 mg tablet 10 mg PO TID #7 tabs 09/26 06/20 ibuprofen 600 mg tablet 600 mg PO Q6H PRN pain #30 t abs 10/08/24 cephalexin 500 mg tablet 500 mg PO QID #28 tabs 11/15 doxycycline hyclate 100 mg tablet 100 mg PO BID 7 days #14 tabs 11/23/24 Allergies Allergy/AdvReac Type Severity Reaction Status Date / Time lovastatin Allergy Unknown GI upset Verified 11/23/24 07:35 Review of Systems 2 Constitutional: Constitutional: Reports as per HPI Eyes: Eyes: Reports as per HPI ENT: Reports as per HPI Cardiovascular: Cardiovascular: Reports as per HPI Respiratory: Respiratory: Reports as per HPI Gastrointestinal: Gastrointestinal: Reports as per HPI Genitourinary: Genitourinary: Reports as per HPI Musculoskeletal: Musculoskeletal: Reports as per HPI Integumentary/Breasts: Skin/Breast: Reports as per HPI Neurologic: Reports as per HPI Psychiatric: Psychiatric: Reports as per HPI Endocrine: Endocrine: Reports as per HPI Hematologic/Lymphatic: Hematologic/Lymphatic: Reports as per HPI Allergic/Immunologic: Allergic/Immunologic: Reports as per HPI [facility] Past Medical History Attestation statement: The following information was validated with the patient. Source: old records reviewed and nursing notes reviewed Medical History Encounter for subsequent annual wellness visit (AWV) in Medicare patient Upper abdominal pain Back pain Screening for diabetes mellitus Dizziness Shoulder pain Left foot pain Obesity Ankle pain BMI 31.0-31.9,adult Adult general medical exam Abnormality of penis Balanitis Tinea cruris Abdominal bloating Thrombosed external hemorrhoid Chronic GERD Urinary frequency Other obstructive and reflux uropathy Renal stones Chronic superficial gastritis without bleeding BPH loc w urin obs/LUTS Insomnia Tubular adenoma of colon Surgical History History of esophagogastroduodenoscopy (EGD) Hx of colonoscopy History of appendectomy Family History Family History Father No problems noted. Mother HTN (hypertension) Asthma Sister HTN (hypertension) Throat cancer Social History Social History Housing: Apartment Alcohol intake: never Patient Tobacco Use Status: Never used Tobacco Smoked in Last 30 Days: No e-Cigarette/Vaping Use: Never Used Second Hand Smoke Exposure: No Use of substances other than those prescribed or required for medical reasons: No Advance Directives: No Advance Directives Information Provided: Yes Advance Directives Date on File: 11/25/20 service: Yes ([employer]) Current occupational status: retired Cognitive needs: No Hearing needs: No Vision needs: Yes (glasses) Physical Exam ED Vital Signs: Vital Signs - 24 hr 11/23/24 07:34 11/23/24 07:36 11/23/24 09:52 Temperature 97.1 F 98.2 F Pulse Rate 66 66 58 Respiratory Rate 16 16 15 Blood Pressure 128/75 129/81 141/80 H Pulse Oximetry 95 96 97 Oxygen Delivery Method Room Air Room Air Room Air 11/23/24 10:07 Temperature 98.2 F Pulse Rate 58 Respiratory Rate 15 Blood Pressure 141/80 H Pulse Oximetry 97 Oxygen Delivery Method Room Air BMI result Body Mass Index 32.5 Const General: cooperative, no acute distress, alert and awake Nutritional Appearance: well nourished Orientation/consciousness: patient oriented x3 HENMT Head: Yes normal to inspection and Yes atraumatic Ears: hearing grossly normal bilaterally and external ears normal General nose exam: Normal external nose present, no nasal discharge noted and no epistaxis Face and sinus: Yes normal facial exam, No abrasion and No laceration Mouth: Normal oral and palatal mucosa present, no drooling and no muffled voice Eyes General: appearance normal, both eyes and all related structures Periorbital: periorbital findings normal Eyelids: Yes eyelids normal Conjunctivae: conjunctivae normal Pupils: Equal, round and reactive pupils present EOM: EOMs intact bilaterally Neck Neck: Yes normal visual inspection and Yes full ROM Resp Effort & Inspection: normal respiratory effort and able to speak in complete sentences Neuro General: patient oriented x3, moves all extremities and CN's II-XI intact bilaterally Cranial nerves: Yes Equal, round and reactive pupils present Cognition (Neuro): normal cognition Extrem Other: General: Yes full ROM and Yes capillary refill normal Psych Appearance: grossly normal Mental Status: mental status grossly normal Affect: normal affect Attitude: cooperative Thought process: Normal thought process present Thought content: Normal thought content present Insight: Good insight present (Psych) Procedures Abscess I/D Site: other (finger) Side (if applicable): right Sedation/analgesia: none Technique: needle aspiration Amount of fluid expressed (mL): 1 Sent for culture/gram staining?: No Irrigation: No Packing used?: none Medical Decision Making Medical Decision Making MDM Narrative: Patient is a 69 year old assigned male at with a history of GERD, HLD, and IBS presenting to the emergency department today with a right 4th finger infection. Patient's physical exam was as noted in the physical exam portion of this note. Patient's clinical presentation is most consistent with a right 4th finger paronychia. I explained my physical exam findings to the patient. I answered all questions asked by the patient. Patient's paronychia was incised and drained with an 18g needle which just yielded blood and no pus. I explained to the patient that he needs to replace his manicure tools to avoid continually repeated infections. I stressed the importance of the patient taking his medication as directed (either prescribed or as the over the counter packaging recommends). I stressed the importance of the patient following up with his primary care provider. I stressed the importance of the patient returning to the emergency department immediately if his symptoms were to worsen or if he were to develop any dizziness, shortness of breath, difficulty breathing, chest pain, blurry vision, loss of vision, nausea, vomiting, abdominal pain, fever, chills, back pain, or any other complaints. Patient verbalized agreement and understanding with this treatment plan and discharge. Differential Diagnosis Differential Diagnoses: The differential diagnosis associated with the presentation includes Right 4th finger paronychia Admission/Observation Consideration of admission/observation: Escalation of care including admission/observation considered Patient would have been admitted to the hospital had his clinical presentation warranted hospital admission. Prescription Management I considered prescription management with: Antibiotic (patient prescribed an antibiotic for paronychia) Discharge Plan Discharge Clinical Impression: Paronychia of finger Patient Disposition: Home, Self-Care Instructions: Paronychia (ED) Additional Instructions: Take your antibiotic as prescribed and replace your manicuring tools. Do NOT soak the affected area. Avoid public bodies of water such as pools, lakes, oceans, ortiz, etc. Wayside el antibi?cathy seg?n lo prescrito y reemplace merry herramientas de manicura. NO moje la tomasz afectada. Evite cuerpos de agua p?blicos melissa piscinas, hailey, oc?anos, r?os, etc. IF you are prescribed home medications and/or you are taking over the counter medications at home- it is very important you continue to do so as prescribed / directed unless told otherwise. SI le recetan medicamentos y/o est? tomando medicamentos de venta lola, es muy importante que contin?e haci?ndolo seg?n lo recetado/indicado a menos que le indiquen lo contrario. Follow up with your primary care provider. Return to the emergency department immediately if your symptoms worsen or if you develop any dizziness, shortness of breath, difficulty breathing, chest pain, blurry vision, loss of vision, nausea, vomiting, abdominal pain, fever, chills, back pain, or any other complaints. [place]?seguimiento?con parker m?dico de atenci?n primaria. Acuda inmediatamente al servicio de urgencias si merry s?ntomas empeoran o si presenta falta de aliento, dificultad para respirar, dolor tor?cico, mareos, aturdimiento, dolor de espalda, dolor abdominal, fiebre, escalofr?os o cualquier otro s?ntoma. Please see the information below about our Patient Portal. If you are not yet enrolled in the [facility] Patient Portal, you will receive an enrollment email invitation following your visit to any [facility] care setting. You may also self-enroll in the Patient Portal by visiting our website: [email or web address] The following information is required to access the Patient Portal: - Your [facility] Medical Record Number - Your personal home email address (must match what is in your electronic medical record, Registration staff can assist with this) - Name - Date of Capabilities of the Patient Portal: - Message some providers - View upcoming appointments - Access your health summary, medical history, and visit history - View current conditions and allergies - View procedure and lab results - View your medications, including guidelines, side effects, and precautions - Complete pre-appointment questionnaires requested by your provider - Ready summary reports of your office visits and procedures To access the Patient Portal Mobile José Miguel, follow these directions: - Search [employer] in the José Miguel Store or [employer] Store - Download the José Miguel - Search for [facility] - Enter your login/password Portal del paciente Si usted no esta inscrito en el portal de pacientes de [facility], recibira rj invitacion de inscripcion despues de parker visita al [facility] o al [facility] via correo electronico. Tambien puede inscribirse voluntariamente en el portal de pacientes visitando nuestra pagina web: [email or web address] La siguiente informacion sera requerida para acceder al portal: - Parker nate de historia medica de [facility] - Parker direccion de correo electronico personal - Nombre - Fecha de nacimiento Capacidades: Las siguientes capacidades estan disponibles en el portal de pacientes: - Enviar mensajes a algunos doctores - Verificar proximas citas - Acceso a parker historial de kristian, registro medico e historial de visitas - Mando las condiciones actuales y alergias mando procedimientos y resultados del laboratorio - Mando merry medicamentos, incluyendo las pautas - Efectos secundarios y precauciones - Completar o llenar formularios / cuestionarios de - Citas solicitadas por parker doctor - Leer los resumenes de reportes medicos de merry visitas y procedimientos Melissa acceder a la aplicacion movil: - Ritu [employer] en la José Miguel Store o [employer] Store - Descargue la aplicacion - Ritu [facility] - Ingrese parker nombre de usuario / Contrasena Prescriptions: New doxycycline hyclate 100 mg tablet 100 mg PO BID 7 Days Qty: 14 0RF No Action tamsulosin 0.4 mg capsule 0.8 mg PO DAILY 90 Days Qty: 180 3RF omeprazole 20 mg capsule,delayed release(DR/EC) 20 mg PO DAILY Qty: 90 2RF melatonin 1 mg tablet 2 mg PO BEDTIME PRN (Reason: sleep) 30 Days Qty: 60 3RF ibuprofen 600 mg tablet 600 mg PO Q6H PRN (Reason: pain) Qty: 30 0RF cyclobenzaprine 10 mg tablet 10 mg PO TID Qty: 7 0RF acetaminophen [Tylenol Arthritis Pain] 650 mg tablet extended release 650 mg PO Q8H PRN (Reason: pain) Qty: 30 0RF cephalexin 500 mg tablet 500 mg PO QID Qty: 28 0RF sodium,potassium,mag sulfates [Suprep Bowel Prep Kit] 17.5-3.13-1.6 gram recon soln 480 ml PO .COMPLEX Qty: 354 0RF Rx Instructions: 480 mL orally; FOR COLONOSCOPY PREP Referrals: Tim Mac MD [Primary Care Provider, Internal Medicine] Interventions: ED Discharge Assessment Last Done: 11/23/24 10:07 Discharge Date/Time: 11/23/24 10:08 Print Language: Danish
[2024-11-23 09:52] VITALS: BP 141/80; PULSE 58; RESP 15; TEMP 36.8; O2SAT 97
[2024-11-23 10:07] VITALS: BP 141/80; PULSE 58; RESP 15; TEMP 36.8; O2SAT 97
== END 2024-11-23 10:08 | disposition home or self-care (01) ==
PROVIDERS: Emergency Provider Emergency Medicine; PCP Internal Medicine
DX: L03.011 Cellulitis of right finger (principal)
CPT/HCPCS: 10060; 99284

== ENCOUNTER 2024-12-01 08:07 | Outpatient (REF) | payer MEDICARE, OTHER, MEDICAID, SELFPAY ==
--- OUTSIDE RECORDS SUMMARY | 2024-12-01 08:20 | XMS_ITS | Patient Health Record ---
Author Organization [facility] Address [address] [place] [address] Care Team Providers Care Commercial Real Estate Appraiser Name Role Phone David TRISTAN, Jose Primary Care Provider Kali Boudreaux Unavailable [phone] Reason For Referral No Information Medications Medication [...] W/U Status Risk Notes Problem Pre-surgery evaluation (736958636) Other specified pre-operative examination (V72.83) Active confirmed Problem Colon cancer screening (154542811) Colon cancer screening (V76.51) Active confirmed Plan Of Treatment Future Test Test Name Order Date COLONOSCOPY 01/25/2014 Insurance Providers Payer Name Payer Address Payer Phone Subscriber Number Group Number Insured Name Patient Relationship to Insured Coverage Start Date Coverage End Date MEDICARE OF [place] [address] [place] [id number] [phone] [id number] HUBMERTO GUILLEN Self - patient is the insured MEDICAID OF [facility] [address] [place] [address] [phone] [id number] HUMBERTO GUILLEN Self - patient is the insured Medical (General) History Medical History History ICD Code ? CA in 1990--whiile living in [place]--not clear about the details--no problems since Denies CVA,DM,Lung disease,renal disease Describes a negative colonoscopy in [place] at around age 49 Hyperlipidemia Kidney stones--ESWL, Cystoscopies Perianal condylomata as below Surgical History Surgery Date(Month/Year) appendectomy Fulguration of perianal condyloma in 05/[address] Verdugo
--- OUTSIDE RECORDS SUMMARY | 2024-12-01 08:20 | XMS_ITS | Clinical Summary ---
Author Organization [employer] Address [address] [place] [address] Care Team Providers Care Software Validation Technician Name Role Phone Unavailable Primary Care [...] Description 10/16/2024 1:30 PM EDT Office Visit [facility] [address] [place] [address] Jose Aguilera DMD 09/04/2024 9:00 AM EDT Office Visit [facility] [address] [place] [address] Jose Aguilera DMD from Last 3 Months [...] Description 12/07/2024 3:00 PM EDT Office Visit [facility] [address] [place] [address] Alessandra Esparza [address] [place] [address] Health Maintenance Due Date Last Done Comments CT Colonography 1954 Colonoscopy 1954 Colorectal Cancer Screening 1954 Depression Screening 1954 FIT DNA/Cologuard 1954 FIT 1954 FOBT 1954 Lipid Panel 1954 SDOH Screening 1954 Sigmoidoscopy 1954 Alcohol/Substance Use Screening 1966 Hepatitis C Screening 1972 Dental X-Ray: Bitewings 05/27/2016 05/27/19 16, 08/20/2011, 08/20/2011 Zoster Vaccines (2 of 2) 01/22/2020 11/27/2019 COVID-19 Vaccine ( season) 2024 03/03/2022, 07/03/2021, 12/31/2020, Additional history exists Influenza [...] ADJUSTMENT Routine 09/04/2024 9: 00 AM EDT PROPHYLAXIS - ADULT Routine 06/05/2024 2 :00 PM EDT Dental plaque Missing teeth, acquired PANORAMIC RADIOGRAPHIC IMAGE Routine 06/02/2024 10:30 AM EST PERIODIC ORAL EVALUATION - ESTABLISHED PATIENT Routine 06/02/2024 10:30 AM EST INTRAORAL - COMPLETE SERIES OF RADIOGRAPHIC IMAGES Routine 05/27/2015 12:00 AM EST from Last 3 Months or Most Recently Relevant to Health Maintenance Insurance DENTAL - HSN FULL (MEDICA[place]) [place] [id number]
[2024-12-01 08:27] LABS: MANUAL DIFF FLAG NO
[2024-12-01 09:12] LABS: Hematocrit 48.2 % (42.0-52.0); Hemoglobin 16.1 g/dl (14.0-18.0); Imm Gran Abs Auto 0.01 X10*3/uL (0.00-0.03); Imm Gran Pct Auto 0.1 % (0.0-0.4); Lymphocytes Absolute Auto 4.0 X10*3/uL (1.2-4.9); Mean Corpuscular HGB Conc 33.4 g/dl (31.0-36.0); Mean Corpuscular Hemoglobin 29.6 pg (27.0-33.0); Mean Corpuscular Volume 88.6 fL (80.0-98.0); NRBC Abs Auto 0.000 X10*3/uL (0.0-0.012); NRBC Pct Auto 0.0 /100WBC (0.0-0.2); Platelet Count 260 X10*3/uL (160-400); Red Blood Count 5.44 X10*6/uL (4.60-5.80); White Blood Count 7.1 X10*3/uL (4.8-10.8)
[2024-12-01 09:26] LABS: Hemoglobin A1C 178.4879 umol/L; Total Hemoglobin (HGBA1C) 4155.7151 umol/L
[2024-12-01 09:46] LABS: Alanine Aminotransferase 29 U/L (0-40); Albumin Level 4.5 g/dL (3.5-5.0); Alkaline Phosphatase 64 U/L (39-117); Anion Gap 14 (12-20); Aspartate Amino Transferase 30 U/L (5-37); Blood Urea Nitrogen 11 mg/dL (9-16); Calcium 9.4 mg/dL (8.4-10.2); Carbon Dioxide 30 mmol/L (22-29); Chloride 103 mmol/L (96-108); Cholesterol 170 mg/dL (<200); Estimated Glomerular Filt Rate > 60; HDL Cholesterol 43 mg/dL (>40); Potassium 5.0 mmol/L (3.3-5.1); Sodium 142 mmol/L (135-145); Total Protein 7.8 g/dL (6.5-8.0); Triglycerides 106 mg/dL (<150)
[2024-12-01 10:25] LABS: Folate 14.4 ng/mL (> or = 4.0)
[2024-12-01 10:43] LABS: Vitamin B12 809 pg/mL (200-900)
[2024-12-01 11:26] LABS: Appearance Urine Clear; Glucose Urine UA Negative (Negative); PH 7.0 (5.0-9.0); Specific Gravity - Urine 1.015 (1.005-1.025); UMIC TRIGGER UACC YES
== END 2024-12-01 08:08 | disposition home or self-care (01) ==
LOC: HO.LAB 08:07
PROVIDERS: PCP Internal Medicine; Visit Provider Internal Medicine
DX: D64.9 Anemia, unspecified (principal); E55.9 Vitamin D deficiency, unspecified; E53.8 Deficiency of other specified B group vitamins; E78.00 Pure hypercholesterolemia, unspecified; R73.9 Hyperglycemia, unspecified; R30.0 Dysuria
CPT/HCPCS: 36415; 80053; 80061; 81001; 82306; 82607; 82746; 83036; 84443; 85025

== ENCOUNTER 2024-12-07 08:52 | Outpatient (AMB) | payer MEDICARE, OTHER, MEDICAID, SELFPAY ==
--- NOTE | 2024-12-07 08:55 | MHC.PC.OV ---
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 Accompanied by: Self / Same As Patient Allergies lovastatin Allergy (Unknown, Verified 12/07/24 08:57) GI upset Tobacco use date assessed: 12/07/24 Last assessed Fall Risk: 12/07/24 Dental Screening Dental Screen Date: 12/07/24 [facility] Medical History Encounter for subsequent annual wellness visit (AWV) in Medicare patient Upper abdominal pain Back pain Screening for diabetes mellitus Dizziness Shoulder pain Left foot pain Obesity Ankle pain BMI 31.0-31.9,adult Adult general medical exam Abnormality of penis Balanitis Tinea cruris Abdominal bloating Thrombosed external hemorrhoid Chronic GERD Urinary frequency Other obstructive and reflux uropathy Renal stones Chronic superficial gastritis without bleeding BPH loc w urin obs/LUTS Insomnia Tubular adenoma of colon Surgical History History of esophagogastroduodenoscopy (EGD) Hx of colonoscopy History of appendectomy Family History Father No problems noted. Mother HTN (hypertension) Asthma Sister HTN (hypertension) Throat cancer Social History Housing: Apartment Alcohol intake: never Patient Tobacco Use Status: Never used Tobacco e-Cigarette/Vaping Use: Never Used Second Hand Smoke Exposure: No Advance Directives Date on File: 11/25/20 service: Yes ([employer]) Current occupational status: retired Cognitive needs: No Hearing needs: No Vision needs: Yes (glasses) Questionnaire PHQ-9 Over the last 2 weeks, how often have you been bothered by any of the following problems? 1. Little interest or pleasure in doing things: more than half the days 2. Feeling down, depressed, or hopeless: several days 3. Trouble falling or staying asleep, or sleeping too much: more than half the days 4. Feeling tired or having little energy: more than half the days 5. Poor appetite or overeating: several days 6. Feeling bad about yourself - or that you are a failure or have let yourself or your family down: not at all 7. Trouble concentrating on things, such as reading the newspaper or watching television: not at all 8. Moving or speaking so slowly that other people could have noticed. Or the opposite - being so fidgety or restless that you have been moving around a lot more than usual: not at all 9. Thoughts that you would be better off or of hurting yourself in some way: not at all Total score: 8 Depression Screening Interpretation: Positive Depression Screening Done: Yes Source: Developed by Drs. Kali Roberts, Chanell Sibley, Lane Cho and colleagues, with an educational sony from [employer]. Thrive Questionnaire Date Thrive assessed: 12/07/24 I am a: Patient What is your living situation today?: I have a steady place to live Within the past 12 months, did the food you bought not last and you didn't have the money to get more?: Never true Within the past 12 months, did you worry whether your food would run out before you got money to buy more?: Never true Do you have trouble paying for medicines?: No Do you have trouble getting transportation to medical appointments?: No Do you have trouble paying your heating and electricity bill?: No Do you have trouble taking care of your child, family member or friend?: No Do you have trouble with day-to-day activities such as bathing, preparing meals, shopping, managing finances, etc.?: No Are you currently unemployed and looking for a job?: No Are you interested in more education?: No Please select the resources that you would like help with: None THRIVE Score: 0 AMADOU-7 AMB Questionnaire AMADOU-7 Date AMADOU - 7 assessed: 04/15/23 Source: Developed by Drs. Kali Roberts, Chanell Sibley, Lane Cho and colleagues, with an educational sony from [employer]. Physical exam (Primary Care) Tobacco/Smoking Status: Tobacco use Status Tobacco use date assessed 02/21/24 02/21/24 10:58 Patient Tobacco Use Status Never used Tobacco 07/16/24 01:38 e-Cigarette/Vaping Use Never Used 02/21/24 10:58 Depression Screening Interpretation: Positive Thrive Assessment: Date of Thrive Assessment Date Thrive assessed 04/15/23 02/21/24 10:58 Coding
[2024-12-07 08:56] VITALS: BP 118/78; PULSE 66; O2SAT 94; BMI 33.2
--- NOTE | 2024-12-07 09:02 | A.OFFVIS_ITS ---
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 Accompanied by: Self / Same As Patient Allergies lovastatin Allergy (Unknown, Verified 12/07/24 09:18) GI upset Medication List - Last Reconciled 12/07/24 by Tim Mac MD acetaminophen ER (Tylenol Arthritis Pain) 650 mg PO Q8H PRN atorvastatin (Lipitor) 20 mg PO BEDTIME cyclobenzaprine 10 mg PO TID ibuprofen 600 mg PO Q6H PRN melatonin 2 mg (2 x 1 mg) PO BEDTIME PRN 30 days omeprazole 20 mg PO DAILY sodium,potassium,mag sulfates 17.5-3.13-1.6 gram (Suprep Bowel Prep Kit) 480 mL orally; FOR COLONOSCOPY PREP tamsulosin 0.8 mg (2 x 0.4 mg) PO DAILY 90 days HPI SAMIR HERNANDEZ/SERGIO-Subsequent HPI Details Patient comes in today for his Medicare Annual Wellness Exam AND follow up visit - he is transferring over from Dr. Hernandez, who retired from the practice a few months ago Patient states that he feels okay He denies any headaches or dizziness Denies any chest pains, no SOB No nausea/vomiting, no abdominal pain No change in bowel habits noted He denies any acute urinary symptoms and follows up with Dr. Gomez just once a year now for his prostate issues He currently takes OTC Melatonin 1 mg to help him sleep at night but sometimes has to take 2 tablets and would like to know how much he can safely take; would also like to try having this Rx sent over to his pharmacy to see if insurance will help cover his Rx cost He had his follow up labs done last week - to discuss his results He was seen by GI back in July 2024 and is being scheduled for repeat colonoscopy (which is due this year) - states that he is still waiting for this to be scheduled [place] of care was reviewed and updated today Patient has a healthcare proxy in place but it is not on file - he is advised to bring us a copy of this as soon as possible IPPE/AWV: c/o of Annual Wellness Visit, subsequent visit. Medical / Social History Reviewed Past Medical History Yes . [place] of Care / Care Team list updated Yes . Surgical/Hospitalization History Yes . Current Medications (including OTC and supplements) Yes . Family History Yes . Tobacco Control form Yes . AUDIT-C (Alcohol use) form Yes . Illicit drug use in Social History Yes . Current diagnosis of depression? No Appropriate PHQ2/PHQ9 completed Yes . Data entered by Veneer Matcher and reviewed by provider Home Safety Throw rugs? No Grab bars? No Raised toilet seats? No Working smoke detectors? Yes Working carbon monoxide detectors? Yes Data entered by Veneer Matcher and reviewed by provider Activities of Daily Living (ADLs) Difficulty bathing or showering? No Difficulty dressing? No Difficulty using the toilet? No Difficulty getting in and out of bed? No Difficulty walking? No Receives help from another person with any of the above tasks? No Instrumental Activities of Daily Living (IADLs) Uses the telephone without help Gets to places out of walking distance without help Goes shopping for groceries without help Prepares own meals without help Does own minor home maintenance without help Does own laundry without help Does own housework without help Manages own money without help Currently takes medications? Yes Takes medication without help End-of-Life Planning Discussed advance directive Yes Advance directive on file Discussed wishes expressed in advance directive agreed to following patient's wishes Fall Risk: Fall History Have you had any falls with injury in the past year? No . Have you had two or more falls in the past year? No . Fall Risk Assessment: No falls in the past year . HRA filled out by the patient, reviewed by Provider and scanned. [facility] Medical History (Updated 12/07/24 @ 09:51 by Tim Mac MD) Obesity (BMI 30-39.9) GERD (gastroesophageal reflux disease) Impaired fasting glucose Mixed hyperlipidemia Obesity BMI 31.0-31.9,adult Abnormality of penis Balanitis Tinea cruris Thrombosed external hemorrhoid Chronic GERD Other obstructive and reflux uropathy Renal stones Chronic superficial gastritis without bleeding BPH loc w urin obs/LUTS Insomnia Tubular adenoma of colon Surgical History (Updated 12/07/24 @ 09:40 by Tim Mac MD) History of esophagogastroduodenoscopy (EGD) Hx of colonoscopy History of appendectomy Family History Father No problems noted. Mother HTN (hypertension) Asthma Sister HTN (hypertension) Throat cancer Social History Housing: Apartment Alcohol intake: never Patient Tobacco Use Status: Never used Tobacco e-Cigarette/Vaping Use: Never Used Second Hand Smoke Exposure: No Advance Directives Date on File: 11/25/20 service: Yes (License [employer]) Current occupational status: retired Cognitive needs: No Hearing needs: No Vision needs: Yes (glasses) Questionnaire Medicare Wellness Checkup [age] What gender do you identify with?: male During the past 4 weeks, how much have you been bothered by emotional problems such as feeling anxious, depressed, irritable, sad or downhearted, and blue?: slightly During the past 4 weeks, has your physical & emotional health limited your social activities with family, friends, neighbors, or groups?: slightly During the past 4 weeks, how much bodily pain have you generally had?: moderate pain During the past 4 weeks, was someone available to help you if you needed & wanted help?: yes, a little During the past 4 weeks, what was the hardest physical activity you could do for at least 2 minutes?: moderate Can you get to places out of walking distance without help? (For eg., can you travel alone on buses, taxis or drive your car?): Yes Can you go shopping for groceries or clothes without someone's help?: Yes Can you prepare your own meals?: Yes Can you do your housework without help?: Yes Because of any health problems, do you need the help of another person with your personal care needs such as eating, bathing, dressing or getting around the house?: No Can you handle your own money without help?: Yes During the past 4 weeks, how would you rate your health in general?: fair During the past 4 weeks how have things been going for you?: good & bad parts about equal Are you having difficulties driving your car?: no Do you always fasten your seat belt when you are in a car?: yes, usually During past 4 weeks, have you been bothered by the following: seldom: Problems using the telephone? and sometimes: Falling or dizzy when standing up, Trouble eating well?, Teeth or denture problems? and Tiredness or fatigue? Have you fallen 2 or more times in the past year?: No Are you afraid of falling?: No Are you a smoker?: no During the past 4 weeks, how many drinks of wine, beer, or other alcoholic beverages did you have?: no alcohol at all Do you exercise for about 20 minutes 3 or more times a week?: no, I usually do not exercise this much Have you been given information to help with the following?: no: Hazards in your house that might hurt you? and no: Keeping track of your medications? How often do you have trouble taking medicines the way you have been told to take them?: I always take medicine as prescribed How confident are you that you can control & manage most of your health problems?: somewhat confident What is your race?: or origin or descent Mini Mental State Exam (MMSE) Orientation What is the (year) (season) (date) (day) (month)?: year, season, date, day and month Where are we (state) (county) (town or city) (hospital) (floor)?: state, county, town or city, hospital/clinic and floor Score Score: 10 Activity of Daily Living Bathing - sponge bath, tub bath or shower: receives no assistance (gets in/out by self, if usual bathing means Dressing - getting clothes from closets & drawers, including inner/outer garments & fasteners.: gets clothes & gets completely dressed without help Toileting - going to the 'toilet room' for urine/bowel elimination & cleaning self/arranging clothes: goes to toilet room, cleans self, arranges clothes without help Transfer: moves in & out of bed and chair without help (may use support object) Continence: controls urination/bowel movements completely by self Feeding: feeds self without help Total Score: 0 Information obtained from: patient Using telephone: independent Traveling: independent Shopping: independent Preparing meals: independent Housework: independent Taking medicine: independent Managing money: independent PHQ-9 Over the last 2 weeks, how often have you been bothered by any of the following problems? 1. Little interest or pleasure in doing things: several days 2. Feeling down, depressed, or hopeless: several days 3. Trouble falling or staying asleep, or sleeping too much: nearly every day 4. Feeling tired or having little energy: several days 5. Poor appetite or overeating: several days 6. Feeling bad about yourself - or that you are a failure or have let yourself or your family down: several days 7. Trouble concentrating on things, such as reading the newspaper or watching television: several days 8. Moving or speaking so slowly that other people could have noticed. Or the opposite - being so fidgety or restless that you have been moving around a lot more than usual: several days 9. Thoughts that you would be better off or of hurting yourself in some way: not at all Total score: 10 Depression Screening Interpretation: Positive Depression Screening Follow-up: Existing condition and Follow-up Visit Requested Depression Screening Done: Yes [id number] - PHQ-9 Billing: Yes Source: Developed by Drs. Kali Roberts, Chanell Sibley, Lane Cho and colleagues, with an educational sony from [employer]. AMADOU-7 AMB Questionnaire AMADOU-7 Date AMADOU - 7 assessed: 12/07/24 Feeling nervous, anxious, or on edge: 0 = Not at all Not being able to stop or control worryin = Not at all Worrying too much about different things: 0 = Not at all Trouble relaxin = Not at all Being so restless that it is hard to sit still: 0 = Not at all Becoming easily annoyed or irritable: 0 = Not at all Feeling afraid as if something awful might happen: 0 = Not at all Total AMADOU-7 score (0-4 normal; 5-9 mild; 10-14 moderate; 15-21 severe): 0 Source: Developed by Drs. Kali Roberts, Lane Recio and colleagues, with an educational sony from [employer]. Thrive Questionnaire Date Thrive assessed: 12/07/24 I am a: Patient What is your living situation today?: I have a steady place to live Within the past 12 months, did the food you bought not last and you didn't have the money to get more?: Never true Within the past 12 months, did you worry whether your food would run out before you got money to buy more?: Never true Do you have trouble paying for medicines?: No Do you have trouble getting transportation to medical appointments?: No Do you have trouble paying your heating and electricity bill?: No Do you have trouble taking care of your child, family member or friend?: No Do you have trouble with day-to-day activities such as bathing, preparing meals, shopping, managing finances, etc.?: No Are you currently unemployed and looking for a job?: No Are you interested in more education?: No Currently or been in a relationship where the following occur: No concerns reported THRIVE Score: 0 PHQ-2/PHQ-9 PHQ-2 Over the last 2 weeks, how often have you been bothered by any of the following problems? 1. Little interest or pleasure in doing things: several days 2. Feeling down, depressed, or hopeless: several days Total score: 2 If score is 3 or greater, continue 3. Trouble falling or staying asleep, or sleeping too much: nearly every day 4. Feeling tired or having little energy: several days 5. Poor appetite or overeating: several days 6. Feeling bad about yourself - or that you are a failure or have let yourself or your family down: several days 7. Trouble concentrating on things, such as reading the newspaper or watching television: several days 8. Moving or speaking so slowly that other people could have noticed. Or the opposite - being so fidgety or restless that you have been moving around a lot more than usual: several days 9. Thoughts that you would be better off or of hurting yourself in some way: not at all Total score: 10 0-4 None-Minimal, 5-9 Mild, 10-14 Moderate, 15-19 Moderately Severe, 20-27 Severe Source: Developed by Drs. Kali Roberts, Chanell Sibley, Lane Cho and colleagues, with an educational sony from [employer]. Review of Systems Const Denies chills, Reports difficulty sleeping (Melatonin helps), Denies fatigue, Denies fever(s) and Denies headache(s) ENT Denies dysphagia, Denies dizziness, Denies otalgia, Denies headache(s), Denies neck pain, Denies odynophagia and Denies sore throat Card Denies chest pain, Denies palpitations and Denies dyspnea Resp Denies chest congestion, Denies cough and Denies dyspnea GI Denies abdominal pain, Denies constipation, Denies dysphagia, Denies heartburn, Denies diarrhea, Denies nausea, Denies odynophagia and Denies vomiting Denies difficulty urinating, Denies dysuria, Denies nocturia and Denies urinary frequency Musc Denies back pain and Denies neck pain Skin/Breast Denies rash Neuro Denies dizziness and Denies headache(s) Endo Denies fatigue and Denies palpitations Physical Exam Exam Exam: IPPE/AWV: Balance Romberg Yes . Tandem walk Yes . Walk and Turn Yes . Rise from sit to stand Yes . Vision Corrective lens No Vision screen pass Hearing Whisper test pass . Urinary incont. no. EKG Not clinically necessary. Vital Signs: Last Vital Signs Pulse 66 12/07/24 08:56 BP 118/78 12/07/24 08:56 Pulse Ox 94 12/07/24 08:56 Oxygen Delivery Method Room Air 12/07/24 08:56 BMI result Body Mass Index 33.2 Const General: no acute distress and alert HEENT Ears: TM's normal bilaterally and EAC's normal Throat: Yes posterior oropharynx normal and Yes tonsils normal (no TP congestion) Neck Neck: Yes supple and No lymphadenopathy Thyroid: Thyroid normal Resp Auscultation: clear to auscultation bilaterally, no rales and no wheezes Cardio Rate: regular rate Rhythm: regular rhythm Heart sounds: no murmurs GI Palpation (GI): Soft to palpation and nontender Auscultation: normal bowel sounds General: Yes no CVA tenderness Back/Spine/Pelvis Back: no CVA tenderness Thoracic/Lumbar Spine: No lumbar spinal tenderness Skin Rashes: no rashes Extrem General: Yes no clubbing, cyanosis or edema Results Reviewed Results Reviewed: Laboratory Tests 12/01/24 12/01/24 08:26 09:56 WBC 7.1 Hgb 16.1 Hct 48.2 Plt Count 260 Sodium 142 Potassium 5.0 D Creatinine 1.03 Estimated GFR > 60 Fasting Glucose 103 H Hemoglobin A1c % 6.1 H Calcium 9.4 D AST 30 ALT 29 Triglycerides 106 Cholesterol 170 LDL Cholesterol, Calc 106 H HDL Cholesterol 43 Vitamin B12 809 25-OH Vitamin D Total 63.7 TSH 3.64 Ur Specific [place] 1.015 Urine Protein Negative Urine Glucose (UA) Negative Urine Blood Negative Urine Nitrite Negative Ur Leukocyte Esterase Trace H Assessment & Plan Assessment & Plan (1) Medicare annual wellness visit, subsequent: Code(s): Z00.00 - Encounter for general adult medical examination without abnormal findings Plan: RUTH ANN updated HRA forms discussed and completed with patient; form will be scanned into patient's chart He is currently due for repeat colonoscopy and is just waiting now for GI to schedule him for this (2) Mixed hyperlipidemia: Code(s): E78.2 - Mixed hyperlipidemia Plan: Results of his labs done last week reviewed and discussed with patient - he is advised that his cholesterol levels have increased significantly from his numbers last year He is currently on Atorvastatin 20 mg [facility] but he has been cutting it in half so he is only on 10 mg QD at present Have advised patient to just take it 1 whole tablet 20 mg QD everyday Reinforced low cholesterol diet Will have him recheck his labs and fasting lipids in 6 months for follow up (3) Impaired fasting glucose: Code(s): R73.01 - Impaired fasting glucose Plan: He is cautioned that his FBS was slightly elevated but HgbA1c is at 6.1%, which places him in the borderline diabetic category Reinforced low calorie/low carb diet Will have him recheck his HgbA1c in 6 months for follow up (4) GERD (gastroesophageal reflux disease): Code(s): K21.9 - Gastro-esophageal reflux disease without esophagitis Qualifiers: Esophagitis presence: without esophagitis Qualified Code(s): K21.9 - Gastro-esophageal reflux disease without esophagitis Plan: Dietary restrictions reinforced Continue Omeprazole 20 mg QD (5) BPH (benign prostatic hyperplasia): Code(s): N40.0 - Benign prostatic hyperplasia without lower urinary tract symptoms Qualifiers: Lower urinary tract symptom presence: symptoms present Lower urinary tract symptom detail: weak urinary stream Qualified Code(s): N40.1 - Benign prostatic hyperplasia with lower urinary tract symptoms; R39.12 - Poor urinary stream Plan: Continue Tamsulosin 0.8 mg QD Follow up with urology (Dr. Gomez) as scheduled (6) Insomnia: Code(s): G47.00 - Insomnia, unspecified Qualifiers: Insomnia type: unspecified Qualified Code(s): G47.00 - Insomnia, unspecified Plan: Sleep hygiene reinforced Continue Melatonin but can increase this to 3 mg QD - Rx sent to pharmacy but patient advised that as it is available OTC, his insurance may not necessarily cover it (7) Obesity (BMI 30-39.9): Code(s): E66.9 - Obesity, unspecified Plan: Reinforced diet/exercise as tolerated/lose weight Plan Follow up in 6 months Orders: Orders Comprehensive [place]. Panel Fast 6 Months E78.00 - Pure hypercholesterolemia, unspecified Lipid Panel 6 Months E78.00 - Pure hypercholesterolemia, unspecified UA CC w/rflx Micro + Cult 6 Months R30.0 - Dysuria Hemoglobin A1c 6 Months E11.9 - Type 2 diabetes mellitus without complications Medications: Changed From melatonin 2 mg (2 x 1 mg) PO BEDTIME 30 days PRN 60 tabs 3RF sleep To melatonin 3 mg PO BEDTIME PRN 90 tabs 3RF insomnia 90 days Quality Reporting (2019) Depression/Bipolar (159/160/161/177) PHQ-9: Total score: 10 Coding Level of Care Code Medicare Subsequent (G0439) Est Pt Level 4 (56415) Diagnoses Medicare annual wellness visit, subsequent Z00.00 Mixed hyperlipidemia E78.2 Impaired fasting glucose R73.01 Gastroesophageal reflux disease without esophagitis K21.9 Esophagitis presence: without esophagitis Benign prostatic hyperplasia with weak urinary stream N40.1; R39.12 Lower urinary tract symptom presence: symptoms present Lower urinary tract symptom detail: weak urinary stream Insomnia, unspecified type G47.00 Insomnia type: unspecified Obesity (BMI 30-39.9) E66.9 Additional Codes PHQ-9 - 58773 - PHQ-9 Billing: Yes ([id number])
--- OUTSIDE RECORDS SUMMARY | 2024-12-07 10:00 | XMS_ITS | Patient Health Record ---
Author Organization [facility] Address [address] [place] [address] Care Team Providers Care Event Decorator Name Role Phone David TRISTAN, Jose Primary Care Provider Kali Boudreaux Unavailable [phone] Reason For Referral No Information Medications Medication [...] W/U Status Risk Notes Problem Pre-surgery evaluation (604713629) Other specified pre-operative examination (V72.83) Active confirmed Problem Colon cancer screening (801340323) Colon cancer screening (V76.51) Active confirmed Plan Of Treatment Future Test Test Name Order Date COLONOSCOPY 01/25/2014 Insurance Providers Payer Name Payer Address Payer Phone Subscriber Number Group Number Insured Name Patient Relationship to Insured Coverage Start Date Coverage End Date MEDICARE OF [place] [address] [place] [id number] HUMBERTO GUILLEN Self - patient is the insured MEDICAID OF [facility] [address] [place] [address] [id number] HUMBERTO GUILLEN Self - patient is the insured Medical (General) History Medical History History ICD Code ? [place] in 1990--whiile living in [place]--not clear about the details--no problems since Denies CVA,DM,Lung disease,renal disease Describes a negative colonoscopy in [place] at around age 49 Hyperlipidemia Kidney stones--ESWL, Cystoscopies Perianal condylomata as below Surgical History Surgery Date(Month/Year) appendectomy Fulguration of perianal condyloma in 05/[address] Verdugo
== END 2024-12-07 09:35 | disposition home or self-care (01) ==
LOC: HO.HMCH 08:53
PROVIDERS: PCP Internal Medicine; Visit Provider Internal Medicine
DX: Z00.00 Encounter for general adult medical examination without abnormal findings (principal); E78.2 Mixed hyperlipidemia; E66.9 Obesity, unspecified; Z68.33 Body mass index [BMI] 33.0-33.9, adult; R73.01 Impaired fasting glucose; K21.9 Gastro-esophageal reflux disease without esophagitis; N40.1 Benign prostatic hyperplasia with lower urinary tract symptoms; R39.12 Poor urinary stream; G47.00 Insomnia, unspecified

== ENCOUNTER → 2024-12-07 08:52 | Outpatient (BNVA) | payer MEDICARE, OTHER, MEDICAID, SELFPAY | PROVIDERS: PCP Internal Medicine; Visit Provider Internal Medicine | DX: Z00.00 Encounter for general adult medical examination without abnormal findings (principal); E78.2 Mixed hyperlipidemia; R73.01 Impaired fasting glucose; K21.9 Gastro-esophageal reflux disease without esophagitis; G47.00 Insomnia, unspecified; E66.9 Obesity, unspecified; Z68.33 Body mass index [BMI] 33.0-33.9, adult; Z71.3 Dietary counseling and surveillance | CPT/HCPCS: 96127; 99212 ==

== ENCOUNTER 2025-01-12 13:52 | Outpatient (AMB) | payer MEDICARE, OTHER, MEDICAID, SELFPAY ==
[2025-01-12 14:16] VITALS: BP 116/74; PULSE 74; O2SAT 97; BMI 32.4
--- NOTE | 2025-01-12 14:16 | A.OFFPC_ITS ---
Vital Signs 01/12/25 14:16 Height 5 ft 9 in Weight 219 lb 4 oz BMI 32.4 BP 116/74 Blood Pressure Location Lt brachial Position Sitting Pulse 74 Pulse Source Pulse Oximeter Pulse Oximetry (%) 97 Oxygen Delivery Method Room Air Intake Visit Reasons: rash in private part Manager Unix Required: No Accompanied by: Self / Same As Patient Allergies lovastatin Allergy (Unknown, Verified 01/12/25 14:17) GI upset Medication List - Last Reconciled 01/12/25 by Ab Brewster MD acetaminophen ER (Tylenol Arthritis Pain) 650 mg PO Q8H PRN atorvastatin (Lipitor) 20 mg PO BEDTIME cyclobenzaprine 10 mg PO TID melatonin 3 mg PO BEDTIME PRN 90 days omeprazole 40 mg (2 x 20 mg) PO DAILY sodium,potassium,mag sulfates 17.5-3.13-1.6 gram (Suprep Bowel Prep Kit) 480 mL orally; FOR COLONOSCOPY PREP tamsulosin 0.8 mg (2 x 0.4 mg) PO DAILY 90 days Tobacco use date assessed: 01/12/25 Last assessed Fall Risk: 01/12/25 Dental Screening Dental Screen Date: 01/12/25 HPI HPI Comments History of Present Illness Details The patient is a 69-year-old male presenting with abdominal discomfort and a rash in the genital area. The abdominal discomfort has been present for one to two weeks, characterized by pain and burning sensations, particularly after eating. The patient reports that the symptoms initially improved with omeprazole but have recurred, especially after consuming certain foods like barbecue chicken. The patient experiences gas retention and altered bowel habits, with stools described as hard and in pieces. The rash in the genital area has been a recurring issue, previously treated with nystatin cream, which provided some relief. [facility] Medical History (Updated 01/12/25 @ 15:30 by Ab Brewster MD) Obesity (BMI 30-39.9) GERD (gastroesophageal reflux disease) Impaired fasting glucose Mixed hyperlipidemia Obesity BMI 31.0-31.9,adult Abnormality of penis Balanitis Tinea cruris Thrombosed external hemorrhoid Chronic GERD Other obstructive and reflux uropathy Renal stones Chronic superficial gastritis without bleeding BPH loc w urin obs/LUTS Insomnia Tubular adenoma of colon Surgical History History of esophagogastroduodenoscopy (EGD) Hx of colonoscopy History of appendectomy Family History Father No problems noted. Mother HTN (hypertension) Asthma Sister HTN (hypertension) Throat cancer Social History Housing: Apartment Alcohol intake: never Patient Tobacco Use Status: Never used Tobacco e-Cigarette/Vaping Use: Never Used Second Hand Smoke Exposure: No Advance Directives Date on File: 11/25/20 service: Yes ([employer]) Current occupational status: retired Cognitive needs: No Hearing needs: No Vision needs: Yes (glasses) Questionnaire Thrive Questionnaire Date Thrive assessed: 12/07/24 AUDIT C Alcohol Use Questionnaire (AUDIT-C) 1. How often do you have a drink containing alcohol?: Never 3. How often do you have six or more drinks on one occasion?: Never Total Score: 0 Score Reviewed/Action Taken: Yes AMADOU-7 AMB Questionnaire AMADOU-7 Date AMADOU - 7 assessed: 12/07/24 Source: Developed by Drs. Kali Roberts, Chanell Sibley, Lane Cho and colleagues, with an educational sony from [employer]. Review of Systems Const Details: Positives besides what was mentioned in HPI are in BOLD Constitutional: No Weight Change, No Fever, No Chills, No Night Sweats, No Fatigue, No Malaise ENT/Mouth: No Hearing Changes, No Ear Pain, No Nasal Congestion, No Sinus Pain, No Hoarseness, No sore throat, No Rhinorrhea, No Swallowing Difficulty Eyes: No Eye Pain, No Swelling, No Redness, No Foreign Body, No Discharge, No Vision Changes Cardiovascular: No Chest Pain, No SOB, No PND, No Dyspnea on Exertion, No Orthopnea, No Claudication, No Edema, No Palpitations Respiratory: No Cough, No Sputum, No Wheezing, No Smoke Exposure, No Dyspnea Gastrointestinal: No Nausea, No Vomiting, No Diarrhea, No Constipation, No Pain, No Heartburn, No Anorexia, No Dysphagia, No Hematochezia, No Melena, No Flatulence, No Jaundice Genitourinary: No Dysmenorrhea, No DUB, No Dyspareunia, No Dysuria, No Urinary Frequency, No Hematuria, No Urinary Incontinence, No Urgency, No Flank Pain, No Urinary Flow Changes, No Hesitancy Musculoskeletal: No Arthralgias, No Myalgias, No Joint Swelling, No Joint Stiffness, No Back Pain, No Neck Pain, No Injury History Skin: No Skin Lesions, No Pruritis, No Hair Changes, No Breast/Skin Changes, No Nipple Discharge Neuro: No Weakness, No Numbness, No Paresthesias, No Loss of Consciousness, No Syncope, No Dizziness, No Headache, No Coordination Changes, No Recent Falls Psych: No Anxiety/Panic, No Depression, No Insomnia, No Personality Changes, No Delusions, No Rumination, No SI/HI/AH/VH, No Social Issues, No Memory Changes, No Violence/Abuse Hx., No Eating Concerns Heme/Lymph: No Bruising, No Bleeding, No Transfusions History, No Lymphadenopathy Endocrine: No Polyuria, No Polydipsia, No Temperature Intolerance Physical exam (Primary Care) Vital Signs: Last Vital Signs Pulse 74 01/12/25 14:16 BP 116/74 01/12/25 14:16 Pulse Ox 97 01/12/25 14:16 Oxygen Delivery Method Room Air 01/12/25 14:16 BMI result Body Mass Index 32.4 Tobacco/Smoking Status: Tobacco use Status Tobacco use date assessed 01/12/25 01/12/25 14:25 Patient Tobacco Use Status Never used Tobacco 01/12/25 14:25 e-Cigarette/Vaping Use Never Used 01/12/25 14:25 Thrive Assessment: Date of Thrive Assessment Date Thrive assessed 12/07/24 01/12/25 14:25 Const Other: Pertinent findings are in BOLD GENERAL APPEARANCE NAD, activity normal for age, well developed/ well nourished, no cyanosis, pallor, or diaphoresis. EYES lids/conjunctiva normal. EARS/NOSE/THROAT Mucous membranes moist, nares normal, lips/teeth normal uvula midline without oral pharyngeal erythema, exudate or swelling TMs normal bilaterally. No lymphangitis/lymphedema. HEAD/NECK normocephalic atraumatic, no facial trauma, neck is supple. RESPIRATORY respiratory effort normal, speaks in full sentences, no tripod position, no accessory muscle use. Lungs clear to auscultation without rhonchi, wheezes, rales CARDIAC Regular rate and rhythm, no edema. ABDOMINAL Soft, ND/NT. No evidence of fluid wave. No pulsatile masses on exam, rebound tenderness, Carpenter sign or pain over Mcburney's point. MUSCLES/EXTREMITIES No abnormal range of motion, no swelling. SKIN Warm, pink and dry. No rashes, dermatoses, petechiae or lesions. NEUROLOGICAL Speech is clear and appropriate. Normal level of consciousness. Gait and coordination are normal. 5/5 strength in all extremities. PSYCH Normal mood and affect. Judgement/competence is appropriate genital: glans erythema. Testes: other (Glans erythema ) Coding Level of Care Code Est Pt Level 4 (65379) Diagnoses Abdominal pain R10.9 Rash R21 Time Spent (min) 30 Assessment & Plan Assessment & Plan (1) Abdominal pain: Code(s): R10.9 - Unspecified abdominal pain Category: Medical Plan: - Increase omeprazole dosage to 40 mg daily, to be taken in the morning one hour before breakfast. - Prescribe [id number] gas relief medication to manage gas retention. (2) Rash: Code(s): R21 - Rash and other nonspecific skin eruption Category: Medical Plan: - Advise use of protection during sexual activity until rash resolves. - Switch nystatin to clotrimazole 1 %-betamethasone 0.05 % cream-zinc ox 20 % paste topical Plan I discussed with the patient the plan to increase the omeprazole dosage to manage his GERD symptoms more effectively. We also talked about using an pgmr-[id number]-[id number] gas relief medication to alleviate his gas retention issues. Regarding the rash, I recommended switching Nystatin to Clotrimazole- Betamethasone cream. I advised the patient to use protection during sexual activity until the rash resolves to prevent potential transmission. Medications: New clotrimazole-betameth dip-zinc 1-0.05-20 % apply CLOTRIMAZOLE/BETAMETHASONE CREAM twice daily: use ZINC OXIDE PASTE as needed/as directed topical 135 grams 0RF simethicone (Gas Relief (simethicone)) 125 mg PO TID-QID PRN 30 caps 0RF abdominal distention Changed From omeprazole 20 mg PO DAILY 90 caps 2RF To omeprazole 40 mg (2 x 20 mg) PO DAILY 90 caps 2RF
--- OUTSIDE RECORDS SUMMARY | 2025-01-12 16:19 | XMS_ITS | Patient Health Record ---
Author Organization [facility] Address [address] [place] [address] Care Team Providers Care Tester Vibrator Equipment Name Role Phone David TRISTAN, Jose Primary Care Provider Kali Boudreaux Unavailable [phone] Reason For Referral No Information Medications Medication SIG (Take, Route, Frequency, Duration) Notes Start Date End Date Status Crestor 10 MG 1 tablet Orally Once a day Active Colyte w Flavor Packs 240 GM as directed Orally as directed; Duration: 1 day(s) 01/26/2014 Active Ambien 10 MG 1 tablet at bedtime as needed Orally Once a day Active Problems Problem Type SNOMED Code ICD Code Onset Dates Problem Status W/U Status Risk Notes Problem Pre-surgery evaluation (497036537) Other specified pre-operative examination (V72.83) Active confirmed Problem Colon cancer screening (597299644) Colon cancer screening (V76.51) Active confirmed Plan Of Treatment Future Test Test Name Order Date COLONOSCOPY 01/25/2014 Insurance Providers Payer Name Payer Address Payer Phone Subscriber Number Group Number Insured Name Patient Relationship to Insured Coverage Start Date Coverage End Date [place] OF [place] [address] [place] [id number] HUMBERTO GUILLEN Self - patient is the insured MEDICAID OF [facility] [address] [place] [address] [id number] HUMBERTO GUILLEN Self - patient is the insured Medical (General) History Medical History History ICD Code ? [place] in 1990--whiile living in [place]--not clear about the details--no problems since Denies CVA,DM,Lung disease,renal disease Describes a negative colonoscopy in [facility] at around age 49 Hyperlipidemia Kidney stones--[facility], Cystoscopies Perianal condylomata as below Surgical History Surgery Date(Month/Year) appendectomy Fulguration of perianal condyloma in 05/[address] Verdugo
--- OUTSIDE RECORDS SUMMARY | 2025-01-12 16:19 | XMS_ITS | Clinical Summary ---
Author Organization [employer] Address [address] [place] [address] Care Team Providers Care Information Services Manager Name Role Phone Unavailable Primary Care Provider [...] 06/22/2024 Benign prostatic hyperplasia 06/22/2024 Chronic pancreatitis (CMS/HCC) 06/22/2024 Chronic post-traumatic stress disorder (PTSD) Constipation 06/22/2024 Depressive disorder 06/22/2024 Encounter for fitting and ad justment of spectacles and contact lenses 06/22/2024 Gastroesophageal reflux disease 06/22/2024 Genital herpes simplex 06/22/2024 Herpes simplex 06/22/2024 History of colonic polyps 06/22/2024 Insomnia 06/22/2024 Kidney stone 06/22/2024 Major depressive disorder, s aiden episode, severe with psychotic features ([facility]) 06/22/2024 Need for immunization against influenza 06/23/19 25 Obesity 06/22/2024 Right lower quadrant abdominal pain 06/22/2024 Sleep apnea, unspecified 06/22/2024 Obstructive sleep apnea (adult) (pediatric) 05/28 Peripheral pterygium, stationary, bilateral 05/28 Vitreous degeneration, bilateral 06/22/2024 Encounters Date Type Department Care Team Description 12/07/2024 3:00 PM EDT Office Visit [facility] [address] [place] [address] Alessandra Esparza Dental plaque (Primary Dx); Missing teeth, acquired; Dental caries 12/07/2024 2:30 PM EDT Office Visit [facility] [address] [place] [address] Jose Aguilera DMD 10/16/2024 1:30 PM EDT Office Visit [facility] [address] [place] [address] Jose Aguilera DMD from Last 3 Months [...] Sign Reading Time Taken Comments Blood Pressure 130/78 12/07/2024 3:02 PM EDT Pulse 70 10/16/2024 1:56 PM EDT Temperature - - Respiratory Rate - - Oxygen Saturation - - Inhaled Oxygen Concentration - - Weight - - Height - - Body Mass Index - - Plan of Treatment Upcoming Encounters Date Type Department Care Team (Late st Contact Info) Description 01/26/2025 2:30 PM EDT Office Visit [facility] [address] [place] [address] Scooter Alexis DDS [address] [place] [address] 06/12/2025 2:00 PM EDT Office Visit [facility] [address] [place] [address] Alessandra Esparza [address] [place] [address] Health Maintenance Due Date Last Done Comments [...] 2024 03/03/2022, 07/03/2021, 12/31/2020, Additional history exists Dental Oral Exam 06/07/2025 12/07/2024, 09/2024, 05/27/2015, Additional history exists Dental Prophylaxis 06/07/2025 12/07/2024, 0 06/05/2024, 08/22/2015, Additional history exists Tobacco Screening 12/07/2025 12/07/2024 Dental X-Ray: Full Mouth 06/04/2027 06/02/2024, 04/30 RSV Patients and Patients Aged 60 years or older (1 - 1-dose 75+ series) 2029 DTaP/Tdap/Td Vaccines (2 - Td or Tdap) 08/01/2030 08/01/2020, 12/06/2002 Pneumococcal Vaccine: 50+ Years Completed 03/04/2022, 08/01/2020, 05/29/2019 Influenza Vaccine Completed 12/04/2024, , 12/15/2023, Additional history exists HIB Vaccines Aged Out [...] Procedure Name Priority Date/Time Associated Diagnosis Comments CASE PRESENTATION, DETAILED AND EXTENSIVE TREATMENT PLANNING Routine 12/07/2024 3:00 PM EDT Dental plaque Missing teeth, acquired Dental caries ORAL HYGIENE INSTRUCTIONS Routine 12/07/2024 3:00 PM EDT Dental plaque Missing teeth, acquired PROPHYLAXIS - ADULT Routine 12/07/2024 3 :00 PM EDT Dental plaque CASE PRESENTATION, DETAILED AND EXTENSIVE TREATMENT PLANNING Routine 12/07/2024 2:30 PM EDT INTRAORAL - PERIAPICAL EACH ADDITIONAL RADIOGRAPHIC IMAGE Routine 12/07/2024 2:30 PM EDT INTRAORAL - PERIAPICAL EACH ADDITIONAL RADIOGRAPHIC IMAGE Routine 12/07/2024 2:30 PM EDT INTRAORAL - PERIAPICAL FIRST RADIOGRAPHIC IMAGE Routine 12/07/2024 2:30 PM EDT PERIODIC ORAL EVALUATION - ESTABLISHED PATIENT Routine 12/07/2024 2:30 PM EDT DENTURE ADJUSTMENT Routine 12/07/2024 2: 30 PM EDT DENTURE ADJUSTMENT Routine 10/16/2024 1: 30 PM EDT PANORAMIC RADIOGRAPHIC IMAGE Routine 06/02/2024 10:30 AM EST INTRAORAL - COMPLETE SERIES OF RADIOGRAPHIC IMAGES Routine 05/27/2015 12:00 AM EST from Last 3 Months or Most Recently Relevant to Health Maintenance Insurance DENTAL - HSN FULL (MEDICAID)
== END 2025-01-12 15:16 | disposition home or self-care (01) ==
LOC: HO.HMCH 13:53
PROVIDERS: PCP Internal Medicine; Visit Provider Internal Medicine
DX: R10.9 Unspecified abdominal pain (principal); R21 Rash and other nonspecific skin eruption

== ENCOUNTER → 2025-01-12 13:52 | Outpatient (BNVA) | payer MEDICARE, OTHER, MEDICAID, SELFPAY | PROVIDERS: PCP Internal Medicine; Visit Provider Internal Medicine | DX: R21 Rash and other nonspecific skin eruption (principal); R10.9 Unspecified abdominal pain; R14.0 Abdominal distension (gaseous) | CPT/HCPCS: 99212 ==

== ENCOUNTER 2025-02-08 09:30 | Day surgery (SDC) | payer MEDICARE, OTHER, SELFPAY ==
--- OUTSIDE RECORDS SUMMARY | 2025-01-26 13:30 | XMS_ITS | Encounter Summary ---
Author Organization [facility] Address [address] [place] [address] [address] [place] [address] Care Team Providers Care Patient Office Rep Name Role Phone Unavailable Primary Care Provider Unavailabl e Reason for Visit * Reason Comments Extraction Tooth #26 Encounter Details Date Type Department Care Team (Late st Contact Info) Description 01/26/2025 2:30 PM EDT Office Visit [facility] [address] [place] [address] Scooter Alexis DDS [address] [place] [address] Social History Tobacco Use Types Packs/Day Years [...] Sign Reading Time Taken Comments Blood Pressure 128/78 01/26/2025 2:07 PM EDT Pulse 80 01/26/2025 2:07 PM EDT Temperature - - Respiratory Rate - - Oxygen Saturation - - Inhaled Oxygen Concentration - - Weight - - Height - - Body Mass Index - - documented in this encounter Progress Notes * Scooter Alexis DDS - 01/26/2025 2:30 PM EDT Patient ID: Luis A Colorado is a 69 y.o. male. Time Out: No data recorded Location: [facility] Tooth: #26 Procedure: Extraction Verified the above with patient, promotions assistant sales marketing, and provider. Confirmed via patient's chart, intraorally and by radiographs. Landscape Crew Leader: not applicable Chief Complaint Patient presents with Extraction Tooth #26 Medical Hx: Vitals: Blood pressure 128/78, pulse 80. Medical History[1] Medications: Encounter Medications[2] Consent Obtained: The risks, benefits, indications, potential complications, and alternatives were explained to the patient and informed consent was obtained with good understanding. Treatment Provided: Dental procedures in this visit [id number] - EXTRACTION, ERUPTED TOOTH OR EXPOSED ROOT (ELEVATION/FORCEPS REMOVAL) 26 (Completed) Service provider: Scooter Alexis DDS Billing provider: Scooter Alexis DDS [id number] - CASE PRESENTATION, DETAILED AND EXTENSIVE TREATMENT PLANNING (Completed) Service provider: Scooter Alexis DDS Billing provider: Scooter Alexis DDS Diagnosis: Symptomatic Irreversible pulpitis Topical: 20% Benzocaine Anesthesia: 2% Lidocaine (Xylocaine) w/ 1:100,000 epinephrine Number of Cartridges: 1 Injection Type: Inferior alveolar nerve block and Long buccal nerve block Confirmed profound anesthesia. Pharyngeal curtain and bite block placed. Removed tooth with elevators and forceps. Apices intact. Surgical Extraction: N/A Socket curetted & irrigated with sterile water. Compressed alveolar bone. Sutures: None Needed All adjacent teeth intact. Hemostasis achieved. Complications: None Written and verbal post-op instructions given. Patient discharged in stable condition; ambulatory, alert, and oriented. NV: Impression to add tooth #26 to the existing partial Health Counselor: Cathy Dentist: Scooter Alexis DDS [1] Past Medical History: Diagnosis Date Back pain GERD (gastroesophageal reflux disease) High cholesterol Nail fungal infection on both feet Right shoulder pain [2] Outpatient Encounter Medications as of 01/26/2025 Medication Sig Dispense Refill ammonium lactate (Amlactin) 12 % cream APPLY TO AFFECTED AREAS OF DRY SKIN ON FEET (NOT BETWEEN TOES), USE TWICE DAILY clotrimazole-betamethasone (Lotrisone) cream APPLY TOPICALLY 2 TIMES A DAY FOR BALANITIS FOR 4 WEEKS Hypromellose 0.3 % gel Apply to affected eye(s). lidocaine (Lidoderm) 5 % patch Apply topically. melatonin tablet TAKE 2 TABLETS BY MOUTH AT BEDTIME NEEDED FOR FOR INSOMNIA omeprazole (PriLOSEC) [address] capsule Take 1 capsule by mouth Once per day. suvorexant (Belsomra) 5 MG tablet Take 1 tablet by mouth at bedtime. tamsulosin (Flomax) 0.4 MG 24 hr capsule Take 1 capsule by mouth at bedtime. acetaminophen (Tylenol) 500 MG tablet Take 1 tablet (500 mg) by mouth every 8 (eight) hours if needed for mild pain for up to 7 days. 21 tablet 0 amoxicillin (Amoxil) 500 MG capsule Take 1 capsule (500 mg) by mouth every 8 (eight) hours for 7 days. 21 capsule 0 ibuprofen 600 MG tablet Take 1 tablet (600 mg) by mouth 3 times daily for 7 days. 21 tablet 0 No facility-administered encounter medications on file as of 01/26/2025. documented in this encounter Plan of Treatment Upcoming Encounters Date Type Department Care Team (Late st Contact Info) Description 02/09/2025 11:30 AM EST Office Visit [facility] [address] [place] [address] 02/16/2025 10:30 AM EST Office Visit [facility] [address] [place] [address] Jose Aguilera, TRACY [address] [place] [address] 06/12/2025 2:00 PM EDT Office Visit [facility] [address] [place] [address] Alessandra Esparza [address] [place] [address] Scheduled Orders Name Type Priority Associated Diagnoses Orde r Schedule RE-EVAL - POST-OP OFFICE VISIT Dental Routine [address] arting 01/26/2025 documented as of this encounter Procedures Procedure Name Priority Date/Time Associated Diagnosis Comments 26 EXTRACTION, ERUPTED TOOTH OR EXPOSED ROOT (ELEVATION/FORCEPS REMOVAL) Routine 01/26/2025 2:30 PM EDT CASE PRESENTATION, DETAILED AND EXTENSIVE TREATMENT PLANNING Routine 01/26/2025 2:30 PM EDT documented in this encounter Visit Diagnoses Not on filedocumented in this encounter
--- OUTSIDE RECORDS SUMMARY | 2025-01-30 08:12 | XMS_ITS | Clinical Summary ---
Author Organization [employer] Address [address] [facility] [address] [place] [address] Care Team Providers Care Maintenance Instructor Name Role Phone Unavailable Primary Care Provider [...] tablet by mouth at bedtime. 0 Active amoxicillin (Amoxil) 500 MG capsule Take 1 capsule (500 mg) by mouth every 8 (eight) hours for 7 days. 21 capsule 5 02/03/20 25 Active ibuprofen 600 MG tablet Take 1 tablet (600 mg) by mouth 3 times daily for 7 days. 21 tablet 5 02/03/20 25 Active acetaminophen (Tylenol) 500 MG tablet Take 1 tablet (500 mg) by mouth every 8 (eight) hours if needed for mild pain for up to 7 days. 21 tablet 02/03/20 25 Active Active Problems Problem Noted Date Diagnosed Date Mixed hyperlipidemia 01/26/2025 Adhesive capsulitis of shoulder 06/22/2024 Anxiety 06/22/2024 [...] s aiden episode, severe with psychotic features (CMS/HCC) 06/22/2024 Need for immunization against influenza 06/23/19 25 Obesity 06/22/2024 Right lower quadrant abdominal pain 06/22/2024 Sleep apnea, unspecified 06/22/2024 Obstructive sleep apnea (adult) (pediatric) 05/28 Peripheral pterygium, stationary, bilateral 05/28 Vitreous degeneration, bilateral 06/22/2024 Encounters Date Type Department Care Team Description 01/26/2025 2:30 PM EDT Office Visit [facility] [address] [place] [address] Scooter Alexis DDS 12/07/2024 3:00 PM EDT Office Visit [facility] [address] [place] [address] Alessandra Esparza Dental plaque (Primary Dx); Missing teeth, acquired; Dental caries 12/07/2024 2:30 PM EDT Office Visit [facility] [address] [place] [address] Jose Aguilera DMD from Last 3 Months [...] Description 02/09/2025 11:30 AM EST Office Visit [facility] [address] [place] [address] 02/16/2025 10:30 AM EST Office Visit [facility] [address] [place] [address] Jose Aguilera, TRACY [address] [place] [address] 06/12/2025 2:00 PM EDT Office Visit [facility] [address] [place] [address] Alessandra Esparza [address] [place] [address] Health Maintenance Due Date Last Done Comments [...] 06/05/2024, 08/22/2015, Additional history exists Tobacco Screening 01/26/2026 01/26/2025 Dental X-Ray: Full Mouth 06/04/2027 06/02/2024, 04/30 RSV Patients and Patients Aged 60 years or older (1 - 1-dose 75+ series) 2029 DTaP/Tdap/Td Vaccines (2 - Td or Tdap) 08/01/2030 08/01/2020, 12/06/2002 Pneumococcal Vaccine: 50+ Years Completed 03/04/2022, 08/01/2020, 05/29/2019 Influenza Vaccine Completed 12/06/2024, , 01/06/2024, Additional history exists HIB Vaccines Aged Out [...] TREATMENT PLANNING Routine 01/26/2025 2:30 PM EDT 26 EXTRACTION, ERUPTED TOOTH OR EXPOSED ROOT [...] ADJUSTMENT Routine 12/07/2024 2: 30 PM EDT PANORAMIC RADIOGRAPHIC IMAGE Routine 06/02/2024 10:30 AM EST INTRAORAL - COMPLETE SERIES OF RADIOGRAPHIC IMAGES Routine 05/27/2015 12:00 AM EST from Last 3 Months or Most Recently Relevant to Health Maintenance Insurance DENTAL - HSN FULL (MEDICAID) [id number]
--- OUTSIDE RECORDS SUMMARY | 2025-01-30 08:13 | XMS_ITS | Patient Health Record ---
Author Organization [facility] Address [address] [place] [address] Care Team Providers Care Intake Coordinator Name Role Phone David TRISTAN, Jose Primary Care Provider Kali Boudreaux Unavailable [phone] Reason For Referral No Information Medications Medication [...] W/U Status Risk Notes Problem Pre-surgery evaluation (836186755) Other specified pre-operative examination (V72.83) Active confirmed Problem Colon cancer screening (769797390) Colon cancer screening (V76.51) Active confirmed Plan Of Treatment Future Test Test Name Order Date COLONOSCOPY 01/25/2014 Insurance Providers Payer Name Payer Address Payer Phone Subscriber Number Group Number Insured Name Patient Relationship to Insured Coverage Start Date Coverage End Date MEDICARE OF [place] [address] [place] [phone] [id number] HUMBERTO GUILLEN Self - patient is the insured [facility] [address] [place] [address] [id number] HUMBERTO GUILLEN Self - patient is the insured Medical (General) History Medical History History ICD Code ? NE in 1990--whiile living in [place]--not clear about the details--no problems since Denies CVA,DM,Lung disease,renal disease Describes a negative colonoscopy in [facility] at around age 49 Hyperlipidemia Kidney stones--ESWL, Cystoscopies Perianal condylomata as below Surgical History Surgery Date(Month/Year) appendectomy Fulguration of perianal condyloma in 05/[address] Verdugo
--- NOTE | 2025-02-05 13:43 | P.CONAN_ITS ---
Documented by User: Sri Macias NP 02/05/25 13:44 HPI - Anesthesia Eval Consult details Narrative: 69yo M for Colonoscopy [facility] Active Problems Active Problems: All Active Problems Rash (Acute) Abdominal pain (Acute) Medicare annual wellness visit, subsequent (Acute) Obesity (BMI 30-39.9) (Acute) Impaired fasting glucose (Acute) Mixed hyperlipidemia (Acute) Hyperglycemia (Acute) Knee pain (Acute) Gallstones (Acute) BPH (benign prostatic hyperplasia) (Acute) Thrombosed external hemorrhoid (Acute) Tubular adenoma of colon (Acute) Allergic rhinitis (Acute) BPH loc w urin obs/LUTS (Acute) Renal stones (Acute) Insomnia (Acute) IBS (irritable bowel syndrome) (Acute) GERD (gastroesophageal reflux disease) (Acute) Hyperlipidemia (Acute) Past Medical History Medical History Obesity (BMI 30-39.9) GERD (gastroesophageal reflux disease) Impaired fasting glucose Mixed hyperlipidemia Obesity BMI 31.0-31.9,adult Abnormality of penis Balanitis Tinea cruris Thrombosed external hemorrhoid Chronic GERD Other obstructive and reflux uropathy Renal stones Chronic superficial gastritis without bleeding BPH loc w urin obs/LUTS Insomnia Tubular adenoma of colon Family History Family History Father No problems noted. Mother HTN (hypertension) Asthma Sister HTN (hypertension) Throat cancer Surgical History Surgical History History of esophagogastroduodenoscopy (EGD) Hx of colonoscopy History of appendectomy Social History Social History Housing: Apartment Alcohol intake: never Patient Tobacco Use Status: Never used Tobacco e-Cigarette/Vaping Use: Never Used Second Hand Smoke Exposure: No Use of substances other than those prescribed or required for medical reasons: No Advance Directives: Yes Advance Directives on File: Yes Advance Directives Date on File: 02/08/25 service: Yes ([employer]) Current occupational status: retired Cognitive needs: No Hearing needs: No Vision needs: Yes (glasses) Meds Allergies Allergy/AdvReac Type Severity Reaction Status Date / Time lovastatin Allergy Unknown GI upset Verified 01/12/25 14:17 Home Medications ?Medication ?Instructions ?Recorded ?Confirmed ?Last Taken ?Type atorvastatin 20 mg tablet (Lipitor) 20 mg PO BEDTIME 0 12/07/24 02/06/25 Unknown History Exam Pertinent Lab Results Pertinent Lab Results: Laboratory Tests 12/01/24 08:26 WBC 7.1 Hgb 16.1 Hct 48.2 Plt Count 260 Sodium 142 Potassium 5.0 D Chloride 103 Carbon Dioxide 30 H BUN 11 Creatinine 1.03 Assessment and Plan Assessment Anesthesia Assessment: Chart Reviewed Documented by User: Samira aMrtinez MD 02/08/25 10:39 PMFSH Past Medical History Medical History Obesity (BMI 30-39.9) GERD (gastroesophageal reflux disease) Impaired fasting glucose Mixed hyperlipidemia Obesity BMI 31.0-31.9,adult Abnormality of penis Balanitis Tinea cruris Thrombosed external hemorrhoid Chronic GERD Other obstructive and reflux uropathy Renal stones Chronic superficial gastritis without bleeding BPH loc w urin obs/LUTS Insomnia Tubular adenoma of colon Family History Family History Father No problems noted. Mother HTN (hypertension) Asthma Sister HTN (hypertension) Throat cancer Surgical History Surgical History History of esophagogastroduodenoscopy (EGD) Hx of colonoscopy History of appendectomy History of Problems with Anesthesia: No Social History Social History Housing: Apartment Alcohol intake: never Patient Tobacco Use Status: Never used Tobacco e-Cigarette/Vaping Use: Never Used Second Hand Smoke Exposure: No Use of substances other than those prescribed or required for medical reasons: No Advance Directives: Yes Advance Directives on File: Yes Advance Directives Date on File: 02/08/25 service: Yes ([employer]) Current occupational status: retired Cognitive needs: No Hearing needs: No Vision needs: Yes (glasses) Meds Allergies Allergy/AdvReac Type Severity Reaction Status Date / Time lovastatin Allergy Unknown GI upset Verified 01/12/25 14:17 Home Medications ?Medication ?Instructions ?Recorded ?Confirmed ?Last Taken ?Type atorvastatin 20 mg tablet (Lipitor) 20 mg PO BEDTIME 0 12/07/24 02/06/25 Unknown History Exam Airway Mallampati Class: III TM Dist: >3cm Neck ROM: Full Loose/Missing/Broken Teeth: Yes and Lower Heart: RRR Lungs: CTA Assessment and Plan Assessment Anesthesia Assessment: Anesthesia Plan Discussed Final Anesthetic Review History of Problems with Anesthesia: No NPO: Yes ASA Class: II Patient Risk: Low Procedure Risk: Low Anesthetic Plan Anesthetic Plan: MAC: Disposition: Standard PACU
[2025-02-06 09:58] VITALS: BMI 32.4
[2025-02-08 09:40] VITALS: BMI 31.8
[2025-02-08] MEDS: Lactated Ringers 1,000 ML 100 ML IVCONT (09:54)
[2025-02-08 09:55] VITALS: BP 133/71; PULSE 80; RESP 16; TEMP 36.3; O2SAT 96
--- NOTE | 2025-02-08 10:05 | MHC.SHP ---
Pre-Procedural Eval Section A - 24 Hr Update-Section A only Date of Service: 02/08/25 Section B - Complete if H&P > 30 days Chief Complaint: Hx of polyps Details of Present Illness: Encounter for subsequent annual wellness visit (AWV) in Medicare patient Upper abdominal pain Back pain Screening for diabetes mellitus Dizziness Shoulder pain Left foot pain Obesity Ankle pain BMI 31.0-31.9,adult Adult general medical exam Abnormality of penis Balanitis Tinea cruris Abdominal bloating Thrombosed external hemorrhoid Chronic GERD Urinary frequency Other obstructive and reflux uropathy Renal stones Chronic superficial gastritis without bleeding BPH loc w urin obs/LUTS Insomnia Tubular adenoma of colon Surgical History History of esophagogastroduodenoscopy (EGD) Hx of colonoscopy History of appendectomy Present Medications: see Short Stay Collaborative assessment Allergies: Allergies Allergy/AdvReac Type Severity Reaction Status Date / Time lovastatin Allergy Unknown GI upset Verified 01/12/25 14:17 Review of Systems Review of Systems Comment: Ten point ROS negative Exam Exam Comment: Gen appear: No acute distress HEENT: no icterus Chest: No overt resp distress Abd: soft, nontender, nondistended Psych: Stable affect, answering questions appropriately Neuro: A/Ox3 noted to move all extremities spontaneously Ext: no peripheral edema Plan Diagnosis/Plan: Unchanged I have reviewed the history and physical and performed a pertinent physical examination on my patient. No changes have occurred unless specified. Time Spent With Patient Time: Total time managing care of this patient today ____ minutes.
--- NOTE | 2025-02-08 11:16 | P.OPN-COLO_ITS ---
Colonoscopy Operative Note Operative Note Date of Service: 02/08/25 Narrative: Procedure: Colonoscopy Indication: Personal history of polyps Endoscopist: Tiara Oliver MD Anesthesia Provider: Dr Samira Martinez Anesthesia type: MAC Instrument: Olympus [id number]-[id number] Consent: Indication, risks vs benefits, and alternatives were discussed with the patient who gave written informed consent to proceed. EKG, pulse, pulse oximetry and blood pressure were monitored throughout the procedure. Please see anesthesia flowsheet. Procedure: The patient was brought to the procedure room and placed in the left lateral decubitus position. IV medications were administered by the anesthesia provider in attendance. A digital rectal exam was performed which was normal. A distal attachment cap was affixed to the tip of the colonoscope which was then inserted through the anus and advanced through the colon to the cecum at 75 cm,and terminal ileum. Appendiceal orifice and ileocecal valve were identified. Mucosa was carefully examined under high definition white light as the instrument was slowly withdrawn in a retrograde panoramic fashion. Retroflexion was performed in rectum. The procedure was not difficult. There were no immediate obvious complications. The quality of the prep was BBPS: 3+3+3 = adequate Withdrawal time 12 minutes. Limitations: No limitations. Findings: Mucosa: Normal to cecum and terminal ileum. Protruding lesions: * 2 sessile polyps of size 3-5 mm in descending colon. Cold snare polypectomy was performed. The polyps were completely removed and retrieved. * 3 sessile polyps of size 2-8 mm in sigmoid colon. Cold snare polypectomy was performed. The polyps were completely removed and retrieved. * 1 sessile polyp of size 6 mm in rectum. Cold snare polypectomy was performed. The polyp was completely removed and retrieved. * Medium internal hemorrhoids without stigmata of recent bleeding. Excavated lesions: * Rare diverticula in sigmoid colon. Impression: 1. Normal colon and terminal ileum mucosa 2. Total of 6 polyps removed 3. Diverticulosis 4. Internal hemorrhoids Recommendations: - Follow path results. - Repeat colonoscopy in 3-5 years depending on the results.
[2025-02-08 11:18] VITALS: BP 91/59; PULSE 61; RESP 15; TEMP 37.1; O2SAT 95
[2025-02-08 11:30] VITALS: BP 116/76; PULSE 61; RESP 15; TEMP 520.3; TEMP 968.6; O2SAT 95
== END 2025-02-08 12:09 | disposition home or self-care (01) ==
PROVIDERS: PCP Internal Medicine; Visit Provider Internal Medicine
PROC: 0DJD8ZZ Inspection of Lower Intestinal Tract, Via Natural or Artificial Opening Endoscopic (ICD-10-PCS; CPT 45378; principal; 2025-02-08 11:30)
DX: Z12.11 Encounter for screening for malignant neoplasm of colon (principal); Z86.0101 Personal history of adenomatous and serrated colon polyps; D12.4 Benign neoplasm of descending colon; K63.5 Polyp of colon; K62.1 Rectal polyp; K57.30 Diverticulosis of large intestine without perforation or abscess without bleeding; K64.8 Other hemorrhoids; K21.9 Gastro-esophageal reflux disease without esophagitis; K80.20 Calculus of gallbladder without cholecystitis without obstruction; N40.1 Benign prostatic hyperplasia with lower urinary tract symptoms; N13.8 Other obstructive and reflux uropathy; R35.0 Frequency of micturition; N20.0 Calculus of kidney; N48.1 Balanitis; E66.9 Obesity, unspecified; Z68.32 Body mass index [BMI] 32.0-32.9, adult; Z79.899 Other long term (current) drug therapy; Z88.8 Allergy status to other drugs, medicaments and biological substances
CPT/HCPCS: 45385; 88305; J2003; J2704

== ENCOUNTER → 2025-02-08 09:30 | Outpatient (BNV) | payer MEDICARE, OTHER, SELFPAY | PROVIDERS: PCP Internal Medicine; Visit Provider Internal Medicine | DX: Z12.11 Encounter for screening for malignant neoplasm of colon (principal); K63.5 Polyp of colon; K57.30 Diverticulosis of large intestine without perforation or abscess without bleeding; K64.8 Other hemorrhoids | CPT/HCPCS: 45385 ==

== ENCOUNTER 2025-02-13 10:53 | Outpatient (AMB) | payer MEDICARE, OTHER, MEDICAID, SELFPAY ==
[2025-02-13 11:02] VITALS: BMI 32.6
--- NOTE | 2025-02-13 11:02 | A.OFFVIS_ITS ---
Vital Signs 02/13/25 11:02 Height 5 ft 9 in Weight 220 lb 7.396 oz BMI 32.6 Intake Visit Reasons: s/p Colonoscopy Intake Note: Patient in office today s/p colonoscopy. CC: Patient reports doing well and denies having any GI symptoms or concerns today. 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 He continues to be asymptomatic with regards to gallstones discovered incidentally on a past imaging study. He is aware that he is due for repeat colonoscopy and is agreeable to getting this scheduled. He denies any cardiac or respiratory problems. There are no prior problems with anesthesia or sedation. There are no infectious disease problems. He has a history of tubular adenomas. Orders: Orders Colonoscopy - GI Use Only Today D12.6 - Benign neoplasm of colon, u nspecified, K80.20 - Calculus of gallbladder without cholecystitis without obstruction Medications: New sodium,potassium,mag sulfates 17.5-3.13-1.6 gram (Suprep Bowel Prep Kit) 480 mL orally; FOR COLONOSCOPY PREP 354 mL 0RF Discontinued benzonatate Discontinued Reason: Patient no longer taking 100 mg PO BID 7 days PRN 14 caps 0RF cough y COLONOSCOPY Findings: Mucosa: Normal to cecum and terminal ileum. Protruding lesions: * 2 sessile polyps of size 3-5 mm in descending colon. Cold snare polypectomy was performed. The polyps were completely removed and retrieved. * 3 sessile polyps of size 2-8 mm in sigmoid colon. Cold snare polypectomy was performed. The polyps were completely removed and retrieved. * 1 sessile polyp of size 6 mm in rectum. Cold snare polypectomy was performed. The polyp was completely removed and retrieved. * Medium internal hemorrhoids without stigmata of recent bleeding. Excavated lesions: * Rare diverticula in sigmoid colon. Impression 1. Normal colon and terminal ileum mucosa 2. Total of 6 polyps removed 3. Diverticulosis 4. Internal hemorrhoids Recommendations: - Follow path results. - Repeat colonoscopy in 3-5 years depending on the results. BIOPSY Received: 02/08/25 Diagnosis A. Colon, sigmoid, polypectomies: Colonic mucosa with prominent lymphoid aggregates. B. Colon, descending, polypectomies: - Tubular adenoma; negative for high-grade dysplasia or carcinoma. - Hyperplastic mucosal polyp. C. Rectum, polypectomy: Colonic mucosa with prominent lymphoid aggregate TODAY'S VISIT THE PROCEDURE SHOULD BE REPEATED in 5 years as only 1 of the 4 polyps was actually a tubular adenoma. The procedure was well tolerated. The results were explained and the patient is agreeable to the follow-up interval as stated. The bowel pattern has returned to normal. Education was provided to tell any 1st degree relatives about their findings to be sure that they are screened by age 45. Educated that they will be put on a recall list when it is time for their repeat scope but should they move out of state or away from the hospital they will need to remember along with their primary to repeat the procedure in a timely fashion to avoid any adverse complications. [facility] Medical History Obesity (BMI 30-39.9) GERD (gastroesophageal reflux disease) Impaired fasting glucose Mixed hyperlipidemia Obesity BMI 31.0-31.9,adult Abnormality of penis Balanitis Tinea cruris Thrombosed external hemorrhoid Chronic GERD Other obstructive and reflux uropathy Renal stones Chronic superficial gastritis without bleeding BPH loc w urin obs/LUTS Insomnia Tubular adenoma of colon Surgical History History of esophagogastroduodenoscopy (EGD) Hx of colonoscopy History of appendectomy Family History Father No problems noted. Mother HTN (hypertension) Asthma Sister HTN (hypertension) Throat cancer Social History Housing: Apartment Alcohol intake: never Patient Tobacco Use Status: Never used Tobacco e-Cigarette/Vaping Use: Never Used Second Hand Smoke Exposure: No Advance Directives Date on File: 02/08/25 service: Yes ([employer]) Current occupational status: retired Cognitive needs: No Hearing needs: No Vision needs: Yes (glasses) Review of Systems Const Denies fatigue, Denies fever(s), Denies night sweats, Denies poor appetite and Denies weight loss ENT Reports Normal hearing present, Denies dental pain, Denies dysphagia, Denies hearing loss, Denies mouth pain, Denies odynophagia, Denies throat swelling, Den ies tongue swelling and Reports other (Dentition adequate) Card Reports no additional complaints Resp Reports no additional complaints GI Details: Denies abdominal pain, Denies melena, Reports bloating, Denies hematochezia, Denies constipation, Denies GI cramping, Denies dysphagia, Denies excessive flatus, Denies early satiety, Reports dyspepsia, Reports heartburn, Denies diarrhea, Denies nausea, Denies odynophagia, Denies vomiting and Denies hematemesis Skin/Breast Denies pruritus, Denies lesions, Denies rash and Denies jaundice Neuro Reports Normal hearing present and Denies Abnormal speech present Endo Denies fatigue Aller/Immun Denies throat swelling and Denies tongue swelling Physical Exam Vital Signs: BMI result Body Mass Index 32.6 Const General: cooperative, no acute distress, well developed and well groomed Nutritional Appearance: well nourished and obese Orientation/consciousness: oriented to person, oriented to place and oriented to time Limitations: No language barrier HEENT Head: Yes normocephalic and Yes atraumatic Eyes General: appearance normal, both eyes and all related structures Pupils: Equal, round and reactive pupils present Neck Neck: Yes normal visual inspection and Yes no lymphadenopathy Thyroid: Thyroid normal Resp Effort & Inspection: normal respiratory effort and able to speak in complete sentences Auscultation: clear to auscultation bilaterally Cardio Rate: regular rate Rhythm: regular rhythm Heart sounds: Normal, physiologic split S2 sound present Peripheral pulses: radial pulses present and posterior tibial pulses present GI Inspection: No distended, No Abdominal panniculus present and Yes obesity Palpation (GI): Soft to palpation, nontender, no guarding, not rigid and No hepatosplenomegaly present Percussion: Yes normal to percussion Auscultation: normal bowel sounds Rectal Exam - Male: Yes deferred Skin General skin exam: no rashes or lesions noted, turgor normal, skin not dry, no jaundice, No spider nevi and no striae Rashes: no rashes Nails: normal Neuro General: oriented to person, oriented to place and oriented to time Cranial nerves: Yes Equal, round and reactive pupils present and Yes Normal hearing present Speech: No Abnormal speech present Extrem General: Yes normal to inspection, No clubbing, No cyanosis and No edema Psych Appearance: grossly normal and well kempt Mental Status: mental status grossly normal Speech and movement: Normal speech and movement present Affect: normal affect Attitude: cooperative Thought process: Normal thought process present and not confabulating Thought content: Normal thought content present Insight: Good insight present (Psych) Judgement: Good judgement present (Psych) Results Reviewed Results Reviewed: COLONOSCOPY Findings: Mucosa: Normal to cecum and terminal ileum. Protruding lesions: * 2 sessile polyps of size 3-5 mm in descending colon. Cold snare polypectomy was performed. The polyps were completely removed and retrieved. * 3 sessile polyps of size 2-8 mm in sigmoid colon. Cold snare polypectomy was performed. The polyps were completely removed and retrieved. * 1 sessile polyp of size 6 mm in rectum. Cold snare polypectomy was performed. The polyp was completely removed and retrieved. * Medium internal hemorrhoids without stigmata of recent bleeding. Excavated lesions: * Rare diverticula in sigmoid colon. Impression 1. Normal colon and terminal ileum mucosa 2. Total of 6 polyps removed 3. Diverticulosis 4. Internal hemorrhoids Recommendations: - Follow path results. - Repeat colonoscopy in 3-5 years depending on the results. BIOPSY Received: 02/08/25 Diagnosis A. Colon, sigmoid, polypectomies: Colonic mucosa with prominent lymphoid aggregates. B. Colon, descending, polypectomies: - Tubular adenoma; negative for high-grade dysplasia or carcinoma. - Hyperplastic mucosal polyp. C. Rectum, polypectomy: Colonic mucosa with prominent lymphoid aggregate Assessment & Plan Assessment & Plan (1) GERD (gastroesophageal reflux disease): Code(s): K21.9 - Gastro-esophageal reflux disease without esophagitis Category: Medical Qualifiers: Esophagitis presence: without esophagitis Qualified Code(s): K21.9 - Gastro-esophageal reflux disease without esophagitis Plan He continues to do very well on his omeprazole and is quite pleased with his GI regimen. He continues to be asymptomatic with regards to gallstones discovered incidentally on a past imaging study. He had 1 incident of borborygmus and upset stomach a couple weeks ago in try to get in to see me but my schedule is full. He presented to the walk-in clinic and they instructed him to take 2 of his 20 mg omeprazole, and to take it in the morning instead of at bedtime. He feels that this resolve the symptoms. I will change him to 140 mg tablet to simplify the pill burden, but it is also possible that his gallstones that have been asymptomatic in the past caused him problems secondary to a higher fat meal. He does not really remember what he ate that day. We will have to keep an eye on this. THE PROCEDURE SHOULD BE REPEATED in 5 years as only 1 of the 4 polyps was actually a tubular adenoma. The procedure was well tolerated. The results were explained and the patient is agreeable to the follow-up interval as stated. The bowel pattern has returned to normal. Education was provided to tell any 1st degree relatives about their findings to be sure that they are screened by age 45. Educated that they will be put on a recall list when it is time for their repeat scope but should they move out of state or away from the hospital they will need to remember along with their primary to repeat the procedure in a timely fashion to avoid any adverse complications. Patient presents for post-colonoscopy follow-up and ongoing management of heartburn. During recent colonoscopy, multiple lesions were removed; pathology showed only one was a true polyp. Patient reports prior episode of stomach discomfort for which he sought care when unable to get an appointment; since then he has been taking omeprazole in the morning as instructed and symptoms have improved. He has been taking two 20 mg omeprazole tablets each morning; he agrees with switching to a single 40 mg capsule daily. He notes intermittent stomach discomfort that improves with hydration and acknowledges a tendency to under-drink fluids. He reports history of dry eyes diagnosed at the MD and uses drops as advised. Previously prescribed simethicone for bloating; not currently using as symptoms are controlled but would like to keep it available as needed. Bowel movements are normal without constipation or diarrhea. Return office visit in 6 months Medications: New omeprazole 40 mg PO DAILY 30 caps 6RF 30 days K21.9 - Gastro-esophageal reflux disease without esophagitis Refilled simethicone (Gas Relief (simethicone)) 125 mg PO TID-QID PRN 30 caps 6RF abdominal distention Discontinued omeprazole Discontinued Reason: Doctor's Order 40 mg (2 x 20 mg) PO DAILY 90 caps 2RF Coding Level of Care Code Est Pt Level 3 (93358) Diagnoses Gastroesophageal reflux disease without esophagitis K21.9 Esophagitis presence: without esophagitis
== END 2025-02-13 11:36 | disposition home or self-care (01) ==
LOC: HO.HGI 10:55
PROVIDERS: PCP Internal Medicine; Visit Provider Nurse Practitioner
DX: K21.9 Gastro-esophageal reflux disease without esophagitis (principal)
CPT/HCPCS: 99213

== ENCOUNTER → 2025-02-13 10:53 | Outpatient (BNVA) | payer MEDICARE, OTHER, MEDICAID, SELFPAY | PROVIDERS: PCP Internal Medicine; Visit Provider Nurse Practitioner | DX: K21.9 Gastro-esophageal reflux disease without esophagitis (principal); D12.6 Benign neoplasm of colon, unspecified; K80.20 Calculus of gallbladder without cholecystitis without obstruction; E66.9 Obesity, unspecified; Z68.32 Body mass index [BMI] 32.0-32.9, adult | CPT/HCPCS: 99212 ==